=== PATIENT | male | born 1950 | race Caucasian/White ===

== ENCOUNTER → 2016-06-03 | Outpatient (CLI) | payer MEDICARE, OTHER ==
--- NOTE | 2016-06-04 07:19 | PN ---
DATE OF SERVICE: 06/03/2016 A 65-year-old gentleman who has been followed in the sleep center for treatment of obstructive sleep apnea-hypopnea syndrome and sleepiness possibly related to narcolepsy. Presently, the patient continued to use his CPAP equipment every night for the whole night without any significant problems. No snoring with the machine. CPAP pressure is 10 cm of water. At the end of 2015, patient had multiple sleep latency test after the night with CPAP and this test confirmed pathological sleepiness during the day. Mean sleep latency was very short, only 2.6 minutes, which indicates possibility of diagnosis of narcolepsy. After that patient was recommended to start treatment with modafinil, but he went to different pharmaceutical company and he was refused to given him that medication. He continued to feel sleepiness during the day. [place] Sleepiness Scale increased to 21. Today again with the usage of CPAP every night and normal sleep schedule. MEDICATIONS: ( ), metformin, vitamin D, aspirin, montelukast, bupropion, lisinopril, Levemir, and Enbrel. PHYSICAL EXAMINATION: During physical exam, the patient in no distress. VITAL SIGNS: BP 112/71, HR 74, RR 16, height 5 feet ( ) inch, weight 201. BMI 31.9, temperature 97.8. Oxygen saturation at room air 93%. HEENT: PERRLA, EOMI, Evaluation of the oropharynx showed extremely low position of soft palate. tongue protrudes midline. NECK: Supple. No JVD, Thyroid is not palpable. LUNGS: Clear to percussion and to auscultation. Good air exchange. No wheezing or rhonchi. HEART: S1, S2 regular. No murmurs, gallops, or rubs. ABDOMEN: Slightly obese. PERSONAL LINES SALES REP: Awake, alert, and oriented x3. Cranial nerves 2 to 7 intact. There is no fasciculation or atrophy noted. No focal deficits observed. IMPRESSION: 1. Obstructive sleep apnea-hypopnea syndrome. Patient is using his CPAP equipment every night. No snoring with the machine. 2. Patient continued to have sleepiness. Multiple sleep latency test confirmed pathological sleepiness. Possible narcolepsy. 3. Obesity. 4. Diabetes mellitus. 5. Depression. 6. Chronic obstructive pulmonary disease. 7. Status post neck surgery. 8. Status post uvulopalatopharyngoplasty. PLAN: 1. Patient should be started on treatment with modafinil adjusting dose to prevent any excessive daytime sleepiness. 2. Sleep hygiene with regular time in bed for at least 8 hours. 3. No driving if feeling any sleepiness. 4. Daytime naps permitted. We will work on authorization to get for patient modafinil. Thank you very much for allowing me to participate in the management your patient. Sincerely, Kleber Addison MD, PhD, FAASM Diplomat of [place] [employer], Sleep Medicine Board by [place] [employer] [place] [employer] [facility] [place]
== END | disposition home or self-care (01) ==
LOC: SLEEP 16:04
PROVIDERS: ATTEND Internal Medicine
DX: G47.33 Obstructive sleep apnea (adult) (pediatric) (principal); E66.9 Obesity, unspecified; Z68.31 Body mass index [BMI] 31.0-31.9, adult; E11.9 Type 2 diabetes mellitus without complications; F32.9 Major depressive disorder, single episode, unspecified; J44.9 Chronic obstructive pulmonary disease, unspecified; Z98.890 Other specified postprocedural states; Z79.84 Long term (current) use of oral hypoglycemic drugs; Z79.899 Other long term (current) drug therapy

== ENCOUNTER 2016-11-04 11:53 | Emergency (ER) | payer MEDICARE, OTHER ==
[2016-11-04 12:00] VITALS: RESP 18
[2016-11-04] MEDS ORDERED: SODIUM CHLORIDE 0.9% 1,000 ML IV STA ×2 (12:12)
--- NOTE | 2016-11-04 12:41 | ED ---
General Adult HPI - General Chief complaint: Chest Pain Stated complaint: CHEST PAIN, DIZZINESS Time Seen by Provider: 11/04/16 12:11 Source: patient, RN notes reviewed, old records reviewed Mode of arrival: wheelchair Limitations: no limitations - History of Present Illness Initial comments: This is a 66-year-old male the ER for evaluation. This patient presents for evaluation of significant weakness, generalized not feeling well, apathy. Patient states he feels like he is going to . Patient's unsure how to describe apparatuses not feel well. No chest pain no headache or abdominal pain no recent nausea vomiting or diarrhea no travel history no sick contacts. No rashes. No change in medications. - Related Data Home Medications Medication Instructions Recorded Confirmed Aspirin 81 mg PO DAILY 01/31/15 11/04/16 Etanercept [Enbrel] 50 mg SQ WE 01/31/15 11/04/16 Folic Acid 1 mg PO DAILY 01/31/15 11/04/16 Lisinopril [Zestril] 2.5 mg PO DAILY 01/31/15 11/04/16 Simvastatin [Zocor] 80 mg PO HS 01/31/15 11/04/16 buPROPion [Wellbutrin] 75 mg PO DAILY 01/31/15 11/04/16 metFORMIN HCL [Glucophage] 500 mg PO BID 01/31/15 11/04/16 Albuterol Sulfate [Ventolin HFA] 2 puff INHALATION RT-QID PRN 07/22/15 11/04/16 Insulin Aspart [NovoLOG Flexpen] 25 units SQ BID 07/22/15 11/04/16 Insulin Detemir [Levemir Flextouch] 75 units SQ BID 07/22/15 11/04/16 Montelukast [Singulair] 10 mg PO HS 07/22/15 11/04/16 Ibuprofen [Advil] 400 mg PO Q6HR PRN 11/04/16 11/04/16 Allergies Allergy/AdvReac Type Severity Reaction Status Date / Time No Known Allergies Allergy Verified 11/04/16 12:28 Review of Systems ROS Statement: Those systems with pertinent positive or pertinent negative responses have been documented in the HPI. ROS Other: All systems not noted in ROS Statement are negative. Past Medical History Past Medical History: Asthma, COPD, Diabetes Mellitus, Hyperlipidemia, Hypertension, Rheumatoid Arthritis (RA), Sleep Apnea/CPAP/BIPAP Additional Past Medical History / Comment(s): family hx. colon cancer, supposed to use CPAP History of Any Multi-Drug Resistant Organisms: None Reported Past Surgical History: Cholecystectomy, Orthopedic Surgery, Tonsillectomy Additional Past Surgical History / Comment(s): surg. for sleep apnea, carpal tunnel surg., tarsal tunnel surg. for feet, cervical fusion Past Anesthesia/Blood Transfusion Reactions: No Reported Reaction Past Psychological History: No Psychological Hx Reported Smoking Status: Current every day smoker Past Alcohol Use History: None Reported Past Drug Use History: None Reported - Past Family History Father Family Medical History: Cancer, COPD Brother(s) Family Medical History: Coronary Artery Disease (CAD), Rheumatoid Arthritis (RA) Sister(s) Family Medical History: COPD, CVA/TIA Daughter(s) Family Medical History: No Reported History Mother Family Medical History: Cancer General Exam Limitations: no limitations General appearance: alert, in no apparent distress Head exam: Present: atraumatic, normocephalic, normal inspection Eye exam: Present: normal appearance, PERRL, EOMI. Absent: scleral icterus, conjunctival injection, periorbital swelling ENT exam: Present: normal exam, mucous membranes moist Neck exam: Present: normal inspection. Absent: tenderness, meningismus, lymphadenopathy Respiratory exam: Present: normal lung sounds bilaterally. Absent: respiratory distress, wheezes, rales, rhonchi, stridor Cardiovascular Exam: Present: regular rate, normal rhythm, normal heart sounds. Absent: systolic murmur, diastolic murmur, rubs, gallop, clicks GI/Abdominal exam: Present: soft, normal bowel sounds. Absent: distended, tenderness, guarding, rebound, rigid Extremities exam: Present: normal inspection, full ROM, normal capillary refill. Absent: tenderness, pedal edema, joint swelling, calf tenderness Back exam: Present: normal inspection Neurological exam: Present: alert, oriented X3, CN II-XII intact Psychiatric exam: Present: normal affect, normal mood Skin exam: Present: warm, dry, intact, normal color. Absent: rash Course Vital Signs 11/04/16 11/04/16 11/04/16 11:56 13:00 13:50 Temperature 98.2 F Pulse Rate 71 72 63 Respiratory 18 18 Rate Blood Pressure 119/59 108/61 O2 Sat by Pulse 96 96 93 L Oximetry - Reevaluation(s) Reevaluation #1: 11/04/16 14:44 Lab work is normal, patient reevaluation and speaking with patient states that. Some increased stress lately as well as been sick going to selling his house as well as things with family. Denies suicidal, no drugs or alcohol. EKG Findings - EKG Comments: EKG Findings:: EKG shows normal sinus rhythm of 69, MO 142, QRS 80, QTC 409 Medical Decision Making - Medical Decision Making 66 no the ER for evaluation. Patient has a for evaluation of weakness not feeling well generalized lethargy and fatigue. Patient's laboratory is normal at this time, x-rays negative spoke with patient, he states he'll follow up with primary care doctor. - Lab Data Result diagrams: 11/04/16 12:35 11/04/16 12:35 Lab Results 11/04/16 11/04/16 11/04/16 Range/Units 12:35 12:35 12:35 WBC 8.7 (3.8-10.6) k/uL RBC 5.40 (4.30-5.90) m/uL Hgb 16.8 (13.0-17.5) gm/dL Hct 49.6 (39.0-53.0) % MCV 91.8 (80.0-100.0) fL MCH 31.0 (25.0-35.0) pg MCHC 33.8 (31.0-37.0) g/dL RDW 12.9 (11.5-15.5) % Plt Count 203 (150-450) k/uL Neutrophils % 62 % Lymphocytes % 27 % Monocytes % 6 % Eosinophils % 2 % Basophils % 1 % Neutrophils # 5.4 (1.3-7.7) k/uL Lymphocytes # 2.3 (1.0-4.8) k/uL Monocytes # 0.5 (0-1.0) k/uL Eosinophils # 0.2 (0-0.7) k/uL Basophils # 0.1 (0-0.2) k/uL PT (9.0-12.0) sec INR (<1.2) APTT (22.0-30.0) sec Sodium 136 L (137-145) mmol/L Potassium 4.5 (3.5-5.1) mmol/L Chloride 104 (98-107) mmol/L Carbon Dioxide 24 (22-30) mmol/L Anion Gap 8 mmol/L BUN 13 (9-20) mg/dL Creatinine 0.68 (0.66-1.25) mg/dL Est GFR (MDRD) Af Amer >60 (>60 ml/min/1.73 sqM) Est GFR (MDRD) Non-Af >60 (>60 ml/min/1.73 sqM) Glucose 264 H (74-99) mg/dL Plasma Lactic Acid Josias (0.7-2.0) mmol/L Calcium 9.0 (8.4-10.2) mg/dL Phosphorus 3.0 (2.5-4.5) mg/dL Magnesium 1.9 (1.6-2.3) mg/dL Total Bilirubin 0.6 (0.2-1.3) mg/dL AST 21 (17-59) U/L ALT 27 (21-72) U/L Alkaline Phosphatase 68 (38-126) U/L Total Creatine Kinase 63 (55-170) U/L CK-MB (CK-2) 1.1 (0.0-2.4) ng/mL CK-MB (CK-2) Rel Index 1.7 Troponin I <0.012 (0.000-0.034) ng/mL NT-Pro-B Natriuret Pep pg/mL Total Protein 6.8 (6.3-8.2) g/dL Albumin 3.9 (3.5-5.0) g/dL TSH 0.896 (0.465-4.680) mIU/L Urine Color Urine Appearance (Clear) Urine pH (5.0-8.0) Ur Specific [place] (1.001-1.035) Urine Protein (Negative) Urine Glucose (UA) (Negative) Urine Ketones (Negative) Urine Blood (Negative) Urine Nitrite (Negative) Urine Bilirubin (Negative) Urine Urobilinogen (<2.0) mg/dL Ur Leukocyte Esterase (Negative) 11/04/16 11/04/16 11/04/16 Range/Units 12:35 12:35 13:40 WBC (3.8-10.6) k/uL RBC (4.30-5.90) m/uL Hgb (13.0-17.5) gm/dL Hct (39.0-53.0) % MCV (80.0-100.0) fL MCH (25.0-35.0) pg MCHC (31.0-37.0) g/dL RDW (11.5-15.5) % Plt Count (150-450) k/uL Neutrophils % % Lymphocytes % % Monocytes % % Eosinophils % % Basophils % % Neutrophils # (1.3-7.7) k/uL Lymphocytes # (1.0-4.8) k/uL Monocytes # (0-1.0) k/uL Eosinophils # (0-0.7) k/uL Basophils # (0-0.2) k/uL PT 11.3 (9.0-12.0) sec INR 1.1 (<1.2) APTT 26.7 (22.0-30.0) sec Sodium (137-145) mmol/L Potassium (3.5-5.1) mmol/L Chloride (98-107) mmol/L Carbon Dioxide (22-30) mmol/L Anion Gap mmol/L BUN (9-20) mg/dL Creatinine (0.66-1.25) mg/dL Est GFR (MDRD) Af Amer (>60 ml/min/1.73 sqM) Est GFR (MDRD) Non-Af (>60 ml/min/1.73 sqM) Glucose (74-99) mg/dL Plasma Lactic Acid Josias 1.3 (0.7-2.0) mmol/L Calcium (8.4-10.2) mg/dL Phosphorus (2.5-4.5) mg/dL Magnesium (1.6-2.3) mg/dL Total Bilirubin (0.2-1.3) mg/dL AST (17-59) U/L ALT (21-72) U/L Alkaline Phosphatase (38-126) U/L Total Creatine Kinase (55-170) U/L CK-MB (CK-2) (0.0-2.4) ng/mL CK-MB (CK-2) Rel Index Troponin I (0.000-0.034) ng/mL NT-Pro-B Natriuret Pep 35 pg/mL Total Protein (6.3-8.2) g/dL Albumin (3.5-5.0) g/dL TSH (0.465-4.680) mIU/L Urine Color Urine Appearance (Clear) Urine pH (5.0-8.0) Ur Specific [place] (1.001-1.035) Urine Protein (Negative) Urine Glucose (UA) (Negative) Urine Ketones (Negative) Urine Blood (Negative) Urine Nitrite (Negative) Urine Bilirubin (Negative) Urine Urobilinogen (<2.0) mg/dL Ur Leukocyte Esterase (Negative) 11/04/16 Range/Units 13:40 WBC (3.8-10.6) k/uL RBC (4.30-5.90) m/uL Hgb (13.0-17.5) gm/dL Hct (39.0-53.0) % MCV (80.0-100.0) fL MCH (25.0-35.0) pg MCHC (31.0-37.0) g/dL RDW (11.5-15.5) % Plt Count (150-450) k/uL Neutrophils % % Lymphocytes % % Monocytes % % Eosinophils % % Basophils % % Neutrophils # (1.3-7.7) k/uL Lymphocytes # (1.0-4.8) k/uL Monocytes # (0-1.0) k/uL Eosinophils # (0-0.7) k/uL Basophils # (0-0.2) k/uL PT (9.0-12.0) sec INR (<1.2) APTT (22.0-30.0) sec Sodium (137-145) mmol/L Potassium (3.5-5.1) mmol/L Chloride (98-107) mmol/L Carbon Dioxide (22-30) mmol/L Anion Gap mmol/L BUN (9-20) mg/dL Creatinine (0.66-1.25) mg/dL Est GFR (MDRD) Af Amer (>60 ml/min/1.73 sqM) Est GFR (MDRD) Non-Af (>60 ml/min/1.73 sqM) Glucose (74-99) mg/dL Plasma Lactic Acid Josias (0.7-2.0) mmol/L Calcium (8.4-10.2) mg/dL Phosphorus (2.5-4.5) mg/dL Magnesium (1.6-2.3) mg/dL Total Bilirubin (0.2-1.3) mg/dL AST (17-59) U/L ALT (21-72) U/L Alkaline Phosphatase (38-126) U/L Total Creatine Kinase (55-170) U/L CK-MB (CK-2) (0.0-2.4) ng/mL CK-MB (CK-2) Rel Index Troponin I (0.000-0.034) ng/mL NT-Pro-B Natriuret Pep pg/mL Total Protein (6.3-8.2) g/dL Albumin (3.5-5.0) g/dL TSH (0.465-4.680) mIU/L Urine Color Yellow Urine Appearance Clear (Clear) Urine pH 6.5 (5.0-8.0) Ur Specific [place] 1.013 (1.001-1.035) Urine Protein Trace H (Negative) Urine Glucose (UA) 4+ H (Negative) Urine Ketones Negative (Negative) Urine Blood Negative (Negative) Urine Nitrite Negative (Negative) Urine Bilirubin Negative (Negative) Urine Urobilinogen 2.0 (<2.0) mg/dL Ur Leukocyte Esterase Negative (Negative) - Radiology Data Radiology results: report reviewed (Chest x-ray is negative for acute disease), image reviewed Disposition Clinical Impression: Weakness Disposition: HOME SELF-CARE Condition: Good Instructions: Weakness (ED) Referrals: Berto Cuenca MD [Primary Care Provider] - 1-2 days
[2016-11-04 13:05] LABS: Basophils # (A) 0.1 k/uL (0-0.2); Basophils % (A) 1 %; CH 30.8; CHCM 33.7; Eosinophils # (A) 0.2 k/uL (0-0.7); Eosinophils % (A) 2 %; HCT 49.6 % (39.0-53.0); HDW 2.31; HGB 16.8 gm/dL (13.0-17.5); Luc # (Auto) 0.24; Luc % (Auto) 3; Lymphocytes # (A) 2.3 k/uL (1.0-4.8); Lymphocytes % (A) 27 %; MCHC 33.8 g/dL (31.0-37.0); MCV 91.8 fL (80.0-100.0); Mean Platelet Volume 7.7; Monocytes # (A) 0.5 k/uL (0-1.0); Monocytes % (A) 6 %; Neutrophils # (A) 5.4 k/uL (1.3-7.7); Neutrophils % (A) 62 %; RDW 12.9 % (11.5-15.5); WBC 8.7 k/uL (3.8-10.6); WBC (Perox) 8.21
[2016-11-04 13:13] LABS: ALT 27 U/L (21-72); AST 21 U/L (17-59); Alkaline Phosphatase 68 U/L (38-126); Anion Gap 8 mmol/L; Blood Urea Nitrogen 13 mg/dL (9-20); Carbon Dioxide 24 mmol/L (22-30); Chloride 104 mmol/L (98-107); Glucose 264 mg/dL (74-99); Magnesium 1.9 mg/dL (1.6-2.3); Non-African American GFR(MDRD) >60 (>60 ml/min/1.73 sqM); Potassium 4.5 mmol/L (3.5-5.1); Sodium 136 mmol/L (137-145); Total Bilirubin 0.6 mg/dL (0.2-1.3); Total Protein 6.8 g/dL (6.3-8.2)
[2016-11-04 13:17] LABS: INR 1.1 (<1.2); Partial Thromboplastin Time 26.7 sec (22.0-30.0); Prothrombin Time 11.3 sec (9.0-12.0)
--- NOTE | 2016-11-04 13:22 | XR ---
EXAMINATION TYPE: XR chest 2V DATE OF EXAM: 11/04/2016 COMPARISON: Chest x-ray and CTA chest July 22, 2015. HISTORY: Chest pain and weakness. TECHNIQUE: Frontal and lateral views of the chest are obtained. FINDINGS: There is chronic emphysematous change without suspicious focal air space opacity, pleural effusion, or pneumothorax seen. There is perhaps mild interstitial edema with a few Saul B lines i n the periphery felt present. The cardiac silhouette size is within normal limits. Anterior fusion pl ate lower cervical spine is noted.. IMPRESSION: Chronic emphysematous change with suggestion of mild interstitial edema, no suspicious f ocal infiltrate.
[2016-11-04 13:25] LABS: Creatine Kinase 63 U/L (55-170)
[2016-11-04 13:38] LABS: Creatine Kinase MB 1.1 ng/mL (0.0-2.4); Troponin I <0.012 ng/mL (0.000-0.034)
[2016-11-04 14:04] LABS: Appearance,Urine Clear (Clear); Bilirubin,Urine Negative (Negative); Glucose,Urine (UA) 4+ (Negative); Ketones,Urine Negative (Negative); Leukocyte Esterase,Urine Negative (Negative); Nitrite,Urine Negative (Negative); PH, Urine 6.5 (5.0-8.0); Protein,Urine Trace (Negative); Specific Gravity,Urine 1.013 (1.001-1.035); UA Billing (MACRO vs. MICRO) CHEM
[2016-11-04 14:54] VITALS: BP 128/60; PULSE 66; TEMP 97.8
== END 2016-11-04 15:04 | disposition home or self-care (01) ==
LOC: EC 11:53
DX: R53.1 Weakness (principal); J44.9 Chronic obstructive pulmonary disease, unspecified; E11.9 Type 2 diabetes mellitus without complications; E78.5 Hyperlipidemia, unspecified; I10 Essential (primary) hypertension; M06.9 Rheumatoid arthritis, unspecified; F17.200 Nicotine dependence, unspecified, uncomplicated; Z82.49 Family history of ischemic heart disease and other diseases of the circulatory system; Z79.82 Long term (current) use of aspirin; Z79.84 Long term (current) use of oral hypoglycemic drugs; Z79.4 Long term (current) use of insulin; Z79.899 Other long term (current) drug therapy
CPT/HCPCS: 36415; 71020; 80053; 81003; 82550; 82553; 83605; 83735; 83880; 84100; 84443; 84484; 85025; 85610; 85730; 87040; 87086; 93005; 96360; 96361; 99285

== ENCOUNTER → 2017-02-05 | Outpatient (CLI) | payer MEDICARE, OTHER ==
--- NOTE | 2017-02-06 15:16 | PE ---
Nuclear medicine PET/CT HISTORY: Solitary pulmonary nodule, R 91.1 Patient received 15.4 mCi F-18 FDG intravenously, delayed scanning performed from the skull base to t he mid thighs. Localization and attenuation correction CT scan was performed. Correlation to CT chest 07/22/2015, chest x-ray 11/04/2016. Neck and chest: Within the right parotid gland there is a nodular soft tissue density measuring appro ximately 11 mm, SUV is approximately 11. No supraclavicular, mediastinal, axillary, or hilar adenopat hy. Pulmonary fibrosis changes, emphysema within the lungs. Small subpleural nodule right upper lobe measures 11 mm but does not show associated hypermetabolic uptake. Right lower lobe lung nodule is al so stable, no associated hypermetabolic uptake. No pleural or pericardial effusion. There are coronar y artery calcifications. Abdomen pelvis: No retroperitoneal adenopathy. No evident liver mass. Patien t is post cholecystectomy. Cystic focus is associated with the left kidney. There is a right inguinal hernia containing bowel loop. Urinary bladder shows a thickened wall possibly due to chronic outlet obstruction. Prostate is enlarged. Osseous structures within normal limits. Postop change noted in the cervical spine. No suspicious hyp ermetabolic uptake. IMPRESSION: Findings within the right parotid gland could represent a more than tumor. Small pulmonar y nodules, no definite associated hypermetabolic uptake or interval growth. Right inguinal hernia con tains colon. Postop changes.
== END | disposition home or self-care (01) ==
LOC: RADPETMAIN 14:13
PROVIDERS: ATTEND Internal Medicine Sleep Medicine
DX: R91.1 Solitary pulmonary nodule (principal); K40.90 Unilateral inguinal hernia, without obstruction or gangrene, not specified as recurrent
CPT/HCPCS: 78815; A9552

== ENCOUNTER 2017-03-15 09:24 | Day surgery (SDC) | payer MEDICARE, OTHER ==
[2017-03-09 13:18] VITALS: BMI 28.0
[~2017-03-15 09:24] MED LIST: DEXAMETHASONE SOD PHOSPHATE 10 MG/ML 1 ML VIAL IV ONE; HEPARIN SODIUM,PORCINE 5,000 UNIT/ML 1 ML VIAL SQ ONE; LACTATED RINGERS 1,000 ML IV SCH; MIDAZOLAM 2 MG/2 ML VIAL IV PRN; ONDANSETRON 4 MG/2 ML VIAL IVP ONE; ceFAZolin IN SWFI 2 GM/20 ML SYRINGE IVP ONE
[2017-03-15 10:51] LABS: Glucose,Whole Blood 117 mg/dL (75-99)
[2017-03-15] MEDS ORDERED: LIDOCAINE 1% 20 ML VIAL (10MG/ML) FOR IV START INTRADERMA ONE (10:57)
--- NOTE | 2017-03-15 11:31 | P.GSHP ---
History of Present Illness H&P Date: 03/15/17 Chief Complaint: right inguinal hernia, umbilical hernia this 66-year-old male referred from Dr. Santos. Patient rents today for laparoscopic robotic-assisted repair of right internal hernia and umbilical hernia. He's had complaints of pain and possible mass in his right groin. Past Medical History Past Medical History: Asthma, COPD, Diabetes Mellitus, Hyperlipidemia, Hypertension, Rheumatoid Arthritis (RA), Sleep Apnea/CPAP/BIPAP Additional Past Medical History / Comment(s): family hx. colon cancer, supposed to use CPAP History of Any Multi-Drug Resistant Organisms: None Reported Past Surgical History: Cholecystectomy, Orthopedic Surgery, Tonsillectomy Additional Past Surgical History / Comment(s): surg. for sleep apnea, carpal tunnel surg., tarsal tunnel surg. for feet, cervical fusion, Past Anesthesia/Blood Transfusion Reactions: No Reported Reaction Smoking Status: Current every day smoker - Past Family History Father Family Medical History: Cancer, COPD Brother(s) Family Medical History: Coronary Artery Disease (CAD), Rheumatoid Arthritis (RA) Sister(s) Family Medical History: COPD, CVA/TIA Daughter(s) Family Medical History: No Reported History Mother Family Medical History: Cancer Medications and Allergies Home Medications Medication Instructions Recorded Confirmed Type Aspirin 81 mg PO DAILY 01/31/15 03/09/17 History Folic Acid 1 mg PO DAILY 01/31/15 03/09/17 History Lisinopril [Zestril] 2.5 mg PO DAILY 01/31/15 03/09/17 History Simvastatin [Zocor] 80 mg PO HS 01/31/15 03/09/17 History buPROPion [Wellbutrin] 75 mg PO DAILY 01/31/15 03/09/17 History metFORMIN HCL [Glucophage] 500 mg PO BID 01/31/15 03/09/17 History Albuterol Sulfate [Ventolin HFA] 2 puff INHALATION RT-QID PRN 07/22/15 03/15/17 History Insulin Aspart [NovoLOG Flexpen] 25 units SQ BID 07/22/15 03/09/17 History Insulin Detemir [Levemir Flextouch] 75 units SQ BID 07/22/15 03/09/17 History Montelukast [Singulair] 10 mg PO HS 07/22/15 03/09/17 History Ibuprofen [Advil] 400 mg PO Q6HR PRN 11/04/16 03/09/17 History Allergies Allergy/AdvReac Type Severity Reaction Status Date / Time No Known Allergies Allergy Verified 03/15/17 10:28 Surgical - Exam Vital Signs Temp Pulse Resp BP Pulse Ox 97.6 F 65 16 131/71 98 03/15/17 10:37 03/15/17 10:37 03/15/17 10:37 03/15/17 10:37 03/15/17 10:37 - General well developed, well nourished, no distress - Eyes PERRL - ENT normal pinna - Neck no masses - Respiratory normal expansion - Cardiovascular Rhythm: regular - Abdomen Abdomen: soft, non tender Hernia: inguinal (right inguinal hernia), umbilical (reducible) Results - Labs Abnormal Lab Results - Last 24 Hours (Table) 03/15/17 Range/Units 10:48 POC Glucose (mg/dL) 117 H (75-99) mg/dL Assessment and Plan Assessment: hiatal hernia Umbilical hernia We'll perform laparoscopic robotic-assisted repair.
[2017-03-15] MEDS ORDERED: GLYCOPYRROLATE 0.2 MG/ML 2 ML VIAL ONE (11:53)
[2017-03-15] MEDS ORDERED: PROPOFOL 10 MG/ML 20 ML VIAL IV ONE (11:53)
[2017-03-15] MEDS ORDERED: KETOROLAC 30 MG/ML 1 ML VIAL ONE (11:53)
[2017-03-15] MEDS ORDERED: SUCCINYLCHOLINE CHLORIDE 100 MG/5 ML SYR IV ONE (11:53)
[2017-03-15] MEDS ORDERED: fentaNYL (PF) 50 MCG/ML 2 ML AMP ONE (11:53)
[2017-03-15] MEDS ORDERED: MIDAZOLAM 2 MG/2 ML VIAL ONE (11:53)
[2017-03-15] MEDS ORDERED: LIDOCAINE 1% INJ 10MG/ML (20 ML MDV) ONE (11:53)
[2017-03-15] MEDS ORDERED: PHENYLEPHRINE-0.9% NACL SYG 1 MG/10 ML SYRINGE ONE (11:53)
[2017-03-15] MEDS ORDERED: NEOSTIGMINE 1 MG/ML 10 ML VIAL ONE (11:53)
[2017-03-15] MEDS ORDERED: ePHEDrine SULFATE/0.9% NACL/PF 50 MG/5 ML SYRINGE IV ONE (11:53)
[2017-03-15] MEDS ORDERED: VECURONIUM 10 MG VIAL IV ONE (11:53)
[2017-03-15] MEDS ORDERED: BUPIVACAIN-EPI 0.5%-1:200,000 30 ML VIAL SQ ONE (12:17)
[2017-03-15 13:08] VITALS: TEMP 98.6
[2017-03-15] MEDS: MORPHINE SULFATE 4 MG/ML SYRINGE IV PRN ×2 (13:21→13:27)
[2017-03-15] MEDS ORDERED: MORPHINE SULFATE 4 MG/ML SYRINGE IV ONE (13:34)
[2017-03-15 13:53] VITALS: RESP 16
[2017-03-15] MEDS ORDERED: HYDROmorphone 2 MG/ML 1 ML SYRINGE IV ONE ×2 (14:20→14:26)
[2017-03-15 16:00] VITALS: BP 98/61; PULSE 59
[2017-03-15] MEDS ORDERED: HYDROcodone/APAP 7.5-325MG 1 EACH TAB PO ONE (16:08)
[2017-03-15] MEDS ORDERED: ONDANSETRON 4 MG/2 ML VIAL IVP ONE (16:54)
--- NOTE | 2017-03-18 08:19 | P.OP ---
Date of Procedure: 03/15/17 Preoperative Diagnosis: Right inguinal hernia Umbilical hernia Postoperative Diagnosis: Right inguinal hernia Umbilical hernia Procedure(s) Performed: Laparoscopic robotic-assisted repair of right inguinal hernia and umbilical hernia Excision of right cord lipoma Anesthesia: LITA Surgeon: Bernard Smith Estimated Blood Loss (ml): 5 Pathology: other (Right cord lipoma) Condition: stable Disposition: PACU Description of Procedure: The patient's placed on the operating table in the supine position. The patient received general anesthesia. The patient's abdomen was prepped and draped in usual sterile fashion. The skin was anesthetized 1% local Xylocaine at the incision sites. Using an 11 blade a skin incision was made at the umbilicus. The fascia was grasped with a Bakari and then the peritoneal cavity was entered with the Veress needle. Position of the Veress needle was confirmed with a positive drop test. After adequate insufflation a 5 mm trocar was placed into the peritoneal cavity. The Laparoscope was placed the peritoneal cavity. And a robotic 8 mm trocar was placed in the right lateral position and then another 8 mm robotic trochars placed in the left lateral position. The original 5 mm trocar was exchanged for a 12 mm trocar. The patient was placed in reverse Trendelenburg and then the patient was docked to the robot. Next the peritoneum over top of the hernia was incised and then using blunt and sharp dissection and electrocautery the hernia sac was dissected free from the floor of the inguinal canal. The hernia sac was completely reduced into the peritoneal cavity. There was a cord lipoma which was dissected free from the cord and excised. And then using the Pro dictating transcribing machine servicer mesh the hernia was repaired. The peritoneum was then sutured with 20V lock suture. The patient was then undocked the robot. The needle was withdrawn from the peritoneal cavity. The umbilical hernia site site was closed with 0 Ethibond suture. The skin was closed interrupted 3-0 Monocryl suture. Dermabond dressing was applied. Patient was sent to recovery in stable condition.
== END 2017-03-15 18:19 | disposition home or self-care (01) ==
LOC: OR 09:24
PROVIDERS: ATTEND Surgery
DX: K40.30 Unilateral inguinal hernia, with obstruction, without gangrene, not specified as recurrent (principal); K42.9 Umbilical hernia without obstruction or gangrene; D17.6 Benign lipomatous neoplasm of spermatic cord; J44.9 Chronic obstructive pulmonary disease, unspecified; E11.9 Type 2 diabetes mellitus without complications; E78.5 Hyperlipidemia, unspecified; I10 Essential (primary) hypertension; M06.9 Rheumatoid arthritis, unspecified; G47.33 Obstructive sleep apnea (adult) (pediatric); Z80.0 Family history of malignant neoplasm of digestive organs; F17.200 Nicotine dependence, unspecified, uncomplicated; Z79.84 Long term (current) use of oral hypoglycemic drugs; Z79.82 Long term (current) use of aspirin; Z79.4 Long term (current) use of insulin; Z79.899 Other long term (current) drug therapy
CPT/HCPCS: 88304; 49650; 49652; 55559; C1781; J2250; J2270; J1170; J1644; J1100; J2710; J0690; J2405; J2001; J3010; J1885; J2370; J0330; J2704

== ENCOUNTER → 2017-03-18 | Outpatient (CLI) | payer MEDICARE, OTHER ==
[2017-03-18 13:51] LABS: Blood Urea Nitrogen 17 mg/dL (9-20)
--- NOTE | 2017-03-18 14:36 | CT ---
EXAMINATION TYPE: CT soft tissue neck w con DATE OF EXAM: 03/18/2017 COMPARISON: PET/CT 02/05/[address] cervical spine 02/02/2011 HISTORY: 66-year-old male with abnormal PET Scan TECHNIQUE: Contiguous axial scanning of the neck performed with IV Contrast, patient injected with 10 0 mL of Omnipaque 300. Coronal/sagittal reconstructions performed. CT DLP: 403.5 mGycm Automated exposure control for dose reduction was used. FINDINGS: Visualized structures show persistent origin to the left posterior cerebral artery. Orbits and globes and mastoid air cells are clear. Small polyp or mucosal retention cyst along the floor of the left maxillary sinus. Nasopharynx is clear. Oropharynx is clear. Epiglottis and prevertebral soft tissues within normal limits. The glottic and subglottic structures are clear. Minimal dependent debris or retained secretions in the lower trachea. [id number]-apsntozb emphysema. Subpleural pulmonary nodule posterior right upper lobe redemonstrated davina suring 1 cm, unchanged from 07/22/2015. The thyroid gland and submandibular glands as well as the left parotid gland are satisfactory. Homogeneously enhancing, circumscribed, oval mass along the right parotid tail measures 1.[address] cervical spine from 02/02/2011 is reviewed and shows a nodule here measuring 0.8 x 0.8 cm. ACDF hardware from C5 through C7 levels. IMPRESSION: 1. A 1.4 X 0.9 CM CIRCUMSCRIBED, HOMOGENEOUSLY ENHANCING MASS INVOLVING THE RIGHT PAROTID TAIL. 2. CT CERVICAL SPINE FROM 02/02/2011 IS REVIEWED AND SHOWS AN 8 X 8 MM NODULE IN THE SAME LOCATION. TH E RELATIVELY INDOLENT CHARACTER OF THIS MASS SUGGESTS A BENIGN ETIOLOGY SUCH NERVE SHEATH TUMOR, P LEOMORPHIC ADENOMA, OR OTHER BENIGN SALIVARY GLAND TUMOR. GIVEN THE INTENSE HYPERMETABOLISM ON PET/CT AND SLIGHT INCREASE IN SIZE, CONSIDER EXCISION.
== END | disposition home or self-care (01) ==
LOC: RADCTMAIN 13:06
PROVIDERS: ATTEND Otolaryngology
DX: R22.1 Localized swelling, mass and lump, neck (principal)
CPT/HCPCS: 82565; 84520; 70491; 36415; Q9967

== ENCOUNTER 2017-04-15 08:58 | Day surgery (SDC) | payer MEDICARE, OTHER ==
[2017-04-15 09:56] VITALS: RESP 18; TEMP 98.1
[2017-04-15 10:04] VITALS: BP 119/67; PULSE 55
--- NOTE | 2017-04-15 10:27 | US ---
EXAMINATION TYPE: US core biopsy parotid gland, US fine needle aspiration DATE OF EXAM: 04/15/2017 HISTORY: Right neck mass. FINDINGS: Maximal barrier technique was utilized. The skin overlying a suitable path to the patient' s mass was localized with ultrasound and the overlying skin prepped and draped. Ultrasound was utili zed with sterile technique. Lidocaine was used for local anesthesia. 3 passes with a 25-gauge needle were made and aspirated specimen submitted to cytology. A skin valentín was made with a scalpel. An 18-g auge needle was advanced under direct ultrasound guidance and core specimen obtained of the mass. Sp ecimen submitted in formalin to Pathology. Following the procedure, hemostasis achieved and the dwain ent is discharged in stable condition without complication. IMPRESSION:STATUS POST ULTRASOUND GUIDED FINE NEEDLE ASPIRATION AND CORE BIOPSY OF right neck MASS, P ATHOLOGY IS PENDING. THIS PROCEDURE IS PERFORMED BY THE UNDERSIGNED.
== END 2017-04-15 11:15 | disposition home or self-care (01) ==
LOC: RADPROMAIN 08:58
PROVIDERS: ATTEND Otolaryngology
DX: R22.1 Localized swelling, mass and lump, neck (principal)
CPT/HCPCS: 10022; 42400; 76942; 88173; 88305

== ENCOUNTER → 2017-04-25 | Outpatient (CLI) | payer MEDICARE, OTHER ==
[2017-04-25 18:25] LABS: Blood Urea Nitrogen 17 mg/dL (9-20)
--- NOTE | 2017-04-25 19:47 | CT ---
EXAMINATION TYPE: CT brain wo/w con DATE OF EXAM: 04/25/2017 COMPARISON: 12/07/2009 HISTORY: Memory loss. CT DLP: 2170 mGycm Automated exposure control for dose reduction was used. CONTRAST: CT scan of the head is performed without and with IV Contrast, patient injected with 100 mL of Omnipa que 300. FINDINGS: There is mild cerebral cortical atrophy. There is no mass effect nor midline shift. There is no sign of intracranial hemorrhage. The calvarium is intact. IMPRESSION: Mild atrophy. No acute intracranial abnormality. No change.
== END | disposition home or self-care (01) ==
LOC: RADCTMAIN 17:32
PROVIDERS: ATTEND Psychiatry & Neurology Neurology
DX: G31.9 Degenerative disease of nervous system, unspecified (principal)
CPT/HCPCS: 82565; 84520; 70470; 36415; Q9967

== ENCOUNTER 2017-10-16 15:06 | Emergency (ER) | payer MEDICARE, OTHER ==
[2017-10-16 15:21] VITALS: BP 123/69; PULSE 61; RESP 18; TEMP 97.8
[2017-10-16] MEDS ORDERED: KETOROLAC 30 MG/ML 1 ML VIAL IM STA (16:13)
--- NOTE | 2017-10-16 17:22 | ED ---
General Adult HPI - General Chief complaint: Neck Pain/Injury Stated complaint: NECK PAIN Time Seen by Provider: 10/16/17 15:42 Source: patient, RN notes reviewed Mode of arrival: ambulatory Limitations: no limitations - History of Present Illness Initial comments: 67-year-old male presents to the emergency department for a chief complaint of right-sided neck pain times one week. Patient states he has been sitting in his recliner often which props his head upward. He states he believes his pain is from this. Patient states he has been "babying the right side" of his neck so has been using the left side more. Patient states in the past day or 2 he has had mild pain in the left side of the neck from this. Patient describes the pain as a soreness. Patient denies any injuries. Patient denies any history of cancer or chronic steroid use. Patient does have a history of rheumatoid arthritis. Patient denies any headache. Patient denies any fevers or chills at home. Patient denies any numbness or tingling in the hands bilaterally except for fingertip numbness which has been chronically ongoing. Patient has no other complaints at this time including shortness of breath, chest pain, abdominal pain, nausea or vomiting, headache, or visual changes. - Related Data Home Medications Medication Instructions Recorded Confirmed Aspirin 81 mg PO DAILY 01/31/15 03/31/17 Folic Acid 1 mg PO DAILY 01/31/15 03/31/17 Lisinopril [Zestril] 2.5 mg PO DAILY 01/31/15 03/31/17 Simvastatin [Zocor] 80 mg PO HS 01/31/15 03/31/17 buPROPion [Wellbutrin] 75 mg PO DAILY 01/31/15 03/31/17 metFORMIN HCL [Glucophage] 500 mg PO BID 01/31/15 04/15/17 Albuterol Sulfate [Ventolin HFA] 2 puff INHALATION RT-QID PRN 07/22/15 03/31/17 Insulin Aspart [NovoLOG Flexpen] 25 units SQ BID 07/22/15 04/15/17 Insulin Detemir [Levemir Flextouch] 75 units SQ BID 07/22/15 04/15/17 Adalimumab [Humira Pen] 80 mg SQ [id number] 04/15/17 04/15/17 Previous Rx's Medication Instructions Recorded Cyclobenzaprine [Flexeril] 5 mg PO TID #12 tablet 10/16/17 Ibuprofen [Motrin] 600 mg PO Q8HR PRN #20 tab 10/16/17 Allergies Allergy/AdvReac Type Severity Reaction Status Date / Time No Known Allergies Allergy Verified 10/16/17 15:21 Review of Systems ROS Statement: Those systems with pertinent positive or pertinent negative responses have been documented in the HPI. ROS Other: All systems not noted in ROS Statement are negative. Past Medical History Past Medical History: Asthma, COPD, Diabetes Mellitus, Hyperlipidemia, Hypertension, Rheumatoid Arthritis (RA), Sleep Apnea/CPAP/BIPAP Additional Past Medical History / Comment(s): family hx. colon cancer, supposed to use CPAP History of Any Multi-Drug Resistant Organisms: None Reported Past Surgical History: Cholecystectomy, Hernia Repair, Orthopedic Surgery, Tonsillectomy Additional Past Surgical History / Comment(s): surg. for sleep apnea, carpal tunnel surg., tarsal tunnel surg. for feet, cervical fusion, Past Anesthesia/Blood Transfusion Reactions: No Reported Reaction Past Psychological History: Anxiety, Bipolar Smoking Status: Current every day smoker Past Alcohol Use History: Occasional Past Drug Use History: None Reported - Past Family History Father Family Medical History: Cancer, COPD Brother(s) Family Medical History: Coronary Artery Disease (CAD), Rheumatoid Arthritis (RA) Sister(s) Family Medical History: COPD, CVA/TIA Daughter(s) Family Medical History: No Reported History Mother Family Medical History: Cancer General Exam Limitations: no limitations General appearance: alert, in no apparent distress Head exam: Present: atraumatic, normocephalic, normal inspection Eye exam: Present: normal appearance, PERRL, EOMI. Absent: scleral icterus, conjunctival injection, periorbital swelling ENT exam: Present: normal exam, normal oropharynx, mucous membranes moist, TM's normal bilaterally, normal external ear exam Neck exam: Present: tenderness (mild tenderness to the right lower neck and superior trapezius. no tenderness to the cervical spine whatsoever. ). Absent: meningismus (negative kernig or brudzinsky), full ROM (patient has 70 degrees flexion of the neck, 20 degrees extension. Patient has about 20 degrees rotation to the left and 30 degrees rotation to the right), lymphadenopathy Respiratory exam: Present: normal lung sounds bilaterally. Absent: respiratory distress, wheezes, rales, rhonchi, stridor Cardiovascular Exam: Present: regular rate, normal rhythm, normal heart sounds. Absent: systolic murmur, diastolic murmur, rubs, gallop, clicks Neurological exam: Present: alert, oriented X3, CN II-XII intact, normal gait. Absent: motor sensory deficit (sensation intact in bilaterally upper extremities including distal digits. full ROM of RUE including distal digits and shoulders.) Psychiatric exam: Present: normal affect, normal mood Course Vital Signs 10/16/17 15:19 Temperature 97.8 F Pulse Rate 61 Respiratory 18 Rate Blood Pressure 123/69 O2 Sat by Pulse 96 Oximetry Medical Decision Making - Medical Decision Making 67-year-old male presents to the emergency department for a chief complaint of right-sided neck pain as well as right upper trapezius pain. Patient states he has been sitting in his recliner often which is neck forward and thinks this may be the cause. Patient denies midline neck pain. Patient described the pain as a soreness. Vitals normal. Patient does have mild palpation on exam of the trapezius muscle along the right neck and right upper shoulder.. Neurovascular intact in upper extremities. Cranial nerves intact. Full range of motion of upper extremities. No tenderness along the cervical spine. 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 No other abnormalities. No additional imaging was ordered at this time as patient denies injury or midline tenderness and has generalized tenderness to upper trapezius. No history of cancer, IV drug abuse, chronic steroid use. No Injury to the neck. Pain is worse with movement. As patient has mild tenderness along the trapezius as well as some limited range of motion without any midline neck pain this is likely a muscular spasm or strain. Patient will be given Motrin prescription as well as Tylenol. He will be given a prescription for Flexeril. He will follow up with primary care for this in one to 2 days. He will return to the emergency department if he has any worsening symptoms or fevers. Disposition Clinical Impression: Trapezius muscle spasm Disposition: HOME SELF-CARE Condition: Good Instructions: Cervical Strain (ED) Additional Instructions: Please take Motrin and Tylenol for pain. Take Flexeril if needed. Do not drive or operate machinery while taking Flexeril. Follow up with primary care in 1-2 days. Return to the emergency department if you have any worsening symptoms. Prescriptions: Cyclobenzaprine [Flexeril] 5 mg PO TID #12 tablet Ibuprofen [Motrin] 600 mg PO Q8HR PRN #20 tab PRN Reason: Pain Is patient prescribed a controlled substance at d/c from ED?: No Referrals: Berto Cuenca MD [Primary Care Provider] - 1-2 days Time of Disposition: 17:21
== END 2017-10-16 17:26 | disposition home or self-care (01) ==
LOC: EC 15:06
DX: M62.838 Other muscle spasm (principal); R20.0 Anesthesia of skin; J44.9 Chronic obstructive pulmonary disease, unspecified; E78.5 Hyperlipidemia, unspecified; I10 Essential (primary) hypertension; E11.9 Type 2 diabetes mellitus without complications; M06.9 Rheumatoid arthritis, unspecified; G47.30 Sleep apnea, unspecified; F31.9 Bipolar disorder, unspecified; F17.200 Nicotine dependence, unspecified, uncomplicated; Z79.4 Long term (current) use of insulin; Z79.82 Long term (current) use of aspirin; Z79.899 Other long term (current) drug therapy; Z98.1 Arthrodesis status
CPT/HCPCS: 99283; 96372; J1885

== ENCOUNTER → 2019-02-08 | Outpatient (CLI) | payer MEDICARE, OTHER ==
--- NOTE | 2019-02-08 18:02 | PN ---
PROGRESS NOTE DATE OF SERVICE: 02/08/2019 This patient is a 68-year-old gentleman who has been followed in [facility] for treatment of obstructive sleep apnea-hypopnea syndrome. According to the patient, he is using his machine every night and does not snore with the machine. [place] Sleepiness Scale today is increased at 15. At present patient is taking modafinil in the morning. I checked the patient's CPAP unit. CPAP pressure is 10 cm of water. Usage is 4/30 nights and 2/30 nights for more than 4 hours. Average usage is 3.8 hours per night. Leak is 46 L/minute. Apnea-hypopnea index only 0.8. The patient is using a nasal mask, possibly opening his mouth during sleep. MEDICATIONS: 1. Metformin. 2. Vitamin D. 3. Aspirin. 4. Montelukast. 5. Bupropion. 6. Lisinopril. 7. Levemir. 8. Enbrel. 9. Modafinil. 10.Citalopram. 11.Rivastigmine patch. PHYSICAL EXAMINATION: GENERAL: A pleasant patient in no distress. VITAL SIGNS: BP 137/65, HR 86, RR 20. Height 5 feet 6 inches, weight 196.8, body mass index 30.3. Temperature 96.8, oxygen saturation at room air 94%. HEENT: PERRLA, EOMI. Evaluation of oropharynx showed tongue protrudes midline. Extremely low position of soft palate. Mallampati IV. NECK: Supple. No JVD. Thyroid is not palpable. LUNGS: Clear to percussion and to auscultation. Good air exchange. No wheezing or rhonchi. HEART: S1, S2 regular. No murmurs, gallops or rubs. ABDOMEN: Obese. EXTREMITIES: No clubbing or cyanosis. COTTON GINNER: Awake, alert, and oriented X3. Cranial nerves 2 to 7 intact. There is no fasciculation or atrophy. noted. No focal deficits observed. IMPRESSION: 1. Obstructive sleep apnea-hypopnea syndrome. Normal apnea-hypopnea index while patient uses CPAP machine. 2. Possible narcolepsy, confirmed by multiple sleep latency test. The patient continues to feel sleepiness while taking one tablet of modafinil in the morning. 3. Obesity. 4. Diabetes mellitus. 5. Depression. 6. Chronic obstructive pulmonary disease. 7. Status post neck surgery. 8. Status post uvulopalatopharyngoplasty. PLAN: 1. Patient will increase dose of modafinil to 1-1/2 tablets in the morning. 2. He will continue to use CPAP equipment every night for the whole night. 3. Prescription for chin strap; possibly patient is opening his mouth during sleep. 4. Losing weight. 5. No driving if feeling any sleepiness. 6. Follow-up visit in 3 months. Thank you very much for allowing me to participate in the management of your patient. Sincerely, Kleber Addison MD, PhD, FAASM Diplomat of [employer] Dog Or Animal Sitter of [facility] [place] MMODL / IJN: [id number] /
== END | disposition home or self-care (01) ==
LOC: SLEEP 16:43
PROVIDERS: ATTEND Internal Medicine
DX: G47.33 Obstructive sleep apnea (adult) (pediatric) (principal); E66.9 Obesity, unspecified; E11.9 Type 2 diabetes mellitus without complications; F32.9 Major depressive disorder, single episode, unspecified; J44.9 Chronic obstructive pulmonary disease, unspecified; Z99.89 Dependence on other enabling machines and devices; Z79.891 Long term (current) use of opiate analgesic; Z79.899 Other long term (current) drug therapy; Z79.84 Long term (current) use of oral hypoglycemic drugs; Z98.890 Other specified postprocedural states

== ENCOUNTER → 2019-05-10 | Outpatient (CLI) | payer MEDICARE, OTHER ==
--- NOTE | 2019-05-10 19:46 | PN ---
PROGRESS NOTE DATE OF SERVICE: 05/10/2019. 68-year-old gentleman who has been followed in [facility] for treatment of obstructive sleep apnea-hypopnea syndrome and possible narcolepsy. Patient continued to take modafinil 200 mg in the morning, but feels sleepy while taking medication. He feels better than without modafinil, but not fully alert. He cannot use his machine because he feels that there is some leak from his CPAP unit from the place where the tube connected to the machine. I checked his CPAP unit. Pressure is 10 cm of water. The patient did not use it for the last 1-1/2 months. I believe machine works okay. I explained it to the patient. MEDICATIONS: Metformin, vitamin D, aspirin, , lisinopril, Levemir and Modafinil, citalopram. Rivastigmine patch. PHYSICAL EXAM: Patient in no distress. VITAL SIGNS: BP 109/63, HR 67, RR 16, height 5 feet 6-1/2 inches, weight 187.0 pounds, body mass index 29.7, temperature 97.3, oxygen saturation at room air 95%. Oropharynx extremely low soft palate, Mallampati 4. NECK: Supple, no JVD. Thyroid is not palpable. LUNGS: Clear to percussion and to auscultation. Good air exchange. No wheezing or rhonchi. HEART: S1, S2 regular. No murmurs, gallops, or rubs. ABDOMEN: Soft and nontender. Bowel sounds are present. No organomegaly appreciated. EXTREMITIES: No clubbing or cyanosis. EVIDENCE CUSTODIAN: Awake, alert, and oriented X3. Cranial nerves 2 to 7 intact. There is no fasciculation or atrophy. noted. No focal deficits observed. IMPRESSION: 1. Narcolepsy. Patient improved on modafinil 200 mg in the morning, but still continued to feel sleepy. 2. The patient did not use CPAP equipment for the last 2-1/2 months for treatment of obstructive sleep apnea-hypopnea syndrome. 3. Diabetes mellitus. 4. Depression. 5. Obesity. 6. Chronic obstructive pulmonary disease. 7. Status post neck surgery. 8. Status post uvulopalatopharyngoplasty. PLAN: Patient will increase dose of modafinil to . MMODL / IJN: [id number] /
--- NOTE | 2019-05-10 19:46 | PN ---
PROGRESS NOTE ADDENDUM: DATE OF SURGERY: 05/10/2019. This is continuation of plan. PLAN: 1. Patient will continue to take Modafinil up to 1-1/2, 2 tablets in the morning. 2. He should continue to use CPAP equipment every night for the whole night. 3. Watching and losing weight. 4. No driving if feeling sleepiness. 5. Sleep hygiene with regular time in bed for at least 7-1/2 to 8 hours. Thank you very much for allowing me to participate in management of your patient. Sincerely, Kleber Addison MD, PhD, FAASM Diplomat of [place] [employer] [place] [employer] Early Intervention Specialist of [facility] [place] MMODL / IJN: [id number] /
== END | disposition home or self-care (01) ==
LOC: SLEEP 16:19
PROVIDERS: ATTEND Internal Medicine
DX: G47.33 Obstructive sleep apnea (adult) (pediatric) (principal); G47.419 Narcolepsy without cataplexy; E11.9 Type 2 diabetes mellitus without complications; E66.9 Obesity, unspecified; J44.9 Chronic obstructive pulmonary disease, unspecified; Z98.890 Other specified postprocedural states; Z79.899 Other long term (current) drug therapy; Z68.29 Body mass index [BMI] 29.0-29.9, adult; Z79.82 Long term (current) use of aspirin; Z79.4 Long term (current) use of insulin

== ENCOUNTER 2019-08-03 17:19 | Observation (INO) | payer MEDICARE, OTHER ==
--- NOTE | 2019-08-03 17:55 | ED ---
Chest Pain HPI - General Chief Complaint: Chest Pain Stated Complaint: Chest pain Time Seen by Provider: 08/03/19 17:26 Source: patient, RN notes reviewed, old records reviewed Mode of arrival: ambulatory Limitations: no limitations - History of Present Illness Initial Comments: This is a 68-year-old male DF for evaluation patient has a for evaluation r egards to chest pain significant left-sided chest pain especially when touching her taking a deep breath. Patient has history of cholesterol and smoking as well as a family history of heart disease.patient has diabetes blood pressure cholesterol. Patient having persistent chest pain here in the ER especially episodically. No recent travel history. No fevers or cough. MD Complaint: chest pain -: hour(s) Onset: during rest, during exertion Pain Location: left chest Pain Radiation: none Severity: moderate Severity scale (1-10): 5 Quality: heaviness, sharp Consistency: intermittent Improves With: nothing Worsens With: nothing Anginal Symptoms: dyspnea Treatments Prior to Arrival: none - Related Data Home Medications Medication Instructions Recorded Confirmed Aspirin 81 mg PO DAILY 01/31/15 03/31/17 Folic Acid 1 mg PO DAILY 01/31/15 03/31/17 Lisinopril [Zestril] 2.5 mg PO DAILY 01/31/15 03/31/17 Simvastatin [Zocor] 80 mg PO HS 01/31/15 03/31/17 buPROPion [Wellbutrin] 75 mg PO DAILY 01/31/15 03/31/17 metFORMIN HCL [Glucophage] 500 mg PO BID 01/31/15 04/15/17 Albuterol Sulfate [Ventolin HFA] 2 puff INHALATION RT-QID PRN 07/22/15 03/31/17 Insulin Aspart [NovoLOG Flexpen] 25 units SQ BID 07/22/15 04/15/17 Insulin Detemir [Levemir Flextouch] 75 units SQ BID 07/22/15 04/15/17 Adalimumab [Humira Pen] 80 mg SQ [id number] 04/15/17 04/15/17 Previous Rx's Medication Instructions Recorded Cyclobenzaprine [Flexeril] 5 mg PO TID #12 tablet 10/16/17 Ibuprofen [Motrin] 600 mg PO Q8HR PRN #20 tab 10/16/17 Allergies Allergy/AdvReac Type Severity Reaction Status Date / Time No Known Allergies Allergy Verified 10/16/17 15:21 Review of Systems ROS Statement: Those systems with pertinent positive or pertinent negative responses have been documented in the HPI. ROS Other: All systems not noted in ROS Statement are negative. EKG Findings - EKG Comments: EKG Findings:: EKG shows sinus rhythm rate of 73, UT 154, QRS 80, QTC 409 Past Medical History Past Medical History: Asthma, COPD, Diabetes Mellitus, Hyperlipidemia, Hypertension, Rheumatoid Arthritis (RA), Sleep Apnea/CPAP/BIPAP Additional Past Medical History / Comment(s): family hx. colon cancer, supposed to use CPAP History of Any Multi-Drug Resistant Organisms: None Reported Past Surgical History: Cholecystectomy, Hernia Repair, Orthopedic Surgery, Tonsillectomy Additional Past Surgical History / Comment(s): surg. for sleep apnea, carpal tunnel surg., tarsal tunnel surg. for feet, cervical fusion, Past Anesthesia/Blood Transfusion Reactions: No Reported Reaction Past Psychological History: Anxiety, Bipolar Smoking Status: Current every day smoker Past Alcohol Use History: Occasional Past Drug Use History: None Reported - Past Family History Father Family Medical History: Cancer, COPD Brother(s) Family Medical History: Coronary Artery Disease (CAD), Rheumatoid Arthritis (RA) Sister(s) Family Medical History: COPD, CVA/TIA Daughter(s) Family Medical History: No Reported History Mother Family Medical History: Cancer General Exam Limitations: no limitations General appearance: alert, in no apparent distress Head exam: Present: atraumatic, normocephalic, normal inspection Eye exam: Present: normal appearance, PERRL, EOMI. Absent: scleral icterus, conjunctival injection, periorbital swelling ENT exam: Present: normal exam, mucous membranes moist Neck exam: Present: normal inspection. Absent: tenderness, meningismus, lymphadenopathy Respiratory exam: Present: normal lung sounds bilaterally. Absent: respiratory distress, wheezes, rales, rhonchi, stridor Cardiovascular Exam: Present: regular rate, normal rhythm, normal heart sounds. Absent: systolic murmur, diastolic murmur, rubs, gallop, clicks GI/Abdominal exam: Present: soft, normal bowel sounds. Absent: distended, tenderness, guarding, rebound, rigid Extremities exam: Present: normal inspection, full ROM, normal capillary refill. Absent: tenderness, pedal edema, joint swelling, calf tenderness Back exam: Present: normal inspection Neurological exam: Present: alert, oriented X3, CN II-XII intact Psychiatric exam: Present: normal affect, normal mood Skin exam: Present: warm, dry, intact, normal color. Absent: rash Course Vital Signs 08/03/19 08/03/19 08/03/19 17:20 17:35 18:42 Temperature 98.7 F Pulse Rate 83 69 62 Respiratory 18 18 16 Rate Blood Pressure 116/68 123/83 107/59 O2 Sat by Pulse 98 95 96 Oximetry - Reevaluation(s) Reevaluation #1: 08/03/19 19:21 Medical record is reviewed Reevaluation #2: 08/03/19 19:21 Patient continued to exhibit left-sided chest pain with Borges sign worse with palpation - Consultations Consultation #1: spoke Dr. Agudelo who is agreeable for admission Chest Pain MDM - MDM 68 male here with chest pain multiple risk factors. Patient will be admitted for left-sided chest pain and pain control, cardiology to evaluate Disposition Clinical Impression: Chest pain Disposition: ADMITTED IP TO THIS HOSP Condition: Fair Instructions (If sedation given, give patient instructions): Chest Pain (ED) Is patient prescribed a controlled substance at d/c from ED?: No Referrals: Moises Yee MD [Primary Care Provider] - 1-2 days
[2019-08-03 18:12] LABS: Basophils # (A) 0.1 k/uL (0-0.2); Basophils % (A) 1 %; Eosinophils # (A) 0.3 k/uL (0-0.7); Eosinophils % (A) 2 %; HCT 48.5 % (39.0-53.0); HGB 15.6 gm/dL (13.0-17.5); Lymphocytes # (A) 3.5 k/uL (1.0-4.8); Lymphocytes % (A) 31 %; MCH 29.2 pg (25.0-35.0); MCHC 32.2 g/dL (31.0-37.0); MCV 90.9 fL (80.0-100.0); Mean Platelet Volume 7.9; Monocytes # (A) 0.7 k/uL (0-1.0); Monocytes % (A) 7 %; Neutrophils # (A) 6.3 k/uL (1.3-7.7); Neutrophils % (A) 56 %; Platelet Count 199 k/uL (150-450); RBC 5.34 m/uL (4.30-5.90); WBC 11.3 k/uL (3.8-10.6)
[2019-08-03 18:20] LABS: ALT 14 U/L (4-49); AST 26 U/L (17-59); African American GFR (CKD) >90 (>60 ml/min/1.73 sqM); Albumin 4.1 g/dL (3.5-5.0); Alkaline Phosphatase 68 U/L (38-126); Anion Gap 9 mmol/L; Blood Urea Nitrogen 17 mg/dL (9-20); Carbon Dioxide 24 mmol/L (22-30); Chloride 105 mmol/L (98-107); Glucose 108 mg/dL (74-99); Magnesium 1.9 mg/dL (1.6-2.3); Non-African American GFR(CKD) >90 (>60 ml/min/1.73 sqM); Potassium 4.1 mmol/L (3.5-5.1); Sodium 138 mmol/L (137-145); Total Bilirubin 0.4 mg/dL (0.2-1.3); Total Protein 7.2 g/dL (6.3-8.2)
--- NOTE | 2019-08-03 18:33 | XR ---
EXAMINATION TYPE: XR chest 2V DATE OF EXAM: 08/03/2019 COMPARISON: 11/04/2016 INDICATION: Chest pain TECHNIQUE: Frontal and lateral views of the chest are obtained. FINDINGS: The heart size is normal. The pulmonary vasculature is normal. Is diffuse increased lung markings greater at the lung bases. Correlate for subsegmental atelectasis. Early pneumonia or bronchitis could be considered. Atypical pneumonia is considered less likely. IMPRESSION: 1. Diffuse increased lung markings. Correlate for atelectasis or bronchitis.
[2019-08-03 18:35] LABS: INR 1.1 (<1.2); Prothrombin Time 11.1 sec (9.0-12.0)
[2019-08-03] MEDS ORDERED: ASPIRIN 81 MG PO STA (19:16)
[2019-08-03] MEDS ORDERED: MORPHINE SULFATE 2 MG/ML SYRINGE IVP STA (19:16)
[2019-08-03] MEDS ORDERED: NITROGLYCERIN SL TABS 0.4 MG TAB SUBLINGUAL PRN (19:16)
[2019-08-03] MEDS ORDERED: MORPHINE SULFATE 4 MG/ML SYRINGE IV PRN (19:16)
[2019-08-03] MEDS ORDERED: SODIUM CHLORIDE 0.9% 1,000 ML IV SCH (19:30)
[2019-08-03 22:05] LABS: Glucose,Whole Blood 133 mg/dL (75-99)
[2019-08-04 01:11] VITALS: RESP 16
[2019-08-04 06:17] LABS: Glucose,Whole Blood 97 mg/dL (75-99)
[2019-08-04] MEDS ORDERED: CYCLOBENZAPRINE 10 MG TAB PO PRN (06:50)
[2019-08-04 07:37] LABS: Cholesterol 134 mg/dL (<200); HDL Cholesterol 26 mg/dL (40-60); LDL Cholesterol,Calculated 91 mg/dL (0-99); Triglycerides 87 mg/dL (<150)
[2019-08-04] MEDS ORDERED: INSULIN DETEMIR (LEVEMIR) 100 UNIT/ML SYR SQ SCH (08:00)
--- NOTE | 2019-08-04 08:04 | P.CRDCN ---
History of Present Illness History of present illness: This is Dr. Barreto dictating a consult on this patient The patient was interviewed and examined IMPRESSION / ASSESSMENT: Patient was chest discomfort with normal ECG and 3 normal troponins History of diabetes on insulin and metformin History of dyslipidemia History of obstructive sleep apnea History of uvulopalato pharyngoplasty Current smoker PLAN: D-dimer 2-D echo and Doppler study Smoking cessation HPI Patient given left-sided chest discomfort especially painful to touch and taking a deep breath Persistent chest discomfort Normal ECG 3 normal troponins Pleuritic chest discomfort that radiated to the left arm with associated shortness of breath ROS: No fever chills or rigors, no cough, phlegm or expectoration, no nausea, vomiting or diarrhea, no hematuria, dysuria, no musculoskeletal complaints, no strokes or seizures, no skin lesions. EXAMINATION: 98.7F pulse rate in the 50s blood pressure 130-60 mmHg Reduced breath sounds bilaterally with bilateral rhonchi Heart sounds are regular Abdomen soft nontender Lower extremities no edema Chest wall tenderness REVIEW OF LABS, ECG & MEDICAL DATA Diffuse increased lung markings Twelve-lead ECG shows normal sinus rhythm normal ST segments Elevated white count of 11,000 normal lymphocytes Sodium 138 potassium 4.1 BUN 17 creatinine 0.77 LDL 91 HDL 26 3 normal troponins Patient is diabetic, on insulin and metformin line history of dyslipidemia on Zocor 80 mg daily On Zestril and a baby aspirin Past Medical History Past Medical History: Asthma, COPD, Diabetes Mellitus, Hyperlipidemia, Hypertension, Rheumatoid Arthritis (RA), Sleep Apnea/CPAP/BIPAP Additional Past Medical History / Comment(s): family hx. colon cancer, supposed to use CPAP History of Any Multi-Drug Resistant Organisms: None Reported Past Surgical History: Cholecystectomy, Hernia Repair, Orthopedic Surgery, Tonsillectomy Additional Past Surgical History / Comment(s): surg. for sleep apnea, carpal tunnel surg., tarsal tunnel surg. for feet, cervical fusion, Past Anesthesia/Blood Transfusion Reactions: No Reported Reaction Past Psychological History: Anxiety, Bipolar Smoking Status: Current every day smoker Past Alcohol Use History: Occasional Additional Past Alcohol Use History / Comment(s): has smoked since childhood, trying to quit Past Drug Use History: None Reported - Past Family History Father Family Medical History: Cancer, COPD Brother(s) Family Medical History: Coronary Artery Disease (CAD), Rheumatoid Arthritis (RA) Sister(s) Family Medical History: COPD, CVA/TIA Daughter(s) Family Medical History: No Reported History Mother Family Medical History: Cancer Medications and Allergies Home Medications Medication Instructions Recorded Confirmed Type Aspirin 81 mg PO DAILY 01/31/15 08/03/19 History Folic Acid 1 mg PO DAILY 01/31/15 08/03/19 History Lisinopril [Zestril] 2.5 mg PO DAILY 01/31/15 08/03/19 History Insulin Detemir [Levemir Flextouch] 60 units SQ DAILY 07/22/15 08/03/19 History Citalopram Hydrobromide [CeleXA] 20 mg PO DAILY 08/03/19 08/03/19 History Cyclobenzaprine [Flexeril] 10 mg PO TID PRN 08/03/19 08/03/19 History Modafinil [Provigil] 100 mg PO DAILY 08/03/19 08/03/19 History Montelukast [Singulair] 10 mg PO HS 08/03/19 08/03/19 History Rivastigmine 9.5MG/24Hr Patch 1 patch TOPICAL DAILY 08/03/19 08/03/19 History [Exelon 9.5MG/24Hr Patch] Tiotropium 18 Mcg/Puff [Spiriva] 2 puff INHALATION RT-DAILY 08/03/19 08/03/19 History Allergies Allergy/AdvReac Type Severity Reaction Status Date / Time No Known Allergies Allergy Verified 08/03/19 21:24 Physical Exam Vitals: Vital Signs Temp Pulse Pulse Resp BP BP Pulse Ox 08/04/19 04:30 52 L 16 08/04/19 04:00 98.7 F 52 L 16 113/60 97 08/04/19 00:30 97.7 F 50 L 16 91/50 98 08/03/19 20:07 97.9 F 64 18 115/65 95 08/03/19 20:00 97.8 F 59 L 18 129/82 96 08/03/19 18:42 62 16 107/59 96 08/03/19 17:35 69 18 123/83 95 08/03/19 17:20 98.7 F 83 18 116/68 98 Intake and Output 08/03/19 08/04/19 08/04/19 22:59 06:59 14:59 Intake Total 960 Balance 960 Intake: Oral 960 Other: # Voids 1 1 Weight 81.647 kg Results 08/03/19 17:56 08/03/19 17:56 Cardiac Enzymes 08/03/19 08/03/19 08/04/19 Range/Units 17:56 18:00 00:58 AST 26 (17-59) U/L Troponin I <0.012 <0.012 (0.000-0.034) ng/mL 08/04/19 Range/Units 06:57 AST (17-59) U/L Troponin I <0.012 (0.000-0.034) ng/mL Coagulation 08/03/19 Range/Units 18:00 PT 11.1 (9.0-12.0) sec APTT 26.0 (22.0-30.0) sec Lipids 08/04/19 Range/Units 06:57 Triglycerides 87 (<150) mg/dL Cholesterol 134 (<200) mg/dL HDL Cholesterol 26 L (40-60) mg/dL CBC 08/03/19 Range/Units 17:56 WBC 11.3 H (3.8-10.6) k/uL RBC 5.34 (4.30-5.90) m/uL Hgb 15.6 (13.0-17.5) gm/dL Hct 48.5 (39.0-53.0) % Plt Count 199 (150-450) k/uL Comprehensive Metabolic Panel 08/03/19 Range/Units 17:56 Sodium 138 (137-145) mmol/L Potassium 4.1 (3.5-5.1) mmol/L Chloride 105 (98-107) mmol/L Carbon Dioxide 24 (22-30) mmol/L BUN 17 (9-20) mg/dL Creatinine 0.77 (0.66-1.25) mg/dL Glucose 108 H (74-99) mg/dL Calcium 9.0 (8.4-10.2) mg/dL AST 26 (17-59) U/L ALT 14 (4-49) U/L Alkaline Phosphatase 68 (38-126) U/L Total Protein 7.2 (6.3-8.2) g/dL Albumin 4.1 (3.5-5.0) g/dL Current Medications Generic Name Dose Route Start Last Admin Trade Name Freq PRN Reason Stop Dose Admin Aspirin 325 mg 08/04/19 09:00 Aspirin PO DAILY [facility] Aspirin 81 mg 08/04/19 09:00 Aspirin PO DAILY [facility] Atorvastatin Calcium 80 mg 08/04/19 09:00 Lipitor PO DAILY [facility] Citalopram Hydrobromide 20 mg 08/04/19 09:00 Celexa PO DAILY [facility] Cyclobenzaprine HCl 10 mg 08/04/19 06:50 Flexeril PO TID PRN muscle spasm Folic Acid 1 mg 08/04/19 09:00 Folic Acid PO DAILY [facility] Sodium Chloride 1,000 mls @ 20 mls/hr 08/03/19 19:30 08/04/19 00:29 Saline 0.9% IV 20 mls/hr .Q24H [facility] Administration Insulin Detemir 60 unit 08/04/19 08:00 Levemir SQ DAILY@0700 [facility] Ipratropium [place] 0.5 mg 08/04/19 12:00 Atrovent Nebulized INHALATION RT-QID [facility] Lisinopril 2.5 mg 08/04/19 09:00 Zestril PO DAILY [facility] Modafinil 100 mg 08/04/19 09:00 Provigil PO DAILY [facility] Montelukast Sodium 10 mg 08/04/19 21:00 Singulair PO HS [facility] Morphine Sulfate 4 mg 08/03/19 19:16 Morphine Sulfate (Inj) IV Q4HR PRN Chest Pain Nitroglycerin 0.4 mg 08/03/19 19:16 Nitrostat SUBLINGUAL Q5M PRN Chest Pain Rivastigmine 1 patch 08/04/19 09:00 Exelon 9.5mg/24hr Patch TRANSDERM DAILY [facility] Intake and Output 08/03/19 08/04/19 08/04/19 22:59 06:59 14:59 Intake Total 960 Balance 960 Intake: Oral 960 Other: # Voids 1 1 Weight 81.647 kg 08/03/19 17:56 08/03/19 17:56
[2019-08-04] MEDS ORDERED: ATORVASTATIN 80 MG TAB PO SCH (09:00)
[2019-08-04] MEDS ORDERED: LISINOPRIL 2.5 MG TAB PO SCH (09:00)
[2019-08-04] MEDS ORDERED: CITALOPRAM HYDROBROMIDE 20 MG TAB PO SCH (09:00)
[2019-08-04] MEDS ORDERED: MODAFINIL 100 MG TAB PO SCH (09:00)
[2019-08-04] MEDS ORDERED: ASPIRIN 325 MG TAB PO SCH (09:00)
[2019-08-04] MEDS ORDERED: RIVASTIGMINE 9.5MG/24HR PATCH TRANSDERM SCH (09:00)
[2019-08-04] MEDS ORDERED: ASPIRIN 81 MG PO SCH (09:00)
[2019-08-04] MEDS ORDERED: FOLIC ACID 1 MG TAB PO SCH (09:00)
--- NOTE | 2019-08-04 09:35 | CT ---
EXAMINATION TYPE: CT angio chest DATE OF EXAM: 08/04/2019 9:17 AM COMPARISON: Previous study dated 07/22/2015 HISTORY: Chest pain CT DLP: 511 mGycm Automated exposure control for dose reduction was used. CONTRAST: CTA scan of the thorax is performed with IV Contrast, patient injected with 100 mL of Isovue 370, pul monary embolism protocol. . FINDINGS: There is a background of emphysematous change and interstitial fibrosis. He there is a 1.2 cm well-defined, noncalcified pulmonary nodule in the lateral basal segment of the right lower lobe p reviously this measured 1.1 cm. There is a new pleural-based nodule in the superior segment of the ri ght lower lobe measuring 1.3 cm. This was not evident previously. There is a third lesion in the post erior segment of the right upper lobe measuring 1.2 cm. This was not evident previously. No other new parenchymal masses are seen. There is no significant axillary or mediastinal adenopathy. There is diffuse thickening of the lower esophagus. This is more apparent than on the previous examination. There is no evidence of pulmonary embolus. The aorta is normal in caliber without evidence of dissect ion. There is no pleural or pericardial fluid. The heart is not enlarged. Within the abdomen, the gallbladder is been removed. There is a slightly nodular contour of the right lobe of the liver. This is unchanged from previous. There is fullness in the right adrenal gland wit hout a definite mass identified. There is a simple appearing 2.4 cm cyst in the left kidney. There is hypertrophic spondylosis within the dorsal spine. IMPRESSION: 1. THIS EXAMINATION IS NEGATIVE FOR PULMONARY EMBOLUS. 2. AT LEAST 3 PULMONARY NODULES ONE OF WHICH HAS ENLARGED AND THE OTHER ARE NEW. THIS IS SUSPICIOUS F OR METASTATIC DISEASE. GRANULOMATOUS DISEASE COULD MIMIC THIS. A PET/CT WOULD BE SUGGESTED. 3. EMPHYSEMATOUS CHANGE AND PULMONARY FIBROSIS. 4. CYSTIC CHANGES IN THE LEFT KIDNEY. 5. DEGENERATIVE CHANGES WITHIN THE SPINE.
--- NOTE | 2019-08-04 09:48 | P.HPIM ---
History of Present Illness H&P Date: 08/04/19 Chief Complaint: chest pain, BREANNA HISTORY AND PHYSICAL AND DISCHARGE SUMMARY: This is a 68-year-old male patient of Dr. Yee with past medical history of COPD, diabetes mellitus type 2, hypertension, hyperlipidemia, psoriasis, obstructive sleep apnea. Patient states he went shopping at [employer] yesterday when he got home he found that he had chest pain that was very sore and continuing to worsen. He had soreness with difficulty breathing as well as worsening of pain with deep breathing. He denies any change with ambulation. Pain was also on the left side of his chest. He denied having any fever or chills, no cough or sputum production. He does complain of wheezing which is chronic. He denies any nausea or vomiting. Patient came into [facility] emergency center for evaluation. EKG was normal sinus rhythm with no acute ST changes. Troponins were negative on 3 draws. WBC 11.3, hemoglobin was 15.6 electrolytes renal function all within normal limits. Blood sugar 133. Triglycerides 87, cholesterol 134, LDL 91, HDL 26, lipase 77. Patient was placed on the observation unit and cardiology consult was requested. Dr. Barreto ordered d-dimer which came back elevated at 0.62. CTA of the chest was negative for pulmonary embolus. 3 pulmonary nodules one of which has enlarged and the other are new. Suspicious for metastatic disease. Granulomatosis disease could mimic this. PET scan was suggested. Emphysematous change and pulmonary fibrosis. Cystic changes in the left kidney. Degenerative changes within the spine. Echocardiogram reveals EF of 60-65%, trace aortic regurgitation, trace to mild mitral regurgitation, trace tricuspid regurgitation. Patient was seen by cardiology, Dr. Barreto, and cleared for discharge home. Review of Systems Constitutional: Denies chills, Denies chronic headaches, Denies fatigue, Denies fever, Denies lethargy, Denies weakness, Denies weight loss Eyes: denies blurred vision, denies pain Ears, nose, mouth and throat: Denies dysphagia, Denies headache, Denies nasal congestion, Denies nasal discharge, Denies sore throat, Denies vertigo Cardiovascular: Reports chest pain, Reports shortness of breath, Denies decreased exercise tolerance, Denies dyspnea on exertion, Denies edema, Denies irregular heart beat, Denies leg edema, Denies lightheadedness, Denies palpitations, Denies syncope Respiratory: Reports dyspnea, Reports pain on inspiration, Reports wheezing, Denies cough, Denies cough with sputum, Denies excessive sputum, Denies hemoptysis, Denies home oxygen, Denies respiratory infections Gastrointestinal: Denies abdominal pain, Denies diarrhea, Denies loss of appetite, Denies nausea, Denies vomiting Genitourinary: Denies dysuria, Denies urinary retention Musculoskeletal: Denies frequent falls, Denies gait dysfunction, Denies muscle weakness, Denies myalgias Integumentary: Reports wounds, Denies pruritus, Denies rash Neurological: Denies change in mentation, Denies change in speech, Denies gait dysfunction, Denies numbness, Denies weakness Psychiatric: Denies anxiety, Denies depression Endocrine: Denies fatigue, Denies weight change Past Medical History Past Medical History: Asthma, COPD, Diabetes Mellitus, Hyperlipidemia, Hypertension, Rheumatoid Arthritis (RA), Sleep Apnea/CPAP/BIPAP History of Any Multi-Drug Resistant Organisms: None Reported Past Surgical History: Cholecystectomy, Hernia Repair, Orthopedic Surgery, Ton sillectomy Additional Past Surgical History / Comment(s): Uvular sleep apnea, carpal tunnel surg., tarsal tunnel surg. for feet, cervical fusion, Past Anesthesia/Blood Transfusion Reactions: No Reported Reaction Past Psychological History: Anxiety, Bipolar Smoking Status: Current every day smoker Past Alcohol Use History: Occasional Additional Past Alcohol Use History / Comment(s): Patient has been a smoker at least To 1 pack per day for 60 years and currently down to 4 cigarettes per day. He denies any marijuana, street drug alcohol use. He is retired from the [employer] after 38 years and spent 21 years in [facility]. Past Drug Use History: None Reported - Past Family History Father Family Medical History: Cancer, COPD Additional Family Medical History / Comment(s): Father at age 81 from mesothelioma and COPD with history of brain cancer. He was a yarn examiner skeins. Brother(s) Family Medical History: Coronary Artery Disease (CAD), Rheumatoid Arthritis (RA) Additional Family Medical History / Comment(s): Patient has 3 brothers. One brother at age 40 from AIDS. One brother is alive with exposure to Agent [place]. Third brother is alive with rheumatoid arthritis and coronary artery disease. Sister(s) Family Medical History: COPD, CVA/TIA Additional Family Medical History / Comment(s): Patient has 4 sisters. One sister is in her 50s and had a CVA at age 38. One at age 70 from COPD. Daughter(s) Family Medical History: No Reported History Additional Family Medical History / Comment(s): Patient has 5 daughters with no major medical problems. Mother Family Medical History: Cancer Additional Family Medical History / Comment(s): Mother at age 79 from colon cancer. Medications and Allergies Home Medications Medication Instructions Recorded Confirmed Type Aspirin 81 mg PO DAILY 01/31/15 08/03/19 History Folic Acid 1 mg PO DAILY 01/31/15 08/03/19 History Lisinopril [Zestril] 2.5 mg PO DAILY 01/31/15 08/03/19 History Insulin Detemir [Levemir Flextouch] 60 units SQ DAILY 07/22/15 08/03/19 History Citalopram Hydrobromide [CeleXA] 20 mg PO DAILY 08/03/19 08/03/19 History Cyclobenzaprine [Flexeril] 10 mg PO TID PRN 08/03/19 08/03/19 History Modafinil [Provigil] 100 mg PO DAILY 08/03/19 08/03/19 History Montelukast [Singulair] 10 mg PO HS 08/03/19 08/03/19 History Rivastigmine 9.5MG/24Hr Patch 1 patch TOPICAL DAILY 08/03/19 08/03/19 History [Exelon 9.5MG/24Hr Patch] Tiotropium 18 Mcg/Puff [Spiriva] 2 puff INHALATION RT-DAILY 08/03/19 08/03/19 History methylPREDNISolone Dose Pack 4 mg PO DIRECTED #21 package 08/04/19 Rx [Medrol Dose Pack] Allergies Allergy/AdvReac Type Severity Reaction Status Date / Time No Known Allergies Allergy Verified 08/03/19 21:24 Physical Exam Vitals: Vital Signs Temp Pulse Pulse Resp BP BP Pulse Ox 08/04/19 04:30 52 L 16 08/04/19 04:00 98.7 F 52 L 16 113/60 97 08/04/19 00:30 97.7 F 50 L 16 91/50 98 08/03/19 20:07 97.9 F 64 18 115/65 95 06/05/20 20:00 97.8 F 59 L 18 129/82 96 08/03/19 18:42 62 16 107/59 96 08/03/19 17:35 69 18 123/83 95 08/03/19 17:20 98.7 F 83 18 116/68 98 Intake and Output 08/03/19 08/04/19 08/04/19 22:59 06:59 14:59 Intake Total 960 Balance 960 Intake: Oral 960 Other: # Voids 1 1 Weight 81.647 kg Gen: This is a 68-year-old male. He is sitting on the edge of the bed and appears to be in no acute distress. HEENT: Head is atraumatic, normocephalic. Pupils equal, round. Sclerae is anicteric. NECK: Supple. No JVD. No lymphadenopathy. No thyromegaly. LUNGS: Decreased breath sounds bilaterally with scattered rhonchi and wheezing. No intercostal retractions. HEART: Regular rate and rhythm. No murmur. Chest wall tender to palpation. ABDOMEN: Soft. Bowel sounds are present. No masses. No tenderness. EXTREMITIES: No pedal edema. No calf tenderness. Dorsalis pedis +2 bilaterally. NEUROLOGICAL: Patient is awake, alert and oriented x3. Cranial nerves 2 through 12 are grossly intact. Results CBC & Chem 7: 08/03/19 17:56 08/03/19 17:56 Labs: Abnormal Lab Results - Last 24 Hours (Table) 08/03/19 08/03/19 08/03/19 Range/Units 17:56 17:56 22:04 WBC 11.3 H (3.8-10.6) k/uL D-Dimer (<0.60) mg/L FEU Glucose 108 H (74-99) mg/dL POC Glucose (mg/dL) 133 H (75-99) mg/dL HDL Cholesterol (40-60) mg/dL 08/04/19 08/04/19 Range/Units 06:57 08:20 WBC (3.8-10.6) k/uL D-Dimer 0.62 H (<0.60) mg/L FEU Glucose (74-99) mg/dL POC Glucose (mg/dL) (75-99) mg/dL HDL Cholesterol 26 L (40-60) mg/dL Thrombosis Risk Factor Assmnt - Choose All That Apply Each Factor Represents 1 point: Abnormal pulmonary function (COPD), Obesity (BMI >25) Other Risk Factors: Yes Each Risk Factor Represents 2 Points: Age 61-74 years Other congenital or acquired thrombophilia - If yes, enter type in comment: No Thrombosis Risk Factor Assessment Total Risk Factor Score: 4 Thrombosis Risk Factor Assessment Level: Moderate Risk Assessment and Plan Plan: 1. Chest pain and difficulty breathing, pleuritic type. 2. COPD with mild exacerbation. 3. Hypertension. 4. Hyperlipidemia. 5. Psoriasis. 6. Obstructive sleep apnea status post uvula surgery. 7. Pulmonary nodules found on CTA of the chest. Patient will be referred to Dr. Gordon. Patient has seen him in the past. 8. Elevated d-dimer. Pulmonary embolism ruled out by CTA. 9. COVID-19 infection not present. Patient placed as OBV status. Discharge plan: home Discharge Medication List Aspirin 81 mg PO DAILY 01/31/15 [History] Folic Acid 1 mg PO DAILY 01/31/15 [History] Lisinopril [Zestril] 2.5 mg PO DAILY 01/31/15 [History] Insulin Detemir [Levemir Flextouch] 60 units SQ DAILY 07/22/15 [History] Citalopram Hydrobromide [CeleXA] 20 mg PO DAILY 08/03/19 [History] Cyclobenzaprine [Flexeril] 10 mg PO TID PRN 08/03/19 [History] Modafinil [Provigil] 100 mg PO DAILY 08/03/19 [History] Montelukast [Singulair] 10 mg PO HS 08/03/19 [History] Rivastigmine 9.5MG/24Hr Patch [Exelon 9.5MG/24Hr Patch] 1 patch TOPICAL DAILY 08/03/19 [History] Tiotropium 18 Mcg/Puff [Spiriva] 2 puff INHALATION RT-DAILY 08/03/19 [History] methylPREDNISolone Dose Pack [Medrol Dose Pack] 4 mg PO DIRECTED #21 package 08/04/19 [Rx] Impression and plan of care have been directed as dictated by the signing physician. Coco Winter nurse practitioner acting as scribe for signing physician.
[2019-08-04 10:11] VITALS: BP 96/59; PULSE 58; TEMP 97.7
[2019-08-04 11:35] LABS: Glucose,Whole Blood 156 mg/dL (75-99)
[2019-08-04] MEDS ORDERED: IPRATROPIUM 0.5 MG/2.5 ML NEBU INHALATION SCH (12:00)
--- NOTE | 2019-08-04 15:43 | ECHOF ---
Referral Reason:LVF MEASUREMENTS -------- HEIGHT: 172.7 cm WEIGHT: 81.6 kg BP: 113/60 IVSd: 1.1 cm (0.6 - 1.1) LVIDd: 4.2 cm (3.9 - 5.3) LVPWd: 1.2 cm (0.6 - 1.1) IVSs: 1.5 cm LVIDs: 2.6 cm LVPWs: 1.6 cm LA Diam: 3.3 cm (2.7 - 3.8) RVIDd: 3.1 cm (< 3.3) Ao Diam: 3.0 cm (2.0 - 3.7) AV Cusp: 2.1 cm (1.5 - 2.6) EPSS: 0.3 cm MV E Omar: 0.95 m/s MV DecT: 167 ms MV A Omar: 0.83 m/s MV E/A Ratio: 1.15 MV EF SLOPE: 108.50 mm/s (70 - 150) MV EXCURSION: 19.20 mm (> 18.000) FINDINGS -------- Sinus rhythm. This was a technically adequate study. The left ventricular size is normal. There is borderline concentric left ventricular hypertrophy. Overall left ventricular systolic function is normal with, an EF between 60 - 65 %. The right ventricle is normal in size. The left atrial size is normal. The right atrium is normal in size. Interatrial and interventricular septum intact. The aortic valve is trileaflet and appears structurally normal. Trace amount of aortic regurgitatio n. There is trace to mild mitral regurgitation. Trace tricuspid regurgitation present. Trace/mild (physiologic) pulmonic regurgitation. The aortic root size is normal. Normal inferior vena cava with normal inspiratory collapse consistent with estimated right atrial pre ssure of 5 mmHg. The inferior vena cava is mildly dilated. There is no pericardial effusion. CONCLUSIONS -------- 1. Sinus rhythm. 2. This was a technically adequate study. 3. The left ventricular size is normal. 4. There is borderline concentric left ventricular hypertrophy. 5. Overall left ventricular systolic function is normal with, an EF between 60 - 65 %. 6. The right ventricle is normal in size. 7. The left atrial size is normal. 8. The right atrium is normal in size. 9. Interatrial and interventricular septum intact. 10. The aortic valve is trileaflet and appears structurally normal. 11. Trace amount of aortic regurgitation. 12. There is trace to mild mitral regurgitation. 13. Trace tricuspid regurgitation present. 14. Trace/mild (physiologic) pulmonic regurgitation. 15. The aortic root size is normal. 16. Normal inferior vena cava with normal inspiratory collapse consistent with estimated right atrial pressure of 5 mmHg. 17. The inferior vena cava is mildly dilated. 18. There is no pericardial effusion. SURTASS ANALYST: Mandi Woodall RDCS
[2019-08-04] MEDS ORDERED: MONTELUKAST 10 MG TAB PO SCH (21:00)
== END 2019-08-04 14:04 | disposition home or self-care (01) ==
LOC: EC 17:19 → 1SOBS 19:16
PROVIDERS: ADMIT Internal Medicine Geriatric Medicine; ATTEND Internal Medicine Geriatric Medicine
DX: R07.81 Pleurodynia (principal); J44.1 Chronic obstructive pulmonary disease with (acute) exacerbation; R79.89 Other specified abnormal findings of blood chemistry; R91.8 Other nonspecific abnormal finding of lung field; E11.9 Type 2 diabetes mellitus without complications; M06.9 Rheumatoid arthritis, unspecified; I10 Essential (primary) hypertension; J84.10 Pulmonary fibrosis, unspecified; E78.5 Hyperlipidemia, unspecified; F31.9 Bipolar disorder, unspecified; F41.9 Anxiety disorder, unspecified; Z99.89 Dependence on other enabling machines and devices; F17.200 Nicotine dependence, unspecified, uncomplicated; G47.33 Obstructive sleep apnea (adult) (pediatric); L40.9 Psoriasis, unspecified; E66.9 Obesity, unspecified; Z68.30 Body mass index [BMI] 30.0-30.9, adult; Z79.82 Long term (current) use of aspirin; Z79.4 Long term (current) use of insulin; Z79.899 Other long term (current) drug therapy; Z90.49 Acquired absence of other specified parts of digestive tract; Z98.1 Arthrodesis status; Z82.49 Family history of ischemic heart disease and other diseases of the circulatory system; Z80.0 Family history of malignant neoplasm of digestive organs; Z82.5 Family history of asthma and other chronic lower respiratory diseases; Z82.61 Family history of arthritis; Z82.3 Family history of stroke
CPT/HCPCS: 93005 ×2; 96374; 99285; 36415; 93306; 85379; 83880; 80061; 80053; 83690; 83735; 84484 ×2; 85025; 85610; 85730; 71046; 71275; G0378 ×2; U0003; J2270; Q9967

== ENCOUNTER → 2019-11-23 | Outpatient (CLI) | payer MEDICARE, OTHER | END | disposition home or self-care (01) | LOC: CPPFTMAIN 11:44 | PROVIDERS: ATTEND Internal Medicine Critical Care Medicine | DX: J44.9 Chronic obstructive pulmonary disease, unspecified (principal); R94.2 Abnormal results of pulmonary function studies | CPT/HCPCS: 94060; 94726; 94729 ==

== ENCOUNTER 2020-10-28 15:49 | Observation (INO) | payer MEDICARE, OTHER ==
--- NOTE | 2020-10-28 18:27 | XR ---
EXAMINATION TYPE: XR ribs RT w pa chest xray DATE OF EXAM: 10/28/2020 COMPARISON: Chest x-ray 08/03/2019 HISTORY: Pain TECHNIQUE: 5 views FINDINGS: There is some mild linear interstitial density in the lower lung rivera. Heart size is norm al. There are no hilar masses. There is no pleural effusion or pneumothorax. I see no displaced rib f racture. IMPRESSION: No rib fracture seen. Mild pulmonary fibrotic changes. Heart and lungs not changed compar ed to old exam.
[2020-10-28 22:22] LABS: Basophils # (A) 0.1 k/uL (0-0.2); Basophils % (A) 1 %; Eosinophils # (A) 0.3 k/uL (0-0.7); Eosinophils % (A) 3 %; HGB 16.6 gm/dL (13.0-17.5); Lymphocytes # (A) 3.2 k/uL (1.0-4.8); Lymphocytes % (A) 33 %; MCH 30.8 pg (25.0-35.0); MCHC 33.2 g/dL (31.0-37.0); MCV 92.8 fL (80.0-100.0); Mean Platelet Volume 8.6; Monocytes # (A) 0.7 k/uL (0-1.0); Monocytes % (A) 7 %; Neutrophils # (A) 5.2 k/uL (1.3-7.7); Neutrophils % (A) 53 %; Platelet Count 188 k/uL (150-450); RBC 5.39 m/uL (4.30-5.90); WBC 9.7 k/uL (3.8-10.6)
[2020-10-28 22:48] LABS: Anion Gap 6 mmol/L; Blood Urea Nitrogen 14 mg/dL (9-20); Carbon Dioxide 28 mmol/L (22-30); Chloride 102 mmol/L (98-107); Glucose 222 mg/dL (74-99); Potassium 4.3 mmol/L (3.5-5.1); Sodium 136 mmol/L (137-145)
[2020-10-28 22:49] LABS: ALT 13 U/L (4-49); AST 22 U/L (17-59); African American GFR (CKD) >90 (>60 ml/min/1.73 sqM); Albumin 3.8 g/dL (3.5-5.0); Alkaline Phosphatase 66 U/L (38-126); Non-African American GFR(CKD) >90 (>60 ml/min/1.73 sqM); Total Bilirubin 0.5 mg/dL (0.2-1.3); Total Protein 6.6 g/dL (6.3-8.2)
[2020-10-28] MEDS ORDERED: NALOXONE 0.4 MG/ML 1 ML VIAL IV PRN (23:34)
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
[2020-10-29 02:42] LABS: Amorphous Sediment,Urine Few /hpf; Appearance,Urine Cloudy (Clear); Bilirubin,Urine Negative (Negative); Blood,Urine Negative (Negative); Color,Urine Yellow; Glucose,Urine (UA) 1+ (Negative); Ketones,Urine Negative (Negative); Leukocyte Esterase,Urine Negative (Negative); Mucus,Urine Occasional /hpf; Nitrite,Urine Negative (Negative); Protein,Urine Trace (Negative); RBC,Urine 2 /hpf (0-5); Specific Gravity,Urine 1.021 (1.001-1.035); WBC,Urine 1 /hpf (0-5)
[2020-10-29] MEDS ORDERED: ACETAMINOPHEN TAB 325 MG TAB PO PRN (04:25)
[2020-10-29 07:26] LABS: Glucose,Whole Blood 159 mg/dL (75-99)
[2020-10-29] MEDS: FAMOTIDINE 20 MG TAB PO SCH (08:22)
[2020-10-29] MEDS: INSULIN DETEMIR (LEVEMIR) 100 UNIT/ML SYR SQ SCH (08:22)
[2020-10-29 11:56] LABS: Glucose,Whole Blood 258 mg/dL (75-99)
[2020-10-29] MEDS: INSULIN ASPART (NovoLOG) 100 UNIT/ML VIAL SQ SCH ×3 (12:37→22:05)
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
--- NOTE | 2020-10-29 14:03 | P.HPIM ---
History of Present Illness H&P Date: 10/29/20 HISTORY OF PRESENT ILLNESS This is a 70-year-old male patient of Dr. Yee with past medical history of COPD, diabetes mellitus type 2, hypertension, hyperlipidemia, p soriasis, obstructive sleep apnea. Patient has been under a lot of stress as his is actively dying and daughter is caring for her now. Apparently family noted that patient was very agitated and confused yesterday with bizarre behavior. Patient states that he has had trouble with memory for the past 5 years. Patient had right-sided chest pain while in the emergency room apparently from a fall. Patient does not recall the reason for his presentation to the emergency center. He is currently not driving. Patient was brought into [facility] emergency center by family. He was found to be afebrile, heart rate 71, blood pressure 144/81, pulse ox 97% on room air. CBC was unremarkable. Sodium 136 otherwise electrolytes and renal function normal. Blood sugar 222. Liver function tests were normal. Urinalysis revealed 1+ glucose and trace protein no sign of infection. Chest x- ray with ribs revealed no rib fractures area of mild pulmonary fibrotic changes. Patient is seen today in the emergency center waiting for [facility] bed. Patient has been seen by psychiatry for major neurocognitive disorder with reported behavioral disturbances. Recommendations for social work to assist with assisted living or other facility to accommodate dementia patients. No medic ation changes were recommended. We have started the patient on Aricept. REVIEW OF SYSTEMS Constitutional: No fever, no chills, no night sweats. No weight change. No weakness, fatigue or lethargy. No daytime sleepiness. EENT: No headache. No blurred vision or double vision, no loss of vision. No loss of Hearing, no ringing in the ears, no dizziness. No nasal drainage or congestion. No epistaxis. No sore throat. Lungs: No shortness of breath, cough, no sputum production. No wheezing. Cardiovascular: No chest pain, no lower extremity edema. No palpitations. No paroxysmal nocturnal dyspnea. No orthopnea. No lightheadedness or dizziness. No syncopal episodes. Abdominal: No abdominal pain. No nausea, vomiting. No diarrhea. No constipation. No bloody or tarry stools.. No loss of appetite. Genitourinary: No dysuria, increased frequency, urgency. No urinary retention. Musculoskeletal: No myalgias. No muscle weakness, no gait dysfunction, no frequent falls. No back pain. No neck pain. Integumentary: No wounds, no lesions. No rash or pruritus. No unusual bruising. No change in hair or nails. Neurologic: No aphasia. No facial droop. Reported change in mentation. No head injury. No headache. No paralysis. No paresthesia. Reported short-term memory deficit. Psychiatric: No depression. No anxiety. Reported mood swings. Endocrine: No abnormal blood sugars. No weight change. SOCIAL HISTORY Patient has been a smoker at least To 1 pack per day for 63 years and currently down to half a pack per day. He denies any marijuana, street drug alcohol use. He is retired from the [employer] after 38 years and spent 21 years in [place]. He lives at home with his who is currently dying according to the patient. Daughter is living with them. FAMILY HISTORY Father at age 81 from mesothelioma and COPD with history of brain cancer. 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 Mother at age 79 from colon cancer. Patient has 3 brothers. One brother at age 40 from AIDS. One brother is alive with exposure to Agent [place]. Third brother is alive with rheumatoid arthritis and coronary artery disease.Patient has 4 sisters. One sister is in her 50s and had a CVA at age 38. One at age 70 from COPD. Patient has 5 daughters with no major medical problems. PHYSICAL EXAMINATION Gen: This is a 70-year-old male. He is sitting on the edge of the stretcher in the emergency center and appears to be in no acute distress. Noted short-term memory deficit. HEENT: Head is atraumatic, normocephalic. Pupils equal, round. Sclerae is anicteric. NECK: Supple. No JVD. No lymphadenopathy. No thyromegaly. LUNGS: Clear to auscultation. No wheezes or rhonchi. No intercostal retractions. HEART: Regular rate and rhythm. Systolic murmur. ABDOMEN: Soft. Bowel sounds are present. No masses. No tenderness. EXTREMITIES: No pedal edema. No calf tenderness. NEUROLOGICAL: Patient is awake, alert and oriented x3. Cranial nerves 2 through 12 are grossly intact. ASSESSMENT AND PLAN 1. Major neurocognitive disorder with reported behavioral disturbance most likely secondary to worsening dementia. Psychiatric consult appreciated. P atient has been started on Aricept, social work consult.Check TSH, folate and vitamin B12. 2. Diabetes mellitus type 2, insulin requiring. Patient will be resumed on Levemir at 35 units daily and NovoLog scale, check hemoglobin A1c. 3. History of sleep apnea status post uvular surgery, continue CPAP. 4. Hyperlipidemia. Patient is no longer on statin. Start patient on atorvastatin 20 mg daily 6. Hypertension and hypertensive cardiovascular disease. Start patient on lisinopril 5 mg daily. 7. Rheumatoid arthritis. Patientis no longer on Enbrel. 8. Tobacco use and dependence. Nicotine patch. 9. DVT prophylaxis. Lovenox 40 mg subcutaneously every 24 hours. 10. GI prophylaxis. Continue PPI. Patient will be admitted to the hospital for a minimum of 2 night stay. DISCHARGE PLAN To be determined. Social work consult. Impression and plan of care have been directed as dictated by the signing physician. Coco Winter nurse practitioner acting as scribe for signing physician. Past Medical History Past Medical History: Asthma, COPD, Dementia, Diabetes Mellitus, Hyperlipidemia, Hypertension, Rheumatoid Arthritis (RA), Sleep Apnea/CPAP/BIPAP Additional Past Medical History / Comment(s): family hx. colon cancer, supposed to use CPAP History of Any Multi-Drug Resistant Organisms: None Reported Past Surgical History: Cholecystectomy, Hernia Repair, Orthopedic Surgery, Tonsillectomy Additional Past Surgical History / Comment(s): Uvular sleep apnea, carpal tunnel surg., tarsal tunnel surg. for feet, cervical fusion, Past Anesthesia/Blood Transfusion Reactions: No Reported Reaction Past Psychological History: Anxiety, Bipolar Past Alcohol Use History: Occasional Past Drug Use History: None Reported - Past Family History Father Family Medical History: Cancer, COPD Additional Family Medical History / Comment(s): Father at age 81 from mesothelioma and COPD with history of brain cancer. 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 Brother(s) Family Medical History: Coronary Artery Disease (CAD), Rheumatoid Arthritis (RA) Additional Family Medical History / Comment(s): Patient has 3 brothers. One brother at age 40 from AIDS. One brother is alive with exposure to Agent [place]. Third brother is alive with rheumatoid arthritis and coronary artery disease. Sister(s) Family Medical History: COPD, CVA/TIA Additional Family Medical History / Comment(s): Patient has 4 sisters. One sister is in her 50s and had a CVA at age 38. One at age 70 from COPD. Daughter(s) Family Medical History: No Reported History Additional Family Medical History / Comment(s): Patient has 5 daughters with no major medical problems. Mother Family Medical History: Cancer Additional Family Medical History / Comment(s): Mother at age 79 from colon cancer. Medications and Allergies Home Medications Medication Instructions Recorded Confirmed Type Insulin Detemir [Levemir Flextouch 60 units SQ DAILY 07/22/15 10/28/20 History Pen] Allergies Allergy/AdvReac Type Severity Reaction Status Date / Time No Known Allergies Allergy Verified 10/28/20 20:46 Physical Exam Vitals: Vital Signs Temp Pulse Resp BP Pulse Ox 10/29/20 05:48 98.1 F 67 18 145/87 94 L 10/28/20 16:25 98.0 F 71 16 144/81 97 Intake and Output 10/28/20 10/29/20 10/29/20 22:59 06:59 14:59 Other: Weight 80.739 kg Results CBC & Chem 7: 10/28/20 22:14 10/28/20 22:14 Labs: Abnormal Lab Results - Last 24 Hours (Table) 10/28/20 10/29/20 10/29/20 Range/Units 22:14 01:29 07:24 Sodium 136 L (137-145) mmol/L Glucose 222 H (74-99) mg/dL POC Glucose (mg/dL) 159 H (75-99) mg/dL Urine Protein Trace H (Negative) Urine Glucose (UA) 1+ H (Negative) Amorphous Sediment Few H (None) /hpf Urine Mucus Occasional H (None) /hpf
[2020-10-29] MEDS: NICOTINE 14MG/24HR PATCH TRANSDERM SCH (14:49)
[2020-10-29] MEDS: lisinopriL 5 MG TAB PO SCH (14:49)
[2020-10-29 17:22] LABS: Glucose,Whole Blood 115 mg/dL (75-99)
[2020-10-29] MEDS ORDERED: DONEPEZIL 5 MG TAB PO SCH (21:00)
[2020-10-29] MEDS ORDERED: ATORVASTATIN 20 MG TAB PO SCH (21:00)
[2020-10-29 21:55] LABS: Glucose,Whole Blood 281 mg/dL (75-99)
[2020-10-30 05:25] LABS: Folate, Serum 13.8 ng/mL
[2020-10-30 07:13] LABS: Glucose,Whole Blood 157 mg/dL (75-99)
[2020-10-30] MEDS ORDERED: PANTOPRAZOLE 40 MG TABLET PO SCH (07:30)
[2020-10-30] MEDS: lisinopriL 5 MG TAB PO SCH (07:30)
[2020-10-30] MEDS: INSULIN ASPART (NovoLOG) 100 UNIT/ML VIAL SQ SCH ×2 (07:30→12:37)
[2020-10-30] MEDS: FAMOTIDINE 20 MG TAB PO SCH (07:30)
[2020-10-30] MEDS: NICOTINE 14MG/24HR PATCH TRANSDERM SCH (07:30)
[2020-10-30] MEDS: INSULIN DETEMIR (LEVEMIR) 100 UNIT/ML SYR SQ SCH (07:31)
[2020-10-30] MEDS ORDERED: ENOXAPARIN 40 MG/0.4 ML SYRINGE SQ SCH (09:00)
--- NOTE | 2020-10-30 11:26 | P.DS ---
Providers Date of admission: 10/28/20 23:36 Expected date of discharge: 10/30/20 Attending physician: Brandon Agudelo Consults: 10/28/20 23:35 Consult Physician Urgent Consulting Provider: Julius Enamorado Consult Reason/Comments: depression, aggressive behavior Do you want consulting provider notified?: Yes Primary care physician: Moises Yee [facility] Course: HISTORY OF PRESENT ILLNESS This is a 70-year-old male patient of Dr. Yee with past medical history of COPD, diabetes mellitus type 2, hypertension, hyperlipidemia, psoriasis, obstructive sleep apnea. Patient has been under a lot of stress as his is actively dying and daughter is caring for her now. Apparently family noted that patient was very agitated and confused yesterday with bizarre behavior. Patient states that he has had trouble with memory for the past 5 years. Patient had right-sided chest pain while in the emergency room apparently from a fall. Patient does not recall the reason for his presentation to the emergency center. He is currently not driving. Patient was brought into [facility] emergency center by family. He was found to be afebrile, heart rate 71, blood pressure 144/81, pulse ox 97% on room air. CBC was unremarkable. Sodium 136 otherwise electrolytes and renal function normal. Blood sugar 222. Liver function tests were normal. Urinalysis revealed 1+ glucose and trace protein no sign of infection. Chest x- ray with ribs revealed no rib fractures area of mild pulmonary fibrotic changes. Patient is seen today in the emergency center waiting for [facility] bed. Patient has been seen by psychiatry for major neurocognitive disorder with reported behavioral disturbances. Recommendations for social work to assist with assisted living or other facility to accommodate dementia patients. No medication changes were recommended. We have started the patient on Aricept. 10/30: Patient is seen today he is resting in bed and appears to be comfortable. Patient was able to out of bed, ambulating in the hallway with no difficulty with balance or ambulation. Strength seems to be good. No lightheadedness or dizziness. He has been afebrile, heart rate 54, blood pressure 101/72, pulse ox and 97% on room air. Contacted the patient's daughter and updated her the patient is appropriate for discharge home and case management is making arrangements for home care. Patient will be discharged home today in stable condition. ASSESSMENT AND PLAN 1. Major neurocognitive disorder with reported behavioral disturbance most likely secondary to worsening dementia. 2. Diabetes mellitus type 2, insulin requiring. 3. History of sleep apnea status post uvular surgery, continue CPAP. 4. Hyperlipidemia. 6. Hypertension and hypertensive cardiovascular disease. 7. Rheumatoid arthritis. 8. Tobacco use and dependence. DISCHARGE PLAN Home with [facility]. Impression and plan of care have been directed as dictated by the signing physician. Coco Winter nurse practitioner acting as scribe for signing physician. Patient Condition at Discharge: Stable Plan - Discharge Summary Discharge Rx Participant: No New Discharge Prescriptions: New Donepezil [Aricept] 5 mg PO HS #30 tab Atorvastatin [Lipitor] 20 mg PO HS #30 tab lisinopriL [Zestril] 2.5 mg PO DAILY #30 tab Continue Insulin Detemir [Levemir Flextouch Pen] 60 units SQ DAILY Discharge Medication List Insulin Detemir [Levemir Flextouch Pen] 60 units SQ DAILY 07/22/15 [History] Atorvastatin [Lipitor] 20 mg PO HS #30 tab 10/30/20 [Rx] Donepezil [Aricept] 5 mg PO HS #30 tab 10/30/20 [Rx] lisinopriL [Zestril] 2.5 mg PO DAILY #30 tab 10/30/20 [Rx] Follow up Appointment(s)/Referral(s): [facility], [NON-STAFF] - As Needed Moises Yee MD [Primary Care Provider] - 1 Week (office closed at time of discharge) Patient Instructions/Handouts: Dementia (GEN) Discharge Disposition: HOME SELF-CARE
[2020-10-30 11:45] LABS: Glucose,Whole Blood 154 mg/dL (75-99)
[2020-10-30 13:51] VITALS: BMI 27.0
[2020-10-30 13:57] VITALS: BP 102/62; PULSE 58; RESP 18; TEMP 98.1
[2020-10-30 14:22] LABS: Hemoglobin A1C 8.5 % (4.0-6.0)
== END 2020-10-30 14:36 | disposition home or self-care (01) ==
LOC: EC 15:49 → 5NMEDONC 23:36 → 4SSUR 10-29 19:53
PROVIDERS: ADMIT Internal Medicine Geriatric Medicine; ATTEND Internal Medicine Geriatric Medicine
DX: F03.91 Unspecified dementia, unspecified severity, with behavioral disturbance (principal); E11.9 Type 2 diabetes mellitus without complications; G47.33 Obstructive sleep apnea (adult) (pediatric); R29.6 Repeated falls; R07.89 Other chest pain; F17.210 Nicotine dependence, cigarettes, uncomplicated; M06.9 Rheumatoid arthritis, unspecified; J44.9 Chronic obstructive pulmonary disease, unspecified; I11.9 Hypertensive heart disease without heart failure; F41.9 Anxiety disorder, unspecified; F31.9 Bipolar disorder, unspecified; E78.5 Hyperlipidemia, unspecified; L40.9 Psoriasis, unspecified; Z79.4 Long term (current) use of insulin; Z79.899 Other long term (current) drug therapy; Z90.49 Acquired absence of other specified parts of digestive tract; Z98.1 Arthrodesis status; Z80.0 Family history of malignant neoplasm of digestive organs; Z82.5 Family history of asthma and other chronic lower respiratory diseases; Z82.49 Family history of ischemic heart disease and other diseases of the circulatory system; Z80.8 Family history of malignant neoplasm of other organs or systems; Z82.61 Family history of arthritis; Z83.0 Family history of human immunodeficiency virus [HIV] disease
CPT/HCPCS: 99285; 96372; 82075; 36415; 80053; 84443; 82607; 82746; 85025; 81001; 83036; 71101; G0378 ×2; S4990 ×2; J1650

== ENCOUNTER 2021-08-08 04:44 | Emergency (ER) | payer MEDICARE, OTHER ==
[2021-08-08] MEDS ORDERED: LORazepam 2 MG/ML INJ IV STA (04:54)
[2021-08-08] MEDS ORDERED: SODIUM CHLORIDE 0.9% 500 ML 500 ML IV STA (04:54)
--- NOTE | 2021-08-08 04:55 | ED ---
Anxiety HPI - General Chief Complaint: Anxiety Stated Complaint: BREANNA, Anxiety Time Seen by Provider: 08/08/21 04:54 Source: patient, EMS, RN notes reviewed, old records reviewed, Caregiver Mode of arrival: EMS Limitations: altered mental status - History of Present Illness Initial Comments: This is a 70-year-old male to the emergency department for evaluation. Patient presents today from dementia coming in for some significant anxiety tonight. Patient awoke from sleep stating that something is wrong. Patient's calls during evaluation saying the patient does suffer from significant dementia and is a poor story and patient does seem to have some questions answered to some questions. History obtained from EMS as well as patient's prior chart. Patient's also provided history over the phone MD Complaint: anxiety, heart racing, shortness of breath -: hour(s) Symptoms: dyspnea Place: home Previous History of Same: Yes Severity: mild Quality: intermittent, improving Provoking factors: emotional stress Improves With: nothing Worsens With: nothing Associated symptoms: other (Patient awoke with symptoms) - Related Data Home Medications: Home Medications Medication Instructions Recorded Confirmed Insulin Detemir [Levemir Flextouch 60 units SQ DAILY 07/22/15 10/28/20 Pen] Previous Rx's Medication Instructions Recorded Atorvastatin [Lipitor] 20 mg PO HS #30 tab 10/30/20 Donepezil [Aricept] 5 mg PO HS #30 tab 10/30/20 lisinopriL [Zestril] 2.5 mg PO DAILY #30 tab 10/30/20 Allergies/Adverse Reactions: Allergies Allergy/AdvReac Type Severity Reaction Status Date / Time No Known Allergies Allergy Verified 08/08/21 05:11 Review of Systems ROS Statement: Those systems with pertinent positive or pertinent negative responses have been documented in the HPI. ROS Other: All systems not noted in ROS Statement are negative. Past Medical History Past Medical History: Asthma, COPD, Dementia, Diabetes Mellitus, Hyperlipidemia, Hypertension, Rheumatoid Arthritis (RA), Sleep Apnea/CPAP/BIPAP Additional Past Medical History / Comment(s): family hx. colon cancer, supposed to use CPAP History of Any Multi-Drug Resistant Organisms: None Reported Past Surgical History: Cholecystectomy, Hernia Repair, Orthopedic Surgery, Tonsillectomy Additional Past Surgical History / Comment(s): Uvular sleep apnea, carpal tunnel surg., tarsal tunnel surg. for feet, cervical fusion, Past Anesthesia/Blood Transfusion Reactions: No Reported Reaction Past Psychological History: Anxiety, Bipolar Past Alcohol Use History: Occasional Past Drug Use History: None Reported - Past Family History Father Family Medical History: Cancer, COPD Additional Family Medical History / Comment(s): Father at age 81 from mesothelioma and COPD with history of brain cancer. He was a controller coal or ore. Brother(s) Family Medical History: Coronary Artery Disease (CAD), Rheumatoid Arthritis (RA) Additional Family Medical History / Comment(s): Patient has 3 brothers. One brother at age 40 from AIDS. One brother is alive with exposure to Agent [place]. Third brother is alive with rheumatoid arthritis and coronary artery disease. Sister(s) Family Medical History: COPD, CVA/TIA Additional Family Medical History / Comment(s): Patient has 4 sisters. One sister is in her 50s and had a CVA at age 38. One at age 70 from COPD. Daughter(s) Family Medical History: No Reported History Additional Family Medical History / Comment(s): Patient has 5 daughters with no major medical problems. Mother Family Medical History: Cancer Additional Family Medical History / Comment(s): Mother at age 79 from colon cancer. General Exam Limitations: no limitations General appearance: alert, in no apparent distress, anxious Head exam: Present: atraumatic, normocephalic, normal inspection Eye exam: Present: normal appearance, PERRL, EOMI. Absent: scleral icterus, conjunctival injection, periorbital swelling ENT exam: Present: normal exam, mucous membranes moist Neck exam: Present: normal inspection. Absent: tenderness, meningismus, lymphadenopathy Respiratory exam: Present: normal lung sounds bilaterally. Absent: respiratory distress, wheezes, rales, rhonchi, stridor Cardiovascular Exam: Present: regular rate, normal rhythm, normal heart sounds. Absent: systolic murmur, diastolic murmur, rubs, gallop, clicks GI/Abdominal exam: Present: soft, normal bowel sounds. Absent: distended, tenderness, guarding, rebound, rigid Extremities exam: Present: normal inspection, full ROM, normal capillary refill. Absent: tenderness, pedal edema, joint swelling, calf tenderness Back exam: Present: normal inspection Neurological exam: Present: alert, oriented X3, CN II-XII intact Psychiatric exam: Present: normal affect, normal mood Skin exam: Present: warm, dry, intact, normal color. Absent: rash Course Vital Signs 08/08/21 08/08/21 08/08/21 04:46 04:54 06:52 Temperature 97.7 F 98 F Pulse Rate 53 L 59 L Pulse Rate [ 58 L Master Technician ] Respiratory 22 20 Rate Blood Pressure 107/88 108/84 O2 Sat by Pulse 96 94 L Oximetry - Reevaluation(s) Reevaluation #1: 08/08/21 Medical records reviewed Reevaluation #2: 08/08/21 Patient is informed of results, questions are answered Reevaluation #3: 08/08/21 Patient symptoms are generally improved no longer anxious to chest pain or shortness of breath Medical Decision Making - Medical Decision Making 70 male to the emergency department for evaluation of palpitations anxiety not feeling well. Patient has normal testing here in the ER and can be discharged home - Lab Data Result diagrams: 08/08/21 05:11 08/08/21 05:11 Lab Results 08/08/21 08/08/21 08/08/21 Range/Units 05:11 05:11 05:11 WBC 8.6 (3.8-10.6) k/uL RBC 5.52 (4.30-5.90) m/uL Hgb 16.8 (13.0-17.5) gm/dL Hct 50.8 (39.0-53.0) % MCV 92.2 (80.0-100.0) fL MCH 30.4 (25.0-35.0) pg MCHC 33.0 (31.0-37.0) g/dL RDW 13.4 (11.5-15.5) % Plt Count 210 (150-450) k/uL MPV 9.2 Neutrophils % 49 % Lymphocytes % 37 % Monocytes % 7 % Eosinophils % 3 % Basophils % 1 % Neutrophils # 4.2 (1.3-7.7) k/uL Lymphocytes # 3.2 (1.0-4.8) k/uL Monocytes # 0.6 (0-1.0) k/uL Eosinophils # 0.3 (0-0.7) k/uL Basophils # 0.1 (0-0.2) k/uL Sodium 139 (137-145) mmol/L Potassium 4.9 (3.5-5.1) mmol/L Chloride 106 (98-107) mmol/L Carbon Dioxide 25 (22-30) mmol/L Anion Gap 8 mmol/L BUN 15 (9-20) mg/dL Creatinine 0.70 (0.66-1.25) mg/dL Est GFR (CKD-EPI)AfAm >90 (>60 ml/min/1.73 sqM) Est GFR (CKD-EPI)NonAf >90 (>60 ml/min/1.73 sqM) Glucose 160 H (74-99) mg/dL Calcium 8.8 (8.4-10.2) mg/dL Phosphorus 4.0 (2.5-4.5) mg/dL Magnesium 2.0 (1.6-2.3) mg/dL Total Bilirubin 0.6 (0.2-1.3) mg/dL AST 29 (17-59) U/L ALT 14 (4-49) U/L Alkaline Phosphatase 51 (38-126) U/L Troponin I <0.012 (0.000-0.034) ng/mL NT-Pro-B Natriuret Pep pg/mL Total Protein 7.4 (6.3-8.2) g/dL Albumin 4.1 (3.5-5.0) g/dL 08/08/21 Range/Units 05:11 WBC (3.8-10.6) k/uL RBC (4.30-5.90) m/uL Hgb (13.0-17.5) gm/dL Hct (39.0-53.0) % MCV (80.0-100.0) fL MCH (25.0-35.0) pg MCHC (31.0-37.0) g/dL RDW (11.5-15.5) % Plt Count (150-450) k/uL MPV Neutrophils % % Lymphocytes % % Monocytes % % Eosinophils % % Basophils % % Neutrophils # (1.3-7.7) k/uL Lymphocytes # (1.0-4.8) k/uL Monocytes # (0-1.0) k/uL Eosinophils # (0-0.7) k/uL Basophils # (0-0.2) k/uL Sodium (137-145) mmol/L Potassium (3.5-5.1) mmol/L Chloride (98-107) mmol/L Carbon Dioxide (22-30) mmol/L Anion Gap mmol/L BUN (9-20) mg/dL Creatinine (0.66-1.25) mg/dL Est GFR (CKD-EPI)AfAm (>60 ml/min/1.73 sqM) Est GFR (CKD-EPI)NonAf (>60 ml/min/1.73 sqM) Glucose (74-99) mg/dL Calcium (8.4-10.2) mg/dL Phosphorus (2.5-4.5) mg/dL Magnesium (1.6-2.3) mg/dL Total Bilirubin (0.2-1.3) mg/dL AST (17-59) U/L ALT (4-49) U/L Alkaline Phosphatase (38-126) U/L Troponin I (0.000-0.034) ng/mL NT-Pro-B Natriuret Pep 59 pg/mL Total Protein (6.3-8.2) g/dL Albumin (3.5-5.0) g/dL - EKG Data -: EKG Interpreted by Me (G sinus bradycardia 54 NC 152 QRS 72 QTC 394) - Radiology Data Radiology results: report reviewed (Chest x-rays negative for acute disease), image reviewed Disposition Clinical Impression: Dementia, Acute anxiety, Panic attack Disposition: HOME SELF-CARE Condition: Fair Instructions (If sedation given, give patient instructions): Generalized Anxiety Disorder (ED) Is patient prescribed a controlled substance at d/c from ED?: No Referrals: Moises Yee MD [Primary Care Provider] - 1-2 days Time of Disposition: 06:30
--- NOTE | 2021-08-08 05:22 | XR ---
EXAMINATION TYPE: XR chest 1V portable DATE OF EXAM: 08/08/2021 COMPARISON: 10/28/2020 HISTORY: Chest pain TECHNIQUE: FINDINGS: Heart is normal. Lungs are clear of consolidation. There is slight coarsening of the inters titial markings. No heart failure. There are chest leads. IMPRESSION: Minimal fibrotic changes. Normal heart. No adverse change.
[2021-08-08 06:15] LABS: Basophils # (A) 0.1 k/uL (0-0.2); Basophils % (A) 1 %; Eosinophils # (A) 0.3 k/uL (0-0.7); Eosinophils % (A) 3 %; HCT 50.8 % (39.0-53.0); HGB 16.8 gm/dL (13.0-17.5); Lymphocytes # (A) 3.2 k/uL (1.0-4.8); Lymphocytes % (A) 37 %; MCH 30.4 pg (25.0-35.0); MCV 92.2 fL (80.0-100.0); Mean Platelet Volume 9.2; Monocytes # (A) 0.6 k/uL (0-1.0); Monocytes % (A) 7 %; Neutrophils # (A) 4.2 k/uL (1.3-7.7); Neutrophils % (A) 49 %; Platelet Count 210 k/uL (150-450); RBC 5.52 m/uL (4.30-5.90); RDW 13.4 % (11.5-15.5); WBC 8.6 k/uL (3.8-10.6)
[2021-08-08 06:24] LABS: ALT 14 U/L (4-49); African American GFR (CKD) >90 (>60 ml/min/1.73 sqM); Anion Gap 8 mmol/L; Blood Urea Nitrogen 15 mg/dL (9-20); Calcium 8.8 mg/dL (8.4-10.2); Carbon Dioxide 25 mmol/L (22-30); Chloride 106 mmol/L (98-107); Glucose 160 mg/dL (74-99); Non-African American GFR(CKD) >90 (>60 ml/min/1.73 sqM); Sodium 139 mmol/L (137-145); Total Bilirubin 0.6 mg/dL (0.2-1.3)
[2021-08-08 06:27] LABS: Potassium 4.9 mmol/L (3.5-5.1)
[2021-08-08 06:28] LABS: AST 29 U/L (17-59); Albumin 4.1 g/dL (3.5-5.0); Alkaline Phosphatase 51 U/L (38-126); Total Protein 7.4 g/dL (6.3-8.2)
[2021-08-08 06:53] VITALS: BP 108/84; PULSE 59; RESP 20; TEMP 98
== END 2021-08-08 07:28 | disposition home or self-care (01) ==
LOC: EC 04:44
DX: F03.90 Unspecified dementia, unspecified severity, without behavioral disturbance, psychotic disturbance, mood disturbance, and anxiety (principal); G40.109 Localization-related (focal) (partial) symptomatic epilepsy and epileptic syndromes with simple partial seizures, not intractable, without status epilepticus; F41.9 Anxiety disorder, unspecified; J44.9 Chronic obstructive pulmonary disease, unspecified; E11.9 Type 2 diabetes mellitus without complications; E78.5 Hyperlipidemia, unspecified
CPT/HCPCS: 36415; 93005; 83880; 80053; 83735; 84100; 84484; 85025; 71045; 99285; 96374; J2060

== ENCOUNTER 2022-12-09 18:27 | Inpatient (IN) | payer MEDICARE, OTHER ==
[2022-12-09] MEDS ORDERED: DIPH,PERTUS(ACELL)TETVAC-LF 0.5 ML VIAL IM ONE (19:13)
[2022-12-09] MEDS ORDERED: TOPICAL SKIN ADHESIVE 1 EACH AMP TOPICAL ONE (19:13)
--- NOTE | 2022-12-09 19:19 | ED ---
General Adult HPI - General Chief complaint: Syncope Stated complaint: syncope Time Seen by Provider: 12/09/22 18:41 Source: patient, EMS, RN notes reviewed Mode of arrival: EMS Limitations: no limitations - History of Present Illness Initial comments: Patient is a pleasant 72-year-old male presenting to the emergency Department with single episode. Patient states he fell down. Patient is unclear why. Patient does not recall the episode. Patient denies any significant injury. No neck or back pain. No headache. No confusion. No chest pain or dyspnea. No weakness. - Related Data Home Medications Medication Instructions Recorded Confirmed Insulin Detemir [Levemir Flextouch 60 units SQ DAILY 07/22/15 10/28/20 Pen] Previous Rx's Medication Instructions Recorded Atorvastatin [Lipitor] 20 mg PO HS #30 tab 10/30/20 Donepezil [Aricept] 5 mg PO HS #30 tab 10/30/20 lisinopriL [Zestril] 2.5 mg PO DAILY #30 tab 10/30/20 Allergies Allergy/AdvReac Type Severity Reaction Status Date / Time No Known Allergies Allergy Verified 12/09/22 18:33 Review of Systems ROS Statement: Those systems with pertinent positive or pertinent negative responses have been documented in the HPI. ROS Other: All systems not noted in ROS Statement are negative. Constitutional: Denies: fever Eyes: Denies: eye pain ENT: Denies: ear pain Respiratory: Denies: cough, dyspnea Cardiovascular: Denies: chest pain Musculoskeletal: Denies: back pain Neurological: Reports: as per HPI. Denies: headache, weakness, confusion Past Medical History Past Medical History: Asthma, COPD, Dementia, Diabetes Mellitus, Hyperlipidemia, Hypertension, Rheumatoid Arthritis (RA), Sleep Apnea/CPAP/BIPAP Additional Past Medical History / Comment(s): family hx. colon cancer, supposed to use CPAP History of Any Multi-Drug Resistant Organisms: None Reported Past Surgical History: Cholecystectomy, Hernia Repair, Orthopedic Surgery, Tonsillectomy Additional Past Surgical History / Comment(s): Uvular sleep apnea, carpal tunnel surg., tarsal tunnel surg. for feet, cervical fusion, Past Anesthesia/Blood Transfusion Reactions: No Reported Reaction Past Psychological History: Anxiety, Bipolar Smoking Status: Current every day smoker Past Alcohol Use History: Occasional Past Drug Use History: None Reported - Past Family History Father Family Medical History: Cancer, COPD Additional Family Medical History / Comment(s): Father at age 81 from mesothelioma and COPD with history of brain cancer. He was a telecommunications facility examiner. Brother(s) Family Medical History: Coronary Artery Disease (CAD), Rheumatoid Arthritis (RA) Additional Family Medical History / Comment(s): Patient has 3 brothers. One brother at age 40 from AIDS. One brother is alive with exposure to Agent [place]. Third brother is alive with rheumatoid arthritis and coronary artery disease. Sister(s) Family Medical History: COPD, CVA/TIA Additional Family Medical History / Comment(s): Patient has 4 sisters. One sister is in her 50s and had a CVA at age 38. One at age 70 from COPD. Daughter(s) Family Medical History: No Reported History Additional Family Medical History / Comment(s): Patient has 5 daughters with no major medical problems. Mother Family Medical History: Cancer Additional Family Medical History / Comment(s): Mother at age 79 from colon cancer. General Exam Limitations: no limitations General appearance: alert, in no apparent distress Head exam: Present: other (Right temporal laceration) Eye exam: Present: normal appearance, PERRL, EOMI, other (Disconjugate gaze) Neck exam: Present: normal inspection. Absent: tenderness Respiratory exam: Present: normal lung sounds bilaterally Cardiovascular Exam: Present: regular rate, normal rhythm GI/Abdominal exam: Present: soft. Absent: tenderness Extremities exam: Present: normal inspection. Absent: pedal edema, calf tenderness Neurological exam: Present: alert, oriented X3, CN II-XII intact. Absent: motor sensory deficit Expanded Neurological exam: Present: protecting the airway Patient oriented to: Present: person, place, time Speech: Present: fluid speech Cranial nerves: EOM's Intact: Normal Sensory exam: Upper Extremity Light Touch: Normal, Lower Extremity Light Touch: Normal Motor strength exam: RUE: 5, LUE: 5, RLE: 5, LLE: 5 Eye Response: (4) open spontaneously Motor Response: (6) obeys commands Verbal Response: (5) oriented Psychiatric exam: Present: normal affect, normal mood Skin exam: Present: normal color Course Vital Signs 12/09/22 18:30 Temperature 97.7 F Pulse Rate 59 L Respiratory 18 Rate Blood Pressure 131/71 O2 Sat by Pulse 97 Oximetry EKG Findings - EKG Results: EKG: interpreted by ERMD, sinus rhythm, normal axis, normal QRS, normal ST/T Procedures - Laceration Laceration #1 Consent Obtained: verbal consent Indication: laceration Site: face Size (cm): 3 Description: linear Depth: simple, single layer Pre-repair: wound explored, irrigated extensively Type of Sutures: other (Closed with skin adhesive) Patient Tolerated Procedure: well, no complications Medical Decision Making - Medical Decision Making Was pt. sent in by a medical professional or institution (, [facility], MANAGER [employer], urgent care, hospital, or longterm...) When possible be specific @ -No Did you speak to anyone other than the patient for history (EMS, parent, family, police, friend...)? What history was obtained from this source @ -No Did you review nursing and triage notes (agree or disagree)? Why? @ -I reviewed and agree with nursing and triage notes Were old charts reviewed (outside hosp., previous admission, EMS record, old EKG, old radiological studies, urgent care reports/EKG's, longterm records)? Report findings @ -No old charts were reviewed Differential Diagnosis (chest pain, altered mental status, abdominal pain women, abdominal pain men, vaginal bleeding, weakness, fever, dyspnea, syncope, headache, dizziness, GI bleed, back pain, seizure, CVA, palpatations, mental health, musculoskeletal)? @ -Differential Syncope: Valvular disease, hypertrophic cardiomyopathy, pulmonary embolism, tamponade, tachycardia, bradycardia, MD, hypovolemia, hemorrhage, dissection, anemia, intracranial hemorrhage, seizure, hypoglycemia, carbon monoxide poisoning, this is not meant to be an all-inclusive list. EKG interpreted by me (3pts min.). @ -As above X-rays interpreted by me (1pt min.). @ -Chest x-ray shows some increased interstitial markings CT interpreted by me (1pt min.). @ -Report reviewed U/S interpreted by me (1pt. min.). @ -None done What testing was considered but not performed or refused? (CT, X-rays, U/S, labs)? Why? @ -None What meds were considered but not given or refused? Why? @ -None Did you discuss the management of the patient with other professionals (professionals i.e. , PA, MANAGER SHIP, lab, RT, psych nurse, social science professor, manager student services, teacher, job placement officer, case specialist)? Give summary @ -Case was discussed with Dr. Fragoso, who will admit for Dr. Yee Was smoking cessation discussed for >3mins.? @ -No Was critical care preformed (if so, how long)? @ -No Were there social determinants of health that impacted care today? How? (Homelessness, low income, unemployed, alcoholism, drug addiction, amor sportation, low edu. Level, literacy, decrease access to med. care, half-way, rehab)? @ -No Was there de-escalation of care discussed even if they declined (Discuss DNR or withdrawal of care, Hospice)? DNR status @ -No What co-morbidities impacted this encounter? (DM, HTN, Smoking, COPD, CAD, Cancer, CVA, ARF, Chemo, Hep., AIDS, mental health diagnosis, sleep apnea, morbid obesity)? @ -None Was patient admitted / discharged? Hospital course, mention meds given and route, prescriptions, significant lab abnormalities, going to OR and other pertinent info. @ -Patient reevaluated. Patient updated. Patient will be admitted for syncopal with cardiac consult. Orders written. Undiagnosed new problem with uncertain prognosis? @ -No Drug Therapy requiring intensive monitoring for toxicity (Heparin, Nitro, Ins ulin, Cardizem)? @ -No Were any procedures done? @ -See above Diagnosis/symptom? @ -Syncope, facial laceration Acute, or Chronic, or Acute on Chronic? @ -Acute, acute Uncomplicated (without systemic symptoms) or Complicated (systemic symptoms)? @ -default Side effects of treatment? @ -No Exacerbation, Progression, or Severe Exacerbation? @ -No Poses a threat to life or bodily function? How? (Chest pain, USA, MD, pneumonia, PE, COPD, DKA, ARF, appy, cholecystitis, CVA, Diverticulitis, Homicidal, Suicidal, threat to staff... and all critical care pts) @ -No - Lab Data Result diagrams: 12/09/22 19:21 12/09/22 19:21 Lab Results 12/09/22 12/09/22 12/09/22 Range/Units 19:21 19:21 19:21 WBC 9.9 (3.8-10.6) k/uL RBC 5.54 (4.30-5.90) m/uL Hgb 16.8 (13.0-17.5) gm/dL Hct 49.7 (39.0-53.0) % MCV 89.7 (80.0-100.0) fL MCH 30.4 (25.0-35.0) pg MCHC 33.8 (31.0-37.0) g/dL RDW 12.9 (11.5-15.5) % Plt Count 269 (150-450) k/uL MPV 8.7 Neutrophils % 54 % Lymphocytes % 35 % Monocytes % 6 % Eosinophils % 2 % Basophils % 1 % Neutrophils # 5.4 (1.3-7.7) k/uL Lymphocytes # 3.5 (1.0-4.8) k/uL Monocytes # 0.6 (0-1.0) k/uL Eosinophils # 0.2 (0-0.7) k/uL Basophils # 0.1 (0-0.2) k/uL PT 11.1 (9.0-12.0) sec INR 1.1 (<1.2) APTT 26.1 (22.0-30.0) sec Sodium 140 (137-145) mmol/L Potassium 5.3 H (3.5-5.1) mmol/L Chloride 102 (98-107) mmol/L Carbon Dioxide 27 (22-30) mmol/L Anion Gap 11 mmol/L BUN 23 H (9-20) mg/dL Creatinine 0.64 L (0.66-1.25) mg/dL Est GFR (CKD-EPI)AfAm >90 (>60 ml/min/1.73 sqM) Est GFR (CKD-EPI)NonAf >90 (>60 ml/min/1.73 sqM) Glucose 143 H (74-99) mg/dL Calcium 9.6 (8.4-10.2) mg/dL Magnesium 2.1 (1.6-2.3) mg/dL Total Bilirubin 0.6 (0.2-1.3) mg/dL AST 26 (17-59) U/L ALT 18 (4-49) U/L Alkaline Phosphatase 88 (38-126) U/L Troponin I (0.000-0.034) ng/mL Total Protein 7.7 (6.3-8.2) g/dL Albumin 4.4 (3.5-5.0) g/dL 12/09/22 Range/Units 19:21 WBC (3.8-10.6) k/uL RBC (4.30-5.90) m/uL Hgb (13.0-17.5) gm/dL Hct (39.0-53.0) % MCV (80.0-100.0) fL MCH (25.0-35.0) pg MCHC (31.0-37.0) g/dL RDW (11.5-15.5) % Plt Count (150-450) k/uL MPV Neutrophils % % Lymphocytes % % Monocytes % % Eosinophils % % Basophils % % Neutrophils # (1.3-7.7) k/uL Lymphocytes # (1.0-4.8) k/uL Monocytes # (0-1.0) k/uL Eosinophils # (0-0.7) k/uL Basophils # (0-0.2) k/uL PT (9.0-12.0) sec INR (<1.2) APTT (22.0-30.0) sec Sodium (137-145) mmol/L Potassium (3.5-5.1) mmol/L Chloride (98-107) mmol/L Carbon Dioxide (22-30) mmol/L Anion Gap mmol/L BUN (9-20) mg/dL Creatinine (0.66-1.25) mg/dL Est GFR (CKD-EPI)AfAm (>60 ml/min/1.73 sqM) Est GFR (CKD-EPI)NonAf (>60 ml/min/1.73 sqM) Glucose (74-99) mg/dL Calcium (8.4-10.2) mg/dL Magnesium (1.6-2.3) mg/dL Total Bilirubin (0.2-1.3) mg/dL AST (17-59) U/L ALT (4-49) U/L Alkaline Phosphatase (38-126) U/L Troponin I <0.012 (0.000-0.034) ng/mL Total Protein (6.3-8.2) g/dL Albumin (3.5-5.0) g/dL Disposition Clinical Impression: Facial laceration, Syncope Disposition: ADMITTED IP TO THIS HOSP Is patient prescribed a controlled substance at d/c from ED?: No Referrals: Moises Yee [Primary Care Provider] - 1-2 days Time of Disposition: 20:23
--- NOTE | 2022-12-09 19:29 | XR ---
EXAMINATION TYPE: XR chest 1V portable DATE OF EXAM: 12/09/2022 Comparison: 08/08/2021 Clinical History: 72-year-old male fall, syncope Findings: Heart borderline enlarged. Diffuse interstitial density appears similar to 2021. No consolidation or pleural effusion. No sizable pleural effusion seen. ACF hardware. Impression: Borderline heart size and diffuse interstitial density which may in part be chronic. Correlate to exc lude mild pulmonary vascular congestion.
[2022-12-09 19:31] LABS: Basophils # (A) 0.1 k/uL (0-0.2); Basophils % (A) 1 %; Eosinophils # (A) 0.2 k/uL (0-0.7); Eosinophils % (A) 2 %; HCT 49.7 % (39.0-53.0); HGB 16.8 gm/dL (13.0-17.5); Lymphocytes # (A) 3.5 k/uL (1.0-4.8); Lymphocytes % (A) 35 %; MCH 30.4 pg (25.0-35.0); MCHC 33.8 g/dL (31.0-37.0); MCV 89.7 fL (80.0-100.0); Mean Platelet Volume 8.7; Monocytes # (A) 0.6 k/uL (0-1.0); Monocytes % (A) 6 %; Neutrophils # (A) 5.4 k/uL (1.3-7.7); Neutrophils % (A) 54 %; Platelet Count 269 k/uL (150-450); RBC 5.54 m/uL (4.30-5.90); RDW 12.9 % (11.5-15.5); WBC 9.9 k/uL (3.8-10.6)
[2022-12-09 19:41] LABS: ALT 18 U/L (4-49); AST 26 U/L (17-59); African American GFR (CKD) >90 (>60 ml/min/1.73 sqM); Albumin 4.4 g/dL (3.5-5.0); Alkaline Phosphatase 88 U/L (38-126); Anion Gap 11 mmol/L; Blood Urea Nitrogen 23 mg/dL (9-20); Calcium 9.6 mg/dL (8.4-10.2); Carbon Dioxide 27 mmol/L (22-30); Chloride 102 mmol/L (98-107); Glucose 143 mg/dL (74-99); Magnesium 2.1 mg/dL (1.6-2.3); Non-African American GFR(CKD) >90 (>60 ml/min/1.73 sqM); Potassium 5.3 mmol/L (3.5-5.1); Sodium 140 mmol/L (137-145); Total Bilirubin 0.6 mg/dL (0.2-1.3); Total Protein 7.7 g/dL (6.3-8.2)
[2022-12-09 19:42] LABS: INR 1.1 (<1.2); Partial Thromboplastin Time 26.1 sec (22.0-30.0); Prothrombin Time 11.1 sec (9.0-12.0)
--- NOTE | 2022-12-09 20:08 | CT ---
EXAMINATION TYPE: CT brain cspine wo con DATE OF EXAM: 12/09/2022 COMPARISON: Brain 04/25/2017 HISTORY: 72-year-old male loss of consciousness, confusion, syncope CT DLP: 1429.8 mGycm Automated exposure control for dose reduction was used. Technique: Examination of the head was done in axial plane without intravenous contrast. Coronal and sagittal reconstructions performed. CT of the cervical spine was obtained in axial plane without intravenous injection of contrast mater ial. Coronal and sagittal reformatted images were obtained from the axial views for evaluation of f ractures, spinal alignment and canal. FINDINGS: Head: There is no evidence of acute intracranial hemorrhage, acute ischemic changes, mass, mass-effect, or extra-axial fluid collection. There is no effacement of cerebral sulci or basal subarachnoid cister ns. There is no hydrocephalus. There is no midline shift. Winn-white matter distinction is preserv ed. Persistent CSP, normal anatomic variation. Benign basal ganglionic calcifications. Atherosclerotic ca lcifications in the carotid siphons. Mild generalized supratentorial volume loss. 6 mm mucosal retention cyst floor of the left maxillary sinus with scattered mild to moderate mucosal thickening ethmoid air cells. Mastoid air cells are well pneumatized. The globes are intact. Cervical spine: There is extensive motion across the patient's neck limiting the evaluation of the cervical spine. No craniocervical junction anomaly, predental space widening, or prevertebral soft tissue swelling. Deg enerative change of the C1 dens articulation. Status post C5-C7 ACDF. Moderate spondylotic change below the fusion at C7-T1. Alignment is maintaine d. Suspect a large left paracentral disc osteophyte complex at C3-C4 possibly contributing to moderate s jesus canal stenosis. Advanced hypertrophic facet arthropathy throughout. Unable to exclude underlying severe neuroforaminal stenoses at various levels. Emphysematous change in the visualized upper lungs. Sagittal and coronal reformatted images confirm above findings. COMBINED IMPRESSION: 1. Moderate cerebral atrophy. No acute intracranial abnormality seen. 2. Moderate to advanced multilevel spondylotic change. Status post C5-C7 ACDF. Possible moderate foca l spinal canal stenosis C3-C4. There may be severe neuroforaminal stenoses at various levels. Allowin g for the limitations due to patient motion, no acute fracture or malalignment is seen.
[2022-12-09] MEDS ORDERED: NALOXONE 0.4 MG/ML 1 ML VIAL IV PRN (20:23)
[2022-12-10 09:18] LABS: Basophils # (A) 0.1 k/uL (0-0.2); Basophils % (A) 1 %; Eosinophils # (A) 0.2 k/uL (0-0.7); Eosinophils % (A) 2 %; HCT 53.8 % (39.0-53.0); HGB 17.7 gm/dL (13.0-17.5); Lymphocytes % (A) 26 %; MCH 29.8 pg (25.0-35.0); MCV 90.1 fL (80.0-100.0); Mean Platelet Volume 8.7; Monocytes # (A) 0.7 k/uL (0-1.0); Monocytes % (A) 6 %; Neutrophils # (A) 7.2 k/uL (1.3-7.7); Neutrophils % (A) 63 %; Platelet Count 273 k/uL (150-450); RBC 5.96 m/uL (4.30-5.90); RDW 13.2 % (11.5-15.5); WBC 11.5 k/uL (3.8-10.6)
[2022-12-10 09:36] LABS: ALT 17 U/L (4-49); AST 23 U/L (17-59); African American GFR (CKD) >90 (>60 ml/min/1.73 sqM); Albumin 4.3 g/dL (3.5-5.0); Alkaline Phosphatase 84 U/L (38-126); Anion Gap 12 mmol/L; Blood Urea Nitrogen 17 mg/dL (9-20); Calcium 9.6 mg/dL (8.4-10.2); Carbon Dioxide 27 mmol/L (22-30); Chloride 103 mmol/L (98-107); Glucose 141 mg/dL (74-99); Non-African American GFR(CKD) >90 (>60 ml/min/1.73 sqM); Potassium 4.6 mmol/L (3.5-5.1); Sodium 142 mmol/L (137-145); Total Bilirubin 0.7 mg/dL (0.2-1.3); Total Protein 7.7 g/dL (6.3-8.2)
--- NOTE | 2022-12-10 16:05 | P.CRDCN ---
History of Present Illness Consult date: 12/10/22 History of present illness: HISTORY OF PRESENTING ILLNESS Patient is a 72-year-old male, who has not been seen by physicians recently. He presented to the emergency department because of a fall at home. It is questionable if patient syncopized OR mechanical fall. Patient is not a very good historian. At this time patient denies having any chest pain chest pressure shortness of breath. He denies having any palpitations lightheadedness or dizziness. DIAGNOSTICS EKG reveals sinus rhythm heart rate 61 bpm, no significant ST-T wave changes diagnostic for ischemia.. CT cervical spine showed severe neuroforaminal stenosis at the wrist levels. Moderate cerebral atrophy Labs showed hemoglobin 17.7, platelets 273, creatinine 0.59, troponin times 3 is negative REVIEW OF SYSTEMS 14 point review of system is negative except what is mentioned above in HPI. PHYSICAL EXAMINATION Vital signs reviewed. Head: Normocephalic. Injured right forehead Eyes: Sclerae nonicteric. Neck: Brisk carotid upstroke, no jugular venous distention. Lungs: Good air entry, mild wheezing audible Heart: Regular rate and rhythm, S1-S2, no S3, no murmur or rub. Abdomen: Soft nontender, positive bowel sounds no organomegaly. Extremities: No edema, intact distal pulses. ASSESSMENT Unwitnessed fall. Questionable syncope Severe neuroforaminal narrowing and cervical spine at multiple levels Tobacco smoker 1-2 packs per day PLAN Obtain an echocardiogram, orthostatic vital signs, Continue to monitor on telemetry for next 24-48 hours to monitor for any arrhythmias Obtain lipid panels Follow-up tomorrow after testing for further recommendations Past Medical History Past Medical History: Asthma, COPD, Dementia, Diabetes Mellitus, Hyperlipidemia, Hypertension, Rheumatoid Arthritis (RA), Sleep Apnea/CPAP/BIPAP Additional Past Medical History / Comment(s): family hx. colon cancer, supposed to use CPAP History of Any Multi-Drug Resistant Organisms: None Reported Past Surgical History: Cholecystectomy, Hernia Repair, Orthopedic Surgery, Tonsillectomy Additional Past Surgical History / Comment(s): Uvular sleep apnea, carpal tunnel surg., tarsal tunnel surg. for feet, cervical fusion, Past Anesthesia/Blood Transfusion Reactions: No Reported Reaction Past Psychological History: Anxiety, Bipolar Smoking Status: Current every day smoker Past Alcohol Use History: Occasional Past Drug Use History: None Reported - Past Family History Father Family Medical History: Cancer, COPD Additional Family Medical History / Comment(s): Father at age 81 from mesothelioma and COPD with history of brain cancer. He was a life claims examiner. Brother(s) Family Medical History: Coronary Artery Disease (CAD), Rheumatoid Arthritis (RA) Additional Family Medical History / Comment(s): Patient has 3 brothers. One brother at age 40 from AIDS. One brother is alive with exposure to Agent [place]. Third brother is alive with rheumatoid arthritis and coronary artery disease. Sister(s) Family Medical History: COPD, CVA/TIA Additional Family Medical History / Comment(s): Patient has 4 sisters. One sister is in her 50s and had a CVA at age 38. One at age 70 from COPD. Daughter(s) Family Medical History: No Reported History Additional Family Medical History / Comment(s): Patient has 5 daughters with no major medical problems. Mother Family Medical History: Cancer Additional Family Medical History / Comment(s): Mother at age 79 from colon cancer. Medications and Allergies Home Medications Medication Instructions Recorded Confirmed Type No Known Home Medications 12/09/22 12/09/22 History Allergies Allergy/AdvReac Type Severity Reaction Status Date / Time No Known Allergies Allergy Verified 12/09/22 21:04 Physical Exam Vitals: Vital Signs Temp Pulse Pulse Pulse Pulse Resp BP 12/10/22 14:40 71 16 12/10/22 14:35 81 18 12/10/22 14:30 98.1 F 68 18 12/10/22 07:00 97.8 F 58 L 16 121/57 12/09/22 23:00 71 16 116/73 12/09/22 20:54 65 16 131/90 12/09/22 18:30 97.7 F 59 L 18 131/71 BP BP BP Pulse Ox 12/10/22 14:40 98/58 12/10/22 14:35 116/67 12/10/22 14:30 119/59 12/10/22 07:00 96 12/09/22 23:00 96 12/09/22 20:54 97 12/09/22 18:30 97 Results 12/10/22 08:50 12/10/22 08:50 Cardiac Enzymes 12/09/22 12/09/22 12/09/22 Range/Units 19:21 19:21 21:33 AST 26 (17-59) U/L Troponin I <0.012 <0.012 (0.000-0.034) ng/mL 12/10/22 12/10/22 Range/Units 01:08 08:50 AST 23 (17-59) U/L Troponin I <0.012 (0.000-0.034) ng/mL Coagulation 12/09/22 Range/Units 19:21 PT 11.1 (9.0-12.0) sec APTT 26.1 (22.0-30.0) sec CBC 12/09/22 12/10/22 Range/Units 19:21 08:50 WBC 9.9 11.5 H (3.8-10.6) k/uL RBC 5.54 5.96 H (4.30-5.90) m/uL Hgb 16.8 17.7 H (13.0-17.5) gm/dL Hct 49.7 53.8 H (39.0-53.0) % Plt Count 269 273 (150-450) k/uL Comprehensive Metabolic Panel 12/09/22 12/10/22 Range/Units 19:21 08:50 Sodium 140 142 (137-145) mmol/L Potassium 5.3 H 4.6 (3.5-5.1) mmol/L Chloride 102 103 (98-107) mmol/L Carbon Dioxide 27 27 (22-30) mmol/L BUN 23 H 17 (9-20) mg/dL Creatinine 0.64 L 0.59 L (0.66-1.25) mg/dL Glucose 143 H 141 H (74-99) mg/dL Calcium 9.6 9.6 (8.4-10.2) mg/dL AST 26 23 (17-59) U/L ALT 18 17 (4-49) U/L Alkaline Phosphatase 88 84 (38-126) U/L Total Protein 7.7 7.7 (6.3-8.2) g/dL Albumin 4.4 4.3 (3.5-5.0) g/dL Current Medications Generic Name Dose Route Start Last Admin Trade Name Freq PRN Reason Stop Dose Admin Naloxone HCl 0.2 mg 12/09/22 20:23 Naloxone 0.4 Mg/Ml 1 Ml Vial IV Q2M PRN Opioid Reversal 10/13/23 08:50 12/10/22 08:50
--- NOTE | 2022-12-10 19:39 | P.HPIM ---
History of Present Illness H&P Date: 12/10/22 Chief Complaint: Syncope 72-year-old male, history of hypertension, hyperlipidemia, asthma, diabetes mellitus, sleep apnea, dementia, presenting to the emergency Department with single episode. Patient states he fell down. Patient is unclear why. Patient does not recall the episode. Patient denies any significant injury. No neck or back pain. No headache. No confusion. No chest pain or dyspnea. No weakness. It is questionable if patient syncopized OR mechanical fall. Patient is not a very good historian. At this time patient denies having any chest pain chest pressure shortness of breath. He denies having any palpitations lightheadedness or dizziness. EKG reveals sinus rhythm heart rate 61 bpm, no significant ST-T wave changes diagnostic for ischemia.. CT cervical spine showed severe neuroforaminal stenosis at the wrist levels. Moderate cerebral atrophy Labs showed hemoglobin 17.7, platelets 273, creatinine 0.59, troponin times 3 is negative Review of Systems REVIEW OF SYSTEMS: CONSTITUTIONAL: No fever, no malaise, no fatigue. HEENT: No recent visual problems or hearing problems. Denied any sore throat. CARDIOVASCULAR: No chest pain, orthopnea, PND, no palpitations, no syncope. PULMONARY: No shortness of breath, no cough, no hemoptysis. GASTROINTESTINAL: No diarrhea, no nausea, no vomiting, no abdominal pain. NEUROLOGICAL: No headaches, no weakness, no numbness. HEMATOLOGICAL: Denies any bleeding or petechiae. GENITOURINARY: Denies any burning micturition, frequency, or urgency. MUSCULOSKELETAL/RHEUMATOLOGICAL: Denies any joint pain, swelling, or any muscle pain. ENDOCRINE: Denies any polyuria or polydipsia. The rest of the 14-point review of systems is negative. Past Medical History Past Medical History: Asthma, COPD, Dementia, Diabetes Mellitus, Hyperlipidemia, Hypertension, Rheumatoid Arthritis (RA), Sleep Apnea/CPAP/BIPAP Additional Past Medical History / Comment(s): family hx. colon cancer, supposed to use CPAP History of Any Multi-Drug Resistant Organisms: None Reported Past Surgical History: Cholecystectomy, Hernia Repair, Orthopedic Surgery, Tonsillectomy Additional Past Surgical History / Comment(s): Uvular sleep apnea, carpal tunnel surg., tarsal tunnel surg. for feet, cervical fusion, Past Anesthesia/Blood Transfusion Reactions: No Reported Reaction Past Psychological History: Anxiety, Bipolar Smoking Status: Current every day smoker Past Alcohol Use History: Occasional Past Drug Use History: None Reported - Past Family History Father Family Medical History: Cancer, COPD Additional Family Medical History / Comment(s): Father at age 81 from mesothelioma and COPD with history of brain cancer. He was a facility examiner. Brother(s) Family Medical History: Coronary Artery Disease (CAD), Rheumatoid Arthritis (RA) Additional Family Medical History / Comment(s): Patient has 3 brothers. One brother at age 40 from AIDS. One brother is alive with exposure to Agent [place]. Third brother is alive with rheumatoid arthritis and coronary artery disease. Sister(s) Family Medical History: COPD, CVA/TIA Additional Family Medical History / Comment(s): Patient has 4 sisters. One sister is in her 50s and had a CVA at age 38. One at age 70 from COPD. Daughter(s) Family Medical History: No Reported History Additional Family Medical History / Comment(s): Patient has 5 daughters with no major medical problems. Mother Family Medical History: Cancer Additional Family Medical History / Comment(s): Mother at age 79 from colon cancer. Medications and Allergies Home Medications Medication Instructions Recorded Confirmed Type No Known Home Medications 12/09/22 12/09/22 History Allergies Allergy/AdvReac Type Severity Reaction Status Date / Time No Known Allergies Allergy Verified 12/09/22 21:04 Physical Exam Vitals: Vital Signs Temp Pulse Resp BP Pulse Ox 12/10/22 07:00 97.8 F 58 L 16 121/57 96 12/09/22 23:00 71 16 116/73 96 12/09/22 20:54 65 16 131/90 97 12/09/22 18:30 97.7 F 59 L 18 131/71 97 Intake and Output 12/09/22 12/10/22 12/10/22 22:59 06:59 14:59 Other: Weight 76.204 kg PHYSICAL EXAMINATION: GENERAL: The patient is alert and oriented x3, not in any acute distress. Well developed, well nourished. HEENT: Pupils are round and equally reacting to light. EOMI. No scleral icterus. No conjunctival pallor. Normocephalic, atraumatic. No pharyngeal erythema. No thyromegaly. CARDIOVASCULAR: S1 and S2 present. No murmurs, rubs, or gallops. PULMONARY: Chest is clear to auscultation, no wheezing or crackles. ABDOMEN: Soft, nontender, nondistended, normoactive bowel sounds. No palpable organomegaly. MUSCULOSKELETAL: No joint swelling or deformity. EXTREMITIES: No cyanosis, clubbing, or pedal edema. NEUROLOGICAL: Gross neurological examination did not reveal any focal deficits. SKIN: No rashes. Results CBC & Chem 7: 12/10/22 08:50 12/10/22 08:50 Labs: Abnormal Lab Results - Last 24 Hours (Table) 12/09/22 12/10/22 12/10/22 Range/Units 19:21 08:50 08:50 WBC 11.5 H (3.8-10.6) k/uL RBC 5.96 H (4.30-5.90) m/uL Hgb 17.7 H (13.0-17.5) gm/dL Hct 53.8 H (39.0-53.0) % Potassium 5.3 H (3.5-5.1) mmol/L BUN 23 H (9-20) mg/dL Creatinine 0.64 L 0.59 L (0.66-1.25) mg/dL Glucose 143 H 141 H (74-99) mg/dL Assessment and Plan Assessment: 1. Acute syncope - Patient is admitted to telemetry; we will monitor EKG and trend troponin Patient is evaluated by cardiology and recommending to Obtain an echocardiogram, orthostatic vital signs, Continue to monitor on telemetry for next 24-48 hours to monitor for any arrhythmias Obtain lipid panels 2. Facial laceration; local care; we will monitor closely for need for oral antibiotic therapy 3. Mild BRONSON; slow IV fluid hydration with normal saline at a rate of 75 mL an hour; we will monitor strict PIETER's, daily weights, renal function and electrolytes; avoid nephrotoxins and hypotension 4. Hyperkalemia; likely related to mild renal injury, we will continue with IV fluid hydration as indicated above, monitor electrolytes closely and make further recommendations pending clinical course 5. Hypertension; patient is currently not on any antihypertensive therapy; blood pressure is currently stable, we will continue to monitor blood pressure closely and initiate antihypertensive therapy pending clinical course 6. Hyperlipidemia; patient is currently not on taking any medications; we will order lipid profile and make recommendations accordingly 7. Diabetes mellitus; blood glucose and 140s upon admission; patient reports no diabetic regimen; we will monitor Accu-Cheks before meals and at bedtime with insulin sliding scale DVT prophylaxis; SCDs/subcu heparin CODE STATUS; full code
[2022-12-10 20:21] LABS: Glucose,Whole Blood 222 mg/dL (70-110)
[2022-12-10] MEDS: HEPARIN SODIUM,PORCINE 5,000 UNIT/ML 1 ML VIAL SQ SCH (20:21)
[2022-12-10] MEDS: INSULIN ASPART (NovoLOG) 100 UNIT/ML VIAL SQ SCH (20:21)
[2022-12-10] MEDS: SODIUM CHLORIDE 0.9% 1,000 ML IV SCH (20:25)
[2022-12-11 06:15] LABS: Glucose,Whole Blood 162 mg/dL (70-110)
[2022-12-11] MEDS: INSULIN ASPART (NovoLOG) 100 UNIT/ML VIAL SQ SCH ×4 (06:34→20:47)
--- NOTE | 2022-12-11 06:40 | CA ---
Transthoracic Echo Report Name: Doc Orosco Age: 72 Gender: M : 1950 Exam Date: 12/10/2022 13:54 Exam Location: [facility] Ht (in): 68 Wt (lb): 168 Ordering Physician: Dean Paulson MD ([id number]) Attending/Referring Phys: Photo Intern Robert Hammer Procedure CPT: Indications: Syncope Cardiac Hx: Technical Quality: Fair Contrast 1: Total Dose (mL): Contrast 2: Total Dose (mL): MEASUREMENTS (Male / Female) Normal Values 2D ECHO LV Diastolic Diameter PLAX 3.9 cm 4.2 - 5.9 / 3.9 - 5.3 cm LV Systolic Diameter PLAX 2.2 cm IVS Diastolic Thickness 0.9 cm 0.6 - 1.0 / 0.6 - 0.9 cm LVPW Diastolic Thickness 0.8 cm 0.6 - 1.0 / 0.6 - 0.9 cm LV Relative Wall Thickness 0.5 RV Internal Dim ED PLAX 3.0 cm LVOT Diameter 2.0 cm Aortic Root Diameter 3.3 cm LA Systolic Diameter LX 2.2 cm 3.0 - 4.0 / 2.7 - 3.8 cm LV Diastolic Volume MOD BP 33.2 cm??? 67 - 155 / 56 - 104 cm??? LV Systolic Volume MOD BP 11.4 cm??? / 19 - 49 cm??? LV Ejection Fraction MOD BP 65.5 % >= 55 % LV Cardiac Index MOD BP 677.8 cm???/min???m??? LV Diastolic Volume MOD 4C 39.6 cm??? LV Systolic Volume MOD 4C 10.4 cm??? LV Ejection Fraction MOD 4C 73.7 % LV Cardiac Index MOD 4C 910.6 cm???/min???m??? LV Diastolic Length 4C 6.3 cm LV Systolic Length 4C 5.4 cm LV Diastolic Volume MOD 2C 27.1 cm??? LV Systolic Volume MOD 2C 11.4 cm??? LV Ejection Fraction MOD 2C 58.1 % LV Cardiac Index MOD 2C 491.4 cm???/min???m??? LV Diastolic Length 2C 6.5 cm LV Systolic Length 2C 6.0 cm LA Volume 36.3 cm??? 18 - 58 / 22 - 52 cm??? LA Volume Index 18.9 cm???/m??? 16 - 28 cm???/m??? DOPPLER AV Peak Velocity 59.2 cm/s AV Peak Gradient 1.4 mmHg LVOT Peak Velocity 116.4 cm/s LVOT Peak Gradient 5.4 mmHg LVOT Velocity Time Integral 22.6 cm LVOT Stroke Volume 69.8 cm??? LVOT Stroke Volume Index 36.8 ml/m??? LVOT Cardiac Index 2176.4 cm???/min???m??? AV Area Cont Eq pk 6.1 cm??? MV Peak Velocity 91.3 cm/s MV Peak Gradient 3.3 mmHg MV Mean Velocity 43.5 cm/s MV Mean Gradient 0.9 mmHg MV Velocity Time Integral 31.8 cm Mitral E Point Velocity 69.7 cm/s Mitral A Point Velocity 81.7 cm/s Mitral E to A Ratio 0.9 MV Deceleration Time 226.9 ms MV E' Velocity 6.9 cm/s Mitral E to MV E' Ratio 10.1 TR Peak Velocity 119.7 cm/s TR Peak Gradient 5.7 mmHg Right Ventricular Systolic Press 10.7 mmHg FINDINGS Left Ventricle Normal LV size and wall thickness. Left ventricular ejection fraction is estimated at 50-55 %. Right Ventricle Normal right ventricular size. Right Atrium Normal right atrial size. Left Atrium Normal left atrial size. Mitral Valve Structurally normal mitral valve. Aortic Valve Trileaflet aortic valve. Mild to moderate AV calcification. Trace AI. Tricuspid Valve Structurally normal tricuspid valve. Trace TR. Pulmonic Valve Pulmonic valve not well visualized. No pulmonic regurgitation. Pericardium Normal pericardium. Aorta Normal size aortic root . CONCLUSIONS Normal LV size and function Previewed by: Dr. Jose Miguel Barreto MD (Electronically Signed) Final Date: 11 December 2022 06:39
[2022-12-11] MEDS: SODIUM CHLORIDE 0.9% 1,000 ML IV SCH ×2 (09:37→20:47)
[2022-12-11] MEDS: HEPARIN SODIUM,PORCINE 5,000 UNIT/ML 1 ML VIAL SQ SCH ×2 (09:37→20:47)
[2022-12-11 09:38] LABS: Basophils # (A) 0.1 k/uL (0-0.2); Basophils % (A) 1 %; Eosinophils # (A) 0.3 k/uL (0-0.7); Eosinophils % (A) 3 %; HCT 47.1 % (39.0-53.0); HGB 15.4 gm/dL (13.0-17.5); Lymphocytes # (A) 2.6 k/uL (1.0-4.8); Lymphocytes % (A) 28 %; MCH 29.7 pg (25.0-35.0); MCHC 32.8 g/dL (31.0-37.0); MCV 90.5 fL (80.0-100.0); Mean Platelet Volume 8.7; Monocytes # (A) 0.6 k/uL (0-1.0); Monocytes % (A) 7 %; Neutrophils # (A) 5.5 k/uL (1.3-7.7); Neutrophils % (A) 60 %; Platelet Count 208 k/uL (150-450); WBC 9.2 k/uL (3.8-10.6)
[2022-12-11 10:00] LABS: African American GFR (CKD) >90 (>60 ml/min/1.73 sqM); Anion Gap 7 mmol/L; Blood Urea Nitrogen 15 mg/dL (9-20); Calcium 8.4 mg/dL (8.4-10.2); Carbon Dioxide 24 mmol/L (22-30); Chloride 105 mmol/L (98-107); Glucose 207 mg/dL (74-99); Non-African American GFR(CKD) >90 (>60 ml/min/1.73 sqM); Potassium 4.4 mmol/L (3.5-5.1); Sodium 136 mmol/L (137-145)
[2022-12-11 11:31] LABS: Glucose,Whole Blood 143 mg/dL (70-110)
[2022-12-11 14:03] LABS: Chol/HDL Ratio 5.35 Ratio; LDL Cholesterol,Calculated 103.3 mg/dL (0.0-131.0); VLDL Calculation 19.48 mg/dL (5.00-40.00)
[2022-12-11 16:13] LABS: Glucose,Whole Blood 206 mg/dL (70-110)
--- NOTE | 2022-12-11 18:25 | P.PN ---
Subjective Progress Note Date: 12/11/22 72-year-old male, history of hypertension, hyperlipidemia, asthma, diabetes mellitus, sleep apnea, dementia, presenting to the emergency Department with single episode. Patient states he fell down. Patient is unclear why. Patient does not recall the episode. Patient denies any significant injury. No neck or back pain. No headache. No confusion. No chest pain or dyspnea. No weakness. It is questionable if patient syncopized OR mechanical fall. Patient is not a very good historian. At this time patient denies having any chest pain chest pressure shortness of breath. He denies having any palpitations lightheadedness or dizziness. EKG reveals sinus rhythm heart rate 61 bpm, no significant ST-T wave changes diagnostic for ischemia.. CT cervical spine showed severe neuroforaminal stenosis at the wrist levels. Moderate cerebral atrophy Labs showed hemoglobin 17.7, platelets 273, creatinine 0.59, troponin times 3 is negative Patient has been evaluated by cardiology; recommending to obtain an echocardiogram, orthostatic vital signs, lipid profile -- Continue to monitor on telemetry for another 24-48 hours to rule out any arrhythmia Objective - Vital Signs Vital signs: Vital Signs Temp 97.9 F 12/11/22 08:10 Pulse 58 L 12/11/22 08:10 Resp 16 12/11/22 08:10 BP 118/74 12/11/22 08:10 Pulse Ox 96 12/11/22 08:10 FiO2 Intake & Output 12/10/22 12/11/22 12/11/22 18:59 06:59 18:59 Output Total 400 Balance -400 Output: Urine 400 - Exam GENERAL: The patient is alert and oriented x3, not in any acute distress. Well developed, well nourished. HEENT: Pupils are round and equally reacting to light. EOMI. No scleral icterus. No conjunctival pallor. Normocephalic, atraumatic. No pharyngeal erythema. No thyromegaly. CARDIOVASCULAR: S1 and S2 present. No murmurs, rubs, or gallops. PULMONARY: Chest is clear to auscultation, no wheezing or crackles. ABDOMEN: Soft, nontender, nondistended, normoactive bowel sounds. No palpable organomegaly. MUSCULOSKELETAL: No joint swelling or deformity. EXTREMITIES: No cyanosis, clubbing, or pedal edema. NEUROLOGICAL: Gross neurological examination did not reveal any focal deficits. SKIN: No rashes. - Labs CBC & Chem 7: 12/11/22 09:04 12/11/22 09:04 Labs: Abnormal Lab Results - Last 24 Hours (Table) 12/10/22 12/11/22 12/11/22 Range/Units 20:20 06:13 09:04 Sodium 136 L (137-145) mmol/L Creatinine 0.52 L (0.66-1.25) mg/dL Glucose 207 H (74-99) mg/dL POC Glucose (mg/dL) 222 H 162 H (70-110) mg/dL Assessment and Plan Assessment: 1. Acute syncope - Patient is admitted to telemetry; we will monitor EKG and trend troponin Patient is evaluated by cardiology and recommending to Obtain an echocardiogram, orthostatic vital signs, Continue to monitor on telemetry for next 24-48 hours to monitor for any arrhythmias Obtain lipid panels 2. Facial laceration; local care; we will monitor closely for need for oral antibiotic therapy 3. Mild BRONSON; slow IV fluid hydration with normal saline at a rate of 75 mL an hour; we will monitor strict PIETER's, daily weights, renal function and electrolytes; avoid nephrotoxins and hypotension 4. Hyperkalemia; likely related to mild renal injury, we will continue with IV fluid hydration as indicated above, monitor electrolytes closely and make further recommendations pending clinical course 5. Hypertension; patient is currently not on any antihypertensive therapy; blood pressure is currently stable, we will continue to monitor blood pressure closely and initiate antihypertensive therapy pending clinical course 6. Hyperlipidemia; patient is currently not on taking any medications; we will order lipid profile and make recommendations accordingly 7. Diabetes mellitus; blood glucose and 140s upon admission; patient reports no diabetic regimen; we will monitor Accu-Cheks before meals and at bedtime with insulin sliding scale DVT prophylaxis; SCDs/subcu heparin CODE STATUS; full code
[2022-12-11 19:28] LABS: Glucose,Whole Blood 211 mg/dL (70-110)
[2022-12-12 06:43] LABS: Glucose,Whole Blood 170 mg/dL (70-110)
[2022-12-12] MEDS: INSULIN ASPART (NovoLOG) 100 UNIT/ML VIAL SQ SCH ×4 (07:00→21:41)
[2022-12-12 09:29] LABS: Basophils # (A) 0.1 k/uL (0-0.2); Basophils % (A) 1 %; Eosinophils # (A) 0.3 k/uL (0-0.7); Eosinophils % (A) 4 %; HCT 46.2 % (39.0-53.0); HGB 14.8 gm/dL (13.0-17.5); Lymphocytes # (A) 2.4 k/uL (1.0-4.8); Lymphocytes % (A) 33 %; MCHC 32.1 g/dL (31.0-37.0); MCV 90.4 fL (80.0-100.0); Mean Platelet Volume 9.4; Monocytes # (A) 0.6 k/uL (0-1.0); Monocytes % (A) 8 %; Neutrophils % (A) 54 %; Platelet Count 208 k/uL (150-450); RBC 5.11 m/uL (4.30-5.90); RDW 12.9 % (11.5-15.5); WBC 7.4 k/uL (3.8-10.6)
[2022-12-12 09:42] LABS: African American GFR (CKD) >90 (>60 ml/min/1.73 sqM); Anion Gap 7 mmol/L; Blood Urea Nitrogen 14 mg/dL (9-20); Calcium 8.5 mg/dL (8.4-10.2); Carbon Dioxide 25 mmol/L (22-30); Chloride 106 mmol/L (98-107); Glucose 200 mg/dL (74-99); Non-African American GFR(CKD) >90 (>60 ml/min/1.73 sqM); Potassium 4.3 mmol/L (3.5-5.1); Sodium 138 mmol/L (137-145)
[2022-12-12] MEDS: HEPARIN SODIUM,PORCINE 5,000 UNIT/ML 1 ML VIAL SQ SCH ×2 (10:33→21:41)
[2022-12-12] MEDS: SODIUM CHLORIDE 0.9% 1,000 ML IV SCH (11:04)
[2022-12-12 11:25] LABS: Glucose,Whole Blood 174 mg/dL (70-110)
--- NOTE | 2022-12-12 14:10 | P.PN ---
Subjective Progress Note Date: 12/12/22 Progress note: Patient is doing well from cardiac vessel standpoint. There is no reported arrhythmias on telemetry. His echo showed preserved LV size and systolic function with no major valvular abnormality. HISTORY OF PRESENTING ILLNESS Patient is a 72-year-old male, who has not been seen by physicians recently. He presented to the emergency department because of a fall at home. It is questionable if patient syncopized OR mechanical fall. Patient is not a very good historian. At this time patient denies having any chest pain chest pressure shortness of breath. He denies having any palpitations lightheadedness or dizziness. DIAGNOSTICS EKG reveals sinus rhythm heart rate 61 bpm, no significant ST-T wave changes diagnostic for ischemia.. CT cervical spine showed severe neuroforaminal stenosis at the wrist levels. Moderate cerebral atrophy Labs showed hemoglobin 17.7, platelets 273, creatinine 0.59, troponin times 3 is negative REVIEW OF SYSTEMS 14 point review of system is negative except what is mentioned above in HPI. PHYSICAL EXAMINATION Vital signs reviewed. Head: Normocephalic. Injured right forehead Eyes: Sclerae nonicteric. Neck: Brisk carotid upstroke, no jugular venous distention. Lungs: Good air entry, mild wheezing audible Heart: Regular rate and rhythm, S1-S2, no S3, no murmur or rub. Abdomen: Soft nontender, positive bowel sounds no organomegaly. Extremities: No edema, intact distal pulses. ASSESSMENT Unwitnessed fall. Questionable syncope Severe neuroforaminal narrowing and cervical spine at multiple levels Tobacco smoker 1-2 packs per day PLAN There is no reported arrhythmias on telemetry. His echo showed preserved LV size and systolic function with no major valvular abnormality. Patient scheduled to discharge from cardiac standpoint Objective - Vital Signs Vital signs: Vital Signs Temp 98.0 F 12/12/22 08:15 Pulse 52 L 12/12/22 12:00 Resp 18 12/12/22 12:00 BP 115/71 12/12/22 12:00 Pulse Ox 94 L 12/12/22 12:00 FiO2 Intake & Output 12/11/22 12/12/22 12/12/22 18:59 06:59 18:59 Intake Total 236 0 360 Output Total 450 100 200 Balance -214 -100 160 Intake: Oral 236 0 360 Output: Urine 450 100 200 - Labs CBC & Chem 7: 12/12/22 08:10 12/12/22 08:10 Labs: Abnormal Lab Results - Last 24 Hours (Table) 12/11/22 12/11/22 12/12/22 Range/Units 16:10 19:27 06:42 Creatinine (0.66-1.25) mg/dL Glucose (74-99) mg/dL POC Glucose (mg/dL) 206 H 211 H 170 H (70-110) mg/dL 12/12/22 12/12/22 Range/Units 08:10 11:23 Creatinine 0.56 L (0.66-1.25) mg/dL Glucose 200 H (74-99) mg/dL POC Glucose (mg/dL) 174 H (70-110) mg/dL
--- NOTE | 2022-12-12 15:17 | P.PN ---
Subjective Progress Note Date: 12/12/22 72-year-old male, history of hypertension, hyperlipidemia, asthma, diabetes mellitus, sleep apnea, dementia, presenting to the emergency Department with single episode. Patient states he fell down. Patient is unclear why. Patient does not recall the episode. Patient denies any significant injury. No neck or back pain. No headache. No confusion. No chest pain or dyspnea. No weakness. It is questionable if patient syncopized OR mechanical fall. Patient is not a very good historian. At this time patient denies having any chest pain chest pressure shortness of breath. He denies having any palpitations lightheadedness or dizziness. EKG reveals sinus rhythm heart rate 61 bpm, no significant ST-T wave changes diagnostic for ischemia.. CT cervical spine showed severe neuroforaminal stenosis at the wrist levels. Moderate cerebral atrophy Labs showed hemoglobin 17.7, platelets 273, creatinine 0.59, troponin times 3 is negative Patient has been evaluated by cardiology; recommending to obtain an echocardiogram, orthostatic vital signs, lipid profile -- Continue to monitor on telemetry for another 24-48 hours to rule out any arrhythmia 12/12/2022 Patient is seen and evaluated sitting up in bedside chair; denies any chest shortness of breath Vital signs are reviewed and stable Lab review shows a WBC 7.4, hemoglobin 14.8 and platelet count of 208, sodium 13 8, potassium 4.3, BUN/creatinine of 14/0.56, blood glucose at 174 Cardiology on board; no arrhythmias on telemetry; echocardiogram reveals preserved LV; no further workup recommended by cardiology -- Patient has reported multiple falls at home; PT/OT consulted; discharge planning per evaluation Objective - Vital Signs Vital signs: Vital Signs Temp 98.0 F 12/12/22 08:15 Pulse 52 L 12/12/22 12:00 Resp 18 12/12/22 12:00 BP 115/71 12/12/22 12:00 Pulse Ox 94 L 12/12/22 12:00 FiO2 Intake & Output 12/11/22 12/12/22 12/12/22 18:59 06:59 18:59 Intake Total 236 0 360 Output Total 450 100 200 Balance -214 -100 160 Intake: Oral 236 0 360 Output: Urine 450 100 200 - Exam GENERAL: The patient is alert and oriented x3, not in any acute distress. Well developed, well nourished. HEENT: Pupils are round and equally reacting to light. EOMI. No scleral icterus. No conjunctival pallor. Normocephalic, atraumatic. No pharyngeal erythema. No thyromegaly. CARDIOVASCULAR: S1 and S2 present. No murmurs, rubs, or gallops. PULMONARY: Chest is clear to auscultation, no wheezing or crackles. ABDOMEN: Soft, nontender, nondistended, normoactive bowel sounds. No palpable organomegaly. MUSCULOSKELETAL: No joint swelling or deformity. EXTREMITIES: No cyanosis, clubbing, or pedal edema. NEUROLOGICAL: Gross neurological examination did not reveal any focal deficits. SKIN: No rashes. - Labs CBC & Chem 7: 12/12/22 08:10 12/12/22 08:10 Labs: Abnormal Lab Results - Last 24 Hours (Table) 12/11/22 12/11/22 12/11/22 Range/Units 09:04 16:10 19:27 Creatinine (0.66-1.25) mg/dL Glucose (74-99) mg/dL POC Glucose (mg/dL) 206 H 211 H (70-110) mg/dL HDL Cholesterol 28.20 L (40.00-60.00) mg/dL 12/12/22 12/12/22 12/12/22 Range/Units 06:42 08:10 11:23 Creatinine 0.56 L (0.66-1.25) mg/dL Glucose 200 H (74-99) mg/dL POC Glucose (mg/dL) 170 H 174 H (70-110) mg/dL HDL Cholesterol (40.00-60.00) mg/dL Assessment and Plan Assessment: 1. Acute syncope - Patient is admitted to telemetry; we will monitor EKG and trend troponin Patient is evaluated by cardiology and recommending to Obtain an echocardiogram, orthostatic vital signs, Continue to monitor on telemetry for next 24-48 hours to monitor for any arrhythmias Obtain lipid panels 2. Facial laceration; local care; we will monitor closely for need for oral antibiotic therapy 3. Mild BRONSON; slow IV fluid hydration with normal saline at a rate of 75 mL an hour; we will monitor strict PIETER's, daily weights, renal function and electrolytes; avoid nephrotoxins and hypotension 4. Hyperkalemia; likely related to mild renal injury, we will continue with IV fluid hydration as indicated above, monitor electrolytes closely and make further recommendations pending clinical course 5. Hypertension; patient is currently not on any antihypertensive therapy; blood pressure is currently stable, we will continue to monitor blood pressure closely and initiate antihypertensive therapy pending clinical course 6. Hyperlipidemia; patient is currently not on taking any medications; we will order lipid profile and make recommendations accordingly 7. Diabetes mellitus; blood glucose and 140s upon admission; patient reports no diabetic regimen; we will monitor Accu-Cheks before meals and at bedtime with insulin sliding scale DVT prophylaxis; SCDs/subcu heparin CODE STATUS; full code
[2022-12-12 16:35] LABS: Glucose,Whole Blood 225 mg/dL (70-110)
[2022-12-12 20:40] LABS: Glucose,Whole Blood 178 mg/dL (70-110)
[2022-12-13] MEDS: SODIUM CHLORIDE 0.9% 1,000 ML IV SCH (05:05)
[2022-12-13 06:00] LABS: Glucose,Whole Blood 161 mg/dL (70-110)
[2022-12-13] MEDS: INSULIN ASPART (NovoLOG) 100 UNIT/ML VIAL SQ SCH ×2 (07:56→12:54)
[2022-12-13] MEDS: HEPARIN SODIUM,PORCINE 5,000 UNIT/ML 1 ML VIAL SQ SCH (08:38)
[2022-12-13 08:40] VITALS: RESP 16; TEMP 97.8
[2022-12-13 11:21] LABS: Glucose,Whole Blood 200 mg/dL (70-110)
--- NOTE | 2022-12-13 11:25 | P.PN ---
Subjective HISTORY OF PRESENT ILLNESS: This is a 72 male who presented to the hospital secondary to fall. Patient examined this morning at the bedside. Patient denies chest pain or pressure. He denies shortness of breath. He denies dizziness or lightheadedness. No further episodes of falling since been in the hospital. Echocardiogram completed revealing preserved LV systolic function with no major valvular abnormalities. Vital signs are stable. Telemetry reveals sinus mechanism. PHYSICAL EXAM: VITAL SIGNS: Reviewed. GENERAL: Well-developed in no acute distress. NECK: Supple. No JVD or thyromegaly LUNGS: Respirations even and unlabored. Lungs with mild expiratory wheezing noted HEART: Regular rate and rhythm. S1 and S2 heard. EXTREMITIES: Normal range of motion. No clubbing or cyanosis. Peripheral pulses intact. No lower extremity edema ASSESSMENT: Status post fall with questionable syncope Severe neuroforaminal narrowing and cervical spine at multiple levels Nicotine dependence, patient smokes 12 packs per day PLAN: Smoking cessation recommended No further inpatient recommendations from a cardiac standpoint Patient may be discharged home today from a cardiac standpoint We will sign off. Please reconsult if needed. Nurse practitioner note has been reviewed by physician. Signing provider agrees with the documented findings, assessment, and plan of care. Objective - Vital Signs Vital signs: Vital Signs Temp 97.8 F 12/13/22 08:36 Pulse 53 L 12/13/22 08:36 Resp 16 12/13/22 08:36 BP 91/57 12/13/22 08:36 Pulse Ox 95 12/13/22 08:36 FiO2 Intake & Output 12/12/22 12/13/22 12/13/22 18:59 06:59 18:59 Intake Total 600 237 Output Total 200 350 Balance 400 -113 Intake: Oral 600 237 Output: Urine 200 350 Other: # Voids 2 - Labs CBC & Chem 7: 12/12/22 08:10 12/12/22 08:10 Labs: Abnormal Lab Results - Last 24 Hours (Table) 12/12/22 12/12/22 12/12/22 Range/Units 11:23 16:33 20:38 POC Glucose (mg/dL) 174 H 225 H 178 H (70-110) mg/dL 12/13/22 12/13/22 Range/Units 05:59 11:19 POC Glucose (mg/dL) 161 H 200 H (70-110) mg/dL
[2022-12-13 12:54] VITALS: BP 116/54; PULSE 54
--- NOTE | 2022-12-13 14:40 | CDI ---
Documentation Clarification Form Date: 12/13/2022 01:55:03 PM From: Sandrine Dennis RN, CCDS Admit Date: 12/09/2022 08:24:00 PM Patient Name: Doc Orosco Visit Number: [id number] Discharge Date: ATTENTION: The Clinical Documentation Specialists (CDI) and [facility] Coding Staff appreciate your assistance in clarifying documentation. Please respond to the clarification below the line at the bottom and electronically sign. The CDI & [facility] Coding staff will review the response and follow-up if needed. Please note: Queries are made part of the Legal Health Record. If you have any questions, please contact the author of this message via ITS. Dr. Susu Toussaint Syncope is documented in the H/P and subsequent progress notes. Additional clarification regarding the etiology of the syncope is requested. 12/10 Cardiology consult: Status post fall with questionable syncope There is no reported arrhythmias on telemetry. His echo showed preserved LV size and systolic function with no major valvular abnormality. History/risk factors: Asthma, COPD, Dementia, Diabetes Mellitus, Hyperlipidemia, Hypertension, Rheumatoid Arthritis (RA), Sleep Apnea/CPAP/BIPAP, Current every day smoker. Clinical Indicators: 72-year-old male present with Syncope with single episode. Labs: WBC 9.9, BUN 23, CR 0.64, K+5.3 CT Head/Cervical spine: Moderate cerebral atrophy. Moderate to advanced multilevel spondylotic change. Status post C5-C7 ACDF 12/10: Echocardiogram: Left ventricular EF is estimated at 50-55% EKG reveals sinus rhythm heart rate 61 bpm, Treatment: Telemetry Monitoring PT/OT Consulted Please clarify the etiology of syncope, if known: [ ### ] Syncope related to debility age-related physical debility (mechanical fall) [ ] Syncope due to (specify cause) [ ] Other, please specify [ ] Unable to determine (Template Last Revised: April 2020) MTDD
--- NOTE | 2022-12-15 23:16 | P.DS ---
Providers Date of admission: 12/09/22 20:24 Attending physician: Susu Toussaint MD Consults: 12/09/22 20:23 Consult Physician Urgent Consulting Provider: Benson Simpson Consult Reason/Comments: syncope Do you want consulting provider notified?: Yes Primary care physician: Moises Yee Hospital Course: Final Diagnosis Status post fall with questionable syncope possibly due to acute dehydration Mild BRONSON prerenal azotemia improved with IV hydration Hyperkalemia from the BRONSON Severe neuroforaminal narrowing and cervical spine at multiple levels History of asthma/COPD with no acute exacerbation Diabetes Mellitus type 2 with hyperglycemia Hypertension Hyperlipidemia Rheumatoid arthritis Hx of sleep apnea Nicotine dependence, patient smokes 12 packs per day Discharge Disposition Patient is stable for discharge home. Patient has been hydrated and BRONSON has resolved. Patient has blood sugar in the 200s and was started on low dose metformin recommend to check an A1C outpatient. Patient to see his PCP in 1 to 2 days. Also recommend to monitor blood pressure at home as patient is not on any blood pressure medications. He was Recommended to see Dr. Santoyo regarding the cervical spine stenosis this can be outpatient. Patient has been advised to monitor blood pressure at home to keep log for follow up with PCP, Dr Yee. Hospital Course This is a pleasant 72 year old male who comes in for possible syncopal episode and fall at home. Patient doesn't remember what happened only that he fell. Patient has a history of asthma, COPD, diabetes mellitus, dementia, hypertension, hyperlipidemia, RA, and sleep apnea supposed to use a cpap. Patient is also a currently daily smoker 1 to 2 packs per day. Patient comes in with fall at home and mild confusion. Troponin negative x 3. He has mild BRONSON wi th BUN 23. He had head cervical spine CT done showing moderate cerebral atrophy no acute intracranial abnormality seen, moderate to advanced multilevel spondylytic changes, status post C5-C7 ACDF. Possible moderate focal spinal canal stenosis C3-C4. There may be severe neuroforaminal stenosis at various levels. No acute fracture or malignancy noted; allowing for patient motion limitations. Chest xray shows borderline heart size and diffuse interstitial density which may in part be chronic, correlate to exclude mild pulmonary vascular congestion. Patient was admitted to the hospital for cardiac evaluation. Had echocardiogram done showing normal LV size and function. There is trace TR. Patient has had no arrythmias noted on telemetry. Cardiology has signed off. Orthostatic blood pressure was checked and found to be negative. He is currently denying chest pain, denying shortness of breath. No dizziness or lightheadeness, no nausea vomiting or diarrhea. he is alert x3 and no focal neurological deficits notes. Cleared for discharge with the above mentioned recommendations. Review of Systems Constitutional: Denied any fatigue denied any fever. Cardio vascular: denied any chest pain, palpitations Gastrointestinal: denied any nausea, vomiting, diarrhea Pulmonary: Denied any shortness of breath cough Neurologic denied any new focal deficits All inpatient medications were reviewed and appropriate changes in these medications as dictated in the interval history and assessment and plan. PHYSICAL EXAMINATION: GENERAL: The patient is alert and oriented x3, not in any acute distress. Well developed, well nourished. HEENT: Pupils are round and equally reacting to light. EOMI. No scleral icterus. No conjunctival pallor. Normocephalic, atraumatic. No pharyngeal erythema. No thyromegaly. CARDIOVASCULAR: S1 and S2 present. No murmurs, rubs, or gallops. PULMONARY: Chest is clear to auscultation, no wheezing or crackles. ABDOMEN: Soft, nontender, nondistended, normoactive bowel sounds. No palpable organomegaly. MUSCULOSKELETAL: No joint swelling or deformity. EXTREMITIES: No cyanosis, clubbing, or pedal edema. NEUROLOGICAL: Gross neurological examination did not reveal any focal deficits. SKIN: No rashes. Please see medication reconciliation for a list of current medications. Thank you for allowing us to participate in the care of this patient. The impression and plan of care has been dictated by Stephanie Castillo, Nurse Practitioner as directed. Dr. Juan Daniel MD I have performed a history and physical examination and medical decision making of this patient, discussed the same with the dictator, and agree with the dictators assessment and plan as written, documented as a scribe. Based on total visit time, I have performed more than 50% of this visit. Patient Condition at Discharge: Stable Plan - Discharge Summary New Discharge Prescriptions: New metFORMIN HCL 500 mg PO DAILY #30 tablet Famotidine [Pepcid] 20 mg PO DAILY #30 tablet Discharge Medication List Famotidine [Pepcid] 20 mg PO DAILY #30 tablet 12/13/22 [Rx] metFORMIN HCL 500 mg PO DAILY #30 tablet 12/13/22 [Rx] Follow up Appointment(s)/Referral(s): Allison Santoyo DO [Doctor of Osteopathic Medicine] - 1 Week (Please schedule appointment) [facility], [NON-STAFF] - 1-2 Days ([facility] will call you to schedule your in home nursing visits. ) Moises Yee [Primary Care Provider] - 12/17/22 10:00 am (Tuesday) Tyler Lantigua MD [STAFF PHYSICIAN] - 12/28/22 3:00 pm (Tuesday) Ambulatory/Diagnostic Orders: Basic Metabolic Panel [LAB.AMB] Time Frame: 3 Days, Location: None Selected Miscellaneous Lab Order [LAB.AMB] Time Frame: 3 Days, Location: None Selected Patient Instructions/Handouts: Syncope (DC) Activity/Diet/Wound Care/Special Instructions: Recommend to check hemoglobin A1C and follow up with your PCP regarding the elevated blood glucose. Patient has been started on metformin 500 mg daily. Recommend to see Dr. Santoyo regarding the cervical spine stenosis this can be outpatient. Follow up with your PCP Dr Yee in 1 to 2 days Follow up labs in 2 to 3 days. Patient has been advised to monitor blood pressure at home. Discharge Disposition: HOME WITH HOME HEALTH SERVICES
== END 2022-12-13 15:35 | disposition home health service (06) | DRG 884 ==
LOC: EC 18:27 → 3SCARD 20:24
PROVIDERS: ADMIT Internal Medicine; ATTEND Internal Medicine
PROC: 0HQ1XZZ Repair Face Skin, External Approach (ICD-10-PCS; principal; 2022-12-09)
DX: R41.81 Age-related cognitive decline (principal); F03.93 Unspecified dementia, unspecified severity, with mood disturbance; N17.9 Acute kidney failure, unspecified; F03.94 Unspecified dementia, unspecified severity, with anxiety; E86.0 Dehydration; F31.9 Bipolar disorder, unspecified; M06.9 Rheumatoid arthritis, unspecified; E11.65 Type 2 diabetes mellitus with hyperglycemia; I10 Essential (primary) hypertension; S01.81XA Laceration without foreign body of other part of head, initial encounter; J44.89 Other specified chronic obstructive pulmonary disease; E78.5 Hyperlipidemia, unspecified; E87.5 Hyperkalemia; G47.30 Sleep apnea, unspecified; F17.210 Nicotine dependence, cigarettes, uncomplicated; F41.9 Anxiety disorder, unspecified; M48.02 Spinal stenosis, cervical region; W19.XXXA Unspecified fall, initial encounter; R29.6 Repeated falls; Z98.1 Arthrodesis status; Z79.4 Long term (current) use of insulin; Y92.009 Unspecified place in unspecified non-institutional (private) residence as the place of occurrence of the external cause; Z80.0 Family history of malignant neoplasm of digestive organs; Z82.49 Family history of ischemic heart disease and other diseases of the circulatory system; Z82.5 Family history of asthma and other chronic lower respiratory diseases; Z79.899 Other long term (current) drug therapy; Z80.8 Family history of malignant neoplasm of other organs or systems
CPT/HCPCS: 12013; 36415; 70450; 71045; 72125; 80048; 80053; 80061; 83735; 83880; 84484; 85025; 85610; 85730; 90471; 90715; 93005; 93306; 96360; 96361; 99285

== ENCOUNTER 2023-02-18 01:09 | Inpatient (IN) | payer MEDICARE, OTHER ==
[2023-02-18] MEDS ORDERED: HEPARIN SODIUM 1,000 UN/ML (10ML VL) IV ONE (01:11)
[2023-02-18] MEDS ORDERED: SODIUM CHLORIDE 0.9% 1,000 ML IV STA (01:11)
--- NOTE | 2023-02-18 01:14 | ED ---
General Adult HPI - General Stated complaint: STEMI Time Seen by Provider: 02/18/23 01:11 - History of Present Illness Initial comments: Dictation was produced using [employer] dictation software. please excuse any grammatical, word or spelling errors. Chief Complaint: 72-year-old male presents to the ER first STEMI History of Present Illness: Patient is 72-year-old male previous history of diabetes. No cardiac history. He was sleeping when all of a sudden he woke up with dull pressure in his chest. Radiated down his left upper extremity. No associated nausea diaphoresis. Called EMS. Was given aspirin and nitroglycerin with improvement of his symptoms. EKG performed by prehospital providers showed ST segment elevation WA with ST elevations in inferior leads along with reciprocal changes. Patient states that he is currently pain-free after having been given the nitroglycerin. Patient smokes tobacco. The ROS documented in this emergency department record has been reviewed and confirmed by me. Those systems with pertinent positive or negative responses have been documented in the HPI. All other systems are other negative and/or noncontributory. - Related Data Previous Rx's Medication Instructions Recorded Famotidine [Pepcid] 20 mg PO DAILY #30 tablet 12/13/22 metFORMIN HCL 500 mg PO DAILY #30 tablet 12/13/22 Allergies Allergy/AdvReac Type Severity Reaction Status Date / Time No Known Allergies Allergy Verified 02/18/23 01:22 Review of Systems ROS Statement: Those systems with pertinent positive or pertinent negative responses have been documented in the HPI. ROS Other: All systems not noted in ROS Statement are negative. Past Medical History Past Medical History: Asthma, COPD, Dementia, Diabetes Mellitus, Hyperlipidemia, Hypertension, Rheumatoid Arthritis (RA), Sleep Apnea/CPAP/BIPAP Additional Past Medical History / Comment(s): family hx. colon cancer, supposed to use CPAP History of Any Multi-Drug Resistant Organisms: None Reported Past Surgical History: Cholecystectomy, Hernia Repair, Orthopedic Surgery, Tonsillectomy Additional Past Surgical History / Comment(s): Uvular sleep apnea, carpal tunnel surg., tarsal tunnel surg. for feet, cervical fusion, Past Anesthesia/Blood Transfusion Reactions: No Reported Reaction Past Psychological History: Anxiety, Bipolar Smoking Status: Current every day smoker Past Alcohol Use History: Occasional Past Drug Use History: None Reported - Past Family History Father Family Medical History: Cancer, COPD Additional Family Medical History / Comment(s): Father at age 81 from mesothelioma and COPD with history of brain cancer. He was a coal mill operator. Brother(s) Family Medical History: Coronary Artery Disease (CAD), Rheumatoid Arthritis (RA) Additional Family Medical History / Comment(s): Patient has 3 brothers. One brother at age 40 from AIDS. One brother is alive with exposure to Agent [place]. Third brother is alive with rheumatoid arthritis and coronary artery disease. Sister(s) Family Medical History: COPD, CVA/TIA Additional Family Medical History / Comment(s): Patient has 4 sisters. One sister is in her 50s and had a CVA at age 38. One at age 70 from COPD. Daughter(s) Family Medical History: No Reported History Additional Family Medical History / Comment(s): Patient has 5 daughters with no major medical problems. Mother Family Medical History: Cancer Additional Family Medical History / Comment(s): Mother at age 79 from colon cancer. General Exam - General Exam Comments Initial Comments: PHYSICAL EXAM: General Impression: Alert and oriented x3, not in acute distress HEENT: Normocephalic atraumatic, extra-ocular movements intact, pupils equal and reactive to light bilaterally, mucous membranes moist. Cardiovascular: Heart regular rate and rhythm Chest: Able to complete full sentences, no retractions, no tachypnea Abdomen: abdomen soft, non-tender, non-distended, no organomegaly Musculoskeletal: Pulses present and equal in all extremities, no peripheral edema Motor: no focal deficits noted Neurological: CN II-XII grossly intact, no focal motor or sensory deficits noted Skin: Intact with no visualized rashes Psych: Normal affect and mood Course Vital Signs 02/18/23 01:11 Temperature 97.1 F L Pulse Rate 81 Respiratory 26 H Rate Blood Pressure 150/96 O2 Sat by Pulse 96 Oximetry - Reevaluation(s) Reevaluation #1: 02/18/23 01:29 Prehospital EKG was reviewed prior to patient's arrival. Code STEMI activated prior to patient's arrival. Patient given heparin EKG Findings - EKG Comments: EKG Findings:: My EKG interpretation: Ventricular rate 73, sinus rhythm, QRS 80, QTC 397. Significant artifact.. No UT prolongation, no QTC prolongation, no ST or T-wave changes noted. Overall, this EKG is nonspecific Medical Decision Making - Medical Decision Making Was pt. sent in by a medical professional or institution (JUAN Guerrier, TRAUMA MANAGER, urgent care, hospital, or long term...) When possible be specific @ -No Did you speak to anyone other than the patient for history (EMS, parent, family, police, friend...)? What history was obtained from this source @ -No Did you review nursing and triage notes (agree or disagree)? Why? @ -I reviewed and agree with nursing and triage notes Were old charts reviewed (outside hosp., previous admission, EMS record, old EKG, old radiological studies, urgent care reports/EKG's, long term records)? Report findings @ -No old charts were reviewed Differential Diagnosis (chest pain, altered mental status, abdominal pain women, abdominal pain men, vaginal bleeding, musculoskeletal, weakness, fever, dyspnea, syncope, headache, dizziness, GI bleed, back pain, seizure, CVA, palpatations, mental health)? @ -Differential Chest Pain: Stable Angina, Unstable Angina, STEMI, NSTEMI Aortic Dissection, Pneumothorax, Musculoskeletal, Esophageal Spasm GERD, Cholecystitis, Pancreatitis, Zoster, this is not meant to be an all-inclusive list. EKG interpreted by me (3pts min.). @ -See above X-rays interpreted by me (1pt min.). @ -No acute processes CT interpreted by me (1pt min.). @ -None done U/S interpreted by me (1pt. min.). @ -None done What testing was considered but not performed or refused? (CT, X-rays, U/S, labs)? Why? @ -None What meds were considered but not given or refused? Why? @ -None Did you discuss the management of the patient with other professionals (professionals i.e. JUAN Guerrier, TRAUMA MANAGER, lab, RT, psych nurse, social worker clinical, brass roller, teacher, planned giving officer, social work case manager)? Give summary @ -see above Was smoking cessation discussed for >3mins.? @ -No Was critical care preformed (if so, how long)? @ -yes, 33 minutes Were there social determinants of health that impacted care today? How? (Homelessness, low income, unemployed, alcoholism, drug addiction, transportation, low edu. Level, literacy, decrease access to med. care, senior living, rehab)? @ -No Was there de-escalation of care discussed even if they declined (Discuss DNR or withdrawal of care, Hospice)? DNR status @ -No What co-morbidities impacted this encounter? (DM, HTN, Smoking, COPD, CAD, Cancer, CVA, ARF, Chemo, Hep., AIDS, mental health diagnosis, sleep apnea, morbid obesity)? @ -Diabetes mellitus and tobacco use Was patient admitted / discharged? Hospital course, mention meds given and route, prescriptions, significant lab abnormalities, going to OR and other pertinent info. @ -72-year-old male presents emergency department with ST segment elevation WA. Code STEMI activated. Vital signs upon arrival are within acceptable limits. Patient in no acute distress to bedside states that he is currently pain-free after having been given nitro glycerin and aspirin. Patient admitted to [facility]. Patient will be going directly to Manager Branch. Undiagnosed new problem with uncertain prognosis? @ -No Drug Therapy requiring intensive monitoring for toxicity (Heparin, Nitro, Insulin, Cardizem)? @ -No Were any procedures done? @ -No Diagnosis/symptom? Acute, or Chronic, or Acute on Chronic? Uncomplicated (without systemic symptoms) or Complicated (systemic symptoms)? @ -STEMi Side effects of treatment? @ -No Exacerbation, Progression, or Severe Exacerbation? @ -No Poses a threat to life or bodily function? How? (Chest pain, USA, WA, pneumonia, PE, COPD, DKA, ARF, appy, cholecystitis, CVA, Diverticulitis, Homicidal, Suicidal, threat to staff... and all critical care pts) @ -Yes Disposition Clinical Impression: STEMI (ST elevation myocardial infarction) Disposition: ADMITTED IP TO THIS HOSP Condition: Critical Decision Time: 01:44
[2023-02-18] MEDS ORDERED: NITROGLYCERIN SL TABS 0.4 MG TAB SUBLINGUAL PRN (01:15)
[2023-02-18 01:26] LABS: Glucose,Whole Blood 151 mg/dL (70-110)
--- NOTE | 2023-02-18 01:36 | XR ---
EXAM: XR Chest, 1 View CLINICAL HISTORY: ITS.REASON XR Reason: chest pain TECHNIQUE: Frontal view of the chest. COMPARISON: No relevant prior studies available. FINDINGS: Lungs: Bibasilar parenchymal opacities. Emphysema. Pleural space: Unremarkable. No pneumothorax. No pleural effusions. Heart: Unremarkable. No cardiomegaly. Mediastinum: Unremarkable. Normal mediastinal contour. Bones/joints: No acute osseous abnormalities. IMPRESSION: 1. Bibasilar parenchymal opacities. 2. Emphysema.
--- NOTE | 2023-02-18 01:43 | P.CRDCN ---
History of Present Illness History of present illness: HISTORY OF PRESENTING ILLNESS Patient is a pleasant 72-year-old male with history of tobacco abuse, COPD, mild dementia, diabetes mellitus type 2, hypertension, hyperlipidemia, sleep apnea, family history of CAD who presents secondary to chest pain over last 2-3 days. He states chest pain has been off and on however was more intense this morning and woke him out of bed and therefore came to emergency department. Patient was given aspirin as well as nitro and pain improved significantly to a 2 out of 10. Initial EKG en route showed inferior ST elevation with reciprocal changes however EKG performed in the emergency department showed improved ST elevations with ST depressions. He states he does smoke and family history of an number of people including his father with UT and stents. He was seen back in November secondary to fall and spinal stenosis. Echo at that time showed EF 50-55% with trace aortic insufficiency. REVIEW OF SYSTEMS At the time of my exam: CONSTITUTIONAL: Denies fever or chills. CARDIOVASCULAR: +chest pain, +shortness of breath, no orthopnea, PND or pal pitations. RESPIRATORY: Denies cough. GASTROINTESTINAL: Denies abdominal pain, diarrhea, constipation, nausea or vomiting. MUSCULOSKELETAL: Denies myalgias. NEUROLOGIC: Denies numbness, tingling or weakness. ENDOCRINE: Denies fatigue, weight change, polydipsia or polyurina. GENITOURINARY: Denies burning, hematuria or urgency with micturation. HEMATOLOGIC: Denies history of anemia or bleeding. PHYSICAL EXAMINATION Vital signs reviewed. CONSTITUTIONAL: No apparent distress. HEENT: Head is normocephalic. Pupils are equal, round. Sclerae anicteric. Mucous membranes of the mouth are moist. No JVD. No carotid bruit. CHEST EXAMINATION: Lungs are clear to auscultation. No chest wall tenderness is noted on palpation or with deep breathing. HEART EXAMINATION: Regular rate and rhythm. S1, S2 heard. No murmurs, gallops or rub. ABDOMEN: Soft, nontender. Positive bowel sounds. EXTREMITIES: 2+ peripheral pulses, no lower extremity edema and no calf tenderness. NEUROLOGIC EXAMINATION: Patient is awake, alert and oriented x3. ASSESSMENT 1. Anterior STEMI 2. Hypertension 3. Diabetes mellitus type 2 4. Family history of CAD 5. Tobacco abuse PLAN Discussed risks and benefits of heart catheterization patient appears to understand risks and benefits and is agreeable to proceed. ST elevations have improved with aspirin and nitro however still having ongoing chest pain and discussed urgent heart catheterization. Check 2-D echo. Tobacco cessation recommended. Further recommendations to follow. Past Medical History Past Medical History: Asthma, COPD, Dementia, Diabetes Mellitus, Hyperlipidemia, Hypertension, Rheumatoid Arthritis (RA), Sleep Apnea/CPAP/BIPAP Additional Past Medical History / Comment(s): family hx. colon cancer, supposed to use CPAP History of Any Multi-Drug Resistant Organisms: None Reported Past Surgical History: Cholecystectomy, Hernia Repair, Orthopedic Surgery, Tonsillectomy Additional Past Surgical History / Comment(s): Uvular sleep apnea, carpal tunnel surg., tarsal tunnel surg. for feet, cervical fusion, Past Anesthesia/Blood Transfusion Reactions: No Reported Reaction Past Psychological History: Anxiety, Bipolar Smoking Status: Current every day smoker Past Alcohol Use History: Occasional Past Drug Use History: None Reported - Past Family History Father Family Medical History: Cancer, COPD Additional Family Medical History / Comment(s): Father at age 81 from mesothelioma and COPD with history of brain cancer. He was a machine cloth examiner. Brother(s) Family Medical History: Coronary Artery Disease (CAD), Rheumatoid Arthritis (RA) Additional Family Medical History / Comment(s): Patient has 3 brothers. One brother at age 40 from AIDS. One brother is alive with exposure to Agent [place]. Third brother is alive with rheumatoid arthritis and coronary artery disease. Sister(s) Family Medical History: COPD, CVA/TIA Additional Family Medical History / Comment(s): Patient has 4 sisters. One sister is in her 50s and had a CVA at age 38. One at age 70 from COPD. Daughter(s) Family Medical History: No Reported History Additional Family Medical History / Comment(s): Patient has 5 daughters with no major medical problems. Mother Family Medical History: Cancer Additional Family Medical History / Comment(s): Mother at age 79 from colon cancer. Medications and Allergies Home Medications Medication Instructions Recorded Confirmed Type Famotidine [Pepcid] 20 mg PO DAILY #30 tablet 12/13/22 Rx metFORMIN HCL 500 mg PO DAILY #30 tablet 12/13/22 Rx Allergies Allergy/AdvReac Type Severity Reaction Status Date / Time No Known Allergies Allergy Verified 02/18/23 01:22 Physical Exam Vitals: Vital Signs Temp Pulse Resp BP Pulse Ox 12/22/23 01:11 97.1 F L 81 26 H 150/96 96 Intake and Output 02/17/23 02/17/23 02/18/23 14:59 22:59 06:59 Other: Weight 73.936 kg Results Current Medications Generic Name Dose Route Start Last Admin Trade Name Freq PRN Reason Stop Dose Admin Sodium Chloride 1,000 mls @ 999 mls/hr 02/18/23 01:11 02/18/23 01:26 Saline 0.9% IV 02/18/23 02:11 999 mls/hr .Q1H1M STA Administration Heparin Sodium/Sodium Chloride 250 mls @ 8.868 mls/hr 02/18/23 01:30 25,000 unit/ Sodium Chloride IV .Q24H RENETTA Protocol 12 UNITS/KG/HR Nitroglycerin 0.4 mg 02/18/23 01:15 Nitroglycerin Sl Tabs 0.4 Mg Tab SUBLINGUAL Q5M PRN Chest Pain Intake and Output 02/17/23 02/17/23 02/18/23 14:59 22:59 06:59 Other: Weight 73.936 kg Patient Weight 02/18/23 06:59 Weight 73.936 kg
[2023-02-18 01:45] LABS: Basophils # (A) 0.1 k/uL (0-0.2); Basophils % (A) 1 %; Eosinophils # (A) 0.3 k/uL (0-0.7); Eosinophils % (A) 2 %; HCT 49.1 % (39.0-53.0); HGB 16.9 gm/dL (13.0-17.5); Lymphocytes # (A) 4.5 k/uL (1.0-4.8); Lymphocytes % (A) 36 %; MCH 30.6 pg (25.0-35.0); MCHC 34.5 g/dL (31.0-37.0); MCV 88.5 fL (80.0-100.0); Monocytes # (A) 0.9 k/uL (0-1.0); Monocytes % (A) 7 %; Neutrophils # (A) 6.6 k/uL (1.3-7.7); Neutrophils % (A) 53 %; Platelet Count 215 k/uL (150-450); RBC 5.54 m/uL (4.30-5.90); WBC 12.6 k/uL (3.8-10.6)
[2023-02-18] MEDS ORDERED: IV FLUID CONTINUATION 1,000 ML IV ONE (01:45)
[2023-02-18] MEDS ORDERED: LIDOCAINE 1% INJ 10MG/ML (20 ML MDV) ONE (01:46)
[2023-02-18] MEDS ORDERED: fentaNYL (PF) 50 MCG/ML 2 ML AMP ONE (01:46)
[2023-02-18] MEDS ORDERED: VERAPAMIL 2.5 MG/ML 2 ML AMP ONE (01:46)
[2023-02-18] MEDS ORDERED: HEPARIN SODIUM 1,000 UN/ML (10ML VL) ONE (01:46)
[2023-02-18] MEDS ORDERED: LIDOCAINE 1% INJ 10MG/ML (20 ML MDV) SQ ONE (01:49)
[2023-02-18] MEDS ORDERED: VERAPAMIL SYRINGE (5 MG/10 ML) INTRAARTER ONE (01:50)
[2023-02-18] MEDS ORDERED: MIDAZOLAM 2 MG/2 ML VIAL IVP ONE (01:52)
[2023-02-18] MEDS ORDERED: fentaNYL (PF) 50 MCG/ML 2 ML AMP IVP ONE (01:52)
[2023-02-18] MEDS: HEPARIN SODIUM 1,000 UN/ML (10ML VL) IV ONE ×2 (01:58→02:19)
[2023-02-18] MEDS ORDERED: TICAGRELOR 90 MG TAB ONE (02:01)
[2023-02-18] MEDS ORDERED: PHENYLEPHRINE-0.9% NACL SYG 1,000 MCG/10 ML SYRINGE IVP ONE (02:02)
[2023-02-18] MEDS ORDERED: TICAGRELOR 90 MG TAB PO ONE (02:02)
[2023-02-18 02:04] LABS: ALT 19 U/L (4-49); AST 27 U/L (17-59); African American GFR (CKD) >90 (>60 ml/min/1.73 sqM); Albumin 4.3 g/dL (3.5-5.0); Alkaline Phosphatase 78 U/L (38-126); Anion Gap 12 mmol/L; Blood Urea Nitrogen 19 mg/dL (9-20); Calcium 9.5 mg/dL (8.4-10.2); Carbon Dioxide 25 mmol/L (22-30); Chloride 103 mmol/L (98-107); Glucose 150 mg/dL (74-99); Non-African American GFR(CKD) >90 (>60 ml/min/1.73 sqM); Sodium 140 mmol/L (137-145); Total Bilirubin 0.8 mg/dL (0.2-1.3); Total Protein 7.5 g/dL (6.3-8.2)
[2023-02-18 02:06] LABS: Potassium 4.2 mmol/L (3.5-5.1)
[2023-02-18 02:14] LABS: INR 0.9 (<1.2); Partial Thromboplastin Time 26.2 sec (22.0-30.0); Prothrombin Time 10.5 sec (10.0-12.5)
[2023-02-18] MEDS ORDERED: IOPAMIDOL-370 100ML BTL INJ ONE (02:15)
--- NOTE | 2023-02-18 02:25 | P.PRCINT ---
Percutaneous Coronary Int. - Percutaneous Coronary Intervention Percutaneous Coronary Intervention: PROCEDURES PERFORMED: Bilateral coronary angiography, PCI to mid RCA with 3.5 x 12 mm Xience CHIDI, post dilated with a 3.5 NC balloon INDICATION: Inferior STEMI CONSENT:I have discussed the risks, benefits and alternative therapies for the above-mentioned procedure and for both sedation/analgesia as well as necessary blood product administration, if indicated, as they pertain to this patient. The patient has indicated understanding and acceptance of the risks and procedures discussed. PROCEDURE: After the risks, benefits and alternatives of the above mentioned procedure explained in detail with the patient, informed consent was obtained. Patient was taken to the catheterization lab and prepped and draped in usual fashion. 1% lidocaine was used to anesthetize the right radial artery. A 6- [place]ian sheath was placed in the right radial artery using modified Seldinger technique. Left coronary angiography was performed with a 5-Zambian JL 3.5 catheter. Right coronary angiography was performed with a 6-Zambian AL 0.75 guide. Given ongoing chest pain and inferior ST elevation despite multivessel disease decision made to perform PCI. Heparin was given for ACT greater than 250. A 0.014 BMW wire was advanced in the distal RCA. Predilation was performed with a 2.5 x 8 mm balloon. Next a 3.5 x 12 mm Xience CHIDI was placed in the mid RCA. The middle portion the stent was postdilated with a 3.5 noncompliant balloon. Final angiograms were performed. Preintervention there is 99% stenosis with DEANNE 2 flow. Postintervention there was 0% stenosis and DEANNE-3 flow. There was multiple disease throughout left and right system including the PDA lesion however felt best treated medically at this time. Patient was chest pain-free by the end of the procedure. The right radial sheath was removed and a TR band was placed with hemostasis achieved. The patient tolerated the procedure well. Patient was transported back to the post catheterization holding area in stable condition. Conscious Sedation: Patient was monitored under the direct supervision of myself for conscious sedation using Versed and fentanyl for a total duration of 24 minutes HEMODYNAMICS: Aorta: 91/72 SELECTIVE CORONARY ARTERIOGRAPHY: LEFT MAIN: The left main is a large caliber vessel which trifurcates into the LAD, ramus and circumflex. There is no significant stenosis. LEFT ANTERIOR DESCENDING CORONARY ARTERY: LAD is a large caliber vessel which wraps around to the apex. There is a long proximal to mid LAD stenosis up to 90%. The mid to distal LAD has mild luminal irregularities as well as bridging noted of the mid LAD. RAMUS INTERMEDIUS: The ramus is a small to moderate caliber vessel which has a tandem 90% and 90% stenosis. LEFT CIRCUMFLEX CORONARY ARTERY: Left circumflex is a moderate caliber vessel with mild tender 20% stenosis RIGHT CORONARY ARTERY: The right coronary artery is a large caliber vessel which gives off a PDA and PLV branch and is the dominant vessel. There is diffuse disease throughout the entire artery with more focal 99% mid RCA stenosis with thrombus noted. Additionally there is distal RCA 30-40% and a proximal PDA 80% stenosis. FINAL IMPRESSION: 1. Multivessel CAD as described above including 90% proximal LAD, 90% ramus, 99% RCA stenosis, 80% PDA stenosis 2. S/p PCI mid RCA with 3.5 x 12 mm Xience CHIDI PLAN: 1. Aggressive risk factor modification per most recent ACC/AHA guidelines. 2. Continue dual antiplatelets with aspirin and Brillinta for 12 months 3. Stage PCI of LAD and ramus. Consider further assessment of PDA if clinically indicated, having angina.
[2023-02-18] MEDS ORDERED: MAG HYDROX/AL HYDROX/SIMETH 30 ML CUP PO PRN (02:28)
[2023-02-18] MEDS ORDERED: ATROPINE SULFATE 0.1 MG/ML 10ML SYRINGE IV PRN (02:28)
[2023-02-18] MEDS ORDERED: RX INFO: IV CONTRAST WAS GIVEN 1 EACH MISC MISCELLANE PRN (02:28)
[2023-02-18 02:48] LABS: Glucose,Whole Blood 150 mg/dL (70-110)
[2023-02-18] MEDS: HEPARIN SOD,PORK IN 0.45% NACL 25,000 UNIT in 0.45% NACL 1 250ML.BAG IV SCH ×2 (02:49→23:08)
[2023-02-18] MEDS: SODIUM CHLORIDE 0.9% 1,000 ML in EMPTY BAG 1 BAG IV SCH ×2 (03:02→14:44)
[2023-02-18] MEDS ORDERED: NALOXONE 0.4 MG/ML 1 ML VIAL IV PRN (03:50)
[2023-02-18 05:37] LABS: Basophils # (A) 0.1 k/uL (0-0.2); Basophils % (A) 1 %; Eosinophils # (A) 0.2 k/uL (0-0.7); Eosinophils % (A) 2 %; HCT 40.4 % (39.0-53.0); Lymphocytes # (A) 2.7 k/uL (1.0-4.8); Lymphocytes % (A) 25 %; MCH 30.4 pg (25.0-35.0); MCHC 34.1 g/dL (31.0-37.0); MCV 89.3 fL (80.0-100.0); Mean Platelet Volume 9.2; Monocytes # (A) 0.6 k/uL (0-1.0); Monocytes % (A) 6 %; Neutrophils # (A) 6.8 k/uL (1.3-7.7); Neutrophils % (A) 65 %; Platelet Count 174 k/uL (150-450); RBC 4.52 m/uL (4.30-5.90); RDW 13.1 % (11.5-15.5); WBC 10.6 k/uL (3.8-10.6)
[2023-02-18 05:48] LABS: ALT 16 U/L (4-49); AST 36 U/L (17-59); African American GFR (CKD) >90 (>60 ml/min/1.73 sqM); Albumin 3.1 g/dL (3.5-5.0); Alkaline Phosphatase 74 U/L (38-126); Blood Urea Nitrogen 17 mg/dL (9-20); Calcium 8.1 mg/dL (8.4-10.2); Carbon Dioxide 26 mmol/L (22-30); Glucose 206 mg/dL (74-99); Non-African American GFR(CKD) >90 (>60 ml/min/1.73 sqM); Total Bilirubin 0.6 mg/dL (0.2-1.3); Total Protein 5.8 g/dL (6.3-8.2)
[2023-02-18 06:19] LABS: Anion Gap 6 mmol/L; Chloride 107 mmol/L (98-107); Sodium 139 mmol/L (137-145)
[2023-02-18 06:20] LABS: HGB 13.7 gm/dL (13.0-17.5)
[2023-02-18 07:05] LABS: Glucose,Whole Blood 266 mg/dL (70-110)
[2023-02-18] MEDS ORDERED: DEXTROSE 50% SYRINGE 50 ML IVP PRN ×2 (07:31)
[2023-02-18 08:26] LABS: Glucose,Whole Blood 257 mg/dL (70-110)
[2023-02-18] MEDS: ASPIRIN 81 MG PO SCH (08:28)
[2023-02-18] MEDS: TICAGRELOR 90 MG TAB PO SCH ×2 (08:28→20:38)
[2023-02-18] MEDS: INSULIN ASPART (NovoLOG) 100 UNIT/ML VIAL SQ SCH ×4 (08:28→20:38)
--- NOTE | 2023-02-18 10:24 | CA ---
Transthoracic Echo Report Name: Doc Orosco Age: 72 Gender: M : 1950 Exam Date: 02/18/2023 08:10 Exam Location: [facility] Ht (in): 67 Wt (lb): 163 Ordering Physician: Benson Simpson DO ([email or web address]) Attending/Referring Phys: City Route Driver Mandi Woodall RDCS Procedure CPT: Indications: re: STEMI Cardiac Hx: Technical Quality: Fair Contrast 1: Total Dose (mL): Contrast 2: Total Dose (mL): MEASUREMENTS (Male / Female) Normal Values 2D ECHO LV Diastolic Diameter PLAX 4.8 cm 4.2 - 5.9 / 3.9 - 5.3 cm LV Systolic Diameter PLAX 2.9 cm IVS Diastolic Thickness 0.9 cm 0.6 - 1.0 / 0.6 - 0.9 cm LVPW Diastolic Thickness 1.2 cm 0.6 - 1.0 / 0.6 - 0.9 cm LV Relative Wall Thickness 0.4 RV Internal Dim ED PLAX 3.4 cm LA Systolic Diameter LX 3.8 cm 3.0 - 4.0 / 2.7 - 3.8 cm LV Diastolic Volume MOD 4C 114.7 cm??? LV Systolic Volume MOD 4C 54.2 cm??? LV Ejection Fraction MOD 4C 52.8 % LV Cardiac Index MOD 4C 1802.6 cm???/min???m??? LV Diastolic Length 4C 8.3 cm LV Systolic Length 4C 6.9 cm LV Diastolic Volume MOD 2C 103.0 cm??? LV Systolic Volume MOD 2C 49.2 cm??? LV Ejection Fraction MOD 2C 52.2 % LV Cardiac Index MOD 2C 1601.8 cm???/min???m??? LV Diastolic Length 2C 8.0 cm LV Systolic Length 2C 6.7 cm LA Volume 54.5 cm??? 18 - 58 / 22 - 52 cm??? LA Volume Index 29.0 cm???/m??? 16 - 28 cm???/m??? M-MODE Aortic Root Diameter MM 3.0 cm MV E Point Septal Separation 0.3 cm AV Cusp Separation MM 1.9 cm DOPPLER AV Peak Velocity 138.9 cm/s AV Peak Gradient 7.7 mmHg MV Area PHT 3.1 cm??? Mitral E Point Velocity 104.6 cm/s Mitral A Point Velocity 76.1 cm/s Mitral E to A Ratio 1.4 MV Deceleration Time 241.4 ms MV E' Velocity 9.7 cm/s Mitral E to MV E' Ratio 10.8 FINDINGS Left Ventricle Left ventricular ejection fraction is estimated at 45-50 %. Left ventricular cavity size normal. Inferobasal and inferoseptal hypokinesis. Right Ventricle Mild right ventricular dilatation. Unable to estimate the right ventricular systolic pressure. Right Atrium Normal right atrial size. Left Atrium Normal left atrial size. Mitral Valve Structurally normal mitral valve. No mitral stenosis, or prolapse. Mild mitral regurgitation.mitral annular calcification. Aortic Valve Trileaflet aortic valve. No aortic valve stenosis or regurgitation.aortic valve sclerosis. Tricuspid Valve Structurally normal tricuspid valve. No tricuspid stenosis, regurgitation or prolapse. Pulmonic Valve Pulmonic valve not well visualized. Pericardium No pericardial effusion. Aorta Normal size aortic root and proximal ascending aorta. CONCLUSIONS 1. Mildly impaired left ventricle systolic function with segmental wall motion abnormalities 2. Mild mitral regurgitation Previewed by: Dr. Edilson Tripathi MD (Electronically Signed) Final Date: 18 February 2023 10:23
[2023-02-18] MEDS: METOPROLOL TARTRATE 12.5 MG TAB PO SCH ×2 (10:43→20:32)
[2023-02-18 11:05] LABS: Glucose,Whole Blood 163 mg/dL (70-110)
--- NOTE | 2023-02-18 12:44 | P.HPIM ---
History of Present Illness H&P Date: 02/18/23 History of present illness; patient is a 72-year-old gentleman with past medical history significant for tobacco abuse, COPD, mild dementia, diabetes mellitus type 2, hypertension, hyperlipidemia, sleep apnea who presented to the ER because of chest pain that started this morning. Patient stated that he was sleeping when he was woken up from sleep because of sudden onset of chest pain that was central in location, dull in nature, was getting down his left upper extremity, no aggravating or relieving factors associated with this chest pain. There was no complain of nausea, vomiting associated with chest pain. No diaphoresis. EMS was called and when they arrived at spot they gave patient aspirin and nitroglycerin. EKG done by them showed ST segment elevation in inferior leads, patient was rushed to the ER Sdv Pilot/Navigator/Dds Operator was activated.Patient was taken to emergent cardiac cath, patient underwent cardiac cath showing Multivessel CAD including 90% proximal LAD, 90% ramus, 99% RCA stenosis, 80% PDA stenosis, patient underwent PCI mid RCA with 3.5 x 12 mm Xience CHIDI Patient admitted to ICU post cardiac cath under internal medicine service REVIEW OF SYSTEMS: CONSTITUTIONAL: No fever, no malaise, no fatigue. HEENT: No recent visual problems or hearing problems. Denied any sore throat. CARDIOVASCULAR: As mentioned in HPI PULMONARY: As mentioned in HPI GASTROINTESTINAL: No diarrhea, no nausea, no vomiting, no abdominal pain. NEUROLOGICAL: No headaches, no weakness, no numbness. HEMATOLOGICAL: Denies any bleeding or petechiae. GENITOURINARY: Denies any burning micturition, frequency, or urgency. MUSCULOSKELETAL/RHEUMATOLOGICAL: Denies any joint pain, swelling, or any muscle pain. ENDOCRINE: Denies any polyuria or polydipsia. The rest of the 14-point review of systems is negative. PHYSICAL EXAMINATION: GENERAL: The patient is alert and oriented x3, not in any acute distress. Well developed, well nourished. HEENT: Pupils are round and equally reacting to light. EOMI. No scleral icterus. No conjunctival pallor. Normocephalic, atraumatic. No pharyngeal erythema. No thyromegaly. CARDIOVASCULAR: S1 and S2 present. No murmurs, rubs, or gallops. PULMONARY: Chest is clear to auscultation, no wheezing or crackles. ABDOMEN: Soft, nontender, nondistended, normoactive bowel sounds. No palpable organomegaly. MUSCULOSKELETAL: No joint swelling or deformity. EXTREMITIES: No cyanosis, clubbing, or pedal edema. NEUROLOGICAL: Gross neurological examination did not reveal any focal deficits. SKIN: No rashes. Assessment and plan ST elevation [place] Multivessel coronary artery disease, cardiac cath showing 90% proximal LAD, 90% ramus, 99% RCA stenosis, 80% PDA stenosis, status post PCI mid RCA with 3.5 x 12 mm Xience CHIDI Hypertension Hyperlipidemia Diabetes mellitus Monitor vital signs Monitor CBC Monitor CMP Continue telemetry monitoring Ordered 2-D echo Status post cardiac cath showing 90% proximal LAD, 90% ramus, 99% RCA stenosis, 80% PDA stenosis, with PCI mid RCA with 3.5 x 12 mm Xience CHIDI. Cardiology planning Stage PCI of LAD and ramus Continue dual antiplatelet therapy with aspirin and brilinta Continue post cardiac cath care per cardiology Resume home meds Critical care consulted Labs and medication were reviewed.. Continue same treatment. Continue with symptomatic treatment. Resume home medication. Monitor labs and vitals. DVT and GI prophylaxis. Further recommendations as per clinical course of the patient Dictation was produced using Rev dictation software. please excuse any grammatical, word or spelling errors. Past Medical History Past Medical History: Asthma, COPD, Dementia, Diabetes Mellitus, Hyperlipidemia, Hypertension, Rheumatoid Arthritis (RA), Sleep Apnea/CPAP/BIPAP Additional Past Medical History / Comment(s): family hx. colon cancer, noncompliant with CPAP, pt states a recent fall at home 12/12/22 with injury to head History of Any Multi-Drug Resistant Organisms: None Reported Past Surgical History: Cholecystectomy, Hernia Repair, Orthopedic Surgery Additional Past Surgical History / Comment(s): Uvular sleep apnea, carpal tunnel surg., tarsal tunnel surg. for feet, cervical fusion Past Anesthesia/Blood Transfusion Reactions: No Reported Reaction Past Psychological History: Anxiety, Bipolar Smoking Status: Current every day smoker Past Alcohol Use History: None Reported Additional Past Alcohol Use History / Comment(s): Smokes 1/2 PPD Past Drug Use History: None Reported - Past Family History Father Family Medical History: Cancer, COPD Additional Family Medical History / Comment(s): Father at age 81 from mesothelioma and COPD with history of brain cancer. Brother(s) Family Medical History: Coronary Artery Disease (CAD), Rheumatoid Arthritis (RA) Additional Family Medical History / Comment(s): One brother at age 40 from AIDS. Sister(s) Family Medical History: COPD, CVA/TIA Additional Family Medical History / Comment(s): One at age 70 from COPD. Daughter(s) Family Medical History: No Reported History Additional Family Medical History / Comment(s): Patient has 5 daughters with no major medical problems. Mother Family Medical History: Cancer Additional Family Medical History / Comment(s): Mother at age 79 from colon cancer. Medications and Allergies Home Medications Medication Instructions Recorded Confirmed Type Famotidine [Pepcid] 20 mg PO DAILY #30 tablet 12/13/22 Rx metFORMIN HCL 500 mg PO DAILY #30 tablet 12/13/22 Rx Allergies Allergy/AdvReac Type Severity Reaction Status Date / Time No Known Allergies Allergy Verified 02/18/23 01:22 Physical Exam Vitals: Vital Signs Temp Pulse Pulse Resp BP BP Pulse Ox 02/18/23 08:00 97.5 F L 57 L 20 134/74 96 02/18/23 07:00 48 L 18 136/62 95 02/18/23 06:00 49 L 18 103/58 95 02/18/23 05:00 52 L 20 128/62 95 02/18/23 04:00 64 14 97/60 96 02/18/23 03:12 97.8 F 52 L 12 108/58 95 02/18/23 03:00 97.9 F 56 L 12 105/76 92 L 02/18/23 02:42 14 95 02/18/23 01:11 97.1 F L 81 26 H 150/96 96 Intake and Output 02/17/23 02/18/23 02/18/23 22:59 06:59 14:59 Intake Total 1100 150 Balance 1100 150 Intake: IV 850 150 Sodium Chloride 0.9% 1, 300 150 000 ml In Empty Bag 1 bag @ 1 ML/KG/HR 73.936 mls/ hr IV .[id number] [facility] Rx#: [id number] Oral 250 Other: Voiding Method Toilet # Voids 1 # Bowel Movements 1 Weight 73.936 kg Results CBC & Chem 7: 02/18/23 05:05 02/18/23 05:05 Labs: Abnormal Lab Results - Last 24 Hours (Table) 02/18/23 02/18/23 02/18/23 Range/Units 01:25 01:30 01:30 WBC 12.6 H (3.8-10.6) k/uL Creatinine 0.60 L (0.66-1.25) mg/dL Glucose 150 H (74-99) mg/dL POC Glucose (mg/dL) 151 H (70-110) mg/dL Calcium (8.4-10.2) mg/dL Troponin I (0.000-0.034) ng/mL Total Protein (6.3-8.2) g/dL Albumin (3.5-5.0) g/dL 02/18/23 02/18/23 02/18/23 Range/Units 02:46 05:05 07:04 WBC (3.8-10.6) k/uL Creatinine 0.55 L (0.66-1.25) mg/dL Glucose 206 H (74-99) mg/dL POC Glucose (mg/dL) 150 H 266 H (70-110) mg/dL Calcium 8.1 L (8.4-10.2) mg/dL Troponin I (0.000-0.034) ng/mL Total Protein 5.8 L (6.3-8.2) g/dL Albumin 3.1 L (3.5-5.0) g/dL 02/18/23 02/18/23 Range/Units 07:50 08:25 WBC (3.8-10.6) k/uL Creatinine (0.66-1.25) mg/dL Glucose (74-99) mg/dL POC Glucose (mg/dL) 257 H (70-110) mg/dL Calcium (8.4-10.2) mg/dL Troponin I 0.045 H* (0.000-0.034) ng/mL Total Protein (6.3-8.2) g/dL Albumin (3.5-5.0) g/dL Thrombosis Risk Factor Assmnt - Choose All That Apply Each Factor Represents 1 point: Abnormal pulmonary function (COPD), Acute MT Each Risk Factor Represents 2 Points: Age 61-74 years Thrombosis Risk Factor Assessment Total Risk Factor Score: 4 Thrombosis Risk Factor Assessment Level: Moderate Risk
[2023-02-18 14:16] VITALS: BMI 25.5
[2023-02-18 16:18] LABS: Glucose,Whole Blood 241 mg/dL (70-110)
[2023-02-18 20:24] LABS: Glucose,Whole Blood 166 mg/dL (70-110)
[2023-02-18] MEDS: ATORVASTATIN 80 MG TAB PO SCH (20:38)
[2023-02-19 04:28] LABS: Basophils # (A) 0.1 k/uL (0-0.2); Basophils % (A) 1 %; Eosinophils # (A) 0.3 k/uL (0-0.7); Eosinophils % (A) 2 %; HCT 44.9 % (39.0-53.0); HGB 14.8 gm/dL (13.0-17.5); Lymphocytes # (A) 3.1 k/uL (1.0-4.8); Lymphocytes % (A) 25 %; MCH 29.6 pg (25.0-35.0); MCHC 32.9 g/dL (31.0-37.0); MCV 89.8 fL (80.0-100.0); Mean Platelet Volume 9.2; Monocytes % (A) 8 %; Neutrophils % (A) 63 %; Platelet Count 180 k/uL (150-450); RDW 13.4 % (11.5-15.5); WBC 12.7 k/uL (3.8-10.6)
[2023-02-19 05:22] LABS: African American GFR (CKD) >90 (>60 ml/min/1.73 sqM); Anion Gap 9 mmol/L; Blood Urea Nitrogen 19 mg/dL (9-20); Calcium 8.6 mg/dL (8.4-10.2); Carbon Dioxide 24 mmol/L (22-30); Chloride 104 mmol/L (98-107); Glucose 168 mg/dL (74-99); Non-African American GFR(CKD) >90 (>60 ml/min/1.73 sqM); Sodium 137 mmol/L (137-145)
[2023-02-19 06:37] LABS: Glucose,Whole Blood 171 mg/dL (70-110)
[2023-02-19] MEDS: SODIUM CHLORIDE 0.9% 1,000 ML in EMPTY BAG 1 BAG IV SCH (06:38)
[2023-02-19] MEDS: INSULIN ASPART (NovoLOG) 100 UNIT/ML VIAL SQ SCH ×4 (06:55→20:00)
[2023-02-19] MEDS: METOPROLOL TARTRATE 12.5 MG TAB PO SCH ×2 (07:55→20:01)
[2023-02-19] MEDS: ASPIRIN 81 MG PO SCH (08:17)
[2023-02-19] MEDS: TICAGRELOR 90 MG TAB PO SCH ×2 (08:17→20:00)
[2023-02-19 11:53] LABS: Glucose,Whole Blood 173 mg/dL (70-110)
[2023-02-19 12:05] LABS: Glucose,Whole Blood 184 mg/dL (70-110)
[2023-02-19 13:59] LABS: Chol/HDL Ratio 5.28 Ratio; LDL Cholesterol,Calculated 97.4 mg/dL (0.0-131.0); VLDL Calculation 18.52 mg/dL (5.00-40.00)
--- NOTE | 2023-02-19 14:11 | P.PN ---
Subjective Progress Note Date: 02/19/23 This is Avelino Pardo NP, I'm dictating on behalf of Dr. Barreto's H&P and A&P. Patient was interviewed and examined. Patient is a pleasant 72-year-old male who presented to the hospital with STEMI, and underwent PCI yesterday with Dr. Simpson. Patient had stent placed to the mid RCA which was 99% blocked. The patient was also found to have 90% stenosis of LAD, 90% stenosis of ramus intermedius, 20% stenosis of LCx, proximal PDA 80% stenosis, and distal RCA 30-40% stenosis. This morning patient is alert and oriented in the bed. Is reporting that he is feeling good today. He is denying chest pain and shortness of breath. Patient is a poor historian as he has a history of dementia, and does not remember having a PCI yesterday. GENERAL: Well-appearing, well-nourished and in no acute distress. NECK: Supple without JVD or thyromegaly. LUNGS: Breath sounds clear to auscultation bilaterally. Respiration equal and unlabored. No wheezes, rales or rhonchi. HEART: Regular rate and rhythm without murmurs, rubs or gallops. S1 and S2 heard. EXTREMITIES: Normal range of motion, no edema. No clubbing or cyanosis. Peripheral pulses intact and strong. VITALS: Temp 98.0, pulse 51, respirations 16, blood pressure 119/66, O2 saturation 97% on room air TELEMETRY: Normal sinus rhythm LABS: White count 12.7, hemoglobin 14.8, platelets 180, sodium 137, potassium 4.0, BUN 19, creatinine 0.56, calcium 8.6, triglycerides 92.6, cholesterol 143, LDL 97.4, HDL 27.1 IMPRESSION: 1. Anterior STEMI 2. Hypertension 3. Diabetes mellitus type 2 4. Family history of CAD, 5. Tobacco abuse 6. Status post PCI to mid RCA PLAN: Due to patient's other significant stenotic arteries, he is high risk for further infarction. Patient may be discharged from ICU and transferred upstairs today. Continue atorvastatin, metoprolol, aspirin, and brilinta. Further recommendations based on patient's clinical course. Objective - Vital Signs Vital signs: Vital Signs Temp 98 F 02/19/23 12:00 Pulse 51 L 02/19/23 13:00 Resp 20 02/19/23 13:00 BP 121/72 02/19/23 13:00 Pulse Ox 97 02/19/23 13:00 FiO2 Intake & Output 02/18/23 02/19/23 02/19/23 18:59 06:59 18:59 Intake Total 600 200 240 Output Total 200 Balance 600 200 40 Weight 73.936 kg 77.6 kg Intake: IV 600 0 0 Sodium Chloride 0.9% 1, 600 0 0 000 ml In Empty Bag 1 bag @ 1 ML/KG/HR 73.936 mls/ hr IV .[id number] [facility] Rx#: [id number] Oral 200 240 Output: Urine 200 Other: Voiding Method Toilet Toilet Toilet # Voids 1 1 # Bowel Movements 1 - Labs CBC & Chem 7: 02/19/23 03:52 02/19/23 03:52 Labs: Abnormal Lab Results - Last 24 Hours (Table) 02/18/23 02/18/23 02/18/23 Range/Units 14:55 16:17 20:23 WBC (3.8-10.6) k/uL Neutrophils # (1.3-7.7) k/uL Creatinine (0.66-1.25) mg/dL Glucose (74-99) mg/dL POC Glucose (mg/dL) 241 H 166 H (70-110) mg/dL Troponin I 0.071 H* (0.000-0.034) ng/mL HDL Cholesterol (40.00-60.00) mg/dL 02/19/23 02/19/23 02/19/23 Range/Units 03:52 03:52 06:35 WBC 12.7 H (3.8-10.6) k/uL Neutrophils # 8.0 H (1.3-7.7) k/uL Creatinine 0.56 L (0.66-1.25) mg/dL Glucose 168 H (74-99) mg/dL POC Glucose (mg/dL) 171 H (70-110) mg/dL Troponin I (0.000-0.034) ng/mL HDL Cholesterol 27.10 L (40.00-60.00) mg/dL 02/19/23 02/19/23 Range/Units 11:52 12:04 WBC (3.8-10.6) k/uL Neutrophils # (1.3-7.7) k/uL Creatinine (0.66-1.25) mg/dL Glucose (74-99) mg/dL POC Glucose (mg/dL) 173 H 184 H (70-110) mg/dL Troponin I (0.000-0.034) ng/mL HDL Cholesterol (40.00-60.00) mg/dL
--- NOTE | 2023-02-19 14:59 | P.PN ---
Subjective Progress Note Date: 02/19/23 patient is a 72-year-old gentleman with past medical history significant for tobacco abuse, COPD, mild dementia, diabetes mellitus type 2, hypertension, hyperlipidemia, sleep apnea who presented to the ER because of chest pain that started this morning. Patient stated that he was sleeping when he was woken up from sleep because of sudden onset of chest pain that was central in location, dull in nature, was getting down his left upper extremity, no aggravating or relieving factors associated with this chest pain. There was no complain of nausea, vomiting associated with chest pain. No diaphoresis. EMS was called and when they arrived at spot they gave patient aspirin and nitroglycerin. EKG done by them showed ST segment elevation in inferior leads, patient was rushed to the ER Sign Writer Hand was activated.Patient was taken to emergent cardiac cath, patient underwent cardiac cath showing Multivessel CAD including 90% proximal LAD, 90% ramus, 99% RCA stenosis, 80% PDA stenosis, patient underwent PCI mid RCA with 3.5 x 12 mm Xience CHIDI Patient admitted to ICU post cardiac cath under internal medicine service 02/19. Patient seen and examined. Denies any chest pain. Denies any shortness of breath. Laying comfortably in the bed. Patient be transferred out of ICU REVIEW OF SYSTEMS: CONSTITUTIONAL: No fever, no malaise,. CARDIOVASCULAR: No chest pain, no palpitations, no syncope. PULMONARY: No shortness of breath, no cough, GASTROINTESTINAL: No diarrhea, no nausea, no vomiting, no abdominal pain. NEUROLOGICAL: No headaches, no weakness, PHYSICAL EXAMINATION: GENERAL: The patient is alert and oriented x3, not in any acute distress. Well developed, well nourished. HEENT: Pupils are round and equally reacting to light. EOMI. No scleral icterus. No conjunctival pallor. Normocephalic, atraumatic. No pharyngeal erythema. No thyromegaly. CARDIOVASCULAR: S1 and S2 present. No murmurs, rubs, or gallops. PULMONARY: Chest is clear to auscultation, no wheezing or crackles. ABDOMEN: Soft, nontender, nondistended, normoactive bowel sounds. No palpable organomegaly. MUSCULOSKELETAL: No joint swelling or deformity. EXTREMITIES: No cyanosis, clubbing, or pedal edema. NEUROLOGICAL: Gross neurological examination did not reveal any focal deficits. SKIN: No rashes. Assessment and plan ST elevation [place] Multivessel coronary artery disease, cardiac cath showing 90% proximal LAD, 90% ramus, 99% RCA stenosis, 80% PDA stenosis, status post PCI mid RCA with 3.5 x 12 mm Xience CHIDI Hypertension Hyperlipidemia Diabetes mellitus Monitor vital signs Monitor CBC Monitor CMP Continue telemetry monitoring Status post cardiac cath showing 90% proximal LAD, 90% ramus, 99% RCA stenosis, 80% PDA stenosis, with PCI mid RCA with 3.5 x 12 mm Xience CHIDI. Continue dual antiplatelet therapy with aspirin and brilinta Continue Lopressor Cardiology following, planning Stage PCI of LAD and ramus Labs and medication were reviewed.. Continue same treatment. Continue with symptomatic treatment. Resume home medication. Monitor labs and vitals. DVT and GI prophylaxis. Further recommendations as per clinical course of the patient Dictation was produced using [employer] dictation software. please excuse any grammatical, word or spelling errors. Objective - Vital Signs Vital signs: Vital Signs Temp 98 F 02/19/23 12:00 Pulse 51 L 02/19/23 13:00 Resp 20 02/19/23 13:00 BP 121/72 02/19/23 13:00 Pulse Ox 97 02/19/23 13:00 FiO2 Intake & Output 02/18/23 02/19/23 02/19/23 18:59 06:59 18:59 Intake Total 600 200 240 Output Total 200 Balance 600 200 40 Weight 73.936 kg 77.6 kg Intake: IV 600 0 0 Sodium Chloride 0.9% 1, 600 0 0 000 ml In Empty Bag 1 bag @ 1 ML/KG/HR 73.936 mls/ hr IV .[id number] [facility] Rx#: [id number] Oral 200 240 Output: Urine 200 Other: Voiding Method Toilet Toilet Toilet # Voids 1 1 # Bowel Movements 1 - Labs CBC & Chem 7: 02/19/23 03:52 02/19/23 03:52 Labs: Abnormal Lab Results - Last 24 Hours (Table) 02/18/23 02/18/23 02/18/23 Range/Units 14:55 16:17 20:23 WBC (3.8-10.6) k/uL Neutrophils # (1.3-7.7) k/uL Creatinine (0.66-1.25) mg/dL Glucose (74-99) mg/dL POC Glucose (mg/dL) 241 H 166 H (70-110) mg/dL Troponin I 0.071 H* (0.000-0.034) ng/mL HDL Cholesterol (40.00-60.00) mg/dL 02/19/23 02/19/23 02/19/23 Range/Units 03:52 03:52 06:35 WBC 12.7 H (3.8-10.6) k/uL Neutrophils # 8.0 H (1.3-7.7) k/uL Creatinine 0.56 L (0.66-1.25) mg/dL Glucose 168 H (74-99) mg/dL POC Glucose (mg/dL) 171 H (70-110) mg/dL Troponin I (0.000-0.034) ng/mL HDL Cholesterol 27.10 L (40.00-60.00) mg/dL 02/19/23 02/19/23 Range/Units 11:52 12:04 WBC (3.8-10.6) k/uL Neutrophils # (1.3-7.7) k/uL Creatinine (0.66-1.25) mg/dL Glucose (74-99) mg/dL POC Glucose (mg/dL) 173 H 184 H (70-110) mg/dL Troponin I (0.000-0.034) ng/mL HDL Cholesterol (40.00-60.00) mg/dL
[2023-02-19 16:14] LABS: Glucose,Whole Blood 271 mg/dL (70-110)
[2023-02-19 19:53] LABS: Glucose,Whole Blood 129 mg/dL (70-110)
[2023-02-19] MEDS: ATORVASTATIN 80 MG TAB PO SCH (20:00)
[2023-02-20 06:18] LABS: Basophils # (A) 0.1 k/uL (0-0.2); Basophils % (A) 1 %; Eosinophils # (A) 0.3 k/uL (0-0.7); Eosinophils % (A) 3 %; HCT 45.5 % (39.0-53.0); HGB 15.2 gm/dL (13.0-17.5); Lymphocytes # (A) 3.7 k/uL (1.0-4.8); Lymphocytes % (A) 32 %; MCH 29.6 pg (25.0-35.0); MCHC 33.4 g/dL (31.0-37.0); MCV 88.8 fL (80.0-100.0); Mean Platelet Volume 8.7; Monocytes # (A) 0.8 k/uL (0-1.0); Monocytes % (A) 7 %; Neutrophils # (A) 6.4 k/uL (1.3-7.7); Neutrophils % (A) 55 %; Platelet Count 210 k/uL (150-450); RBC 5.12 m/uL (4.30-5.90); WBC 11.6 k/uL (3.8-10.6)
[2023-02-20 06:33] LABS: African American GFR (CKD) >90 (>60 ml/min/1.73 sqM); Anion Gap 9 mmol/L; Blood Urea Nitrogen 16 mg/dL (9-20); Carbon Dioxide 23 mmol/L (22-30); Chloride 103 mmol/L (98-107); Glucose 105 mg/dL (74-99); Non-African American GFR(CKD) >90 (>60 ml/min/1.73 sqM); Sodium 135 mmol/L (137-145)
[2023-02-20 06:33] LABS: Glucose,Whole Blood 105 mg/dL (70-110)
[2023-02-20] MEDS: INSULIN ASPART (NovoLOG) 100 UNIT/ML VIAL SQ SCH ×4 (07:01→20:32)
[2023-02-20] MEDS: ASPIRIN 81 MG PO SCH (09:11)
[2023-02-20] MEDS: TICAGRELOR 90 MG TAB PO SCH ×2 (09:12→20:18)
[2023-02-20] MEDS: METOPROLOL TARTRATE 12.5 MG TAB PO SCH ×2 (09:12→20:18)
[2023-02-20 11:08] LABS: Glucose,Whole Blood 161 mg/dL (70-110)
--- NOTE | 2023-02-20 11:58 | P.PN ---
Subjective Progress Note Date: 02/20/23 This is Avelino Pardo NP, I'm dictating on behalf of Dr. Barreto's H&P and A&P. Patient was interviewed and examined. Patient's a pleasant 72-year-old male presented to hospital with STEMI, and underwent PCI with stenting to the mid RCA [address] Simpson. Patient continues to remain stable hemodynamically. He is currently denying chest pain and shortness of breath. Patient is stable at this time to transfer to the floor. GENERAL: Well-appearing, well-nourished and in no acute distress. NECK: Supple without JVD or thyromegaly. LUNGS: Breath sounds clear to auscultation bilaterally. Respiration equal and unlabored. No wheezes, rales or rhonchi. HEART: Regular rate and rhythm without murmurs, rubs or gallops. S1 and S2 heard. EXTREMITIES: Normal range of motion, no edema. No clubbing or cyanosis. Peripheral pulses intact and strong. VITALS: Temp 98.0, pulse 50, respirations 18, blood pressure 118/52, O2 saturation 96% on room air TELEMETRY: Sinus bradycardia LABS: White count 11.6, hemoglobin 15.2, platelets 210, sodium 135, potassium 4.0, BUN 16, creatinine 0.51 IMPRESSION: 1. Anterior STEMI 2. Hypertension 3. Diabetes mellitus type 2 4. Family history of CAD, 5. Tobacco abuse 6. Status post PCI to mid RCA PLAN: Patient stable for transfer to the floor. Continue current medications. Further recommendations based on patient's clinical course. Objective - Vital Signs Vital signs: Vital Signs Temp 98 F 02/20/23 08:00 Pulse 50 L 02/20/23 08:00 Resp 18 02/20/23 08:00 BP 118/52 02/20/23 08:00 Pulse Ox 96 02/20/23 08:00 FiO2 Intake & Output 02/19/23 02/20/23 02/20/23 18:59 06:59 18:59 Intake Total 480 240 240 Output Total 400 650 550 Balance 80 -410 -310 Weight 74.2 kg Intake: IV 0 Sodium Chloride 0.9% 1, 0 000 ml In Empty Bag 1 bag @ 1 ML/KG/HR 73.936 mls/ hr IV .[id number] REPLACED BY [facility] Rx#: [id number] Oral 480 240 240 Output: Urine 400 650 550 Other: Voiding Method Toilet Toilet Urinal # Voids 1 - Labs CBC & Chem 7: 02/20/23 05:35 02/20/23 05:35 Labs: Abnormal Lab Results - Last 24 Hours (Table) 02/19/23 02/19/23 02/19/23 Range/Units 03:52 12:04 16:12 WBC (3.8-10.6) k/uL Sodium (137-145) mmol/L Creatinine (0.66-1.25) mg/dL Glucose (74-99) mg/dL POC Glucose (mg/dL) 184 H 271 H (70-110) mg/dL HDL Cholesterol 27.10 L (40.00-60.00) mg/dL 02/19/23 02/20/23 02/20/23 Range/Units 19:51 05:35 05:35 WBC 11.6 H (3.8-10.6) k/uL Sodium 135 L (137-145) mmol/L Creatinine 0.51 L (0.66-1.25) mg/dL Glucose 105 H (74-99) mg/dL POC Glucose (mg/dL) 129 H (70-110) mg/dL HDL Cholesterol (40.00-60.00) mg/dL 02/20/23 Range/Units 11:06 WBC (3.8-10.6) k/uL Sodium (137-145) mmol/L Creatinine (0.66-1.25) mg/dL Glucose (74-99) mg/dL POC Glucose (mg/dL) 161 H (70-110) mg/dL HDL Cholesterol (40.00-60.00) mg/dL
--- NOTE | 2023-02-20 13:31 | P.PN ---
Subjective Progress Note Date: 02/20/23 patient is a 72-year-old gentleman with past medical history significant for tobacco abuse, COPD, mild dementia, diabetes mellitus type 2, hypertension, hyperlipidemia, sleep apnea who presented to the ER because of chest pain that started this morning. Patient stated that he was sleeping when he was woken up from sleep because of sudden onset of chest pain that was central in location, dull in nature, was getting down his left upper extremity, no aggravating or relieving factors associated with this chest pain. There was no complain of nausea, vomiting associated with chest pain. No diaphoresis. EMS was called and when they arrived at spot they gave patient aspirin and nitroglycerin. EKG done by them showed ST segment elevation in inferior leads, patient was rushed to the ER Room Manager was activated.Patient was taken to emergent cardiac cath, patient underwent cardiac cath showing Multivessel CAD including 90% proximal LAD, 90% ramus, 99% RCA stenosis, 80% PDA stenosis, patient underwent PCI mid RCA with 3.5 x 12 mm Xience CHIDI Patient admitted to ICU post cardiac cath under internal medicine service 02/19. Patient seen and examined. Denies any chest pain. Denies any shortness of breath. Laying comfortably in the bed. Patient be transferred out of ICU 02/20. Patient seen and examined. Denies any shortness of breath. Denies any chest pain. Denies any palpitations. Appetite has been good. Vital signs stable REVIEW OF SYSTEMS: CONSTITUTIONAL: No fever, no malaise,. CARDIOVASCULAR: No chest pain, no palpitations, no syncope. PULMONARY: No shortness of breath, no cough, GASTROINTESTINAL: No diarrhea, no nausea, no vomiting, no abdominal pain. NEUROLOGICAL: No headaches, no weakness, PHYSICAL EXAMINATION: GENERAL: The patient is alert and oriented x3, not in any acute distress. Well developed, well nourished. HEENT: Pupils are round and equally reacting to light. EOMI. No scleral icterus. No conjunctival pallor. Normocephalic, atraumatic. No pharyngeal erythema. No thyromegaly. CARDIOVASCULAR: S1 and S2 present. No murmurs, rubs, or gallops. PULMONARY: Chest is clear to auscultation, no wheezing or crackles. ABDOMEN: Soft, nontender, nondistended, normoactive bowel sounds. No palpable organomegaly. MUSCULOSKELETAL: No joint swelling or deformity. EXTREMITIES: No cyanosis, clubbing, or pedal edema. NEUROLOGICAL: Gross neurological examination did not reveal any focal deficits. SKIN: No rashes. Assessment and plan ST elevation [place] Multivessel coronary artery disease, cardiac cath showing 90% proximal LAD, 90% ramus, 99% RCA stenosis, 80% PDA stenosis, status post PCI mid RCA with 3.5 x 12 mm Xience CHIDI Hypertension Hyperlipidemia Diabetes mellitus Monitor vital signs Monitor CBC Monitor CMP Continue telemetry monitoring Status post cardiac cath showing 90% proximal LAD, 90% ramus, 99% RCA stenosis, 80% PDA stenosis, with PCI mid RCA with 3.5 x 12 mm Xience CHIDI. Continue dual antiplatelet therapy with aspirin and brilinta Continue Lopressor Cardiology following, planning Stage PCI of LAD and ramus Labs and medication were reviewed.. Continue same treatment. Continue with symptomatic treatment. Resume home medication. Monitor labs and vitals. DVT and GI prophylaxis. Further recommendations as per clinical course of the patient Dictation was produced using [employer] dictation software. please excuse any grammatical, word or spelling errors. Objective - Vital Signs Vital signs: Vital Signs Temp 98.2 F 02/20/23 12:00 Pulse 53 L 02/20/23 12:00 Resp 18 02/20/23 12:00 BP 92/56 02/20/23 12:00 Pulse Ox 96 02/20/23 12:00 FiO2 Intake & Output 02/19/23 02/20/23 02/20/23 18:59 06:59 18:59 Intake Total 480 240 480 Output Total 400 650 550 Balance 80 -410 -70 Weight 74.2 kg Intake: IV 0 Sodium Chloride 0.9% 1, 0 000 ml In Empty Bag 1 bag @ 1 ML/KG/HR 73.936 mls/ hr IV .[id number] [facility] Rx#: [id number] Oral 480 240 480 Output: Urine 400 650 550 Other: Voiding Method Toilet Toilet Urinal # Voids 1 1 - Labs CBC & Chem 7: 02/20/23 05:35 02/20/23 05:35 Labs: Abnormal Lab Results - Last 24 Hours (Table) 02/19/23 02/19/23 02/19/23 Range/Units 03:52 16:12 19:51 WBC (3.8-10.6) k/uL Sodium (137-145) mmol/L Creatinine (0.66-1.25) mg/dL Glucose (74-99) mg/dL POC Glucose (mg/dL) 271 H 129 H (70-110) mg/dL HDL Cholesterol 27.10 L (40.00-60.00) mg/dL 02/20/23 02/20/23 02/20/23 Range/Units 05:35 05:35 11:06 WBC 11.6 H (3.8-10.6) k/uL Sodium 135 L (137-145) mmol/L Creatinine 0.51 L (0.66-1.25) mg/dL Glucose 105 H (74-99) mg/dL POC Glucose (mg/dL) 161 H (70-110) mg/dL HDL Cholesterol (40.00-60.00) mg/dL
[2023-02-20 16:17] LABS: Glucose,Whole Blood 177 mg/dL (70-110)
[2023-02-20] MEDS: ATORVASTATIN 80 MG TAB PO SCH (20:18)
[2023-02-20 20:26] LABS: Glucose,Whole Blood 210 mg/dL (70-110)
[2023-02-21 06:01] LABS: Glucose,Whole Blood 182 mg/dL (70-110)
[2023-02-21] MEDS: INSULIN ASPART (NovoLOG) 100 UNIT/ML VIAL SQ SCH ×4 (06:27→20:15)
[2023-02-21] MEDS: TICAGRELOR 90 MG TAB PO SCH ×2 (08:41→20:15)
[2023-02-21] MEDS: ASPIRIN 81 MG PO SCH (08:41)
--- NOTE | 2023-02-21 08:53 | P.PN ---
Subjective Progress Note Date: 02/21/23 patient is a 72-year-old gentleman with past medical history significant for tobacco abuse, COPD, mild dementia, diabetes mellitus type 2, hypertension, hyperlipidemia, sleep apnea who presented to the ER because of chest pain that started this morning. Patient stated that he was sleeping when he was woken up from sleep because of sudden onset of chest pain that was central in location, dull in nature, was getting down his left upper extremity, no aggravating or relieving factors associated with this chest pain. There was no complain of nausea, vomiting associated with chest pain. No diaphoresis. EMS was called and when they arrived at spot they gave patient aspirin and nitroglycerin. EKG done by them showed ST segment elevation in inferior leads, patient was rushed to the ER It Compliance Analyst was activated.Patient was taken to emergent cardiac cath, patient underwent cardiac cath showing Multivessel CAD including 90% proximal LAD, 90% ramus, 99% RCA stenosis, 80% PDA stenosis, patient underwent PCI mid RCA with 3.5 x 12 mm Xience CHIDI Patient admitted to ICU post cardiac cath under internal medicine service 02/19. Patient seen and examined. Denies any chest pain. Denies any shortness of breath. Laying comfortably in the bed. Patient be transferred out of ICU 02/20. Patient seen and examined. Denies any shortness of breath. Denies any chest pain. Denies any palpitations. Appetite has been good. Vital signs stable 02/21. Patient seen and examined. Denies any chest pain or shortness of breath. Denies palpitations. Denies any orthopnea or PND. Patient keen to go home, discuss with them regarding need for him getting more stage PCI, patient wants to talk to cardiology order and, come up with the plan regarding The results REVIEW OF SYSTEMS: CONSTITUTIONAL: No fever, no malaise,. CARDIOVASCULAR: No chest pain, no palpitations, no syncope. PULMONARY: No shortness of breath, no cough, GASTROINTESTINAL: No diarrhea, no nausea, no vomiting, no abdominal pain. NEUROLOGICAL: No headaches, no weakness, PHYSICAL EXAMINATION: GENERAL: The patient is alert and oriented x3, not in any acute distress. Well developed, well nourished. HEENT: Pupils are round and equally reacting to light. EOMI. No scleral icterus. No conjunctival pallor. Normocephalic, atraumatic. No pharyngeal erythema. No thyromegaly. CARDIOVASCULAR: S1 and S2 present. No murmurs, rubs, or gallops. PULMONARY: Chest is clear to auscultation, no wheezing or crackles. ABDOMEN: Soft, nontender, nondistended, normoactive bowel sounds. No palpable organomegaly. MUSCULOSKELETAL: No joint swelling or deformity. EXTREMITIES: No cyanosis, clubbing, or pedal edema. NEUROLOGICAL: Gross neurological examination did not reveal any focal deficits. SKIN: No rashes. Assessment and plan ST elevation [place] Multivessel coronary artery disease, cardiac cath showing 90% proximal LAD, 90% ramus, 99% RCA stenosis, 80% PDA stenosis, status post PCI mid RCA with 3.5 x 12 mm Xience CHIDI Hypertension Hyperlipidemia Diabetes mellitus Monitor vital signs Monitor CBC Monitor CMP Continue telemetry monitoring Status post cardiac cath showing 90% proximal LAD, 90% ramus, 99% RCA stenosis, 80% PDA stenosis, with PCI mid RCA with 3.5 x 12 mm Xience CHIDI. Continue dual antiplatelet therapy with aspirin and brilinta Continue Lopressor Cardiology following, planning Stage PCI of LAD and ramus Labs and medication were reviewed.. Continue same treatment. Continue with symptomatic treatment. Resume home medication. Monitor labs and vitals. DVT and GI prophylaxis. Further recommendations as per clinical course of the patient Dictation was produced using [employer] dictation software. please excuse any grammatical, word or spelling errors. Objective - Vital Signs Vital signs: Vital Signs Temp 98.2 F 02/20/23 20:00 Pulse 53 L 02/21/23 00:00 Resp 16 02/21/23 00:00 BP 119/61 02/21/23 00:00 Pulse Ox 97 02/21/23 00:00 FiO2 Intake & Output 02/20/23 02/20/23 02/21/23 06:59 18:59 06:59 Intake Total 240 480 Output Total 650 550 450 Balance -410 -70 -450 Weight 74.2 kg Intake: Oral 240 480 Output: Urine 650 550 450 Other: Voiding Method Toilet Urinal Urinal # Voids 1 - Labs CBC & Chem 7: 02/20/23 05:35 02/20/23 05:35 Labs: Abnormal Lab Results - Last 24 Hours (Table) 02/20/23 02/20/23 02/20/23 Range/Units 11:06 16:16 20:21 POC Glucose (mg/dL) 161 H 177 H 210 H (70-110) mg/dL 02/21/23 Range/Units 05:56 POC Glucose (mg/dL) 182 H (70-110) mg/dL
[2023-02-21 11:46] LABS: Glucose,Whole Blood 229 mg/dL (70-110)
[2023-02-21] MEDS: METOPROLOL TARTRATE 12.5 MG TAB PO SCH ×2 (11:57→20:15)
--- NOTE | 2023-02-21 13:31 | P.PN ---
Subjective Progress Note Date: 02/21/23 The patient is a 72-year-old male is presenting to [facility] myocardial infarction. Patient underwent stenting of the RCA. He has residual lesion in the LAD, which will be evaluated outpatient. The patient has remained symptom free. He has been ambulating around the unit. No dyspnea or orthopnea. GENERAL: Well-appearing, well-nourished and in no acute distress. NECK: Supple without JVD or thyromegaly. LUNGS: Breath sounds clear to auscultation bilaterally. Respiration equal and unlabored. No wheezes, rales or rhonchi. HEART: Regular rate and rhythm without murmurs, rubs or gallops. S1 and S2 heard. EXTREMITIES: Normal range of motion, no edema. No clubbing or cyanosis. Peripheral pulses intact and strong. Right radial site is healed TELEMETRY: Sinus rhythm overnight IMPRESSION: Anterior wall ST elevated myocardial infarction Status post PCI to mid RCA Hypertension Diabetes type 2 Tobacco use Family history of coronary artery disease PLAN: Continue current cardiac regimen Patient may be discharged from the cardiac standpoint Outpatient follow-up with primary business editor Dr. Simpson I am dictating on behalf of Dr Jose Miguel Barreto's history/physical and assessment/plan. Objective - Vital Signs Vital signs: Vital Signs Temp 98.0 F 02/21/23 08:40 Pulse 56 L 02/21/23 11:48 Resp 18 02/21/23 11:48 BP 118/65 02/21/23 11:48 Pulse Ox 96 02/21/23 11:48 FiO2 Intake & Output 02/20/23 02/21/23 02/21/23 18:59 06:59 18:59 Intake Total 480 140 Output Total 550 450 Balance -70 -450 140 Intake: IV 20 Invasive Line 1 10 Invasive Line 2 10 Oral 480 120 Output: Urine 550 450 Other: Voiding Method Urinal Urinal Urinal # Voids 1 - Labs CBC & Chem 7: 02/20/23 05:35 02/20/23 05:35 Labs: Abnormal Lab Results - Last 24 Hours (Table) 02/20/23 02/20/23 02/21/23 Range/Units 16:16 20:21 05:56 POC Glucose (mg/dL) 177 H 210 H 182 H (70-110) mg/dL 02/21/23 Range/Units 11:44 POC Glucose (mg/dL) 229 H (70-110) mg/dL
[2023-02-21 16:38] LABS: Glucose,Whole Blood 348 mg/dL (70-110)
[2023-02-21 20:03] LABS: Glucose,Whole Blood 175 mg/dL (70-110)
[2023-02-21] MEDS: ATORVASTATIN 80 MG TAB PO SCH (20:15)
[2023-02-22 06:12] LABS: Glucose,Whole Blood 186 mg/dL (70-110)
[2023-02-22] MEDS: INSULIN ASPART (NovoLOG) 100 UNIT/ML VIAL SQ SCH ×2 (06:27→12:12)
[2023-02-22] MEDS: METOPROLOL TARTRATE 12.5 MG TAB PO SCH (07:42)
[2023-02-22] MEDS: ASPIRIN 81 MG PO SCH (07:42)
[2023-02-22] MEDS: TICAGRELOR 90 MG TAB PO SCH (07:42)
--- NOTE | 2023-02-22 08:08 | PN ---
PROGRESS NOTE SUBJECTIVE: This gentleman presented with acute inferior ST-elevation [place] and underwent stenting of RCA by Dr. Simpson. He is doing well. He has underlying dementia, but seems to be cooperative. OBJECTIVE: GENERAL: Resting comfortably. VITALS: Stable. NECK: No JVD. HEART: S1 and S2 are heard normally. SKIN: Right radial site is clean and dry. LUNGS: Clear. ABDOMEN: Unchanged. EXTREMITIES: Lower extremity exam unchanged. PLAN: To continue current medical regimen. He will need to have a staged intervention at least of the LAD prior to discharge and I will let Dr. Simpson make the decision. We will communicate with him. MMODL / IJN: [id number] /
--- NOTE | 2023-02-22 08:33 | P.PN ---
Subjective Progress Note Date: 02/22/23 PROGRESS NOTE The patient is a 72-year-old male who presented on February 18 with acute coronary syndrome, underwent cardiac catheterization and stenting of the RCA by Dr. Simpson. He was found to have severe triple vessel disease. His echocardiogram showed mild ischemic cardiomyopathy. He is doing well this morning., Ambulating without difficulty. He denies any chest discomfort home dizziness or palpitations. Hemodynamically he is stable. Medications: Aspirin, Lipitor 80 mg daily, metoprolol 12.5 mg twice a day, Brilinta 90 mg twice a day PHYSICAL EXAMINATION: Blood pressure 101/59 heart rate 55 LUNGS: Clear to auscultation HEART: Regular rate and rhythm, S1, S2. No S3. No systolic murmur ABDOMEN: Soft, nontender, no organomegaly EXTREMETIES: No edema IMPRESSION: 1. Status post stenting of the RCA 2. Obstructive disease in the LAD and ramus intermedius 3. History of hyperlipidemia 4. History of hypertension 5. Prior history of smoking PLAN: 1. Continue present therapy 2. Discharged home today 3. Follow up with Dr. Simpson next week 4. Further evaluation as an outpatient regarding the need to undergo PCI of his left coronary system Objective - Vital Signs Vital signs: Vital Signs Temp 97.5 F L 02/21/23 20:00 Pulse 55 L 02/22/23 04:00 Resp 18 02/22/23 04:00 BP 101/59 02/22/23 04:00 Pulse Ox 95 02/22/23 04:00 FiO2 Intake & Output 02/21/23 02/22/23 02/22/23 18:59 06:59 18:59 Intake Total 280 482 Balance 280 482 Intake: IV 40 20 Invasive Line 1 20 10 Invasive Line 2 20 10 Oral 240 462 Other: Voiding Method Urinal Urinal # Voids 2 - Labs CBC & Chem 7: 02/20/23 05:35 02/20/23 05:35 Labs: Abnormal Lab Results - Last 24 Hours (Table) 02/21/23 02/21/23 02/21/23 Range/Units 11:44 16:37 20:01 POC Glucose (mg/dL) 229 H 348 H 175 H (70-110) mg/dL 02/22/23 Range/Units 06:11 POC Glucose (mg/dL) 186 H (70-110) mg/dL
[2023-02-22 09:13] LABS: Basophils # (A) 0.1 k/uL (0-0.2); Basophils % (A) 1 %; Eosinophils # (A) 0.4 k/uL (0-0.7); Eosinophils % (A) 3 %; HCT 48.7 % (39.0-53.0); HGB 16.2 gm/dL (13.0-17.5); Lymphocytes # (A) 3.7 k/uL (1.0-4.8); Lymphocytes % (A) 26 %; MCH 29.4 pg (25.0-35.0); MCHC 33.3 g/dL (31.0-37.0); MCV 88.3 fL (80.0-100.0); Monocytes # (A) 0.8 k/uL (0-1.0); Monocytes % (A) 6 %; Neutrophils # (A) 8.9 k/uL (1.3-7.7); Neutrophils % (A) 63 %; Platelet Count 237 k/uL (150-450); RBC 5.52 m/uL (4.30-5.90); WBC 14.2 k/uL (3.8-10.6)
[2023-02-22 09:30] VITALS: RESP 16; TEMP 98.4
[2023-02-22 11:00] LABS: ALT 23 U/L (4-49); AST 29 U/L (17-59); African American GFR (CKD) >90 (>60 ml/min/1.73 sqM); Alkaline Phosphatase 86 U/L (38-126); Anion Gap 13 mmol/L; Blood Urea Nitrogen 19 mg/dL (9-20); Carbon Dioxide 22 mmol/L (22-30); Chloride 103 mmol/L (98-107); Glucose 129 mg/dL (74-99); Non-African American GFR(CKD) >90 (>60 ml/min/1.73 sqM); Potassium 4.1 mmol/L (3.5-5.1); Sodium 138 mmol/L (137-145); Total Bilirubin 0.6 mg/dL (0.2-1.3); Total Protein 7.1 g/dL (6.3-8.2)
[2023-02-22 11:49] LABS: Glucose,Whole Blood 183 mg/dL (70-110)
[2023-02-22 13:03] VITALS: BP 115/60; PULSE 50
--- NOTE | 2023-02-22 13:23 | P.DS ---
Providers Date of admission: 02/18/23 01:15 Expected date of discharge: 02/22/23 Attending physician: Delicia Amin Consults: 02/18/23 01:15 Consult Physician Urgent Consulting Provider: Benson Simpson Consult Reason/Comments: stemi Do you want consulting provider notified?: Already Contacted 02/18/23 02:29 Consult Physician Routine Consulting Provider: [facility] Consult Reason/Comments: Post Interventional Patient Do you want consulting provider notified?: Already Contacted Primary care physician: Moises Yee Hospital Course: Discharge diagnoses; ST elevation [place] Multivessel coronary artery disease, cardiac cath showing 90% proximal LAD, 90% ramus, 99% RCA stenosis, 80% PDA stenosis, status post PCI mid RCA with 3.5 x 12 mm Xience CHIDI Hypertension Hyperlipidemia Diabetes mellitus Hospital course; patient is a 72-year-old gentleman with past medical history significant for tobacco abuse, COPD, mild dementia, diabetes mellitus type 2, hypertension, hyperlipidemia, sleep apnea who presented to the ER because of chest pain that started this morning. Patient stated that he was sleeping when he was woken up from sleep because of sudden onset of chest pain that was central in location, dull in nature, was getting down his left upper extremity, no aggravating or relieving factors associated with this chest pain. There was no complain of nausea, vomiting associated with chest pain. No diaphoresis. EMS was called and when they arrived at spot they gave patient aspirin and nitroglycerin. EKG done by them showed ST segment elevation in inferior leads, patient was rushed to the ER Solar Sales Estimator was activated.Patient was taken to emergent cardiac cath, patient underwent cardiac cath showing Multivessel CAD including 90% proximal LAD, 90% ramus, 99% RCA stenosis, 80% PDA stenosis, patient underwent PCI mid RCA with 3.5 x 12 mm Xience CHIDI Patient admitted to ICU post cardiac cath under internal medicine service 02/19. Patient seen and examined. Denies any chest pain. Denies any shortness of breath. Laying comfortably in the bed. Patient be transferred out of ICU 02/20. Patient seen and examined. Denies any shortness of breath. Denies any chest pain. Denies any palpitations. Appetite has been good. Vital signs stable 02/21. Patient seen and examined. Denies any chest pain or shortness of breath. Denies palpitations. Denies any orthopnea or PND. Patient keen to go home, discuss with them regarding need for him getting more stage PCI, patient wants to talk to cardiology order and, come up with the plan regarding The results 02/22. Patient seen and examined. Cardiology cleared the patient for discharge, recommend outpatient evaluation for stage PCI PHYSICAL EXAMINATION: GENERAL: The patient is alert and oriented x3, not in any acute distress. Well developed, well nourished. HEENT: Pupils are round and equally reacting to light. EOMI. No scleral icterus. No conjunctival pallor. Normocephalic, atraumatic. No pharyngeal erythema. No thyromegaly. CARDIOVASCULAR: S1 and S2 present. No murmurs, rubs, or gallops. PULMONARY: Chest is clear to auscultation, no wheezing or crackles. ABDOMEN: Soft, nontender, nondistended, normoactive bowel sounds. No palpable organomegaly. MUSCULOSKELETAL: No joint swelling or deformity. EXTREMITIES: No cyanosis, clubbing, or pedal edema. NEUROLOGICAL: Gross neurological examination did not reveal any focal deficits. SKIN: No rashes. Dictation was produced using [employer] dictation software. please excuse any grammatical, word or spelling errors. Patient Condition at Discharge: Good Plan - Discharge Summary New Discharge Prescriptions: New Metoprolol Tartrate [Lopressor] 12.5 mg PO BID 30 Days #60 tab Nitroglycerin Sl Tabs [Nitrostat] 0.4 mg SUBLINGUAL Q5M PRN #30 tab PRN Reason: Chest Pain Aspirin 81 mg PO DAILY 30 Days #30 tab Ticagrelor [Brilinta] 90 mg PO BID 30 Days #60 tab Atorvastatin [Lipitor] 80 mg PO HS 30 Days #30 tab Continue metFORMIN HCL 500 mg PO DAILY #30 tablet Famotidine [Pepcid] 20 mg PO DAILY #30 tablet Discharge Medication List Famotidine [Pepcid] 20 mg PO DAILY #30 tablet 12/13/22 [Rx] metFORMIN HCL 500 mg PO DAILY #30 tablet 12/13/22 [Rx] Aspirin 81 mg PO DAILY 30 Days #30 tab 02/22/23 [Rx] Atorvastatin [Lipitor] 80 mg PO HS 30 Days #30 tab 02/22/23 [Rx] Metoprolol Tartrate [Lopressor] 12.5 mg PO BID 30 Days #60 tab 02/22/23 [Rx] Nitroglycerin Sl Tabs [Nitrostat] 0.4 mg SUBLINGUAL Q5M PRN #30 tab 02/22/23 [Rx] Ticagrelor [Brilinta] 90 mg PO BID 30 Days #60 tab 02/22/23 [Rx] Follow up Appointment(s)/Referral(s): Benson Simpson DO [STAFF PHYSICIAN] - 1 Week Moises Yee [Primary Care Provider] - 1-2 days Discharge/Stand Alone Forms: Who Do I Call?, Community Resources, Help In The Home Discharge Disposition: HOME SELF-CARE
== END 2023-02-22 14:31 | disposition home or self-care (01) | DRG 322 ==
LOC: EC 01:09 → 2SICU 01:15 → 3SCARD 02-20 13:25
PROVIDERS: ADMIT Hospitalist; ATTEND Hospitalist
PROC: 027034Z Dilation of Coronary Artery, One Artery with Drug-eluting Intraluminal Device, Percutaneous Approach (ICD-10-PCS; principal; 2023-02-18 01:31)
PROC: 4A023N7 Measurement of Cardiac Sampling and Pressure, Left Heart, Percutaneous Approach (ICD-10-PCS; principal; 2023-02-18 01:31)
PROC: B2111ZZ Fluoroscopy of Multiple Coronary Arteries using Low Osmolar Contrast (ICD-10-PCS; principal; 2023-02-18 01:31)
DX: I21.19 ST elevation (STEMI) myocardial infarction involving other coronary artery of inferior wall (principal); F03.A3 Unspecified dementia, mild, with mood disturbance; F03.A4 Unspecified dementia, mild, with anxiety; E11.9 Type 2 diabetes mellitus without complications; F31.9 Bipolar disorder, unspecified; M06.9 Rheumatoid arthritis, unspecified; J44.9 Chronic obstructive pulmonary disease, unspecified; Z28.310 Unvaccinated for COVID-19; I25.10 Atherosclerotic heart disease of native coronary artery without angina pectoris; I25.5 Ischemic cardiomyopathy; E78.5 Hyperlipidemia, unspecified; I10 Essential (primary) hypertension; M48.00 Spinal stenosis, site unspecified; G47.30 Sleep apnea, unspecified; F17.210 Nicotine dependence, cigarettes, uncomplicated; Z71.6 Tobacco abuse counseling; Z79.84 Long term (current) use of oral hypoglycemic drugs; Z79.899 Other long term (current) drug therapy; Z82.49 Family history of ischemic heart disease and other diseases of the circulatory system
CPT/HCPCS: 36415; 71045; 80048; 80053; 80061; 83036; 84484; 85025; 85610; 85730; 93005; 93306; 93458; 96374; 99291

== ENCOUNTER 2023-03-16 07:18 | Day surgery (SDC) | payer MEDICARE, OTHER ==
[~2023-03-16 07:18] MED LIST changes: +ALPRAZolam 0.25 MG TAB PO PRN; +ASPIRIN 325 MG TAB PO STA; -DEXAMETHASONE SOD PHOSPHATE 10 MG/ML 1 ML VIAL IV ONE; +HEPARIN SODIUM,PORCINE (1 ML) 2,500 UNIT in SODIUM CHLORIDE 0.9% 250 ML IRRIGATION PRN; +HEPARIN SODIUM,PORCINE 10,000 UNIT in SODIUM CHLORIDE 0.9% 1,000 ML IRRIGATION PRN; -HEPARIN SODIUM,PORCINE 5,000 UNIT/ML 1 ML VIAL SQ ONE; -LACTATED RINGERS 1,000 ML IV SCH; -MIDAZOLAM 2 MG/2 ML VIAL IV PRN; +NITROGLYCERIN SL TABS 0.4 MG TAB SUBLINGUAL PRN; -ONDANSETRON 4 MG/2 ML VIAL IVP ONE; +SODIUM CHLORIDE 0.9% 1,000 ML in EMPTY BAG 1 BAG IV SCH; -ceFAZolin IN SWFI 2 GM/20 ML SYRINGE IVP ONE
[2023-03-16] MEDS ORDERED: SODIUM CHLORIDE 0.9% 1,000 ML IV ONE (07:25)
[2023-03-16 07:50] LABS: Glucose,Whole Blood 146 mg/dL (70-110)
[2023-03-16] MEDS ORDERED: TICAGRELOR 90 MG TAB ONE (08:01)
[2023-03-16] MEDS ORDERED: TICAGRELOR 90 MG TAB PO ONE (08:11)
[2023-03-16] MEDS ORDERED: LIDOCAINE 1% INJ 10MG/ML (20 ML MDV) ONE (08:22)
[2023-03-16] MEDS ORDERED: VERAPAMIL 2.5 MG/ML 2 ML AMP ONE (08:22)
[2023-03-16] MEDS ORDERED: fentaNYL (PF) 50 MCG/ML 2 ML AMP ONE (08:23)
[2023-03-16] MEDS ORDERED: HEPARIN SODIUM 1,000 UN/ML (10ML VL) ONE (08:23)
[2023-03-16] MEDS: fentaNYL (PF) 50 MCG/ML 2 ML AMP IVP ONE ×2 (08:30→08:35)
[2023-03-16] MEDS: MIDAZOLAM 2 MG/2 ML VIAL IVP ONE ×2 (08:30→08:35)
[2023-03-16] MEDS ORDERED: LIDOCAINE 2% (PF) 20 MG/ML 5 ML VIAL SQ ONE (08:32)
[2023-03-16] MEDS ORDERED: LIDOCAINE 1% INJ 10MG/ML (20 ML MDV) SQ ONE (08:32)
[2023-03-16] MEDS ORDERED: VERAPAMIL SYRINGE (5 MG/10 ML) INTRAARTER ONE (08:33)
[2023-03-16] MEDS: HEPARIN SODIUM 1,000 UN/ML (10ML VL) IVP ONE ×3 (08:38→10:08)
[2023-03-16] MEDS: NITROGLYCERIN 1000MCG/10ML SYRINGE INTRACORON ONE ×5 (08:52→09:54)
[2023-03-16] MEDS ORDERED: PHENYLEPHRINE-0.9% NACL SYG 1,000 MCG/10 ML SYRINGE IVP ONE (09:03)
[2023-03-16] MEDS ORDERED: IOPAMIDOL-370 100ML BTL INJ ONE ×3 (09:04→10:13)
[2023-03-16] MEDS ORDERED: NITROGLYCERIN 1000MCG/10ML SYRINGE INTRACORON ONE (10:03)
--- NOTE | 2023-03-16 10:38 | P.PRCINT ---
Percutaneous Coronary Int. - Percutaneous Coronary Intervention Percutaneous Coronary Intervention: PROCEDURES PERFORMED: Left heart catheterization, bilateral coronary angiography, PCI of proximal LAD with 2.5 x 28 mm Xience CHIDI post dilated with a 2.5 NC balloon, PCI ramus with a 2.0 x 18mm Winslow CHIDI post dilated with a 2.25 NC balloon, PCI proximal PDA with a 2.25 x 18mm Xience CHIDI INDICATION: Staged PCI CONSENT:I have discussed the risks, benefits and alternative therapies for the above-mentioned procedure and for both sedation/analgesia as well as necessary blood product administration, if indicated, as they pertain to this patient. The patient has indicated understanding and acceptance of the risks and procedures discussed. PROCEDURE: After the risks, benefits and alternatives of the above mentioned procedure explained in detail with the patient, informed consent was obtained. Patient was taken to the catheterization lab and prepped and draped in usual fashion. 1% lidocaine was used to anesthetize the right radial artery. A 6- Algerian sheath was placed in the right radial artery using modified Seldinger technique. Right coronary angiography was performed with a 5-Algerian FR5 catheter in various views. A 5-Algerian FR5 catheter was inserted into the left ventricle and pressure measurements were obtained. The decision was made to perform PCI of the LAD and ramus. A 6-Algerian CLS 3.5 guide was used engage the left main. Heparin was given for ACT greater than 250. A 0.014 BMW wire was advanced to the distal LAD. Predilation was performed with a 2.25 x 12 mm balloon and then a 2.5 x 12 mm noncompliant balloon. Next the ramus intermedius was wired with some difficulty with the help of the Fielder XT. Predilation was performed with a 2.25 x 12 mm balloon to the ramus. Next a 2.0 x 18 mm Gomez CHIDI was placed at the origin of the ramus and the stent was postdilated with a 2.25 noncompliant balloon. Next a 2.5 x 28 mm Xience CHIDI was placed at the origin of the LAD. The proximal portion of the stent was postdilated with a 2.5 noncompliant balloon. Final angiograms were performed. Preintervention there was 95% proximal LAD stenosis, 95% proximal ramus stenosis and DEANNE-3 flow in both arteries, post intervention there was less than 10% stenosis and DEANNE-3 flow. There was more diffuse distal disease felt best treated medically. The proximal PDA lesion had been left previously after this STEMI however. 90% stenosis and therefore recommended intervention. A 6-Algerian AL 0.75 guide was used engage the RCA. A 0.014 BMW wire was advanced in the distal PDA. Predilation was performed with a 2.25 x 8 mm balloon. Next a 2.25 x 18 mm Xience CHIDI was placed. There was more distal spasm and stenosis however small caliber and felt could not fit even at 2.0 stent and therefore felt best treated medically. The right radial sheath was removed and a TR band was placed with hemostasis achieved. The patient tolerated the procedure well. Patient was transported back to the post catheterization holding area in stable condition. Conscious Sedation: Patient was monitored under the direct supervision of myself for conscious sedation using Versed and fentanyl for a total duration of 98 minutes HEMODYNAMICS: Aorta: 98/45 LV: 94/3, LVEDP 8 SELECTIVE CORONARY ARTERIOGRAPHY: LEFT MAIN: The left main is a large caliber vessel which trifurcates into the LAD, ramus and circumflex. There is no significant stenosis. LEFT ANTERIOR DESCENDING CORONARY ARTERY: LAD is a large caliber vessel which wraps around to the apex. There is a long proximal to mid LAD stenosis up to 95%. The mid to distal LAD has mild luminal irregularities as well as bridging noted of the mid LAD. RAMUS INTERMEDIUS: The ramus is a small to moderate caliber vessel which has a tandem 95% and 90% stenosis. There is more distal 50-60% stenosis, small caliber at the bifurcation LEFT CIRCUMFLEX CORONARY ARTERY: Left circumflex is a moderate caliber vessel with mild tender 20% stenosis RIGHT CORONARY ARTERY: The right coronary artery is a large caliber vessel which gives off a PDA and PLV branch and is the dominant vessel. There is diffuse disease throughout the entire artery with patent mid RCA stent. Additionally there is distal RCA 30-40% and a proximal PDA 90% stenosis. FINAL IMPRESSION: 1. CAD as described above including 95% proximal LAD, 95% proximal ramus intermedius, 90% PDA stenosis, and other diffuse mild to moderate disease 2. S/p staged PCI of proximal LAD with 2.5 x 28 mm Xience CHIDI post dilated with a 2.5 NC balloon, PCI ramus with a 2.0 x 18mm Winslow CHIDI post dilated with a 2.25 NC balloon, PCI proximal PDA with a 2.25 x 18mm Xience CHIDI 3. Normal left sided filling pressures PLAN: 1. Aggressive risk factor modification per most recent ACC/AHA guidelines. 2. Continue dual anti platelets with aspirin and Brillinta for 12 months 3. Patient has stopped smoking and encouraged continued total tobacco cessation
[2023-03-16] MEDS ORDERED: MAG HYDROX/AL HYDROX/SIMETH 30 ML CUP PO PRN (11:07)
[2023-03-16] MEDS ORDERED: ATROPINE SULFATE 0.1 MG/ML 10ML SYRINGE IV PRN (11:07)
[2023-03-16] MEDS ORDERED: RX INFO: IV CONTRAST WAS GIVEN 1 EACH MISC MISCELLANE PRN (11:07)
[2023-03-16] MEDS ORDERED: ZOLPIDEM 5 MG TAB PO PRN (11:07)
[2023-03-16 14:11] VITALS: BMI 25.7
[2023-03-16] MEDS: TICAGRELOR 90 MG TAB PO SCH (20:17)
[2023-03-16] MEDS: METOPROLOL TARTRATE 12.5 MG TAB PO SCH (20:17)
[2023-03-16] MEDS ORDERED: ATORVASTATIN 80 MG TAB PO SCH (21:00)
[2023-03-17 05:23] VITALS: RESP 16; TEMP 97.9
[2023-03-17 05:24] LABS: Basophils # (A) 0.1 k/uL (0-0.2); Basophils % (A) 1 %; Eosinophils # (A) 0.3 k/uL (0-0.7); Eosinophils % (A) 3 %; HCT 41.2 % (39.0-53.0); HGB 13.9 gm/dL (13.0-17.5); Lymphocytes # (A) 2.7 k/uL (1.0-4.8); Lymphocytes % (A) 24 %; MCH 29.9 pg (25.0-35.0); MCHC 33.8 g/dL (31.0-37.0); MCV 88.4 fL (80.0-100.0); Mean Platelet Volume 9.2; Monocytes # (A) 0.9 k/uL (0-1.0); Monocytes % (A) 8 %; Neutrophils % (A) 62 %; Platelet Count 189 k/uL (150-450); RBC 4.66 m/uL (4.30-5.90); RDW 13.4 % (11.5-15.5); WBC 11.3 k/uL (3.8-10.6)
[2023-03-17 05:40] LABS: African American GFR (CKD) >90 (>60 ml/min/1.73 sqM); Anion Gap 3 mmol/L; Blood Urea Nitrogen 15 mg/dL (9-20); Calcium 8.5 mg/dL (8.4-10.2); Carbon Dioxide 25 mmol/L (22-30); Chloride 107 mmol/L (98-107); Glucose 180 mg/dL (74-99); Non-African American GFR(CKD) >90 (>60 ml/min/1.73 sqM); Potassium 4.2 mmol/L (3.5-5.1); Sodium 135 mmol/L (137-145)
[2023-03-17 08:05] VITALS: BP 104/67; PULSE 54
[2023-03-17] MEDS: METOPROLOL TARTRATE 12.5 MG TAB PO SCH (08:41)
[2023-03-17] MEDS: TICAGRELOR 90 MG TAB PO SCH (08:41)
[2023-03-17] MEDS ORDERED: ASPIRIN 81 MG PO SCH (09:00)
[2023-03-17] MEDS ORDERED: FAMOTIDINE 20 MG TAB PO SCH (09:00)
--- NOTE | 2023-03-17 12:54 | P.DS ---
Providers Date of admission: Patient is a pleasant 72 year old male with history of CAD s/p STEMI and previous PCI of mid RCA who presented for elective staged PCI of LAD, ramus and possible PDA. He undewent successful PCI of LAD and ramus and PDA also noted to have 90% stenosis and also underwent stenting of PDA. He did well overnight without any SOB. He complained of some atypical reproducible chest pain on 03/17 with EKG showing no ischemic changes. He had mild asymptomatic sinus bradycardia and was left on his Metoprolol. He was stable for discharge home on 03/17 with outpt followup with Dr Lantigua. Attending physician: Benson Simpson DO Consults: 03/16/23 11:07 Consult Physician Routine Consulting Provider: [facility] Consult Reason/Comments: Post Interventional patient Do you want consulting provider notified?: Already Contacted Primary care physician: Moises Yee Plan - Discharge Summary Discharge Rx Participant: No New Discharge Prescriptions: No Action Metoprolol Tartrate [Lopressor] 12.5 mg PO BID 30 Days #60 tab Nitroglycerin Sl Tabs [Nitrostat] 0.4 mg SUBLINGUAL Q5M PRN #30 tab PRN Reason: Chest Pain metFORMIN HCL 500 mg PO DAILY #30 tablet Famotidine [Pepcid] 20 mg PO DAILY #30 tablet Aspirin 81 mg PO DAILY 30 Days #30 tab Ticagrelor [Brilinta] 90 mg PO BID 30 Days #60 tab Atorvastatin [Lipitor] 80 mg PO HS 30 Days #30 tab Discharge Medication List Famotidine [Pepcid] 20 mg PO DAILY #30 tablet 12/13/22 [Rx] metFORMIN HCL 500 mg PO DAILY #30 tablet 12/13/22 [Rx] Aspirin 81 mg PO DAILY 30 Days #30 tab 02/22/23 [Rx] Atorvastatin [Lipitor] 80 mg PO HS 30 Days #30 tab 02/22/23 [Rx] Metoprolol Tartrate [Lopressor] 12.5 mg PO BID 30 Days #60 tab 02/22/23 [Rx] Nitroglycerin Sl Tabs [Nitrostat] 0.4 mg SUBLINGUAL Q5M PRN #30 tab 02/22/23 [Rx] Ticagrelor [Brilinta] 90 mg PO BID 30 Days #60 tab 02/22/23 [Rx] Follow up Appointment(s)/Referral(s): Tyler Lantigua MD [STAFF PHYSICIAN] - 1 Week (APPOINTMENT MADE ON February @ 1:45PM ) Patient Instructions/Handouts: Moderate Sedation (ED), After Radial Heart Catheterization (GEN) Activity/Diet/Wound Care/Special Instructions: *NO LIFTING, PUSHING, OR PULLING ANYTHING OVER 5 POUND FOR 5 DAYS *NO DRIVING FOR 3 DAYS *YOU CAN REMOVE YOUR DRESSING TOMORROW BUT DO NOT SUBMERSE YOUR PUNCTURE SITE IN WATER FOR A FEW DAYS TO PREVENT INFECTION - SO NO TUB BATHS, POOLS, HOT TUBS, DISHES...ETC *ANY SIGNS OF BLEEDING (HARDNESS, SWELLING, OR EXCESSIVE BRUISING) HOLD DIRECT PRESSURE ON YOUR PUNCTURE SITE AND COME TO THE NEAREST EMERGENCY ROOM TO GET YOUR PUNCTURE SITE LOOKED AT - DO NOT DRIVE YOURSELF! EITHER CALL EMS OR HAVE SOMEONE DRIVE YOU!
== END 2023-03-17 13:37 | disposition home or self-care (01) ==
LOC: CATHCVL 07:18 → 6NMEDSUR 10:10 → CATHCVL 03-17 13:37
PROVIDERS: ATTEND Internal Medicine
DX: I25.10 Atherosclerotic heart disease of native coronary artery without angina pectoris (principal); I22.0 Subsequent ST elevation (STEMI) myocardial infarction of anterior wall; I10 Essential (primary) hypertension; F17.210 Nicotine dependence, cigarettes, uncomplicated; Z79.82 Long term (current) use of aspirin; Z79.84 Long term (current) use of oral hypoglycemic drugs; Z79.899 Other long term (current) drug therapy
CPT/HCPCS: 93458; 76937; 80048; 85025; C1769 ×5; C9600; C1887 ×3; C1894; C1725 ×5; C1874 ×3; J2250; J2001 ×2; J3010; J1644; Q9967; J2371; J2305

== ENCOUNTER 2023-09-02 18:45 | Emergency (ER) | payer MEDICARE, OTHER ==
[2023-09-02 18:55] VITALS: TEMP 98.9
--- NOTE | 2023-09-02 20:34 | CT ---
EXAMINATION TYPE: CT brain cspine wo con CT DLP: 1400.2 mGycm, Automated exposure control for dose reduction was used. DATE OF EXAM: 09/02/2023 8:17 PM COMPARISON: 12/09/2022. CLINICAL INDICATION:Male, 72 years old with history of fall; fall TECHNIQUE: Brain: Multiple axial CT images of the brain were obtained without IV contrast. Cspine: Axial CT images from the skull base to the inferior aspect of T2 we obtained without intraven ous contrast. Coronal and sagittal reformatted images were also reviewed. . FINDINGS: Brain: Extra-axial spaces: No abnormal extra-axial fluid collections. Ventricular system: Within normal limits given septum pellucidum. Cerebral parenchyma mineralization of the basal ganglia.: No acute intraparenchymal hemorrhage or mas s effect. The alejo-white junction is well differentiated. Cerebellum: Unremarkable. Mass effect: No evidence of midline shift. Intracranial vasculature: unremarkable Soft tissues: Normal. Calvarium/osseous structures: No depressed skull fracture. Paranasal sinuses and mastoid air cells: Clear. Visualized orbits: Bilateral aphakia Cervical spine: Fracture: None. Osseous structures: Fixation hardware in the cervical spine appears intact. Multilevel degenerative d isc disease changes with endplate spurring and disc osteophyte complex's. Vertebral alignment: Within normal limits. Spinal canal/Neural Foramina: No evidence of significant spinal canal narrowing. Facet joint uncovert ebral joint arthropathy scattered throughout the cervical spine with varying degrees of neural forami nal stenosis. Stenosis worse at C3-C4 with moderate to severe bilateral, C4-C5 moderate bilateral, C5 -C6 and C6-C7 moderate bilateral stenosis. Neck soft tissues: Prevertebral soft tissues are within normal limits. Other: The airway is patent. Paraseptal and centrilobular emphysema changes in the lung apices. IMPRESSION: 1. No acute intracranial process. 2. No evidence of cervical spine fracture. 3. Fixation changes in the spine appear intact. Mild multilevel degenerative disc disease. 4. Moderate emphysema.
--- NOTE | 2023-09-02 20:58 | ED ---
Fall HPI - General Chief Complaint: Fall Stated Complaint: Fall Time Seen by Provider: 09/02/23 19:09 Source: EMS Mode of arrival: EMS - History of Present Illness Initial Comments: 72-year-old male presenting for evaluation post fall. Patient was in his backyard when he fell over hitting his head. He does not recall losing consciousness. He believes that he tripped. He takes Brilinta and aspirin. He was placed in a c-collar by EMS. He has history of surgery to the neck, he does admit to some soreness in the neck. No nausea, vomiting, dizziness, vision or hearing changes, weakness. He does have an abrasion to the right knee, states that he has some soreness in the knees but no severe pain or localized tenderness - Related Data Previous Rx's Medication Instructions Recorded Famotidine [Pepcid] 20 mg PO DAILY #30 tablet 12/13/22 metFORMIN HCL 500 mg PO DAILY #30 tablet 12/13/22 Aspirin 81 mg PO DAILY 30 Days #30 tab 02/22/23 Atorvastatin [Lipitor] 80 mg PO HS 30 Days #30 tab 02/22/23 Metoprolol Tartrate [Lopressor] 12.5 mg PO BID 30 Days #60 tab 02/22/23 Nitroglycerin Sl Tabs [Nitrostat] 0.4 mg SUBLINGUAL Q5M PRN #30 tab 02/22/23 Ticagrelor [Brilinta] 90 mg PO BID 30 Days #60 tab 02/22/23 Allergies Allergy/AdvReac Type Severity Reaction Status Date / Time No Known Allergies Allergy Verified 09/02/23 18:55 Review of Systems ROS Statement: Those systems with pertinent positive or pertinent negative responses have been documented in the HPI. ROS Other: All systems not noted in ROS Statement are negative. Past Medical History Past Medical History: Asthma, COPD, Dementia, Diabetes Mellitus, Hyperlipidemia, Hypertension, Myocardial Infarction (AL), Rheumatoid Arthritis (RA), Sleep Apnea/CPAP/BIPAP Additional Past Medical History / Comment(s): family hx. colon cancer, noncompliant with CPAP, pt states a recent fall at home 12/12/22 with injury to head Last Myocardial Infarction Date:: 01/2023 History of Any Multi-Drug Resistant Organisms: None Reported Past Surgical History: Cholecystectomy, Heart Catheterization With Stent, Hernia Repair, Orthopedic Surgery Additional Past Surgical History / Comment(s): Uvular sleep apnea, carpal tunnel surg., tarsal tunnel surg. for feet, cervical fusion Past Anesthesia/Blood Transfusion Reactions: No Reported Reaction Date of Last Stent Placement:: 01/2023 Past Psychological History: Anxiety, Bipolar Smoking Status: Current every day smoker Past Alcohol Use History: None Reported Past Drug Use History: None Reported - Past Family History Father Family Medical History: Cancer, COPD Additional Family Medical History / Comment(s): Father at age 81 from mesothelioma and COPD with history of brain cancer. Brother(s) Family Medical History: Coronary Artery Disease (CAD), Rheumatoid Arthritis (RA) Additional Family Medical History / Comment(s): One brother at age 40 from AIDS. Sister(s) Family Medical History: COPD, CVA/TIA Additional Family Medical History / Comment(s): One at age 70 from COPD. Daughter(s) Family Medical History: No Reported History Additional Family Medical History / Comment(s): Patient has 5 daughters with no major medical problems. Mother Family Medical History: Cancer Additional Family Medical History / Comment(s): Mother at age 79 from colon cancer. General Exam General appearance: alert, in no apparent distress Head exam: Present: atraumatic, normocephalic Eye exam: Present: normal appearance, PERRL, EOMI Neck exam: Present: normal inspection Respiratory exam: Present: normal lung sounds bilaterally. Absent: respiratory distress, wheezes, rales, rhonchi, stridor Cardiovascular Exam: Present: regular rate, normal rhythm, normal heart sounds. Absent: systolic murmur, diastolic murmur, rubs, gallop, clicks Extremities exam: Present: normal inspection, full ROM Neurological exam: Present: alert, oriented X3 Expanded Eye Response: (4) open spontaneously Motor Response: (6) obeys commands Verbal Response: (5) oriented [place] Total: 15 Psychiatric exam: Present: normal affect, normal mood Skin exam: Present: warm, dry, abrasion (Right knee) Course Vital Signs 09/02/23 09/02/23 18:49 21:30 Temperature 98.9 F Pulse Rate 61 82 Respiratory 17 20 Rate Blood Pressure 124/63 103/63 O2 Sat by Pulse 97 97 Oximetry Medical Decision Making - Medical Decision Making Was pt. sent in by a medical professional or institution ([facility], [facility], urgent care, hospital, or alf...) When possible be specific @ -No Did you speak to anyone other than the patient for history (EMS, parent, family, police, friend...)? What history was obtained from this source @ -No Did you review nursing and triage notes (agree or disagree)? Why? @ -I reviewed and agree with nursing and triage notes Were old charts reviewed (outside hosp., previous admission, EMS record, old EKG, old radiological studies, urgent care reports/EKG's, alf records)? Report findings @ -No old charts were reviewed Differential Diagnosis (chest pain, altered mental status, abdominal pain women, abdominal pain men, vaginal bleeding, weakness, fever, dyspnea, syncope, headache, dizziness, GI bleed, back pain, seizure, CVA, palpatations, mental health, musculoskeletal)? @ -Differential includes uncomplicated head injury, concussion, fracture, intracranial hemorrhage, this is not an all-inclusive list EKG interpreted by me (3pts min.). @ -As above X-rays interpreted by me (1pt min.). @ -None done CT interpreted by me (1pt min.). @ -CT shows no acute intracranial process. No evidence of cervical spine fracture. Fixation changes in the spine appear intact. Mild multilevel degenerative disc disease. Moderate emphysema. U/S interpreted by me (1pt. min.). @ -None done What testing was considered but not performed or refused? (CT, X-rays, U/S, labs)? Why? @ -None What meds were considered but not given or refused? Why? @ -None Did you discuss the management of the patient with other professionals (professionals i.e. [facility]rier, [facility], lab, RT, psych nurse, vp digital marketing social media and crm, mitten stitcher, teacher, marketing officer, gearcase assembler)? Give summary @ -No Was smoking cessation discussed for >3mins.? @ -No Was critical care preformed (if so, how long)? @ -No Were there social determinants of health that impacted care today? How? (Homelessness, low income, unemployed, alcoholism, drug addiction, transportation, low edu. Level, literacy, decrease access to med. care, nursing home, rehab)? @ -No Was there de-escalation of care discussed even if they declined (Discuss DNR or withdrawal of care, Hospice)? DNR status @ -No What co-morbidities impacted this encounter? (DM, HTN, Smoking, COPD, CAD, Cancer, CVA, ARF, Chemo, Hep., AIDS, mental health diagnosis, sleep apnea, morbid obesity)? @ -None Was patient admitted / discharged? Hospital course, mention meds given and route, prescriptions, significant lab abnormalities, going to OR and other pertinent info. @ -72-year-old male presenting for evaluation post head injury. Patient had a fall in the backyard. No focal neurological deficits. CT is negative for cervical spine fracture or acute intracranial process. C-collar is removed. The patient's nurse reports that he ambulated well to the bathroom. Discharged home. Follow-up with PCP. Report back to ER with any new or worsening symptoms. Discussed return parameters and answered all questions. Patient conveyed verbal understanding and agreed to the plan. I discussed this case in detail with my attending Dr. Rollins Undiagnosed new problem with uncertain prognosis? @ -No Drug Therapy requiring intensive monitoring for toxicity (Heparin, Nitro, Insulin, Cardizem)? @ -No Were any procedures done? @ -No Diagnosis/symptom? @ -Head injury Acute, or Chronic, or Acute on Chronic? @ -Acute Uncomplicated (without systemic symptoms) or Complicated (systemic symptoms)? @ -Uncomplicated Side effects of treatment? @ -No Exacerbation, Progression, or Severe Exacerbation? @ -No Poses a threat to life or bodily function? How? (Chest pain, [place], AL, pneumonia, PE, COPD, DKA, ARF, appy, cholecystitis, CVA, Diverticulitis, Homicidal, Suicidal, threat to staff... and all critical care pts) @ -Low likelihood Disposition Clinical Impression: Fall, Head injury Disposition: HOME SELF-CARE Condition: Good Instructions (If sedation given, give patient instructions): Fall Prevention for Older Adults (ED), Head Injury (ED) Additional Instructions: Follow-up with PCP. Report back to ER with any new or worsening symptoms. Is patient prescribed a controlled substance at d/c from ED?: No Referrals: Moises Yee [Primary Care Provider] - 1-2 days Time of Disposition: 20:58
[2023-09-02 21:30] VITALS: BP 103/63; PULSE 82; RESP 20
== END 2023-09-02 21:30 | disposition home or self-care (01) ==
LOC: EC 18:45
DX: S09.90XA Unspecified injury of head, initial encounter (principal); F17.200 Nicotine dependence, unspecified, uncomplicated; Z90.49 Acquired absence of other specified parts of digestive tract; W01.0XXA Fall on same level from slipping, tripping and stumbling without subsequent striking against object, initial encounter
CPT/HCPCS: 70450; 72125; 99284

== ENCOUNTER 2023-09-15 09:29 | Emergency (ER) | payer MEDICARE, OTHER ==
[2023-09-15 09:36] VITALS: RESP 18
--- NOTE | 2023-09-15 10:28 | CT ---
EXAMINATION TYPE: CT brain cspine wo con CT DLP: 1347.2 mGycm, Automated exposure control for dose reduction was used. DATE OF EXAM: 09/15/2023 10:14 AM COMPARISON: CT brain C-spine 09/02/2023. CLINICAL INDICATION:Male, 72 years old with history of head injury; fall TECHNIQUE: Brain: Multiple axial CT images of the brain were obtained without IV contrast. Cspine: Axial CT images from the skull base to the inferior aspect of T2 we obtained without intraven ous contrast. Coronal and sagittal reformatted images were also reviewed. FINDINGS: Brain: Extra-axial spaces: No abnormal extra-axial fluid collections. Ventricular system: Within normal limits. Septum pellucidum. Cerebral parenchyma: No acute intraparenchymal hemorrhage or mass effect. Cerebral volume loss. The alejo-white junction is well differentiated. Scattered hypoattenuating areas are seen within the white matter. Nonspecific bilateral basal ganglia calcifications. Remote lacunar injury to the right caud ate head. Cerebellum: Unremarkable. Mass effect: No evidence of midline shift. Intracranial vasculature: Atherosclerotic calcifications of the intracranial vessels. Soft tissues: Normal. Calvarium/osseous structures: No depressed skull fracture. Paranasal sinuses and mastoid air cells: Mastoid air cells are clear. Mild mucosal thickening of the right ethmoid sinus posteriorly. Visualized orbits: Bilateral aphakia Cervical spine: Fracture: None. Osseous structures: Anterior fixation hardware in the cervical spine appears intact from C5 to C7. Mu ltilevel degenerative disc disease changes with endplate spurring and disc osteophyte complex's. Dege nerative changes at the C1 dens articulation. Vertebral alignment: Within normal limits. Spinal canal/Neural Foramina: Disc osteophyte complexes at C3-C4, C5-C6 with at least mild spinal can al stenosis. Right paracentral disc protrusion at C2-C3 without significant central canal stenosis. F acet joint uncovertebral joint arthropathy scattered throughout the cervical spine with varying degre es of neural foraminal stenosis. Stenosis worse at C3-C4 with moderate to severe bilateral, C4-C5 mod erate bilateral, C5-C6 and C6-C7 moderate bilateral stenosis. Neck soft tissues: Prevertebral soft tissues are within normal limits. Stable size of right inferior parotid gland 1.8 cm lesion which is been previously biopsied. Other: The airway is patent. Paraseptal and centrilobular emphysema changes in the lung apices. Bilat eral carotid bulb calcifications. IMPRESSION: 1. No acute intracranial process. 2. Remote lacunar right caudate head injury along with nonspecific white matter changes likely second [place] to chronic microangiopathy. 3. No evidence of cervical spine fracture. 4. Status post C5-C7 ACDF. Hardware appears intact. Moderate multilevel degenerative disc disease and facet arthropathy with varying degrees of spinal canal or neural foraminal stenosis as described abo ve.
--- NOTE | 2023-09-15 11:19 | XR ---
EXAMINATION TYPE: XR knee complete bilateral DATE OF EXAM: 09/15/2023 COMPARISON: NONE HISTORY: 72-year-old male fall, lacerations to both knees, pain TECHNIQUE: 3 views FINDINGS: Extensor mechanisms are intact. No knee joint effusion on either side. Enthesopathy at the patellofemoral compartments on both sides. No acute fracture, subluxation, dislocation seen. IMPRESSION: No joint effusion or acute osseous abnormality seen.
[2023-09-15] MEDS: LIDOCAINE 1% INJ 10MG/ML (20 ML MDV) SQ ONE (11:27)
--- NOTE | 2023-09-15 11:54 | ED ---
Fall HPI - General Chief Complaint: Fall Stated Complaint: Fall Time Seen by Provider: 09/15/23 09:30 Source: patient Mode of arrival: EMS - History of Present Illness Initial Comments: 73-year-old man presents emergency department from [facility]. Patient was outside smoking when he tripped and fell. He hit his head on the gravel. No loss of consciousness. EMS was called and placed the patient in a c-collar. Patient has advanced dementia and therefore does have some confusion and repetitive questioning. They state that he is at his baseline. There is no notable weakness in his extremities. He does report to some tenderness in his kneecaps as he did scrape them when he fell. He denies neck or back pain. No chest pain or difficulty breathing. He does not take a blood thinner. No other alleviating, precipitating or modifying factors - Related Data Home Medications Medication Instructions Recorded Confirmed Cyanocobalamin (Vitamin B-12) 1,000 mcg PO DAILY@0800 09/15/23 09/15/23 [Vitamin B-12] Fluocinolone Acetonide [Synalar] 1 applic TOPICAL HS PRN 09/15/23 09/15/23 Super Vitamin B-Complex 1 tab PO DAILY@0800 09/15/23 09/15/23 Ticagrelor [Brilinta] 90 mg PO BID@0800,199909/15/23 09/15/23 metFORMIN HCL [Glucophage] 500 mg PO DAILY@0800 09/15/23 09/15/23 Previous Rx's Medication Instructions Recorded Nitroglycerin Sl Tabs [Nitrostat] 0.4 mg SUBLINGUAL Q5M PRN #30 tab 02/22/23 Allergies Allergy/AdvReac Type Severity Reaction Status Date / Time No Known Allergies Allergy Verified 09/15/23 10:07 Review of Systems ROS Statement: Those systems with pertinent positive or pertinent negative responses have been documented in the HPI. ROS Other: All systems not noted in ROS Statement are negative. Past Medical History Past Medical History: Asthma, COPD, Dementia, Diabetes Mellitus, Hyperlipidemia, Hypertension, Myocardial Infarction (VA), Rheumatoid Arthritis (RA), Sleep Apnea/CPAP/BIPAP Additional Past Medical History / Comment(s): family hx. colon cancer, noncompliant with CPAP, pt states a recent fall at home 12/12/22 with injury to head Last Myocardial Infarction Date:: 01/2023 History of Any Multi-Drug Resistant Organisms: None Reported Past Surgical History: Cholecystectomy, Heart Catheterization With Stent, Hernia Repair, Orthopedic Surgery Additional Past Surgical History / Comment(s): Uvular sleep apnea, carpal tunnel surg., tarsal tunnel surg. for feet, cervical fusion Past Anesthesia/Blood Transfusion Reactions: No Reported Reaction Date of Last Stent Placement:: 01/2023 Past Psychological History: Anxiety, Bipolar Smoking Status: Current every day smoker Past Alcohol Use History: None Reported Past Drug Use History: None Reported - Past Family History Father Family Medical History: Cancer, COPD Additional Family Medical History / Comment(s): Father at age 81 from mesothelioma and COPD with history of brain cancer. Brother(s) Family Medical History: Coronary Artery Disease (CAD), Rheumatoid Arthritis (RA) Additional Family Medical History / Comment(s): One brother at age 40 from AIDS. Sister(s) Family Medical History: COPD, CVA/TIA Additional Family Medical History / Comment(s): One at age 70 from COPD. Daughter(s) Family Medical History: No Reported History Additional Family Medical History / Comment(s): Patient has 5 daughters with no major medical problems. Mother Family Medical History: Cancer Additional Family Medical History / Comment(s): Mother at age 79 from colon cancer. General Exam Limitations: physical limitation General appearance: alert, in no apparent distress Head exam: Present: normocephalic, other (Patient does have a laceration below the left eyebrow measuring 2.5 x 1 cm. Bleeding is controlled at this time. No underlying bony fracture) Eye exam: Present: normal appearance, PERRL, EOMI. Absent: scleral icterus, conjunctival injection, periorbital swelling ENT exam: Present: normal exam, mucous membranes moist Neck exam: Present: normal inspection, other (C-collar in place). Absent: tenderness, meningismus, lymphadenopathy Respiratory exam: Present: normal lung sounds bilaterally. Absent: respiratory distress, wheezes, rales, rhonchi, stridor Cardiovascular Exam: Present: regular rate, normal rhythm, normal heart sounds. Absent: systolic murmur, diastolic murmur, rubs, gallop, clicks GI/Abdominal exam: Present: soft, normal bowel sounds. Absent: distended, tenderness, guarding, rebound, rigid Extremities exam: Present: normal inspection, full ROM, normal capillary refill. Absent: tenderness, pedal edema, joint swelling, calf tenderness Back exam: Present: normal inspection Neurological exam: Present: alert, oriented X3, CN II-XII intact Psychiatric exam: Present: normal affect, normal mood Skin exam: Present: warm, dry, normal color, abrasion (Over the bilateral knees). Absent: rash Course Vital Signs 09/15/23 09/15/23 09/15/23 09:30 10:35 12:45 Temperature 97.9 F 97.7 F Pulse Rate 56 L 56 L 78 Respiratory 18 18 18 Rate Blood Pressure 144/59 117/57 O2 Sat by Pulse 96 95 97 Oximetry Procedures - Laceration Laceration #1 Consent Obtained: verbal consent Indication: laceration Site: face Size (cm): 3 Description: linear Depth: simple, single layer Anesthetic Used: lidocaine 1% Amount (mls): 5 Pre-repair: wound explored, irrigated extensively, deep structures intact Type of Sutures: nylon Size of Sutures: 5-0 Number of Sutures: 3 Technique: simple, interrupted Patient Tolerated Procedure: well, no complications Medical Decision Making - Medical Decision Making Was pt. sent in by a medical professional or institution (, PA, CAR HOSTLER, urgent care, hospital, or jail...) When possible be specific @ -Patient sent in from [facility] Did you speak to anyone other than the patient for history (EMS, parent, family, police, friend...)? What history was obtained from this source @ -Spoke with EMS for history Did you review nursing and triage notes (agree or disagree)? Why? @ -I reviewed and agree with nursing and triage notes Were old charts reviewed (outside hosp., previous admission, EMS record, old EKG, old radiological studies, urgent care reports/EKG's, jail records)? Report findings @ -No old charts were reviewed Differential Diagnosis (chest pain, altered mental status, abdominal pain women, abdominal pain men, vaginal bleeding, weakness, fever, dyspnea, syncope, headache, dizziness, GI bleed, back pain, seizure, CVA, palpatations, mental health, musculoskeletal)? @ -Subarachnoid, subdural, skull fracture, facial laceration, abrasion EKG interpreted by me (3pts min.). @ -Yes and demonstrates sinus rhythm with PVCs. Rate of 60. MN interval 136. QRS 101. QTc of 427. No acute ST segment elevations or depressions X-rays interpreted by me (1pt min.). @ -Yes and demonstrates no fractures CT interpreted by me (1pt min.). @ -Yes and demonstrates no acute intracranial process U/S interpreted by me (1pt. min.). @ -None done What testing was considered but not performed or refused? (CT, X-rays, U/S, labs)? Why? @ -None What meds were considered but not given or refused? Why? @ -None Did you discuss the management of the patient with other professionals (professionals i.e. , PA, CAR HOSTLER, lab, RT, psych nurse, social services analyst, color mixer, teacher, evp and chief operating officer, manager of case)? Give summary @ -No Was smoking cessation discussed for >3mins.? @ -No Was critical care preformed (if so, how long)? @ -No Were there social determinants of health that impacted care today? How? (Homelessness, low income, unemployed, alcoholism, drug addiction, transportation, low edu. Level, literacy, decrease access to med. care, residential, rehab)? @ -Patient lives in a custodial Was there de-escalation of care discussed even if they declined (Discuss DNR or withdrawal of care, Hospice)? DNR status @ -No What co-morbidities impacted this encounter? (DM, HTN, Smoking, COPD, CAD, Can cer, CVA, ARF, Chemo, Hep., AIDS, mental health diagnosis, sleep apnea, morbid obesity)? @ -Patient has dementia Was patient admitted / discharged? Hospital course, mention meds given and route, prescriptions, significant lab abnormalities, going to OR and other pertinent info. @ -Upon arrival patient seen and evaluated in room 2. Thorough history and physical exam was performed. CT of the brain and knee x-ray was performed. I did repair the patient's facial laceration. Bacitracin placed to the site. At this time the patient is stable for discharge back to his facility. Fall precautions are discussed. Daughter does present to the emergency department and feels comfortable taking the patient home. Instructed to return for any new or worsening symptoms. Patient discharged in stable condition Undiagnosed new problem with uncertain prognosis? @ -No Drug Therapy requiring intensive monitoring for toxicity (Heparin, Nitro, Insulin, Cardizem)? @ -No Were any procedures done? @ -Laceration repair Diagnosis/symptom? @ -Acute fall, blunt head injury, forehead laceration Acute, or Chronic, or Acute on Chronic? @ -Acute Uncomplicated (without systemic symptoms) or Complicated (systemic symptoms)? @ -Complicated Side effects of treatment? @ -No Exacerbation, Progression, or Severe Exacerbation? @ -No Poses a threat to life or bodily function? How? (Chest pain, USA, VA, pneumonia, PE, COPD, DKA, ARF, appy, cholecystitis, CVA, Diverticulitis, Homicidal, Suicidal, threat to staff... and all critical care pts) @ -No Disposition Clinical Impression: Fall, Head injury, Facial laceration, Knee pain Disposition: HOME SELF-CARE Condition: Stable Instructions (If sedation given, give patient instructions): Fall Prevention (ED) Additional Instructions: Your stitches will have to be removed in 5 to 7 days. You have [address] Please follow-up with your primary care doctor or return to the emergency department at that time Is patient prescribed a controlled substance at d/c from ED?: No Referrals: Moises Yee [Primary Care Provider] - 1-2 days Time of Disposition: 11:54
[2023-09-15] MEDS: ACETAMINOPHEN TAB 500 MG TAB PO STA (12:26)
[2023-09-15] MEDS: BACITRACIN OINT 1 EACH PACKET TOPICAL ONE (12:39)
[2023-09-15 12:48] VITALS: BP 117/57; PULSE 78; TEMP 97.7
== END 2023-09-15 13:25 | disposition home or self-care (01) ==
LOC: EC 09:29
DX: S01.112A Laceration without foreign body of left eyelid and periocular area, initial encounter (principal); S80.212A Abrasion, left knee, initial encounter; S80.211A Abrasion, right knee, initial encounter; F03.93 Unspecified dementia, unspecified severity, with mood disturbance; I49.3 Ventricular premature depolarization; F17.200 Nicotine dependence, unspecified, uncomplicated; W01.198A Fall on same level from slipping, tripping and stumbling with subsequent striking against other object, initial encounter
CPT/HCPCS: 93005; 73562; 72125; 70450; 12013; 99284; J2001

== ENCOUNTER 2023-10-04 22:46 | Emergency (ER) | payer MEDICARE, OTHER ==
[2023-10-04] MEDS ORDERED: ACETAMINOPHEN TAB 325 MG TAB ONE (23:44)
[2023-10-05] MEDS ORDERED: HYDROcodone/APAP 5-325MG 1 EACH TAB ONE ×2 (04:37→04:40)
--- NOTE | 2023-11-14 11:08 | XR ---
Patient Doc Orosco ID [id number] Order # EXAMINATION TYPE: XR ribs RT DATE OF EXAM: 10/16/2023 COMPARISON: Right-sided rib pain HISTORY: Right-sided rib pain TECHNIQUE: 2 view right ribs FINDINGS: No acute displaced fractures are evident. No pneumothorax is evident on these images. Follo w-up exams can be performed as clinically indicated. IMPRESSION: 1. No acute right rib abnormality radiographically apparent.
--- NOTE | 2023-11-14 11:09 | XR ---
Patient Doc Orosco ID [id number] Order # EXAMINATION TYPE: XR chest 1V DATE OF EXAM: 10/16/2023 COMPARISON: No comparison available on downtime PACS. INDICATION: Right-sided rib pain TECHNIQUE: Single frontal view of the chest is obtained. FINDINGS: The heart size is normal. The pulmonary vasculature is prominent. The lungs are clear. No acute osseous abnormality evident. Ribs appear intact as visualized. IMPRESSION: 1. Correlate for volume overload 2. No acute rib abnormality.
== END 2023-10-05 05:47 | disposition home or self-care (01) ==
LOC: EC 22:46
DX: S20.211A Contusion of right front wall of thorax, initial encounter (principal); F17.200 Nicotine dependence, unspecified, uncomplicated; W19.XXXA Unspecified fall, initial encounter
CPT/HCPCS: 71045; 99283

== ENCOUNTER 2023-12-15 14:55 | Inpatient (IN) | payer MEDICARE, OTHER ==
--- NOTE | 2023-12-15 15:54 | ED ---
General Adult HPI - General Chief complaint: Chest Pain Stated complaint: chest pain Time Seen by Provider: 12/15/23 15:11 Source: EMS Mode of arrival: EMS Limitations: no limitations - History of Present Illness Initial comments: Dictation was produced using [employer] dictation software. please excuse any grammatical, word or spelling errors. Chief Complaint: 73-year-old male with multiple comorbidities presents to the ER for chest pain History of Present Illness: Patient 73-year-old male presents to the emergency department for chest pain. Patient allegedly has history of dementia. He does not understand how he arrived here in the emergency department. He is a poor historian. According to EMS patient called ambulance for concerns of chest p ain. Patient has history of coronary artery disease. States that he has some pain to his left upper chest that radiates down his left upper extremity. Patient states he does have history of cardiac disease. He does not know if he ever had any coronary artery stents. Patient feels off states that he is undergoing a lot of emotional stress due to the of his daughter unexpectedly. 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 Patient denies any chest pain at the bedside. The ROS documented in this emergency department record has been reviewed and confirmed by me. Those systems with pertinent positive or negative responses have been documented in the HPI. All other systems are other negative and/or noncontributory. - Related Data Home Medications Medication Instructions Recorded Confirmed Cyanocobalamin (Vitamin B-12) 1,000 mcg PO DAILY@0800 09/15/23 09/15/23 [Vitamin B-12] Fluocinolone Acetonide [Synalar] 1 applic TOPICAL HS PRN 09/15/23 09/15/23 Super Vitamin B-Complex 1 tab PO DAILY@79909/15/23 09/15/23 Ticagrelor [Brilinta] 90 mg PO BID@799,199909/15/23 09/15/23 metFORMIN HCL [Glucophage] 500 mg PO DAILY@79909/15/23 09/15/23 Previous Rx's Medication Instructions Recorded Nitroglycerin Sl Tabs [Nitrostat] 0.4 mg SUBLINGUAL Q5M PRN #30 tab 02/22/23 Allergies Allergy/AdvReac Type Severity Reaction Status Date / Time No Known Allergies Allergy Verified 12/15/23 15:20 Review of Systems ROS Statement: Those systems with pertinent positive or pertinent negative responses have been documented in the HPI. ROS Other: All systems not noted in ROS Statement are negative. Past Medical History Past Medical History: Asthma, COPD, Dementia, Diabetes Mellitus, Hyperlipidemia, Hypertension, Myocardial Infarction (IA), Rheumatoid Arthritis (RA), Sleep Apnea/CPAP/BIPAP Additional Past Medical History / Comment(s): family hx. colon cancer, noncompliant with CPAP, pt states a recent fall at home 12/12/22 with injury to head Last Myocardial Infarction Date:: 01/2023 History of Any Multi-Drug Resistant Organisms: None Reported Past Surgical History: Cholecystectomy, Heart Catheterization With Stent, Hernia Repair, Orthopedic Surgery Additional Past Surgical History / Comment(s): Uvular sleep apnea, carpal tunnel surg., tarsal tunnel surg. for feet, cervical fusion Past Anesthesia/Blood Transfusion Reactions: No Reported Reaction Date of Last Stent Placement:: 01/2023 Past Psychological History: Anxiety, Bipolar Smoking Status: Current every day smoker Past Alcohol Use History: None Reported Past Drug Use History: None Reported - Past Family History Father Family Medical History: Cancer, COPD Additional Family Medical History / Comment(s): Father at age 81 from mesothelioma and COPD with history of brain cancer. Brother(s) Family Medical History: Coronary Artery Disease (CAD), Rheumatoid Arthritis (RA) Additional Family Medical History / Comment(s): One brother at age 40 from AIDS. Sister(s) Family Medical History: COPD, CVA/TIA Additional Family Medical History / Comment(s): One at age 70 from COPD. Daughter(s) Family Medical History: No Reported History Additional Family Medical History / Comment(s): Patient has 5 daughters with no major medical problems. Mother Family Medical History: Cancer Additional Family Medical History / Comment(s): Mother at age 79 from colon cancer. General Exam - General Exam Comments Initial Comments: PHYSICAL EXAM: General Impression: Alert and oriented x3, not in acute distress HEENT: Normocephalic atraumatic, extra-ocular movements intact, pupils equal and reactive to light bilaterally, mucous membranes moist. Cardiovascular: Heart regular rate and rhythm Chest: Able to complete full sentences, no retractions, no tachypnea Abdomen: abdomen soft, non-tender, non-distended, no organomegaly Musculoskeletal: Pulses present and equal in all extremities, no peripheral edema Motor: no focal deficits noted Neurological: CN II-XII grossly intact, no focal motor or sensory deficits noted Skin: Intact with no visualized rashes Psych: Tearful Limitations: no limitations Course Vital Signs 12/15/23 15:11 Temperature 98.4 F Pulse Rate 64 Respiratory 20 Rate Blood Pressure 124/72 O2 Sat by Pulse 98 Oximetry - Reevaluation(s) Reevaluation #1: 12/15/23 16:02 Case discussed with cardiology Dr. Lantigua at 4:00 PM. There was some concerning findings on EKG obviously patient case is complex given that he does have extensive coronary artery history however he does have dementia and is a poor historian. EKGs is sent to Dr. Lantigua for review and further recommendations. Reevaluation #2: 12/15/23 16:15 Initial EKG showed questionable ST elevation. Third EKG was obtained at 4:14 PM with dynamic changes. Code STEMI paged. Reevaluation #3: 12/15/23 16:19 Cardiology reports reviewed patient had a catheterization earlier this year showing right-sided disease. STEMI identified at 4:14 PM EKG Findings - EKG Comments: EKG Findings:: My EKG interpretation: Ventricular rate 59, sinus bradycardia, period of 172, QRS 96, QTc 3-4. No AL prolongation, no QTC prolongation. Subtle ST elevations in lead III and aVF with slight reciprocal changes in high lateral leads. Repeat EKG performed 20 minutes later shows similar findings. Medical Decision Making - Medical Decision Making Was pt. sent in by a medical professional or institution (, PA, SU[employer], urgent care, hospital, or fdc...) When possible be specific @ -No Did you speak to anyone other than the patient for history (EMS, parent, family, police, friend...)? What history was obtained from this source @ -EMS as described above Did you review nursing and triage notes (agree or disagree)? Why? @ -I reviewed and agree with nursing and triage notes Were old charts reviewed (outside hosp., previous admission, EMS record, old EKG, old radiological studies, urgent care reports/EKG's, fdc records)? Report findings @ -See above Differential Diagnosis (chest pain, altered mental status, abdominal pain women, abdominal pain men, vaginal bleeding, musculoskeletal, weakness, fever, dyspnea, syncope, headache, dizziness, GI bleed, back pain, seizure, CVA, palpatations, mental health)? @ -Differential Chest Pain: Stable Angina, Unstable Angina, STEMI, NSTEMI Aortic Dissection, Pneumothorax, Musculoskeletal, Esophageal Spasm GERD, Cholecystitis, Pancreatitis, Zoster, this is not meant to be an all-inclusive list. EKG interpreted by me (3pts min.). @ -See above X-rays interpreted by me (1pt min.). @ -Chest x-ray shows no acute processes CT interpreted by me (1pt min.). @ -None done U/S interpreted by me (1pt. min.). @ -None done What testing was considered but not performed or refused? (CT, X-rays, U/S, labs)? Why? @ -None What meds were considered but not given or refused? Why? @ -None Was smoking cessation discussed for >3mins.? @ -No Were there social determinants of health that impacted care today? How? (Homelessness, low income, unemployed, alcoholism, drug addiction, transportation, low edu. Level, literacy, decrease access to med. care, custodial, rehab)? @ -No Was there de-escalation of care discussed even if they declined (Discuss DNR or withdrawal of care, Hospice)? DNR status @ -No What co-morbidities impacted this encounter? (DM, HTN, Smoking, COPD, CAD, Cancer, CVA, ARF, Chemo, Hep., AIDS, mental health diagnosis, sleep apnea, morbid obesity)? @ -Coronary artery disease Was patient admitted / discharged? Hospital course, mention meds given and route, prescriptions, significant lab abnormalities, going to OR and other pertinent info. @ -74-year-old male presents to the emergency department with chest pain. Patient is a poor historian. EKG initially was suspicious for ischemic changes. At 414 there were some identified dynamic changes. Code STEMI paged. Case discussed with cardiology. Bleach Boiler Packer activated. Admitted to Dr. العراقي. Patient started on heparin CBC, coag panel and metabolic panel unremarkable. Did you discuss the management of the patient with other professionals (yasir goss i.e. , PA, SUPER[employer], lab, RT, psych nurse, child welfare social worker, mattress renovator, teacher, air antisubmarine officer, case management associate)? Give summary @ -See above Was critical care preformed (if so, how long)? @ -Yes, 33 minutes for acute coronary syndrome management along with heparin initiation Undiagnosed new problem with uncertain prognosis? @ -No Drug Therapy requiring intensive monitoring for toxicity (Heparin, Nitro, Insulin, Cardizem)? @ -No Were any procedures done? @ -No Diagnosis/symptom? Acute, or Chronic, or Acute on Chronic? Uncomplicated (without systemic symptoms) or Complicated (systemic symptoms)? @ -STEMI Side effects of treatment? @ -No Exacerbation, Progression, or Severe Exacerbation? @ -No Poses a threat to life or bodily function? How? (Chest pain, USA, [place], pneumonia, PE, COPD, DKA, ARF, appy, cholecystitis, CVA, Diverticulitis, Homicidal, Suicidal, threat to staff... and all critical care pts) @ -yes - Lab Data Result diagrams: 12/15/23 15:48 12/15/23 15:48 Lab Results 12/15/23 12/15/23 12/15/23 Range/Units 15:48 15:48 15:48 WBC 9.3 (3.8-10.6) k/uL RBC 5.92 H (4.30-5.90) m/uL Hgb 17.5 (13.0-17.5) gm/dL Hct 53.6 H (39.0-53.0) % MCV 90.4 (80.0-100.0) fL MCH 29.5 (25.0-35.0) pg MCHC 32.6 (31.0-37.0) g/dL RDW 13.2 (11.5-15.5) % Plt Count 248 (150-450) k/uL MPV 7.7 Neutrophils % 67 % Lymphocytes % 22 % Monocytes % 7 % Eosinophils % 2 % Basophils % 1 % Neutrophils # 6.3 (1.3-7.7) k/uL Lymphocytes # 2.0 (1.0-4.8) k/uL Monocytes # 0.6 (0-1.0) k/uL Eosinophils # 0.2 (0-0.7) k/uL Basophils # 0.1 (0-0.2) k/uL PT 10.9 (10.0-12.5) sec INR 1.0 (<1.2) APTT 27.4 (22.0-30.0) sec Sodium 139 (137-145) mmol/L Potassium 4.4 (3.5-5.1) mmol/L Chloride 100 (98-107) mmol/L Carbon Dioxide 30 (22-30) mmol/L Anion Gap 9 mmol/L BUN 15 (9-20) mg/dL Creatinine 0.72 (0.66-1.25) mg/dL Est GFR (CKD-EPI)AfAm >90 (>60 ml/min/1.73 sqM) Est GFR (CKD-EPI)NonAf >90 (>60 ml/min/1.73 sqM) Glucose 209 H (74-99) mg/dL Calcium 10.0 (8.4-10.2) mg/dL Magnesium 1.9 (1.6-2.3) mg/dL Total Bilirubin 0.9 (0.2-1.3) mg/dL AST 49 (17-59) U/L ALT 23 (4-49) U/L Alkaline Phosphatase 117 (38-126) U/L Total Protein 8.8 H (6.3-8.2) g/dL Albumin 5.1 H (3.5-5.0) g/dL Disposition Clinical Impression: STEMI (ST elevation myocardial infarction) Disposition: ADMITTED IP TO THIS HOSP Condition: Critical Referrals: None,Stated [Primary Care Provider] - 1-2 days Decision Time: 16:24
[2023-12-15 15:59] LABS: Basophils # (A) 0.1 k/uL (0-0.2); Basophils % (A) 1 %; Eosinophils # (A) 0.2 k/uL (0-0.7); Eosinophils % (A) 2 %; HCT 53.6 % (39.0-53.0); HGB 17.5 gm/dL (13.0-17.5); Lymphocytes % (A) 22 %; MCH 29.5 pg (25.0-35.0); MCHC 32.6 g/dL (31.0-37.0); MCV 90.4 fL (80.0-100.0); Mean Platelet Volume 7.7; Monocytes # (A) 0.6 k/uL (0-1.0); Monocytes % (A) 7 %; Neutrophils # (A) 6.3 k/uL (1.3-7.7); Neutrophils % (A) 67 %; Platelet Count 248 k/uL (150-450); RBC 5.92 m/uL (4.30-5.90); RDW 13.2 % (11.5-15.5); WBC 9.3 k/uL (3.8-10.6)
[2023-12-15 16:10] LABS: Partial Thromboplastin Time 27.4 sec (22.0-30.0); Prothrombin Time 10.9 sec (10.0-12.5)
[2023-12-15 16:14] LABS: ALT 23 U/L (4-49); AST 49 U/L (17-59); African American GFR (CKD) >90 (>60 ml/min/1.73 sqM); Albumin 5.1 g/dL (3.5-5.0); Alkaline Phosphatase 117 U/L (38-126); Anion Gap 9 mmol/L; Blood Urea Nitrogen 15 mg/dL (9-20); Carbon Dioxide 30 mmol/L (22-30); Chloride 100 mmol/L (98-107); Glucose 209 mg/dL (74-99); Magnesium 1.9 mg/dL (1.6-2.3); Non-African American GFR(CKD) >90 (>60 ml/min/1.73 sqM); Potassium 4.4 mmol/L (3.5-5.1); Sodium 139 mmol/L (137-145); Total Bilirubin 0.9 mg/dL (0.2-1.3); Total Protein 8.8 g/dL (6.3-8.2)
[2023-12-15] MEDS ORDERED: HEPARIN SODIUM 1,000 UN/ML (10ML VL) IV PRN (16:16)
[2023-12-15] MEDS ORDERED: NALOXONE 0.4 MG/ML 1 ML VIAL IV PRN (16:20)
[2023-12-15] MEDS: HEPARIN SODIUM 1,000 UN/ML (10ML VL) IV ONE (16:22)
[2023-12-15] MEDS: ASPIRIN 81 MG PO STA (16:22)
[2023-12-15] MEDS: ATORVASTATIN 80 MG TAB PO STA (16:23)
--- NOTE | 2023-12-15 16:32 | XR ---
EXAMINATION TYPE: XR chest 2V DATE OF EXAM: 12/15/2023 COMPARISON: 10/05/2023 INDICATION: Chest pain TECHNIQUE: Single frontal view of the chest is obtained. FINDINGS: The heart size is normal. The pulmonary vasculature is normal. Mild bibasilar infiltrates are present. Correlate for atelectasis or pneumonia. IMPRESSION: 1. Mild bibasilar infiltrates, correlate for atelectasis or pneumonia. [facility], Workstation: [facility], 12/15/2023 4:30 PM
[2023-12-15] MEDS: LIDOCAINE 1% INJ 10MG/ML (20 ML MDV) SQ ONE (17:06)
[2023-12-15] MEDS: MIDAZOLAM 2 MG/2 ML VIAL IVP ONE (17:06)
[2023-12-15] MEDS: VERAPAMIL SYRINGE (5 MG/10 ML) INTRAARTER ONE (17:06)
[2023-12-15] MEDS: NITROGLYCERIN SL TABS 0.4 MG TAB SUBLINGUAL ONE (17:16)
[2023-12-15] MEDS: TICAGRELOR 90 MG TAB PO ONE (17:20)
[2023-12-15] MEDS: HEPARIN SODIUM 1,000 UN/ML (10ML VL) IVP ONE (17:20)
[2023-12-15] MEDS: SODIUM CHLORIDE 0.9% 1,000 ML IV ONE (17:30)
[2023-12-15] MEDS: IOPAMIDOL-370 100ML BTL INJ ONE (17:38)
[2023-12-15] MEDS ORDERED: MAG HYDROX/AL HYDROX/SIMETH 30 ML CUP PO PRN (17:43)
[2023-12-15] MEDS ORDERED: ATROPINE SULFATE 0.1 MG/ML 10ML SYRINGE IV PRN (17:43)
[2023-12-15] MEDS ORDERED: RX INFO: IV CONTRAST WAS GIVEN 1 EACH MISC MISCELLANE PRN (17:43)
[2023-12-15] MEDS ORDERED: NITROGLYCERIN SL TABS 0.4 MG TAB SUBLINGUAL PRN (17:43)
--- NOTE | 2023-12-15 17:49 | P.PCN ---
Date of Procedure: 12/15/23 Operative Findings: CARDIAC CATHETERIZATION AND PERCUTANEOUS CORONARY INTERVENTION PERFORMING PHYSICIAN: Timbo Valencia MD, [facility] PROCEDURE PERFORMED: 1. Selective right and left coronary angiogram 2. Successful stenting of distal RCA using 3.25 x 28 mm Xience CHIDI with an excellent angiographic results with adjunctive use of IVUS 3. Ultrasound-guided access of the right radial artery INDICATION: Acute coronary syndrome COMPLICATION: None APPROACH: Right radial approach LEVEL OF SEDATION: Moderate with the sedation time off 35 minutes PROCEDURE DESCRIPTION: After obtaining informed consent the patient was brought to the cardiac Power Operator with right radial artery was cannulated using micropuncture technique under ultrasound guidance a micropuncture wire passed easily then I placed a 6 Vietnamese 11 cm sheath at the right radial artery. Subsequently the patient was given 2 mg of verapamil intra-arterial and 4000's of heparin intravenous with continuous ACT monitoring. Selective right and left coronary angiogram performed using JR4 and JL 3.5 catheters. After that we intervene on the RCA. After that I did engage the RCA using JR4 guiding catheter. I did wired using a run-through wire. Intravascular ultrasound was performed and showed a diameter between 3 to 3.25 mm. I did predilated using 2.5 mm balloon before I deployed 3.25 x 28 mm stent where the stent was positioned under fluoroscopy guidance and deployed under 14 shellie for 20 seconds with IVUS after that showing that the stent was not well expanded. I postdilated using 3.5 mm noncompliant balloon with final angiogram showing excellent angiographic results and the procedure was completed with no complication SELECTIVE CORONARY ANGIOGRAM: The right coronary artery: Large-caliber vessel and a dominant vessel with patent stent in the midportion and critical disease involving the distal portion Left main: Calcified with mild disease only The left circumflex: Medium caliber vessel nondominant vessel appears to give an origin of a high take obtuse marginal branch versus diagonal branch with a critical disease invol ving the ostium The left anterior descending artery: Stented in the proximal portion of the stent appeared to be patent with mild to moderate disease involving the LAD throughout CONCLUSION: Patent stent in the mid RCA and critical disease involving de angela distal RCA. I did perform PCI of the distal RCA Patent stent in the proximal LAD. Critical disease involving the ostium of ramus intermedius POSTPROCEDURE MANAGEMENT: 1. Dual antiplatelet therapy using aspirin and Brilinta for 12 month 2. Aggressive cholesterol control 3. Follow-up with the patient
[2023-12-15] MEDS: TICAGRELOR 90 MG TAB PO SCH (22:09)
[2023-12-15] MEDS: METOPROLOL TARTRATE 25 MG TAB PO SCH (22:45)
[2023-12-15] MEDS: SODIUM CHLORIDE 0.9% 1,000 ML in EMPTY BAG 1 BAG IV SCH (22:47)
--- NOTE | 2023-12-16 00:43 | CONS ---
CONSULTATION CHIEF COMPLAINT: Chest pain and left arm pain. HISTORY OF PRESENT ILLNESS: This is a 73-year-old gentleman with history of dementia, diabetes, and coronary artery disease, status post prior angioplasty of LAD, who sees Dr. Valencia for his cardiac needs, came to hospital via EMS with complaints of chest pain with left arm pain. He is a difficult historian, but apparently a daughter who was in charge of his care had recently and the and also and he is under a lot of emotional distress. His initial EKG shows sinus rhythm, normal axis, normal intervals, subtle ST- segment elevation in the inferior leads. A more recent EKG done when the patient is short of breath and had some chest pain showed worsening ST-segment elevation, due to which STEMI alert was called and STEMI team had been activated. I spoke to Dr. Valencia and he is going to come perform cardiac catheterization and if necessary angioplasty. PAST MEDICAL HISTORY: Significant for diabetes, coronary artery disease, and dementia. MEDICATIONS: As charted. ALLERGIES: As charted. FAMILY HISTORY: Negative for premature coronary artery disease. SOCIAL HISTORY: Negative for smoking, ETOH, or drug abuse. REVIEW OF SYSTEMS: review of systems has been performed, pertinent are as documented. PHYSICAL EXAMINATION: GENERAL: Patient is comfortable at rest. VITAL SIGNS: Heart rate is 56 beats per minute. Blood pressure 130/72, and respiratory rate is 18. NECK: There is no jugular venous distention. Carotid upstroke is normal. There is no bruit. CHEST: Good air entry bilaterally. HEART: First and second heart sounds. No gallop. No murmur. ABDOMEN: Soft and nontender. EXTREMITIES: Did not reveal any edema. Peripheral pulses are felt. ASSESSMENT: Acute coronary syndrome. PLAN: Patient will undergo emergent cardiac catheterization, angioplasty. MMODL / IJN: [id number] /
--- NOTE | 2023-12-16 08:04 | HP ---
HISTORY AND PHYSICAL HISTORY OF PRESENT ILLNESS: A 73-year-old with multiple comorbidities came to the ER for chest pain, taken to the cardiac lab. He had a stent to his RCA today. He is in the ICU at this time. Was having pain in his chest going down to his upper arm. He is unsure if he had stents before. He got emotional stress due to the of his daughter unexpectedly. His daughter is his power of banking attorney. He is not sure he seems to be confused to me at this point. REVIEW OF SYSTEMS: He is uncooperative, says "why are you guys here? What do you want." HOME MEDICATIONS: 1. B12. 2. Fluocinolone acetonide topically. 3. Brilinta 90 b.i.d. 4. Metformin 500 daily. ALLERGIES: Negative. 14-point review of systems unobtainable. FAMILY HISTORY: Father has cancer, COPD. Brother has coronary artery disease. Sister has COPD, CVA. Daughter unclear. PHYSICAL EXAMINATION: VITAL SIGNS: Temp 98.4, pulse 64, respiratory rate 18 to 20, blood pressure 124/72. GENERAL: He is sleeping comfortably. He is very anxious. Please see physical exam on earlier notes. ASSESSMENT: Status post PTCA of the right coronary, coronary artery disease prior, polycythemia. Continue current treatment. Post cath orders, please see further orders in the chart. Prognosis guarded. MMODL / IJN: [id number] /
[2023-12-16] MEDS ORDERED: DEXTROSE 50% SYRINGE 50 ML IVP PRN ×2 (08:10)
[2023-12-16] MEDS: HEPARIN SOD,PORK IN 0.45% NACL 25,000 UNIT in 0.45% NACL 1 250ML.BAG IV SCH (08:38)
[2023-12-16 09:10] LABS: African American GFR (CKD) >90 (>60 ml/min/1.73 sqM); Non-African American GFR(CKD) >90 (>60 ml/min/1.73 sqM)
--- NOTE | 2023-12-16 09:18 | P.HPIM ---
History of Present Illness This is a pleasant 73 years old male with past medical history of multiple medical problems Patient presents from assisted living home with chest pain, patient was found to have inferior STEMI, he underwent emergent PCI to RCA with cardiology team Postoperatively patient went to the ICU where he is seen and examined, he is awake but have severe memory problem, also he is somewhat confused. He has no insight. But looks calm. Per staff his daughter about 2 weeks ago and he does not realize that, when I asked him to talk to his family he told me his daughter Sangita, I called the number in the chart and it is disconnected and then I called the other number for his niece Angelica and I left a message to call back. Currently patient denies chest pain or dyspnea. No abdominal pain or urinary complaint, he had some denies this before but currently he is not feeling dizzy, no headache weakness or numbness. He is afebrile and vital stable Labs reviewed and was unremarkable except for mildly elevated troponin at 0.[address] elevation in inferior leads Chest x-ray showing mild bibasilar infiltrate which could be atelectasis versus infection. He is on normal saline 75 mL/h and aspirin and Brilinta Review of Systems Review of systems CONSTITUTIONAL: No fever, no malaise, no fatigue. HEENT: No recent visual problems or hearing problems. Denied any sore throat. CARDIOVASCULAR: No orthopnea, PND, no palpitations, no syncope. PULMONARY: No shortness of breath, no cough, no hemoptysis. GASTROINTESTINAL: No diarrhea, no nausea, no vomiting, no abdominal pain. Normoactive bowel sounds. NEUROLOGICAL: No headaches, no weakness, no numbness. HEMATOLOGICAL: Denies any bleeding or petechiae. GENITOURINARY: Denies any burning micturition, frequency, or urgency. MUSCULOSKELETAL/RHEUMATOLOGICAL: Denies any joint pain, swelling, or any muscle pain. ENDOCRINE: Denies any polyuria or polydipsia. Past Medical History Past Medical History: Asthma, COPD, Dementia, Diabetes Mellitus, Hyperlipidemia, Hypertension, Myocardial Infarction ([place]), Rheumatoid Arthritis (RA), Sleep Apnea/CPAP/BIPAP Additional Past Medical History / Comment(s): family hx. colon cancer, noncompliant with CPAP, pt states a recent fall at home 12/12/22 with injury to head Last Myocardial Infarction Date:: 01/2023 History of Any Multi-Drug Resistant Organisms: None Reported Past Surgical History: Cholecystectomy, Heart Catheterization With Stent, Hernia Repair, Orthopedic Surgery Additional Past Surgical History / Comment(s): Uvular sleep apnea, carpal tunnel surg., tarsal tunnel surg. for feet, cervical fusion Past Anesthesia/Blood Transfusion Reactions: No Reported Reaction Date of Last Stent Placement:: 01/2023 Past Psychological History: Anxiety, Bipolar Smoking Status: Current every day smoker Past Alcohol Use History: None Reported Additional Past Alcohol Use History / Comment(s): Smokes 1/2 PPD Past Drug Use History: None Reported - Past Family History Father Family Medical History: Cancer, COPD Additional Family Medical History / Comment(s): Father at age 81 from mesothelioma and COPD with history of brain cancer. Brother(s) Family Medical History: Coronary Artery Disease (CAD), Rheumatoid Arthritis (RA) Additional Family Medical History / Comment(s): One brother at age 40 from AIDS. Sister(s) Family Medical History: COPD, CVA/TIA Additional Family Medical History / Comment(s): One at age 70 from COPD. Daughter(s) Family Medical History: No Reported History Additional Family Medical History / Comment(s): Patient has 5 daughters with no major medical problems. Mother Family Medical History: Cancer Additional Family Medical History / Comment(s): Mother at age 79 from colon cancer. Medications and Allergies Home Medications Medication Instructions Recorded Confirmed Type Nitroglycerin Sl Tabs [Nitrostat] 0.4 mg SUBLINGUAL Q5M PRN #30 tab 02/22/23 12/15/23 Rx Super Vitamin B-Complex 1 tab PO DAILY@0800 09/15/23 12/15/23 History Ticagrelor [Brilinta] 90 mg PO BID@08,199909/15/23 12/15/23 History metFORMIN HCL [Glucophage] 500 mg PO BID-W/MEALS@09/15/23 12/15/23 History Atorvastatin [Lipitor] 20 mg PO HS@199912/15/23 12/15/23 History Cholecalciferol (Vitamin D3) 50 mcg PO DAILY@0800 12/15/23 12/15/23 History [Vitamin D3 (50 Mcg = 2000 Iu)] Triamcinolone 0.1% Cream [Kenalog 1 applicatio TOPICAL BID@0800,199912/15/23 1 History 0.1% Cream] Allergies Allergy/AdvReac Type Severity Reaction Status Date / Time No Known Allergies Allergy Verified 12/15/23 16:44 Physical Exam Vitals: Vital Signs Temp Pulse Pulse Resp BP BP Pulse Ox 12/16/23 07:00 52 L 22 125/99 95 12/16/23 06:30 53 L 24 105/72 97 12/16/23 06:00 57 L 22 133/71 97 12/16/23 05:30 54 L 21 129/79 97 12/16/23 05:00 53 L 19 117/63 97 12/16/23 04:30 49 L 17 126/76 97 12/16/23 04:00 97.9 F 52 L 24 125/63 97 12/16/23 03:30 50 L 24 120/58 96 12/16/23 03:00 51 L 22 132/61 96 12/16/23 02:30 51 L 23 125/59 94 L 12/16/23 02:00 49 L 23 118/61 98 12/16/23 01:30 48 L 20 116/59 96 12/16/23 01:00 63 24 110/62 95 12/16/23 00:30 47 L 17 112/62 97 12/16/23 00:23 48 L 17 112/62 96 12/16/23 00:00 98.0 F 52 L 15 109/63 96 12/15/23 23:30 49 L 16 118/60 95 12/15/23 23:00 54 L 13 100/64 95 12/15/23 22:30 53 L 21 123/66 95 12/15/23 22:00 50 L 23 128/93 95 12/15/23 21:30 51 L 18 131/67 95 12/15/23 21:00 53 L 24 115/77 95 12/15/23 20:30 53 L 16 120/61 95 12/15/23 20:00 98.0 F 54 L 24 125/67 95 12/15/23 19:30 56 L 24 122/78 95 12/15/23 19:28 98.0 F 52 L 20 120/61 95 12/15/23 19:00 53 L 23 133/72 95 12/15/23 18:30 53 L 24 129/65 95 12/15/23 18:20 52 L 20 129/65 94 L 12/15/23 18:10 55 L 23 129/65 95 12/15/23 16:43 97.9 F 53 L 16 129/65 95 12/15/23 16:39 50 L 145/69 12/15/23 15:11 98.4 F 64 20 124/72 98 Intake and Output 12/15/23 12/16/23 12/16/23 22:59 06:59 14:59 Intake Total 1065 600 75 Output Total 350 500 0 Balance 715 100 75 Intake: IV 575 600 75 Sodium Chloride 0.9% 1, 375 600 75 000 ml @ 70 mls/hr IV . [id number] [facility] Rx#:[id number] Oral 490 Output: Urine 350 500 0 Other: Voiding Method Urinal Urinal # Voids 1 1 Weight 75.75 kg 76 kg -GENERAL: The patient is alert and oriented x1 with help, has no insight but follows command, calm and not in any acute distress. Well developed, well nourished. HEENT: Pupils are round and equally reacting to light. EOMI. No scleral icterus. No conjunctival pallor. Normocephalic, atraumatic. No pharyngeal erythema. No thyromegaly. CARDIOVASCULAR: S1 and S2 present. No murmurs, rubs, or gallops. PULMONARY: Chest is clear to auscultation, no wheezing , no crackles. ABDOMEN: Soft, nontender, nondistended, normoactive bowel sounds. No palpable organomegaly. MUSCULOSKELETAL: No joint swelling or deformity. EXTREMITIES: No cyanosis, clubbing, or pedal edema. NEUROLOGICAL: Gross neurological examination did not reveal any focal deficits. SKIN: No rashes. no petechiae. Results CBC & Chem 7: 12/15/23 15:48 12/15/23 15:48 Labs: Abnormal Lab Results - Last 24 Hours (Table) 12/15/23 12/15/23 12/15/23 Range/Units 15:48 15:48 15:48 RBC 5.92 H (4.30-5.90) m/uL Hct 53.6 H (39.0-53.0) % Glucose 209 H (74-99) mg/dL Troponin I 0.674 H* (0.000-0.034) ng/mL Total Protein 8.8 H (6.3-8.2) g/dL Albumin 5.1 H (3.5-5.0) g/dL Thrombosis Risk Factor Assmnt - Choose All That Apply Any of the Below Risk Factors Present?: Yes Each Factor Represents 1 point: Acute [place], Medical pt on bed rest Other Risk Factors: Yes Each Risk Factor Represents 2 Points: Age 61-74 years, Patient confined to bed Thrombosis Risk Factor Assessment Total Risk Factor Score: 6 Thrombosis Risk Factor Assessment Level: High Risk Assessment and Plan Assessment: Acute inferior STEMI status post PCI to RCA Altered mental status most likely dementia, will order CT of the brain to rule out acute intracranial lesions Bibasilar pulmonary infiltrates suspicious for atelectasis versus pneumonia Plan: Cardiology team on the case and he was started on dual antiplatelet therapy with aspirin and Brilinta Continue with the rest of cardiac medication We will order CT of the brain especially he is on antiplatelets medication Check pro- Calcitonin and NPH Repeat chest x-ray today Cardiology team following closely I tried to call the family and left a message Labs and medication were reviewed.. Continue same treatment. Continue with symptomatic treatment. Resume home medication. Monitor labs and vitals. DVT and GI prophylaxis. Further recommendations as per clinical course of the patient DVT prophylaxis: Aspirin and Brilinta GI Prophylaxis: Pepcid PT/OT: Pending Prognosis is guarded
[2023-12-16] MEDS: PANTOPRAZOLE 40 MG TABLET PO SCH (09:24)
[2023-12-16] MEDS: ASPIRIN 81 MG PO SCH (09:24)
--- NOTE | 2023-12-16 09:53 | XR ---
EXAMINATION TYPE: XR chest 1V portable DATE OF EXAM: 12/16/2023 COMPARISON: 12/15/2023 HISTORY: Chest pain TECHNIQUE: Single frontal view of the chest is obtained. FINDINGS: Coarsened interstitium and changes of COPD. Heart size upper limits of normal. Atheroscler otic change aorta. Postsurgical change overlying the cervical spine. Diffuse osteopenia and arthropat hy shoulders. IMPRESSION: COPD correlate for pulmonary fibrosis. [facility], , 12/16/2023 9:50 AM
--- NOTE | 2023-12-16 11:04 | P.PN ---
Subjective Progress Note Date: 12/16/23 Per cardiology consult note, " This is a 73-year-old gentleman with history of dementia, diabetes and gm nary artery disease status post prior angioplasty of LAD who sees Dr. Valencia for his cardiac needs, came to the hospital via EMS with complaints of chest pain with left arm pain. He is a difficult historian, but apparently at daughter who is in charge of his care had recently and and also and he is under a lot of emotional distress. His initial EKG showed sinus rhythm, normal axis, normal intervals, subtle ST segment elevation in the inferior leads. More recent EKG done when the patient is short of breath and had some chest pain showed worsening ST segment elevation, due to which STEMI alert was called and STEMI team had been activated. I spoke to Dr. Valencia and he is going to come perform cardiac catheterization and if necessary angioplasty. Past medical history: Significant for diabetes, coronary artery disease, dementia Family history: Negative for premature coronary artery disease Social history: Negative for smoking, alcohol use, or drug use" Previous cardiac workup/procedures: Last echocardiogram performed in 2022 showed left ventricular ejection fraction of 50 to 55% Patient had a PCI of proximal LAD performed in February 2023 Progress note: 12/16/2023 Patient was seen in ICU this morning. Denies any complaints at this time. Status post cardiac catheterization and percutaneous coronary intervention of the distal RCA on 12/15/[address] Valencia. He was found to be slightly bradycardic this morning with heart rate in the 50s. He is slightly hypotensive with with the most recent blood pressure of 88/55. He is currently taking aspirin 81 mg p.o. daily, Lipitor 80 mg p.o., metoprolol tartrate 25 mg p.o. twice daily, Brilinta 90 mg p.o. twice daily. Chest x-ray today showed COPD correlate for pulmonary fibrosis. Physical examination: GENERAL: This is a 73-year-old in no apparent distress at the time of examination. Pleasant and cooperative. HEENT: Head is atraumatic, normocephalic. Pupils are equal, round, and reactive to light. Sclerae anicteric. Conjunctivae are clear. Mucus membranes of the mouth are moist. Neck is supple. RESPIRATORY: Clear to auscultation. No wheezes, rales, or rhonchi. No use of accessory muscles. No chest wall tenderness is noted on palpation or with deep breathing. CARDIOVASCULAR: Regular rate and rhythm. S1 and S2 noted. No systolic or diastolic murmur auscultated. No JVD noted. No S3 or S4 noted. GASTROINTESTINAL: No distention noted. Abdomen soft and round. Normal active bowel sounds auscultated x 4 quadrants. No pain or tenderness noted upon palpation. INTEGUMENTARY: No cyanosis. No jaundice. No rashes noted. No cellulitis noted. EXTREMITIES: 2+ peripheral pulses. No evidence of peripheral edema. No calf tenderness noted. NEUROLOGIC: Detailed neurological examination was not assessed. PSYCHIATRIC: Awake, alert, and oriented X 3. Appropriate affect. Intact judgement and insight. Impression: 1. Acute coronary syndrome STEMI status post cardiac catheterization and PCI of the distal RCA on 12/15/2023 2. History of diabetes 3. History of coronary artery disease 4. History of dementia Plan: Patient was found to be slightly bradycardic this morning with heart rate in the 50s. Hold metoprolol if heart rate becomes less than 65. Reduce metoprolol t artrate from 25 mg to 12.5 mg p.o. twice daily. We will continue to monitor the patient and make further recommendations. Objective - Vital Signs Vital signs: Vital Signs Temp 98.4 F 12/16/23 08:00 Pulse 67 12/16/23 10:00 Resp 25 H 12/16/23 10:00 BP 88/55 12/16/23 10:00 Pulse Ox 95 12/16/23 10:00 FiO2 Intake & Output 12/15/23 12/16/23 12/16/23 18:59 06:59 18:59 Intake Total 275 1390 425 Output Total 0 850 150 Balance 275 540 275 Weight 75.75 kg 76 kg Intake: IV 275 900 75 Sodium Chloride 0.9% 1, 75 900 75 000 ml @ 70 mls/hr IV . [id number] [facility] Rx#:[id number] Intake, IV Titration 150 Amount Sodium Chloride 0.9% 1, 150 000 ml In Empty Bag 1 bag @ 75 mls/hr IV .[id number] [facility] Rx#:[id number] Oral 490 200 Output: Urine 0 850 150 Other: Voiding Method Urinal Urinal # Voids 1 - Labs CBC & Chem 7: 12/15/23 15:48 12/16/23 08:25 Labs: Abnormal Lab Results - Last 24 Hours (Table) 12/15/23 12/15/23 12/15/23 Range/Units 15:48 15:48 15:48 RBC 5.92 H (4.30-5.90) m/uL Hct 53.6 H (39.0-53.0) % Creatinine (0.66-1.25) mg/dL Glucose 209 H (74-99) mg/dL Troponin I 0.674 H* (0.000-0.034) ng/mL Total Protein 8.8 H (6.3-8.2) g/dL Albumin 5.1 H (3.5-5.0) g/dL 12/16/23 Range/Units 08:25 RBC (4.30-5.90) m/uL Hct (39.0-53.0) % Creatinine 0.55 L (0.66-1.25) mg/dL Glucose (74-99) mg/dL Troponin I (0.000-0.034) ng/mL Total Protein (6.3-8.2) g/dL Albumin (3.5-5.0) g/dL
--- NOTE | 2023-12-16 11:08 | CT ---
EXAMINATION TYPE: CT brain wo con DATE OF EXAM: 12/16/2023 COMPARISON: 09/15/2023 HISTORY: increased confusion CT DLP: 1161.4 mGycm Automated exposure control for dose reduction was used. FINDINGS: The ventricles, basal cisterns and sulci with convexities are moderately enlarged consistent with mod erate age-appropriate atrophy. There is moderate decreased density in the periventricular white matter consistent with chronic ische rosas white matter demyelination. There is a remote right caudate nucleus infarct. There is mild calcification of basal ganglia. There is no acute intra or extra-axial hemorrhage. The posterior fossa is grossly normal. The intraorbital contents appear normal study. Visualized paranasal sinuses and mastoid air cells are well aerated. IMPRESSION: 1. Moderate age-appropriate atrophy. 2. 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 3. No acute bleed or mass effect. 4. No interval change compared to previous IMPRESSION: [facility], Workstation: [facility], 12/16/2023 11:06 AM
[2023-12-16] MEDS: INSULIN ASPART (NovoLOG) 100 UNIT/ML VIAL SQ SCH (11:56)
--- NOTE | 2023-12-16 15:44 | CA ---
Transthoracic Echo Report Name: Doc Orosco Age: 73 Gender: M : 1950 Exam Date: 12/16/2023 08:24 Exam Location: [facility] Ht (in): 68 Wt (lb): 167 Ordering Physician: Timbo Valencia MD ([id number]) Attending/Referring Phys: Chipper Operator Jo Ann Schroeder RDCS Procedure CPT: Indications: ACS Cardiac Hx: Technical Quality: Fair Contrast 1: Total Dose (mL): Contrast 2: Total Dose (mL): MEASUREMENTS (Male / Female) Normal Values 2D ECHO LV Diastolic Diameter PLAX 4.7 cm 4.2 - 5.9 / 3.9 - 5.3 cm LV Systolic Diameter PLAX 3.3 cm IVS Diastolic Thickness 1.0 cm 0.6 - 1.0 / 0.6 - 0.9 cm LVPW Diastolic Thickness 0.9 cm 0.6 - 1.0 / 0.6 - 0.9 cm LV Relative Wall Thickness 0.4 RV Internal Dim ED PLAX 3.9 cm LA Volume 70.2 cm??? 18 - 58 / 22 - 52 cm??? LA Volume Index 36.6 cm???/m??? 16 - 28 cm???/m??? M-MODE Aortic Root Diameter MM 3.6 cm LA Systolic Diameter MM 3.7 cm LA Ao Ratio MM 1.0 AV Cusp Separation MM 2.1 cm DOPPLER AV Peak Velocity 110.5 cm/s AV Peak Gradient 4.9 mmHg AV Mean Velocity 85.8 cm/s AV Mean Gradient 3.1 mmHg AV Velocity Time Integral 22.5 cm LVOT Peak Velocity 91.5 cm/s LVOT Peak Gradient 3.3 mmHg LVOT Velocity Time Integral 17.9 cm FINDINGS Left Ventricle Left ventricular cavity size normal. Left ventricular wall thickness normal. Hypokinetic inferior wall and inferior septal at base. Left ventricular ejection fraction is estimated at 50 %. Grade 1 diastolic dysfunction. Right Ventricle Mild right ventricular dilatation. Right ventricular systolic pressure within normal limits. Right Atrium Normal right atrial size. Left Atrium Moderately increased left atrial volume. Mildly increased left atrial area. Mitral Valve Structurally normal mitral valve. [id number] mitral regurgitation. Posteriorly directed mitral regurgitation jet. Aortic Valve No aortic stenosis. Aortic valve sclerosis. Trace aortic regurgitation. Tricuspid Valve Structurally normal tricuspid valve. Mild tricuspid regurgitation. Pulmonic Valve Structurally normal pulmonic valve. Pericardium No pericardial effusion. Aorta Normal size aortic root and proximal ascending aorta. CONCLUSIONS Left ventricular ejection fraction 50% with inferior hypokinesis Mildly dilated left atrium Mild to moderate mitral regurgitation Trace aortic regurgitation Mild tricuspid regurgitation Previewed by: Dr. Benson Simpson DO (Electronically Signed) Final Date: 16 December 2023 15:43
[2023-12-16] MEDS: NICOTINE 14MG/24HR PATCH TRANSDERM STA (15:50)
[2023-12-16 16:03] VITALS: BMI 25.4
[2023-12-16 21:11] LABS: Glucose,Whole Blood 130 mg/dL (70-110)
[2023-12-16] MEDS: FAMOTIDINE 20 MG/2 ML VIAL IV SCH (21:15)
[2023-12-16] MEDS: METOPROLOL TARTRATE 12.5 MG TAB PO SCH (21:16)
[2023-12-16] MEDS: ZOLPIDEM 5 MG TAB PO PRN (21:16)
[2023-12-16] MEDS: ATORVASTATIN 80 MG TAB PO SCH (21:16)
--- NOTE | 2023-12-16 22:03 | US ---
EXAMINATION TYPE: US carotid duplex BILAT DATE OF EXAM: 12/16/2023 COMPARISON: NONE CLINICAL INDICATION: Male, 73 years old with history of lacunar infarct; stenosis TECHNIQUE: Grayscale, color Doppler and spectral Doppler evaluation of the bilateral carotid systems and vertebral arteries.Indirect Doppler criteria was utilized. FINDINGS: EXAM MEASUREMENTS: RIGHT: Peak Systolic Velocity (PSV) cm/sec ----- Right CCA: 57.8 ----- Right ICA: 80.6 ----- Right ECA: 151 ICA/CCA ratio: 1.4 RIGHT: End Diastole cm/sec ----- Right CCA: 6.5 ----- Right ICA: 13 ----- Right ECA: 0 LEFT: Peak Systolic Velocity (PSV) cm/sec ----- Left CCA: 55.7 ----- Left ICA: 104 ----- Left ECA: 213 ICA/CCA ratio: 1.9 LEFT: End Diastole cm/sec ----- Left CCA: 0 ----- Left ICA: 19 ----- Left ECA: 6.3 VERTEBRALS (direction of flow): Right Vertebral: Antegrade Left Vertebral: Antegrade Rhythm: Normal ELEVATOR SERVICE TECHNICIAN NOTES: Bilateral plaque visualized. No significant stenosis seen IMPRESSION: 1. Atheromatous plaquing bilateral carotid bifurcations without significant flow-limiting stenosis. Criteria for Assigning % of Stenosis / Diameter reduction (Estimation based on the indirect measurements of the internal carotid artery velocities (ICA PSV). 1. Normal (no stenosis)=ICA PSV < 125 cm/s: ratio < 2.0: ICA EDV<40 cm/s. 2. Less than 50% stenosis=ICA PSV < 125 cm/s: ratio < 2.0: ICA EDV<40 cm/s. 3. 50 to 69% stenosis=ICA PSV of 125 to 230 cm/s: ration 2.0 ? 4.0: ICA EDV 40-100 cm/s. 4. Greater than 70% stenosis to near occlusion= ICA PSV > 230 cm/s: ratio > 4.0: ICA EDV > 100 cm/s. 5. Near occlusion= ICA PSV velocities may be low or undetectable: variable ratio and ICA EDV. 6. Total occlusion=unable to detect flow. [facility], Workstation: [facility], 12/16/2023 10:00 PM
[2023-12-17 06:11] LABS: Glucose,Whole Blood 142 mg/dL (70-110)
[2023-12-17] MEDS: SODIUM CHLORIDE 0.9% 1,000 ML IV SCH (09:36)
[2023-12-17 11:49] LABS: Glucose,Whole Blood 232 mg/dL (70-110)
[2023-12-17 13:53] LABS: African American GFR (CKD) >90 (>60 ml/min/1.73 sqM); Anion Gap 2 mmol/L; Blood Urea Nitrogen 15 mg/dL (9-20); Calcium 8.7 mg/dL (8.4-10.2); Carbon Dioxide 31 mmol/L (22-30); Chloride 104 mmol/L (98-107); Glucose 176 mg/dL (74-99); Magnesium 1.8 mg/dL (1.6-2.3); Non-African American GFR(CKD) >90 (>60 ml/min/1.73 sqM); Potassium 3.9 mmol/L (3.5-5.1); Sodium 137 mmol/L (137-145)
--- NOTE | 2023-12-17 15:04 | P.PN ---
Subjective This is a pleasant 73 years old male with past medical history of multiple medical problems Patient presents from assisted living home with chest pain, patient was found to have inferior STEMI, he underwent emergent PCI to RCA with cardiology team Postoperatively patient went to the ICU where he is seen and examined, he is awake but have severe memory problem, also he is somewhat confused. He has no insight. But looks calm. Per staff his daughter about 2 weeks ago and he does not realize that, when I asked him to talk to his family he told me his daughter Sangita, I called the number in the chart and it is disconnected and then I called the other number for his niece Angelica and I left a message to call back. Currently patient denies chest pain or dyspnea. No abdominal pain or urinary complaint, he had some denies this before but currently he is not feeling dizzy, no headache weakness or numbness. He is afebrile and vital stable Labs reviewed and was unremarkable except for mildly elevated troponin at 0.[address] elevation in inferior leads Chest x-ray showing mild bibasilar infiltrate which could be atelectasis versus infection. He is on normal saline 75 mL/h and aspirin and Brilinta 12/17/2023 Patient is not significantly tachypneic, he remains on IV Lasix, his creatinine stable today. Will keep him for another 24 hours and we can switch him to oral dose tomorrow Neurology is following for his confusion, is informed close chronic and looks more dementia than delirium or encephalopathy He remains on aspirin and Brilinta with no other new complaint or chest pain Objective - Vital Signs Vital signs: Vital Signs Temp 97.9 F 12/17/23 12:27 Pulse 60 12/17/23 12:27 Resp 18 12/17/23 12:27 BP 123/66 12/17/23 12:27 Pulse Ox 97 12/17/23 12:27 FiO2 Intake & Output 12/16/23 12/17/23 12/17/23 18:59 06:59 18:59 Intake Total 675 250 Output Total 350 675 Balance 325 -425 Weight 76 kg 72.3 kg Intake: IV 75 10 Invasive Line 2 10 Sodium Chloride 0.9% 1, 75 000 ml @ 70 mls/hr IV . [id number] [facility] Rx#:[id number] Intake, IV Titration 150 Amount Sodium Chloride 0.9% 1, 150 000 ml In Empty Bag 1 bag @ 75 mls/hr IV .[id number] [facility] Rx#:[id number] Oral 200 240 Other 250 Output: Urine 350 675 Other: Voiding Method Urinal Urinal Urinal # Voids 1 2 - Exam -GENERAL: The patient is alert and awake but confused which looks at baseline, not in any acute distress. Well developed, well nourished. HEENT: Pupils are round and equally reacting to light. EOMI. No scleral icterus. No conjunctival pallor. Normocephalic, atraumatic. No pharyngeal erythema. No th yromegaly. CARDIOVASCULAR: S1 and S2 present. No murmurs, rubs, or gallops. PULMONARY: Chest is clear to auscultation, no wheezing , no crackles. ABDOMEN: Soft, nontender, nondistended, normoactive bowel sounds. No palpable organomegaly. MUSCULOSKELETAL: No joint swelling or deformity. EXTREMITIES: No cyanosis, clubbing, or pedal edema. NEUROLOGICAL: Gross neurological examination did not reveal any focal deficits. SKIN: No rashes. no petechiae. - Labs CBC & Chem 7: 12/15/23 15:48 12/17/23 13:25 Labs: Abnormal Lab Results - Last 24 Hours (Table) 12/16/23 12/16/23 12/17/23 Range/Units 08:25 21:09 06:10 Carbon Dioxide (22-30) mmol/L Glucose (74-99) mg/dL POC Glucose (mg/dL) 130 H 142 H (70-110) mg/dL Hemoglobin A1c 7.5 H (<=6.0) % 12/17/23 12/17/23 Range/Units 11:48 13:25 Carbon Dioxide 31 H (22-30) mmol/L Glucose 176 H (74-99) mg/dL POC Glucose (mg/dL) 232 H (70-110) mg/dL Hemoglobin A1c (<=6.0) % Assessment and Plan Assessment: Acute inferior STEMI status post PCI to RCA Altered mental status most likely dementia, will order CT of the brain to rule out acute intracranial lesions Bibasilar pulmonary infiltrates suspicious for atelectasis versus pneumonia Plan: Cardiology team on the case and he was started on dual antiplatelet therapy with aspirin and Brilinta Continue with the rest of cardiac medication We will order CT of the brain especially he is on antiplatelets medication Cardiology team following closely I tried to call the family and left a message Labs and medication were reviewed.. Continue same treatment. Continue with symptomatic treatment. Resume home medication. Monitor labs and vitals. DVT and GI prophylaxis. Further recommendations as per clinical course of the patient DVT prophylaxis: Aspirin and Brilinta GI Prophylaxis: Pepcid PT/OT: Pending Prognosis is guarded
[2023-12-17 16:29] LABS: Glucose,Whole Blood 114 mg/dL (70-110)
[2023-12-17 20:38] LABS: Glucose,Whole Blood 148 mg/dL (70-110)
[2023-12-18 06:10] LABS: Glucose,Whole Blood 116 mg/dL (70-110)
--- NOTE | 2023-12-18 09:37 | P.CNNES ---
History of Present Illness Consult date: 12/17/23 Requesting physician: Tong E Sheet Reason for Consult: lacunar infarct on ct History of Present Illness: Patient is a 73-year-old right-handed male came to the hospital by ambulance 2 days ago, 12/15/2023 at 2:55 PM for chest pain. As per EMS flowsheet when they arrived, patient was complaining of left-sided chest pain, that comes and goes, nonradiating, felt as if someone has punched him on the chest. Patient is pain- free at times. Patient stated that pain increased on movement palpation and deep breath during exam. Patient was alert and oriented x 3 with mild dementia history. Patient recently lost his daughter in a motor regular collision about a week ago. Patient's vitals at the scene was blood pressure 149/65, pulse rate 67 respiration 14 saturation 98%. Patient was diagnosed with acute inferior-STEMI. Started on heparin drip. Neurology was consulted for abnormal CT head. Blood test shows normal WBC, hemoglobin 7.5, PT PTT normal, CMP normal. Hepatic panel normal. Troponins elevated EKG shows sinus bradycardia. Chest x-ray showed mild bibasilar infiltrates, correlate for atelectasis or pneumonia. CT head revealed moderate age appropriate atrophy. 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 No acute bleed or mass effect. No interval change compared to previous. I personally reviewed CT head, agree with the findings. I compared CT head from 09/15/2023, and this caudate lacunar stroke was present back then as well. Patient denies any history of CVA. He does have a history of diabetes hypertension and started smoking since age 7, but went up to half pack per day since age 21. He still smokes. Denies any alcohol use drugs or marijuana. Patient denies any numbness tingling focal symptoms at this time either. Patient lives by himself he uses a cane or a walker because of imbalance. Patient's home medications include Brilinta 90 mg twice daily, Lipitor 20 mg, vitamin D, metformin. Review of Systems All pertinent positive and negatives mentioned in HPI otherwise unremarkable. Past Medical History Past Medical History: Asthma, COPD, Dementia, Diabetes Mellitus, Hyperlipidemia, Hypertension, Myocardial Infarction (DE), Rheumatoid Arthritis (RA), Sleep Apnea/CPAP/BIPAP Additional Past Medical History / Comment(s): family hx. colon cancer, non compliant with CPAP, pt states a recent fall at home 12/12/22 with injury to head Last Myocardial Infarction Date:: 01/2023 History of Any Multi-Drug Resistant Organisms: None Reported Past Surgical History: Cholecystectomy, Heart Catheterization With Stent, Hernia Repair, Orthopedic Surgery Additional Past Surgical History / Comment(s): Uvular sleep apnea, carpal tunnel surg., tarsal tunnel surg. for feet, cervical fusion Past Anesthesia/Blood Transfusion Reactions: No Reported Reaction Date of Last Stent Placement:: 01/2023 Past Psychological History: Anxiety, Bipolar Smoking Status: Current every day smoker Past Alcohol Use History: None Reported Additional Past Alcohol Use History / Comment(s): Smokes 1/2 PPD Past Drug Use History: None Reported - Past Family History Father Family Medical History: Cancer, COPD Additional Family Medical History / Comment(s): Father at age 81 from mesothelioma and COPD with history of brain cancer. Brother(s) Family Medical History: Coronary Artery Disease (CAD), Rheumatoid Arthritis (RA) Additional Family Medical History / Comment(s): One brother at age 40 from AIDS. Sister(s) Family Medical History: COPD, CVA/TIA Additional Family Medical History / Comment(s): One at age 70 from COPD. Daughter(s) Family Medical History: No Reported History Additional Family Medical History / Comment(s): Patient has 5 daughters with no major medical problems. Mother Family Medical History: Cancer Additional Family Medical History / Comment(s): Mother at age 79 from colon cancer. Medications and Allergies Home Medications Medication Instructions Recorded Confirmed Type Nitroglycerin Sl Tabs [Nitrostat] 0.4 mg SUBLINGUAL Q5M PRN #30 tab 02/22/23 12/15/23 Rx Super Vitamin B-Complex 1 tab PO DAILY@0800 09/15/23 12/15/23 History Ticagrelor [Brilinta] 90 mg PO BID@08,199909/15/23 12/15/23 History metFORMIN HCL [Glucophage] 500 mg PO BID-W/MEALS@09/15/23 12/15/23 History Atorvastatin [Lipitor] 20 mg PO HS@199912/15/23 12/15/23 History Cholecalciferol (Vitamin D3) 50 mcg PO DAILY@0800 12/15/23 12/15/23 History [Vitamin D3 (50 Mcg = 2000 Iu)] Triamcinolone 0.1% Cream [Kenalog 1 applicatio TOPICAL BID@0812/15/23 12/15/23 History 0.1% Cream] Allergies Allergy/AdvReac Type Severity Reaction Status Date / Time No Known Allergies Allergy Verified 12/15/23 16:44 Physical Examination - Vital Signs Vital Signs: Vital Signs Temp Pulse Pulse Pulse Resp BP BP 12/17/23 12:27 97.9 F 60 18 123/66 12/17/23 09:14 98.2 F 65 16 123/69 12/17/23 04:20 57 L 18 124/69 12/17/23 00:25 54 L 18 134/70 12/16/23 21:15 98.1 F 54 L 18 112/58 12/16/23 20:00 65 19 116/70 12/16/23 16:30 57 L 17 120/55 12/16/23 16:00 53 L 30 H 120/55 12/16/23 15:30 98.6 F 52 L 16 111/63 Pulse Ox 12/17/23 12:27 97 12/17/23 09:14 96 12/17/23 04:20 97 12/17/23 00:25 97 12/16/23 21:15 95 12/16/23 20:00 98 12/16/23 16:30 12/16/23 16:00 12/16/23 15:30 100 Intake and Output 12/16/23 12/17/23 12/17/23 22:59 06:59 14:59 Intake Total 250 Output Total 675 Balance -425 Intake: IV 10 Invasive Line 2 10 Oral 240 Output: Urine 675 Other: Voiding Method Urinal Urinal Urinal # Voids 1 2 Weight 76 kg 72.3 kg Patient is an elderly male, in no acute distress. Patient is alert awake. Patient states is the month of October and the year is --, could not completed. He knows it is a fall season and that he is in [facility] in [place]. He believes Ellis De Paz is the current president. Speech and language functions are normal. Patient can name and repeat very well. No aphasia or dysarthria. Attention, concentration is intact and fund of knowledge is slightly limited. On cranial nerve examination, pupils are equal, round and reacting to light, visual rivera are full on confrontation, with no neglect on double simultaneous stimulation. Patient has left lazy eye, with baseline left exotropia. Otherwise his extraocular muscles are intact with no nystagmus. Face is symmetric, tongue protrudes to the midline. Palatal elevation and sensation normal, hearing and shoulder shrug normal, facial sensation normal. On muscle strength testing, there is no pronator drift and the strength is normal in arms and legs distally and proximally. Deep tendon reflexes are symmetric and plantars downgoing. Sensory to touch is equal with no neglect on double simultaneous stimulation. Cerebellar function showed no ataxia for [id number] testing. No dysdiadochokinesia. No ataxia for [id number] testing on either side. Tone and bulk of muscles normal. Gait deferred.. On general examination, there is no carotid bruit or murmur, S1-S2 audible. Chest is clear on consultation. Abdomen is soft nontender. No organomegaly, bowel sounds present. Peripheral pulses are present. No peripheral edema. Results - Laboratory Findings CBC and BMP: 12/15/23 15:48 12/17/23 13:25 Abnormal Lab Findings: Abnormal Labs 12/15/23 12/15/23 12/15/23 15:48 15:48 15:48 RBC 5.92 H Hct 53.6 H Carbon Dioxide Creatinine Glucose 209 H POC Glucose (mg/dL) Hemoglobin A1c Troponin I 0.674 H* Total Protein 8.8 H Albumin 5.1 H 12/16/23 12/16/23 12/16/23 08:25 08:25 10:15 RBC Hct Carbon Dioxide Creatinine 0.55 L Glucose POC Glucose (mg/dL) Hemoglobin A1c 7.5 H Troponin I 18.400 H* Total Protein Albumin 12/16/23 12/17/23 12/17/23 21:09 06:10 11:48 RBC Hct Carbon Dioxide Creatinine Glucose POC Glucose (mg/dL) 130 H 142 H 232 H Hemoglobin A1c Troponin I Total Protein Albumin 12/17/23 13:25 RBC Hct Carbon Dioxide 31 H Creatinine Glucose 176 H POC Glucose (mg/dL) Hemoglobin A1c Troponin I Total Protein Albumin Assessment and Plan Assessment: * Abnormal CT head, with evidence of remote (old) lacunar infarct in the right caudate. This lacunar infarct was also present in the previous CT head on 09/02/2023 (however not seen on the CT head from 12/09/2022). * Mild cognitive impairment * Diabetes * Hypertension * Hyperlipidemia * Coronary artery disease * Rheumatoid arthritis * COPD * Sleep apnea * Bibasilar pulmonary infiltrates, suspicion for atelectasis versus pneumonia. * Tobacco use Plan: Patient CT head was reviewed. Patient has old lacunar stroke involving the right caudate nucleus. No acute process. Patient denies any acute neurological symptoms at this time. Recommend aggressive control of vascular risk factors as below. Carotid Doppler revealed atheromatous plaquing bilateral carotid bifurcation without significant flow-limiting stenosis. Antegrade flow in both vertebral arteries. 2D echo revealed LVEF 50% with inferior hypokinesis. Mildly dilated left atrium. Mild to moderate MR. Grade 1 diastolic dysfunction. Hemoglobin A1c 7.5. Recommend optimize control of diabetes to target A1c <7.0. Lipid panel with cholesterol 143, LDL 97, HDL 27 triglycerides 92, on 02/19/2023. Continue Lipitor 80 mg. Blood pressure is well-controlled. Recommend complete tobacco cessation. Patient currently on Brilinta 90 mg twice daily and aspirin 81 mg. Continue current medication regimen DVT prophylaxis: We will defer to IM. Neurologically, no other workup indicated. Please reconsult neurology if any other concerns. Thank you for the consult.
[2023-12-18] MEDS: FAMOTIDINE 20 MG TAB PO SCH (10:07)
[2023-12-18 11:27] LABS: Glucose,Whole Blood 120 mg/dL (70-110)
--- NOTE | 2023-12-18 12:11 | P.PN ---
Subjective Progress Note Date: 12/18/23 SUBJECTIVE: Patient seen and examined at bedside this a.m. He is doing well. His resting heart rate is in 50s. No reported passing out spells over the lightheadedness or dizziness. No reported chest pain. His right radial access site appears intact no concerns of bleeding hematoma PHYSICAL EXAMINATION Vital signs reviewed. Head: Normocephalic. Eyes: Sclerae nonicteric. Neck: Brisk carotid upstroke, no jugular venous distention. Lungs: Clear to auscultation. Heart: Regular rate and rhythm, S1-S2, no S3, no murmur or rub. Abdomen: Soft nontender, bowel sounds present, Extremities: No edema, Neuro: Alert, oriented, no focal neurological deficits. Detailed neuro exam was not performed. ASSESSMENT Inferior STEMI CAD status post PCI to RCA Mild to moderate MR Echo showed EF of 60%, grade 1 diastolic function, hypokinetic inferior wall, moderate left atrial dilatation, mild to moderate mitral regurgitation PLAN Continue aspirin statin, Brilinta 90 mg twice daily Will hold his beta-raheel because of his low resting heart rate which is running around in 50s. Blood pressure is well-controlled. Cardiac gannon he is okay to be discharged. Recommend outpatient follow-up with primary interpreter and translator in next 1 to 2 weeks. Recommend outpatient cardiac rehab Dean Paulson MD, FACC, RPVI Thank you for allowing [facility] to participate in this patient's care. Please contact us in case of any followup questions. Objective - Vital Signs Vital signs: Vital Signs Temp 97.8 F 12/18/23 12:00 Pulse 57 L 12/18/23 12:00 Resp 16 12/18/23 12:00 BP 127/71 12/18/23 12:00 Pulse Ox 97 12/18/23 12:00 FiO2 Intake & Output 12/17/23 12/18/23 12/18/23 18:59 06:59 18:59 Intake Total 250 Output Total 875 550 Balance -625 -550 Weight 71.8 kg Intake: IV 10 Invasive Line 2 10 Oral 240 Output: Urine 875 550 Other: Voiding Method Urinal Urinal Urinal # Voids 2 1 - Labs CBC & Chem 7: 12/15/23 15:48 12/17/23 13:25 Labs: Abnormal Lab Results - Last 24 Hours (Table) 12/17/23 12/17/23 12/17/23 Range/Units 13:25 16:27 20:37 Carbon Dioxide 31 H (22-30) mmol/L Glucose 176 H (74-99) mg/dL POC Glucose (mg/dL) 114 H 148 H (70-110) mg/dL 12/18/23 12/18/23 Range/Units 06:08 11:25 Carbon Dioxide (22-30) mmol/L Glucose (74-99) mg/dL POC Glucose (mg/dL) 116 H 120 H (70-110) mg/dL
--- NOTE | 2023-12-18 14:52 | P.PN ---
Subjective Progress Note Date: 12/18/23 Patient was seen for a follow-up. Patient's 3 sisters were present today. Patient states he is doing fine. Offers no complaints. No headache. Patient's family believes that his memory has been going downhill since 1-1/2 to 2 years,, getting slightly worse. No previous history of stroke. Objective - Vital Signs Vital signs: Vital Signs Temp 97.8 F 12/18/23 12:00 Pulse 57 L 12/18/23 12:00 Resp 16 12/18/23 12:00 BP 127/71 12/18/23 12:00 Pulse Ox 97 12/18/23 12:00 FiO2 Intake & Output 12/17/23 12/18/23 12/18/23 18:59 06:59 18:59 Intake Total 250 10 Output Total 875 550 275 Balance -055 -550 -695 Weight 71.8 kg Intake: IV 10 10 Invasive Line 2 10 10 Oral 240 Output: Urine 875 550 275 Other: Voiding Method Urinal Urinal Urinal # Voids 2 1 - Exam Unchanged. Patient is alert awake, very pleasant. - Labs CBC & Chem 7: 12/21/23 08:52 12/21/23 08:52 Labs: Abnormal Lab Results - Last 24 Hours (Table) 12/17/23 12/17/23 12/18/23 Range/Units 16:27 20:37 06:08 POC Glucose (mg/dL) 114 H 148 H 116 H (70-110) mg/dL 12/18/23 Range/Units 11:25 POC Glucose (mg/dL) 120 H (70-110) mg/dL Assessment and Plan Assessment: * Abnormal CT head, with evidence of remote (old) lacunar infarct in the right caudate. This lacunar infarct was also present in the previous CT head on 09/02/2023 (however not seen on the CT head from 12/09/2022). * Mild cognitive impairment * Diabetes * Hypertension * Hyperlipidemia * Coronary artery disease * Rheumatoid arthritis * COPD * Sleep apnea * Bibasilar pulmonary infiltrates, suspicion for atelectasis versus pneumonia. * Tobacco use Plan: Patient CT head was reviewed. Patient has old lacunar stroke involving the right caudate nucleus. This was present in the previous CT head as well. No acute process. Patient denies any acute neurological symptoms at this time. Recommend aggressive control of vascular risk factors as below. Carotid Doppler revealed atheromatous plaquing bilateral carotid bifurcation without significant flow-limiting stenosis. Antegrade flow in both vertebral arteries. 2D echo revealed LVEF 50% with inferior hypokinesis. Mildly dilated left atrium. Mild to moderate MR. Grade 1 diastolic dysfunction. Hemoglobin A1c 7.5. Recommend optimize control of diabetes to target A1c <7.0. Lipid panel with cholesterol 143, LDL 97, HDL 27 triglycerides 92, on 02/19/2023. Continue Lipitor 80 mg. Blood pressure is well-controlled. Recommend complete tobacco cessation. Patient currently on Brilinta 90 mg twice daily and aspirin 81 mg. Continue current medication regimen DVT prophylaxis: We will defer to IM. B12 413, folate 6.10, normal. Patient has cognitive impairment. Recommend patient follow-up with neurologist as an outpatient to evaluate for cognitive impairment and to consider for cognitive enhancing medication. Discussed with patient's family. Neurologically, no other workup indicated. Please reconsult neurology if any other concerns.
--- NOTE | 2023-12-18 15:33 | P.PN ---
Subjective This is a pleasant 73 years old male with past medical history of multiple medical problems Patient presents from assisted living home with chest pain, patient was found to have inferior STEMI, he underwent emergent PCI to RCA with cardiology team Postoperatively patient went to the ICU where he is seen and examined, he is awake but have severe memory problem, also he is somewhat confused. He has no insight. But looks calm. Per staff his daughter about 2 weeks ago and he does not realize that, when I asked him to talk to his family he told me his daughter Sangita, I called the number in the chart and it is disconnected and then I called the other number for his niece Aneglica and I left a message to call back. Currently patient denies chest pain or dyspnea. No abdominal pain or urinary complaint, he had some denies this before but currently he is not feeling dizzy, no headache weakness or numbness. He is afebrile and vital stable Labs reviewed and was unremarkable except for mildly elevated troponin at 0.[address] elevation in inferior leads Chest x-ray showing mild bibasilar infiltrate which could be atelectasis versus infection. He is on normal saline 75 mL/h and aspirin and Brilinta 12/17/2023 Patient is not significantly tachypneic, he remains on IV Lasix, his creatinine stable today. Will keep him for another 24 hours and we can switch him to oral dose tomorrow Neurology is following for his confusion, is informed close chronic and looks more dementia than delirium or encephalopathy He remains on aspirin and Brilinta with no other new complaint or chest pain 12/17 Patient looks less confused and forgetful than when he came in He is sitting up in bed but he is more emotional as his sister came from out of state from [place] and [place] No other new complaint CT scan reviewed with the neurologist, it is chronic lacunar infarct Patient already on dual antiplatelet therapy It looks cardiology team are going to clear the patient to go home Objective - Vital Signs Vital signs: Vital Signs Temp 97.8 F 12/18/23 12:00 Pulse 57 L 12/18/23 12:00 Resp 16 12/18/23 12:00 BP 127/71 12/18/23 12:00 Pulse Ox 97 12/18/23 12:00 FiO2 Intake & Output 12/17/23 12/18/23 12/18/23 18:59 06:59 18:59 Intake Total 250 10 Output Total 875 550 275 Balance -625 -550 -265 Weight 71.8 kg Intake: IV 10 10 Invasive Line 2 10 10 Oral 240 Output: Urine 875 550 275 Other: Voiding Method Urinal Urinal Urinal # Voids 2 1 - Exam -GENERAL: The patient is alert and awake but confused which looks at baseline, not in any acute distress. Well developed, well nourished. HEENT: Pupils are round and equally reacting to light. EOMI. No scleral icterus. No conjunctival pallor. Normocephalic, atraumatic. No pharyngeal erythema. No thyromegaly. CARDIOVASCULAR: S1 and S2 present. No murmurs, rubs, or gallops. PULMONARY: Chest is clear to auscultation, no wheezing , no crackles. ABDOMEN: Soft, nontender, nondistended, normoactive bowel sounds. No palpable organomegaly. MUSCULOSKELETAL: No joint swelling or deformity. EXTREMITIES: No cyanosis, clubbing, or pedal edema. NEUROLOGICAL: Gross neurological examination did not reveal any focal deficits. SKIN: No rashes. no petechiae. - Labs CBC & Chem 7: 12/15/23 15:48 12/17/23 13:25 Labs: Abnormal Lab Results - Last 24 Hours (Table) 12/17/23 12/17/23 12/18/23 Range/Units 16:27 20:37 06:08 POC Glucose (mg/dL) 114 H 148 H 116 H (70-110) mg/dL 12/18/23 Range/Units 11:25 POC Glucose (mg/dL) 120 H (70-110) mg/dL Assessment and Plan Assessment: Acute inferior STEMI status post PCI to RCA Altered mental status most likely dementia, will order CT of the brain to rule out acute intracranial lesions Bibasilar pulmonary infiltrates suspicious for atelectasis versus pneumonia Plan: Cardiology team on the case and he was started on dual antiplatelet therapy with aspirin and Brilinta Continue with the rest of cardiac medication We will order CT of the brain especially he is on antiplatelets medication Cardiology team following closely I tried to call the family and left a message Labs and medication were reviewed.. Continue same treatment. Continue with symptomatic treatment. Resume home medication. Monitor labs and vitals. DVT and GI prophylaxis. Further recommendations as per clinical course of the patient DVT prophylaxis: Aspirin and Brilinta GI Prophylaxis: Pepcid PT/OT: Pending Prognosis is guarded
[2023-12-18 16:31] LABS: Glucose,Whole Blood 204 mg/dL (70-110)
[2023-12-18] MEDS: ALPRAZolam 0.25 MG TAB PO STA (17:12)
[2023-12-18] MEDS: NICOTINE 14MG/24HR PATCH TRANSDERM SCH (18:18)
[2023-12-18 20:15] LABS: Glucose,Whole Blood 160 mg/dL (70-110)
[2023-12-18] MEDS: ATORVASTATIN 40 MG TAB PO SCH (20:33)
[2023-12-19] MEDS: ALPRAZolam 0.25 MG TAB PO PRN (01:37)
[2023-12-19 06:17] LABS: Glucose,Whole Blood 109 mg/dL (70-110)
[2023-12-19 12:07] LABS: Glucose,Whole Blood 141 mg/dL (70-110)
--- NOTE | 2023-12-19 13:05 | P.GSCN ---
History of Present Illness Consult date: 12/19/23 Reason for Consult: Gross hematuria Requesting physician: Delicia Amin History of present illness: The patient is a 73-year-old white male admitted December 15, 2023 with chest pain. He underwent PTCA with stenting. His family indicates that his memory has become progressively impaired over the past couple of years. Overnight, his nurse noted bleeding at the end of micturition. The patient is unable to provide any history. Specifically, he is unable to state whether or not he has any remarkable urologic history, or whether or not he has had previous episodes of hematuria. He is accompanied by his sisters, who are unable to provide any history and reinforced the fact that the patient is unable to provide any history as well. Review of Systems ROS unobtainable: due to mental status Past Medical History Past Medical History: Asthma, COPD, Dementia, Diabetes Mellitus, Hyperlipidemia, Hypertension, Myocardial Infarction ([place]), Rheumatoid Arthritis (RA), Sleep Apnea/CPAP/BIPAP Additional Past Medical History / Comment(s): family hx. colon cancer, noncompliant with CPAP, pt states a recent fall at home 12/12/22 with injury to head Last Myocardial Infarction Date:: 01/2023 History of Any Multi-Drug Resistant Organisms: None Reported Past Surgical History: Cholecystectomy, Heart Catheterization With Stent, Hernia Repair, Orthopedic Surgery Additional Past Surgical History / Comment(s): Uvular sleep apnea, carpal tunnel surg., tarsal tunnel surg. for feet, cervical fusion Past Anesthesia/Blood Transfusion Reactions: No Reported Reaction Date of Last Stent Placement:: 01/2023 Past Psychological History: Anxiety, Bipolar Smoking Status: Current every day smoker Past Alcohol Use History: None Reported Additional Past Alcohol Use History / Comment(s): Smokes 1/2 PPD Past Drug Use History: None Reported - Past Family History Father Family Medical History: Cancer, COPD Additional Family Medical History / Comment(s): Father at age 81 from mesothelioma and COPD with history of brain cancer. Brother(s) Family Medical History: Coronary Artery Disease (CAD), Rheumatoid Arthritis (RA) Additional Family Medical History / Comment(s): One brother at age 40 from AIDS. Sister(s) Family Medical History: COPD, CVA/TIA Additional Family Medical History / Comment(s): One at age 70 from COPD. Daughter(s) Family Medical History: No Reported History Additional Family Medical History / Comment(s): Patient has 5 daughters with no major medical problems. Mother Family Medical History: Cancer Additional Family Medical History / Comment(s): Mother at age 79 from colon cancer. Medications and Allergies Home Medications Medication Instructions Recorded Confirmed Type Nitroglycerin Sl Tabs [Nitrostat] 0.4 mg SUBLINGUAL Q5M PRN #30 tab 02/22/23 12/15/23 Rx Super Vitamin B-Complex 1 tab PO DAILY@0800 09/15/23 12/15/23 History Ticagrelor [Brilinta] 90 mg PO BID@08,199909/15/23 12/15/23 History metFORMIN HCL [Glucophage] 500 mg PO BID-W/MEALS@,09/15/23 12/15/23 History Atorvastatin [Lipitor] 20 mg PO HS@199912/15/23 12/15/23 History Cholecalciferol (Vitamin D3) 50 mcg PO DAILY@0800 12/15/23 12/15/23 History [Vitamin D3 (50 Mcg = 2000 Iu)] Triamcinolone 0.1% Cream [Kenalog 1 applicatio TOPICAL BID@0800,199912/15/23 12/15/23 History 0.1% Cream] Allergies Allergy/AdvReac Type Severity Reaction Status Date / Time No Known Allergies Allergy Verified 12/15/23 16:44 Surgical - Exam Vital Signs Temp Pulse Resp BP Pulse Ox 98.4 F 64 20 124/72 98 12/15/23 15:11 12/15/23 15:11 12/15/23 15:11 12/15/23 15:11 12/15/23 15:11 - General well developed, well nourished, no distress - Respiratory normal respiratory effort Results - Labs 12/15/23 15:48 12/17/23 13:25 Abnormal Lab Results - Last 24 Hours (Table) 12/18/23 12/18/23 12/18/23 Range/Units 11:25 16:29 20:12 POC Glucose (mg/dL) 120 H 204 H 160 H (70-110) mg/dL Assessment and Plan (1) Gross hematuria Current Visit: Yes Status: Acute Code(s): R31.0 - GROSS HEMATURIA SNOMED Code(s): 356095593 Plan: Per the patient's overnight nurse, the patient had an episode of hematuria involving the terminal portion of his urinary stream. He has not been catheterized during this hospitalization. He is currently receiving Brilinta. I have ordered urinalysis as an initial step of his evaluation.
--- NOTE | 2023-12-19 14:03 | P.PN ---
Subjective Progress Note Date: 12/19/23 SUBJECTIVE: Patient seen and examined at bedside this a.m. He is doing well. His resting heart rate is in 50s. No reported passing out spells over the lightheadedness or dizziness. No reported chest pain. His right radial access site appears intact no concerns of bleeding hematoma 12/18 Patient seen and examined. Patient denies shortness of breath. He occasionally has chest pain. He states he has dizziness and lightheadedness. Blood pressure 112/59, heart rate 72, pulse ox 93% on room air. No repeat blood work today. PHYSICAL EXAMINATION Vital signs reviewed. Head: Normocephalic. Eyes: Sclerae nonicteric. Neck: Brisk carotid upstroke, no jugular venous distention. Lungs: Clear to auscultation. Heart: Regular rate and rhythm, S1-S2, no S3, no murmur or rub. Abdomen: Soft nontender, bowel sounds present, Extremities: No edema, Neuro: Alert, oriented, no focal neurological deficits. Detailed neuro exam was not performed. ASSESSMENT Inferior STEMI CAD status post PCI to RCA Mild to moderate MR Echo showed EF of 60%, grade 1 diastolic function, hypokinetic inferior wall, moderate left atrial dilatation, mild to moderate mitral regurgitation PLAN Continue aspirin, statin, Brilinta 90 mg twice daily Will hold his beta-raheel because of his low resting heart rate which is r unning around in 50s. Obtain orthostatic vital signs Nurse practitioner note has been reviewed, I agree with documented findings and plan of care. Patient was seen and examined. Objective - Vital Signs Vital signs: Vital Signs Temp 98.6 F 12/18/23 19:45 Pulse 60 12/19/23 04:00 Resp 16 12/19/23 04:00 BP 133/62 12/19/23 04:00 Pulse Ox 93 L 12/19/23 04:00 FiO2 Intake & Output 12/18/23 12/19/23 12/19/23 18:59 06:59 18:59 Intake Total 10 20 240 Output Total 475 Balance -465 20 240 Weight 71 kg Intake: IV 10 20 Invasive Line 2 10 20 Oral 240 Output: Urine 475 Other: Voiding Method Urinal Urinal # Bowel Movements 0 - Labs CBC & Chem 7: 12/15/23 15:48 12/17/23 13:25 Labs: Abnormal Lab Results - Last 24 Hours (Table) 12/18/23 12/18/23 12/18/23 Range/Units 11:25 16:29 20:12 POC Glucose (mg/dL) 120 H 204 H 160 H (70-110) mg/dL
--- NOTE | 2023-12-19 14:44 | P.CN ---
Psychiatric Consult - . Consult date: 12/19/23 Consult:: 12/19/23 14:05 IDENTIFYING DATA: This patient is a 73-year-old male, he is a , he has a guardian and he lives in assisted living. REASON FOR REFERRAL: Psychiatry was consulted for "emotional outbursts" HISTORY OF PRESENT ILLNESS: The patient presented to the hospital initially on 12/14 for chest pain, was brought in by EMS. Patient apparently has a history of dementia according to ER report and was a poor historian as well. He apparently has been going through the sudden of his daughter recently and has been dealing with more stress and grief. He was found to have a STEMI, also found to be more emotional while in the hospital. Patient had a CT scan of his brain which showed lacunar infarcts. Nurse claims that patient has had on and off sleep, appetite has been fair. Patient was seen today by lyric writer at the bedside he was awoken easily. He correctly identified his name and age knew he was in [facility], he believes that it was "the end of November" and did not know today's year. He claims that he had a fall before coming into the hospital, was fairly vague about what had occurred concrete, evasive. Does state that he has some mild depression at times, admits to mild anxiety as well. He denies any suicidal thoughts at this time. He claims that his sleep and appetite are fair. At this time patient denies any suicidal or homical ideations, intent or plan. Patient denies any auditory, visual hallucinations and denies any paranoia or delusions. Patients admits to using no recreational drugs, does use cigarettes. PAST PSYCHIATRIC HISTORY: Patient has a a history of dementia apparently. Patient denies being on any psychiatric medications. Patient denies any previous psychiatric hospitalizations. Patient denies any psychiatric outpatient follow-up. Patient denies any history of suicide attempts in the past. PAST MEDICAL HISTORY:Past Medical History: Asthma, COPD, Dementia, Diabetes Mellitus, Hyperlipidemia, Hypertension, Myocardial Infarction ([place]), Rheumatoid Arthritis (RA), Sleep Apnea/CPAP/BIPAP Additional Past Medical History / Comment(s): family hx. colon cancer, noncompliant with CPAP, pt states a recent fall at home 12/12/22 with injury to head Last Myocardial Infarction Date:: 01/2023 History of Any Multi-Drug Resistant Organisms: None Reported Past Surgical History: Cholecystectomy, Heart Catheterization With Stent, Hernia Repair, Orthopedic Surgery Additional Past Surgical History / Comment(s): Uvular sleep apnea, carpal tunnel surg., tarsal tunnel surg. for feet, cervical fusion Past Anesthesia/Blood Transfusion Reactions: No Reported Reaction Date of Last Stent Placement:: 01/2023 Past Psychological History: Anxiety, Bipolar Smoking Status: Current every day smoker Past Alcohol Use History: None Reported Past Drug Use History: None Reported ALLERGIES: as per EMR. CHEMICAL DEPENDENCY HISTORY: as per HPI. FAMILY PSYCHIATRIC/SUBSTANCE USE HISTORY: Denies SOCIAL HISTORY: Patient was born and raised in [facility]. Claims that he completed college. States that he served 21 years in the . Denies any legal history. States that he currently lives in a assisted living home he has a guardian, he is a . MENTAL STATUS EXAM: General Appearance: Patient appears to be thin, stated age is alert, vague and evasive. Patient appears to have fair hygiene and grooming wearing hospital gown with fair eye contact. Behavior: Patient is calmly lying in bed without any agitated behavior. Evasive. Mildly irritable Speech: Patient's speech is fluent and nonpressured. [place], vague Mood/Affect: Patient reports their mood is "depressed a bit", affect is congruent Suicidality/Homicidality: Patient denies having any suicidal or homicidal ideation intent or plan. Perceptions: Patient denies any visual hallucinations and denies any auditory hallucinations Though content/process: There is no evidence of any delusional thought content and thought process is linear and goal-directed. [place], poverty of content Memory and concentration: AOX3, grossly intact for the purposes of this session. Can spell "WORLD" backwards Judgment and insight: Chronically limited IMPRESSIONS: Neurocognitive disorder unspecified Mood disorder unspecified Nicotine dependence PLAN: -At this time patient DOES NOT meet criteria for inpatient psychiatric admission. -Patient DOES NOT have decision making capacity at this time and is unable to reason through and communicate/appreciate the risks, benefits and alternatives to treatment. -Delirium precautions recommended with patient including - avoiding use of narcotics and HEADRIG SAWYER sedatives, limit anticholinergic medications when possible, frequent re-orientation, minimize use of restraints, open window shades during the day and close them at night -Would recommend the following medication changes/additions: Discontinue Ambien at this time, please use Xanax cautiously. Start Seroquel 12.5 mg nightly for mood stabilization/insomnia, this can be increased to 25 mg nightly if patient is not sleeping after 1 to 2 days with this dose. Start Lexapro 5 mg nightly for mood/anxiety. -ornamental iron worker to provide patient with outpatient mental health/psychiatry resources for appropriate follow up upon discharge -Communicated plan to patient's nurse -Psychiatry will sign off at this time -Please contact with any questions. 12/19/23 14:39
[2023-12-19 16:39] LABS: Glucose,Whole Blood 209 mg/dL (70-110)
[2023-12-19 20:27] LABS: Glucose,Whole Blood 223 mg/dL (70-110)
[2023-12-19] MEDS: ESCITALOPRAM 5 MG TAB PO SCH (20:53)
[2023-12-19] MEDS: QUEtiapine 25 MG TAB PO SCH (20:53)
[2023-12-20 00:11] LABS: Appearance,Urine Clear (Clear); Bilirubin,Urine Negative (Negative); Blood,Urine Negative (Negative); Color,Urine Yellow; Glucose,Urine (UA) 1+ (Negative); Ketones,Urine Negative (Negative); Leukocyte Esterase,Urine Negative (Negative); Nitrite,Urine Negative (Negative); Protein,Urine Trace (Negative); Specific Gravity,Urine 1.024 (1.001-1.035)
--- NOTE | 2023-12-20 05:53 | PN ---
PROGRESS NOTE A 73-year-old white male, admitted with a non STEMI. He is on Xanax, aspirin, Lipitor, Lexapro, Pepcid, nicotine patch, Protonix, Brilinta, Seroquel. The patient had a psychiatric evaluation and surgical evaluation today at Dr. Tapia' recommendation. He does not have any decision making capacity at this time. He is unable to reason to communicate treatment, delirium precautions. They are going to discontinue his Ambien, Xanax p.r.n. Start Seroquel for mood stability, insomnia, start Lexapro. Bid Clerk set up outpatient psych care. Dr. Alexandre saw the patient today. Dr. Alexandre' recommendation is, the patient appears to have hematuria involving the terminal portion of the urinary stream. He has not been catheterized in the hospital where he was receiving Brilinta. Continue with urinalysis. Prognosis guarded. Please see further orders. MMODL / IJN: [id number] /
[2023-12-20 06:06] LABS: Glucose,Whole Blood 120 mg/dL (70-110)
--- NOTE | 2023-12-20 10:05 | P.PN ---
Subjective Progress Note Date: 12/20/23 Principal diagnosis: Hematuria The patient denies hematuria, but is not known to be a reliable historian. He denies voiding difficulty. Objective - Vital Signs Vital signs: Vital Signs Temp 97.3 F L 12/20/23 05:00 Pulse 64 12/20/23 05:00 Resp 16 12/20/23 05:00 BP 135/67 12/20/23 05:00 Pulse Ox 94 L 12/20/23 05:00 FiO2 Intake & Output 12/19/23 12/20/23 12/20/23 18:59 06:59 18:59 Intake Total 720 10 Output Total 400 300 Balance 320 -290 Weight 71.2 kg Intake: IV 10 Invasive Line 3 10 Oral 720 Output: Urine 400 300 Other: Voiding Method Urinal Urinal - Constitutional General appearance: Present: average body habitus, cooperative - Labs CBC & Chem 7: 12/15/23 15:48 12/17/23 13:25 Labs: Abnormal Lab Results - Last 24 Hours (Table) 12/19/23 12/19/23 12/19/23 Range/Units 12:03 16:36 20:24 POC Glucose (mg/dL) 141 H 209 H 223 H (70-110) mg/dL Urine Protein (Negative) Urine Glucose (UA) (Negative) 12/20/23 12/20/23 Range/Units 00:00 06:05 POC Glucose (mg/dL) 120 H (70-110) mg/dL Urine Protein Trace H (Negative) Urine Glucose (UA) 1+ H (Negative) Assessment and Plan (1) Gross hematuria Current Visit: Yes Status: Acute Code(s): R31.0 - GROSS HEMATURIA SNOMED Code(s): 691547375 Plan: Per the patient's nurse, no hematuria has been identified. Urinalysis shows no evidence of hematuria. I do not feel that any further evaluation is warranted at this time, but would be glad to reevaluate Mr. Oneill if there is future evidence of hematuria.
[2023-12-20 11:54] LABS: Glucose,Whole Blood 139 mg/dL (70-110)
[2023-12-20 17:03] LABS: Glucose,Whole Blood 214 mg/dL (70-110)
[2023-12-20 20:12] LABS: Glucose,Whole Blood 73 mg/dL (70-110)
[2023-12-20 21:25] LABS: Glucose,Whole Blood 153 mg/dL (70-110)
[2023-12-21 05:57] LABS: Glucose,Whole Blood 117 mg/dL (70-110)
[2023-12-21 09:42] LABS: Basophils # (A) 0.1 k/uL (0-0.2); Basophils % (A) 1 %; Eosinophils # (A) 0.4 k/uL (0-0.7); Eosinophils % (A) 3 %; HCT 43.9 % (39.0-53.0); HGB 14.9 gm/dL (13.0-17.5); Lymphocytes # (A) 2.6 k/uL (1.0-4.8); Lymphocytes % (A) 19 %; MCH 29.7 pg (25.0-35.0); MCV 87.2 fL (80.0-100.0); Mean Platelet Volume 8.5; Monocytes # (A) 0.9 k/uL (0-1.0); Monocytes % (A) 6 %; Neutrophils # (A) 9.7 k/uL (1.3-7.7); Neutrophils % (A) 70 %; Platelet Count 228 k/uL (150-450); RBC 5.03 m/uL (4.30-5.90); RDW 13.6 % (11.5-15.5); WBC 13.9 k/uL (3.8-10.6)
[2023-12-21 10:03] LABS: ALT 22 U/L (4-49); AST 24 U/L (17-59); African American GFR (CKD) >90 (>60 ml/min/1.73 sqM); Albumin 3.6 g/dL (3.5-5.0); Alkaline Phosphatase 83 U/L (38-126); Anion Gap 7 mmol/L; Blood Urea Nitrogen 15 mg/dL (9-20); Calcium 8.8 mg/dL (8.4-10.2); Carbon Dioxide 27 mmol/L (22-30); Chloride 103 mmol/L (98-107); Glucose 139 mg/dL (74-99); Non-African American GFR(CKD) >90 (>60 ml/min/1.73 sqM); Potassium 4.1 mmol/L (3.5-5.1); Sodium 137 mmol/L (137-145); Total Protein 6.4 g/dL (6.3-8.2)
[2023-12-21 11:44] LABS: Glucose,Whole Blood 215 mg/dL (70-110)
--- NOTE | 2023-12-21 11:47 | PN ---
PROGRESS NOTE 73-year-old white male who has had altered mental status and some confusion. Seen by Psychiatry who adjusted medications. OBJECTIVE: VITAL SIGNS: Blood pressure is 120s to 140s over 60s to 70s, temp 97-98, pulse 60s, respiratory rate 16-18. CARDIOVASCULAR: S1-S2. LUNGS: Transmitted upper sounds. GI: Soft. HEMATOLOGY: Negative Homans. PSYCH: Fair mood and affect. Hemoglobin 17.5, hematocrit 53.6. Sugars 100s to 200s. He is confused at times. Neurology consultation was reviewed. Surgical consultation for hematuria was reviewed. Psychiatry seen him yesterday, Dr. Tapia who recommended neurocognitive disorder, mood disorder, nicotine dependence, most likely has history of COPD. We are going to give him nebulizer treatment, GERD precautions. CAT scan of his lungs. Continue current rehab. Prognosis guarded. Possibly go to rehab center soon. Please see further orders. MMODL / IJN: [id number] /
[2023-12-21] MEDS: IPRATROPIUM-ALBUTEROL 3 ML NEB INHALATION SCH (13:13)
--- NOTE | 2023-12-21 14:03 | CT ---
EXAMINATION TYPE: CT chest wo con CT DLP: 300.6 mGycm, Automated exposure control for dose reduction was used. DATE OF EXAM: 12/21/2023 12:53 PM COMPARISON: Chest radiograph 12/16/2023, CTA chest 08/04/2019 CLINICAL INDICATION:Male, 73 years old with history of dyspnea; PHH, Dyspnea TECHNIQUE: Multiple axial images were obtained through the chest without IV contrast. Lack of IV or o ral contrast limits evaluation of solid and hollow organ viscera. . Coronal and sagittal reformats re viewed. FINDINGS: LUNGS/ PLEURA: No pneumothorax or pleural effusion. Stable scattered peripheral reticular interstitia l changes. Emphysematous changes renal shadow. No focal consolidation. Minimal left lower lobe linear scar atelectasis. Stable solid posterior right upper lobe 1.1 cm solid pulmonary nodule abutting th e pleura (series 205, image 17). Stable right lower lobe 0.9 cm solid pulmonary nodule (series 205 im age 37). Stable pleural-based right lower lobe 1 cm subpleural nodule (series 205, image 35). No new or enlarging pulmonary nodules. AIRWAY: Patent and unremarkable.. HEART: Size within normal limits. No pericardial effusion. Severe coronary calcifications. MEDIASTINUM: No gross evidence of adenopathy. VASCULATURE: No aortic aneurysm. Mild atherosclerotic calcification of the aorta and its branches MUSCULOSKELETAL: Healing nondisplaced right-sided fourth, fifth, eighth, ninth, 10th, and 11th rib fr actures with callus formation. Fracture line is still visible involving the 11th rib. Partial visuali zation of anterior cervical fusion hardware. Multilevel degenerative disc disease. SOFT TISSUES/LYMPH NODES: Unremarkable. LOWER NECK: No significant findings. UPPER ABDOMEN: Gallbladder is surgically absent. Left renal 3.1 cm cyst, previously 2.4 cm. IMPRESSION: 1. No CT evidence for an acute thoracic process. 2. Similar emphysematous and interstitial fibrotic changes. 3. Few stable pulmonary nodules dating back to 08/04/2019, considered benign. 4. Healing right-sided rib fractures. [facility], , 12/21/2023 2:01 PM
[2023-12-21 16:47] LABS: Glucose,Whole Blood 149 mg/dL (70-110)
[2023-12-21 20:02] LABS: Glucose,Whole Blood 175 mg/dL (70-110)
--- NOTE | 2023-12-22 05:23 | PN ---
PROGRESS NOTE SUBJECTIVE: The patient was cleared by Nephrology. He is going to possibly go to rehab center. Generalized weakness, and brain fog. CAT scan shows multiple pulmonary nodules. OBJECTIVE: VITAL SIGNS: Temperature 98, pulse 77, respiratory rate 16 to 18, blood pressure 123/66, saturating 93% to 94% on room air. CARDIOVASCULAR: S1, S2. LUNGS: Transmitted upper sounds. Scattered wheeze. HEMATOLOGY: Negative Homans. PSYCH: Fair mood and affect. Start him on breathing treatments. Possibly go to the rehab center in the next couple of days. Continue on current treatment for his breathing treatments for COPD. Cardiology cleared him. Possibly discharge home or to rehab center whenever they can sort it out. Prognosis guarded. MMODL / IJN: [id number] /
[2023-12-22 06:08] LABS: Glucose,Whole Blood 118 mg/dL (70-110)
[2023-12-22 11:13] VITALS: BP 122/68; PULSE 60; RESP 18; TEMP 97.8
[2023-12-22 11:44] LABS: Glucose,Whole Blood 176 mg/dL (70-110)
--- NOTE | 2023-12-22 13:32 | DS ---
DISCHARGE SUMMARY DISCHARGE DIAGNOSES: 1. Gross hematuria. 2. Acute ST elevation myocardial infarction. 3. Chronic obstructive pulmonary disease with asthma. 4. Aggressive behavior, possible cognitive delay. 5. Nicotine addiction use. MEDICATIONS: 1. Nicotine patch 14 mg daily. 2. Protonix 40 before meals daily. 3. Aspirin 81 daily. 4. Lexapro 5 mg daily. 5. Lipitor 40 mg daily at night. 6. Pepcid 20 mg b.i.d. 7. Seroquel 12.5 at bedtime. 8. Brilinta 90 mg b.i.d. 9. Nitrostat sublingual p.r.n. for pain. 10.Metformin 500 b.i.d. 11.Kenalog cream topical p.r.n. 12.Vitamin D3 of 2000 international units daily. 13.He is also on DuoNeb breathing treatments 3 times a day. CONDITION: Stable. PROGNOSIS: Guarded. Ambulate as tolerated. Physical Therapy, Cardiology had seen him as well as Psychiatry. Psychiatry put him on some medications for anxiety and depression. He was started on DuoNeb treatments for his COPD. He will stay on them long-term at the [facility]. Continue current treatments otherwise. Cardiology cleared him for discharge. He was cleared by Psychiatry also for discharge. Sugars have been run in mid 100s on Metformin. Stay on that for diabetes. He can get an 1800 calorie ADA diet. PT as tolerated. Follow up as an outpatient. He is cleared by Hematology for any dysuria and hematuria. Everybody cleared him for discharge. Follow up as an outpatient. MMODL / IJN: [id number] /
[2023-12-22] MEDS: IPRATROPIUM-ALBUTEROL 3 ML NEB INHALATION SCH (14:16)
[2023-12-29 03:24] LABS: Glucose,Whole Blood 139 mg/dL (70-110)
[2023-12-29 03:24] LABS: Glucose,Whole Blood 172 mg/dL (70-110)
[2023-12-29 03:24] LABS: Glucose,Whole Blood 242 mg/dL (70-110)
== END 2023-12-22 16:01 | DRG 322 ==
LOC: EC 14:55 → EEVIPCON 16:21 → 2SICU 16:21 → 3SCARD 12-16 21:38
PROVIDERS: ADMIT Family Medicine; ATTEND Family Medicine
PROC: 4A023N7 Measurement of Cardiac Sampling and Pressure, Left Heart, Percutaneous Approach (ICD-10-PCS; 2023-12-15)
PROC: 027034Z Dilation of Coronary Artery, One Artery with Drug-eluting Intraluminal Device, Percutaneous Approach (ICD-10-PCS; principal; 2023-12-15 16:42)
PROC: B2111ZZ Fluoroscopy of Multiple Coronary Arteries using Low Osmolar Contrast (ICD-10-PCS; 2023-12-15 16:42)
PROC: B241ZZ3 Ultrasonography of Multiple Coronary Arteries, Intravascular (ICD-10-PCS; 2023-12-15 16:42)
DX: I21.19 ST elevation (STEMI) myocardial infarction involving other coronary artery of inferior wall (principal); F03.A3 Unspecified dementia, mild, with mood disturbance; F03.A4 Unspecified dementia, mild, with anxiety; I25.10 Atherosclerotic heart disease of native coronary artery without angina pectoris; D75.1 Secondary polycythemia; E11.9 Type 2 diabetes mellitus without complications; F31.9 Bipolar disorder, unspecified; I10 Essential (primary) hypertension; E78.5 Hyperlipidemia, unspecified; M06.9 Rheumatoid arthritis, unspecified; G47.30 Sleep apnea, unspecified; J44.89 Other specified chronic obstructive pulmonary disease; R31.0 Gross hematuria; I34.0 Nonrheumatic mitral (valve) insufficiency; F17.210 Nicotine dependence, cigarettes, uncomplicated; I25.2 Old myocardial infarction; Z86.73 Personal history of transient ischemic attack (TIA), and cerebral infarction without residual deficits; Z79.84 Long term (current) use of oral hypoglycemic drugs; Z79.82 Long term (current) use of aspirin; Z79.02 Long term (current) use of antithrombotics/antiplatelets; Z79.899 Other long term (current) drug therapy; Z63.4 Disappearance and death of family member; Z82.49 Family history of ischemic heart disease and other diseases of the circulatory system; Z82.3 Family history of stroke
CPT/HCPCS: 36415; 70450; 71045; 71046; 71250; 80048; 80053; 81003; 82565; 82607; 82746; 83036; 83735; 83880; 84145; 84484; 85025; 85610; 85730; 92978; 93005; 93306; 93458; 93880; 94640; 94760; 96374; 99291